=== PATIENT | female | born 1960 | race Caucasian/White ===

== ENCOUNTER → 2017-08-12 07:04 | Outpatient (CLI) | payer OTHER, SELFPAY ==
[2017-08-12 08:21] LABS: Erythrocyte Sedimentation Rate 65 mm/hr (0-30)
[2017-08-12 08:52] LABS: ALB/GLOB Ratio 0.7 RATIO (0.9-2.4); AST(SGOT) 102 U/L (15-37); Alanine Aminotransfer ALT/SGPT 90 U/L (13-56); Albumin, Serum 3.4 g/dL (3.2-5.0); Alkaline Phosphatase 148 U/L (45-117); Anion Gap 9 (5-15); BUN 14 mg/dL (7-18); BUN/Creat Ratio 18.6 RATIO (10-20); Calcium,Total 8.8 mg/dL (8.5-10.1); Chloride 104 mmol/L (98-107); Cholesterol 211 mg/dL (200); Creatinine, Serum 0.75 mg/dL (0.55-1.02); EST Glomerular Filtration Rate 85 mL/min (>60); Est Glom Filt Rate - Afr Amer 102 mL/min (>60); Globulin 4.8 g/dL (2.2-4.2); Glucose 115 mg/dL (70-110); High Density Lipoprotein 65 mg/dL; Potassium 4.2 mmol/L (3.5-5.1); Protein, Total 8.2 g/dL (6.4-8.2); Sodium Level 138 mmol/L (136-145); Thyroid Stim Hormone (TSH) 6.35 uIU/mL (0.358-3.74); Triglycerides 99 mg/dL; Very Low Density Lipoprotein 20 mg/dL (5-40)
[2017-08-13 07:46] LABS: Hep C Antibodies <0.1 s/co ratio (0.0-0.9)
[2017-08-13 14:25] LABS: ANTINUCLEAR ANTIBODIES DIRECT Positive (Negative)
== END ==
PROVIDERS: Family Provider Family Medicine; PCP Family Medicine; Visit Provider Family Medicine
DX: E03.9 Hypothyroidism, unspecified (principal); E78.2 Mixed hyperlipidemia
CPT/HCPCS: 36415; 80053; 80061; 84443; 85652; 86038; 86803

== ENCOUNTER → 2017-09-01 13:32 | Outpatient (CLI) | payer OTHER, SELFPAY ==
--- NOTE | 2017-09-01 13:34 | US_ITS ---
STUDY: THYROID ULTRASOUND REASON FOR EXAM: Female, 57 years old. Hypothyroidism. Multiple nodules. TECHNIQUE: Ultrasound evaluation of the thyroid was performed with real-time and static farnsworth-scale imaging. COMPARISON: 02/21/2017. FINDINGS: RIGHT LOBE: The right lobe of the thyroid gland measures 5.4 x 2.7 x 2.1 cm. There is a heterogeneous echotexture. Diffuse nodules are seen with the largest measuring 1.7 cm. This measures larger than on the previous exam. LEFT LOBE: The left lobe of the thyroid gland measures 8.3 x 2.3 x 2.2 cm. There is a heterogeneous echotexture. Diffuse nodules are seen with the largest measuring 1.3 cm. ISTHMUS: The isthmus measures 8 mm . The regional lymph nodes are normal. US/Thyroid IMPRESSION: Increasing size of a nodule in the right thyroid lobe. Consider biopsy. Increased size of the left lobe since prior study. Electronically Signed: Willy Stewart MD at 9:37 EST , Service support ,
== END ==
PROVIDERS: Family Provider Family Medicine; PCP Family Medicine; Visit Provider Physician Assistant
DX: E04.2 Nontoxic multinodular goiter (principal); E03.9 Hypothyroidism, unspecified
CPT/HCPCS: 76536

== ENCOUNTER → 2017-09-03 07:18 | Outpatient (CLI) | payer OTHER, SELFPAY ==
[2017-09-03 10:00] LABS: Free T3 2.1 pg/mL (2.18-3.98); T4 Free Direct 1.37 ng/dL (0.76-1.46); Thyroid Stim Hormone (TSH) 7.81 uIU/mL (0.358-3.74)
[2017-09-03 17:49] LABS: CRP 9.69 mg/L (0.0-3.0)
[2017-09-05 14:13] LABS: Anti-Mitochondrial AB <20.0 Units (0.0-20.0)
[2017-09-05 16:08] LABS: Albumin 3.3 g/dL (2.9-4.4); Alpha-1-Globulins 0.3 g/dL (0.0-0.4); Alpha-2-Globulins 0.7 g/dL (0.4-1.0); Gamma Globulin 1.8 g/dL (0.4-1.8); Immunoglobulin A 429 mg/dL (87-352); Immunoglobulin G 1496 mg/dL (700-1600); Immunoglobulin M 245 mg/dL (26-217); PROEL- TOTAL PROTEIN 7.3 g/dL (6.0-8.5); PROELU- Albumin, Urine 22.2 % (.); PROELU- Alpha-1-Globulin,Ur 1.8 % (.); PROELU- Alpha-2-Globulin,Ur 11.7 % (.); PROELU- Beta Globulin, Ur 36.1 % (.); PROELU- Gamma Globulin, Ur 28.2 % (.)
[2017-09-07 08:46] LABS: Anti-Smooth Muscle ABS 16 Units (0-19); Hep C Antibodies <0.1 s/co ratio (0.0-0.9)
[2017-09-12 13:21] LABS: Anti-Thyroglobulin AB 3.7 IU/mL (0.0-0.9); Thyroglobulin RIA 86 ng/mL (.); Thyroid Peroxidase AB 387 IU/mL (0-34)
== END ==
PROVIDERS: Family Provider Family Medicine; PCP Family Medicine; Visit Provider Physician Assistant
DX: E03.9 Hypothyroidism, unspecified (principal); K75.9 Inflammatory liver disease, unspecified
CPT/HCPCS: 36415; 82784; 83516; 84165; 84166; 84432; 84439; 84443; 84481; 86140; 86334; 86376; 86800; 86803

== ENCOUNTER → 2017-09-08 07:57 | Outpatient (CLI) | payer OTHER, SELFPAY ==
--- NOTE | 2017-09-08 07:59 | US_ITS ---
STUDY: ABDOMINAL ULTRASOUND - RIGHT UPPER QUADRANT REASON FOR VISIT: Female, 57 years old. History of hepatitis. TECHNIQUE: Ultrasound evaluation of the right upper quadrant was performed with real-time and static farnsworth-scale imaging. TECHNICAL QUALITY: Limited. Examination limited due to obesity. COMPARISON: Comparison is made with prior examination dated October 07, 2016. FINDINGS: Liver: The liver is enlarged and measures 19.9 cm. There is increased echogenicity consistent with fatty infiltration. The bile ducts are within normal limits. There is hepatic color flow. The direction of portal flow is hepatopetal. There is no demonstrated mass lesion. Gallbladder: The patient is status post cholecystectomy. Common Bile Duct (C.B.D.): The common bile duct measures 5.0 mm. Pancreas: Normal size of the head, body and tail of the pancreas. There is normal echogenicity of the pancreas. There is no demonstrated pancreatic mass or cyst. Right Kidney: Normal size of the right kidney. The right kidney measures 12.2 cm x 3.3 cm x 4.2 cm. Normal renal cortex. The right cortex measures 1.4 cm. There is no demonstrated renal mass or cyst. There is no right hydronephrosis. US/Liver IMPRESSION: Hepatomegaly. Fatty infiltration of the liver. The patient is status post cholecystectomy. Electronically Signed: Bryan Boyer MD at 10:45 EST Tel [phone], Service support ,
== END ==
PROVIDERS: Family Provider Family Medicine; PCP Family Medicine; Visit Provider Internal Medicine Gastroenterology
DX: K75.9 Inflammatory liver disease, unspecified (principal); K76.0 Fatty (change of) liver, not elsewhere classified; R16.0 Hepatomegaly, not elsewhere classified; Z90.49 Acquired absence of other specified parts of digestive tract
CPT/HCPCS: 76705

== ENCOUNTER → 2017-09-29 09:35 | Outpatient (CLI) | payer OTHER, SELFPAY ==
[2017-09-29 12:15] LABS: Color, Urine Yellow (Yellow); Glucose, Dipstick Normal (Normal); Ketone-Dipstick Negative (Negative); Leukocyte Esterase-Dipstick 25 /ul (Negative); Nitrite-Dipstick Negative (Negative); Occult Blood-Urine Negative /ul (Negative); Protein-Dipstick Negative (Negative); Urine Bilirubin Dipstick Negative (Negative); Urine Clarity Sl. Cloudy (Clear); Urine Urobilinogen Normal (Normal)
[2017-09-29 12:22] LABS: Absolute Lymphocyte Count 1.56 X10^3/ul (0.83-4.51); Absolute Neutrophil Count 4.3 X10^3/uL (2.0-7.7); Basophil# 0.01 X10^3/uL; Basophil% 0.2 % (0-1); Eosinophil# 0.11 X10^3/uL; Eosinophils% 1.7 % (0-5); Hematocrit 42.7 % (37-47); Hemoglobin 13.2 g/dl (12.0-15.0); Lymphocyte # 1.56 X10^3/ul (4.0); Lymphocyte % 24.1 % (19-41); Mean Corp Hgb Conc 30.9 g/gl (32-36); Mean Corpuscular Hgb 30.1 pg (27.0-32.0); Mean Corpuscular Volume 97.3 fL (81-99); Mean Platelet Vol. 12.7 fl (6.2-12.0); Monocyte# 0.45 X10^3/uL; Neutrophil # 4.31 X10^3/uL (2.7-7.7); Neutrophil % 66.7 % (47-70); Platelet Count 157 K/mm3 (150-450); RBC Distribution Width CV 13.4 % (11.6-14.6); RBC Distribution Width SD 47.8 fl (35.1-43.9); Red Blood Count 4.39 M/mm3 (4.2-5.4); White Blood Count 6.5 K/mm3 (4.4-11.0)
[2017-09-29 12:27] LABS: Protein, Urine (Random) 15.8 mg/dL (<11.9); Protein:Creat Ratio 80 mg/g CRE (0-200)
[2017-09-29 12:33] LABS: POSITIVE COUNT NO; POSITIVE DIFFERENTIAL NO; POSITIVE MORPHOLOGY NO
[2017-09-29 12:50] LABS: ALB/GLOB Ratio 0.8 RATIO (0.9-2.4); AST(SGOT) 92 U/L (15-37); Alanine Aminotransfer ALT/SGPT 95 U/L (13-56); Albumin, Serum 3.6 g/dL (3.2-5.0); Alkaline Phosphatase 150 U/L (45-117); Anion Gap 8 (5-15); BUN 11 mg/dL (7-18); BUN/Creat Ratio 15.1 RATIO (10-20); Calcium,Total 9.1 mg/dL (8.5-10.1); Chloride 104 mmol/L (98-107); Creatinine, Serum 0.73 mg/dL (0.55-1.02); EST Glomerular Filtration Rate 88 mL/min (>60); Est Glom Filt Rate - Afr Amer 106 mL/min (>60); Globulin 4.7 g/dL (2.2-4.2); Glucose 103 mg/dL (74-106); Potassium 4.4 mmol/L (3.5-5.1); Protein, Total 8.3 g/dL (6.4-8.2); Rheumatoid Factor < 10.0 IU/mL (<15); Sodium Level 137 mmol/L (136-145)
[2017-09-30 15:06] LABS: ANTINUCLEAR ANTIBODIES DIRECT Positive (Negative); Anti-dsDNA Ab <1 IU/mL (0-9)
[2017-10-01 03:22] LABS: Complement C3 149 mg/dL (82-167)
[2017-10-01 11:27] LABS: CCP IgG Antibodies 7 units (0-19); HEPATITIS B SURFACE AG Negative (Negative); Hep B Surface Antibodies Reactive (.); Hep C Antibodies <0.1 s/co ratio (0.0-0.9)
== END ==
PROVIDERS: Family Provider Family Medicine; PCP Family Medicine; Visit Provider Internal Medicine Rheumatology
DX: M06.4 Inflammatory polyarthropathy (principal); K21.9 Gastro-esophageal reflux disease without esophagitis; K76.0 Fatty (change of) liver, not elsewhere classified; M51.37 Other intervertebral disc degeneration, lumbosacral region; R76.8 Other specified abnormal immunological findings in serum
CPT/HCPCS: 36415; 80053; 81002; 82570; 84156; 85025; 86038; 86160; 86200; 86225; 86431; 86706; 86803; 87340

== ENCOUNTER → 2018-01-30 07:17 | Outpatient (CLI) | payer OTHER, SELFPAY ==
[2018-01-30 08:28] LABS: Free T3 2.3 pg/mL (2.18-3.98); Thyroid Stim Hormone (TSH) 3.84 uIU/mL (0.358-3.74)
== END ==
PROVIDERS: Family Provider Family Medicine; PCP Family Medicine; Visit Provider Physician Assistant
DX: E06.3 Autoimmune thyroiditis (principal); M06.4 Inflammatory polyarthropathy
CPT/HCPCS: 36415; 84439; 84443; 84481; 86140

== ENCOUNTER → 2018-03-23 11:02 | Outpatient (CLI) | payer OTHER, SELFPAY ==
[2018-03-23 12:44] LABS: Hemoglobin A1c 7.2 % (4.2-6.3)
== END ==
PROVIDERS: Family Provider Family Medicine; PCP Family Medicine
DX: E66.01 Morbid (severe) obesity due to excess calories (principal); R73.9 Hyperglycemia, unspecified
CPT/HCPCS: 36415; 83036

== ENCOUNTER → 2018-04-02 07:54 | Outpatient (CLI) | payer OTHER, SELFPAY ==
--- NOTE | 2018-04-02 07:58 | US_ITS ---
STUDY: THYROID ULTRASOUND REASON FOR EXAM: Female, 57 years old. Difficulty swallowing. Multinodular goiter. TECHNIQUE: Ultrasound evaluation of the thyroid was performed with real-time and static farnsworth-scale imaging. COMPARISON: Comparison is made with prior study dated September 01, 2017. FINDINGS: RIGHT LOBE: The right lobe of the thyroid gland is enlarged and measures 5.2 cm x 2.7 cm x 1.8 cm. There is a heterogeneous echotexture. There are 3 stable solid nodules in the right lobe of the thyroid. The largest measures 1.7 cm x 1.6 cm by 1.3 cm. LEFT LOBE: The left lobe of the thyroid gland is enlarged and measures 6.0 cm x 2.6 cm x 2.4 cm. There is a heterogeneous echotexture. Once again, 3 complex solid and cystic nodules are seen. The largest measures 1.3 cm x 1.3 cm x 0.9 cm. These are unchanged. ISTHMUS: The isthmus is enlarged and measures 7 mm. The regional lymph nodes are normal. US/Thyroid IMPRESSION: Enlarged and heterogeneous right and left lobes of thyroid gland with the 3 nodules in both lobes. These are unchanged. Electronically Signed: Bryan Boyer MD at 8:38 EDT Tel [phone], Service support ,
== END ==
PROVIDERS: Family Provider Family Medicine; PCP Family Medicine
DX: E04.2 Nontoxic multinodular goiter (principal); E03.8 Other specified hypothyroidism; E06.3 Autoimmune thyroiditis; F45.8 Other somatoform disorders
CPT/HCPCS: 76536

== ENCOUNTER 2018-12-17 08:40 | Emergency (ER) | payer OTHER, SELFPAY ==
[2018-12-04 14:29] VITALS: BMI 40.4
[2018-12-17 08:41] VITALS: BP 137/74; PULSE 68; RESP 16; TEMP 36.6; BMI 40.6
--- NOTE | 2018-12-17 08:57 | CT_ITS ---
STUDY: CT CERVICAL SPINE WITHOUT CONTRAST REASON FOR EXAM: Female, 58 years old. Neck pain following injury. RADIATION DOSAGE (If Supplied By Facility): CTDIvol = ( 21.71 ) mGy, DLP = ( 508.61 ) mGycm TECHNIQUE: High resolution transaxial imaging was performed without contrast material. Sagittal and coronal images were reconstructed. Individualized dose optimization techniques were used for this CT. COMPARISON: None FINDINGS: Normal craniovertebral junction. Normal anterior atlantoaxial articulation. Normal odontoid process. There is straightening of the normal cervical lordosis. Normal vertebral bodies and posterior osseous elements. C2-3: Normal endplates. Normal disc height and morphology. Normal central canal and intervertebral neuroforamina. C3-4: Mild degree of disc space narrowing. Anterior spondylosis with kissing osteophytes. C4-5: Moderate degree of disc space narrowing. Spondylosis. C5-6: Prior anterior fusion at the C5-C6 level. Dense metallic artifacts causes limited visualization. C6-7: Cannot assess due to metallic artifact. Normal visualized soft tissue structures. CT/Spine Cervical without Contras IMPRESSION: Straightening of the normal lordosis. Fusion at the C5-C6 level with anterior screw and plate fixation device. Metallic artifacts at that site limit the evaluation. Electronically Signed: Bryan Boyer, at 9:35 EDT , Service support ,
--- NOTE | 2018-12-17 08:58 | ED.VISSUMM ---
- ER Visit Summary Date of Service: 12/17/18 Chief Complaint: Fall History of Present Illness: The patient is a 58 F who presents after a fall that occurred today. Patient states she was sitting on a stool when she fell off and hit her head on the counter. Patient denies any loss of consciousness. Patient does admit to a headache and neck pain. Patient admits to some tingling in her head where she hit. Patient states she felt dizzy after the fall. Patient denies any loss of consciousness. Patient states she was able to ambulate after the fall. Patient admits to some nausea but denies any vomiting. Patient denies any weakness. Patient states the pain in her neck is over the posterior aspect of her neck. Patient states she has had 2 cervical fusions. Physical Examination: Vital signs are stable. Patient is afebrile. Patient is in no acute distress. Cranial nerves II through XII are intact. Strength is 5/5 bilaterally in the upper and lower extremities. There are no sensory deficits noted. There is good range of motion in the upper and lower extremities. Pupils are equal, round, and reactive to light bilaterally. Oral mucosa is pink and moist. Trachea is midline. Heart was regular rate and rhythm. Lungs are clear and equal bilaterally. Abdomen is soft and nontender. There is some tenderness over the occiput and cervical spine. There is no bony crepitance or step-off. Cervical collar is in place. Test Results: CT scan of the cervical spine was obtained. There is no acute fracture or spondylolisthesis. There is artifact from the prior fusion but there is no other abnormality around the prior fusion. CT scan of the brain was not indicated since the patient had no loss of consciousness, has no neurologic deficits, and is not on any anticoagulants. Emergency Department Course and Treatment: Patient was instructed to use ice to the area. Patient was instructed to take Tylenol or ibuprofen as needed for pain. Patient was given head injury instructions. Patient was instructed to follow-up with her primary care physician in 5 to 7 days. Patient understood and was agreeable with the plan. All questions were answered. Disposition: Discharge home Impression: 1. Acute cervical strain 2. Closed head injury This note was generated with [email or web address] software. It may contain incorrect words, spelling, and punctuation that were not noted in review of the chart prior to signing ED Disposition - Plan for ED Patient: Disposition: Home or Assisted Living Diagnosis: Acute cervical myofascial strain, Closed head injury Instructions: ED Head Injury Closed Referrals: Zeeshan Chao MD [Primary Care Provider] - 5-7 Days
== END 2018-12-17 10:24 | disposition home or self-care (01) ==
PROVIDERS: Emergency Provider Emergency Medicine; Family Provider Family Medicine; PCP Family Medicine
DX: S09.90XA Unspecified injury of head, initial encounter (principal); S16.1XXA Strain of muscle, fascia and tendon at neck level, initial encounter; W08.XXXA Fall from other furniture, initial encounter; Y93.89 Activity, other specified; Y92.9 Unspecified place or not applicable; E03.9 Hypothyroidism, unspecified; Z79.899 Other long term (current) drug therapy
CPT/HCPCS: 72125; 99282

== ENCOUNTER → 2019-01-01 09:58 | Outpatient (CLI) | payer OTHER, SELFPAY ==
[2018-12-17 08:41] VITALS: BMI 40.6
--- NOTE | 2019-01-01 10:10 | RAD_ITS ---
STUDY: X-RAY CHEST REASON FOR EXAM: Female, 58 years old. Cough and shortness of breath times several days TECHNIQUE: PA and lateral views of the chest. COMPARISON: None. FINDINGS: The lungs are clear and expanded. There is no demonstrated pleural abnormality. Normal size heart. Normal mediastinum and kay. Normal visualized pulmonary arteries. Normal visualized aortic arch and descending thoracic aorta. Normal visualized thoracic spine. Normal visualized ribs, clavicles, and shoulders. A fusion device is seen overlying the lower cervical region. There is no demonstrated abnormality of the visualized soft tissue structures of the upper abdomen. RAD/Chest PA and Lateral IMPRESSION: No acute cardiopulmonary disease process is seen. Electronically Signed: Phan Pham MD at 17:06 EDT , Service support ,
== END ==
PROVIDERS: Family Provider Family Medicine; PCP Family Medicine; Referring Provider Physician Assistant; Visit Provider Physician Assistant
DX: R05 Cough (principal); R06.02 Shortness of breath
CPT/HCPCS: 71046

== ENCOUNTER → 2019-01-05 07:00 | Outpatient (CLI) | payer OTHER, SELFPAY ==
[2018-12-17 08:41] VITALS: BMI 40.6
[2019-01-05 08:01] LABS: Microalbumin,Random Urine 13.7 mg/L (NO RANGE EST.); Microalbumin:Creatinine Ratio 5.5 mg/g CRE (<30 mg/g CRE)
[2019-01-05 08:23] LABS: Hemoglobin A1c 7.3 % (4.2-6.3)
[2019-01-05 08:29] LABS: ALB/GLOB Ratio 0.7 RATIO (0.9-2.4); AST(SGOT) 79 U/L (15-37); Alanine Aminotransfer ALT/SGPT 70 U/L (13-56); Albumin, Serum 3.2 g/dL (3.2-5.0); Alkaline Phosphatase 131 U/L (45-117); Anion Gap 6 (5-15); BUN 14 mg/dL (7-18); BUN/Creat Ratio 17.6 RATIO (10-20); Calcium,Total 8.7 mg/dL (8.5-10.1); Chloride 106 mmol/L (98-107); Cholesterol 221 mg/dL (200); EST Glomerular Filtration Rate 79 mL/min (>60); Est Glom Filt Rate - Afr Amer 95 mL/min (>60); Globulin 4.3 g/dL (2.2-4.2); Glucose 124 mg/dL (74-106); High Density Lipoprotein 72 mg/dL; Potassium 4.1 mmol/L (3.5-5.1); Protein, Total 7.5 g/dL (6.4-8.2); Sodium Level 138 mmol/L (136-145); T4 Free Direct 1.11 ng/dL (0.76-1.46); Thyroid Stim Hormone (TSH) 6.41 uIU/mL (0.358-3.74); Triglycerides 96 mg/dL; Very Low Density Lipoprotein 19 mg/dL (5-40)
== END ==
PROVIDERS: Family Provider Family Medicine; PCP Family Medicine; Referring Provider Family Medicine; Visit Provider Family Medicine
DX: E78.2 Mixed hyperlipidemia (principal); E03.8 Other specified hypothyroidism; E06.3 Autoimmune thyroiditis; R73.9 Hyperglycemia, unspecified; Z79.899 Other long term (current) drug therapy
CPT/HCPCS: 36415; 80053; 80061; 82043; 82570; 83036; 84439; 84443

== ENCOUNTER → 2019-01-19 16:57 | Outpatient (CLI) | payer OTHER, SELFPAY ==
--- NOTE | 2019-01-19 16:59 | BI_ITS ---
MAMMOGRAPHY - BILATERAL SCREENING REASON FOR EXAM: Female, 58 years old. Routine annual screening examination. PERTINENT HISTORY: Grandmother with breast cancer. Aunts with breast cancer. Prior left stereotactic breast biopsies. TECHNIQUE: Digital bilateral breast myrna (3D mammographic acquisition) in the CC and MLO projections. 2-D mediolateral oblique (MLO) and craniocaudad (CC) views of both breasts were obtained. CAD: Full Field Digital Mammography with Computer Added Detection was performed. COMPARISON: Comparison is made with prior study dated February 26, 2017 and November 14, 2015. FINDINGS: Breast Composition: There are scattered areas of fibroglandular density. There are no dominant masses or suspicious calcifications. Stable small bilateral axillary lymph nodes. A tissue clip marker is once again seen in the mid medial anterior aspect of the left breast as well as in the upper lateral aspect of the breast. No other significant abnormalities are identified. There has been no significant change since the prior study. BI/SCREEN MAMM (CAD) W/MYRNA BILAT IMPRESSION: Stable bilateral screening mammogram. Yearly follow-up mammogram recommended. (A) ASSESSMENT CATEGORY: BIRADS Category 2: Benign. A letter regarding these results will be sent to the patient by the facility within 30 days. Approximately 10% of breast cancers are not detected by mammography. A normal mammogram should not delay biopsy of a clinically suspicious abnormality. [id number] Electronically Signed: Bryan Boyer, at 8:54 EDT , Service support ,
== END ==
PROVIDERS: Family Provider Family Medicine; PCP Family Medicine; Referring Provider Physician Assistant; Visit Provider Physician Assistant
DX: Z12.31 Encounter for screening mammogram for malignant neoplasm of breast (principal); Z80.3 Family history of malignant neoplasm of breast
CPT/HCPCS: 77063; 77067

== ENCOUNTER → 2019-01-22 07:46 | Outpatient (CLI) | payer OTHER, SELFPAY ==
[2019-01-22 10:08] LABS: AST(SGOT) 79 U/L (15-37); Alanine Aminotransfer ALT/SGPT 64 U/L (13-56); Albumin, Serum 3.4 g/dL (3.2-5.0); Alkaline Phosphatase 121 U/L (45-117); Bilirubin, Direct 0.12 mg/dL (0.00-0.30); Cholesterol 243 mg/dL (200); GGTP 98 U/L (5-55); Globulin 4.1 g/dL (2.2-4.2); Glucose 113 mg/dL (74-106); High Density Lipoprotein 76 mg/dL; Protein, Total 7.5 g/dL (6.4-8.2); Thyroid Stim Hormone (TSH) 4.27 uIU/mL (0.358-3.74); Triglycerides 88 mg/dL; Very Low Density Lipoprotein 18 mg/dL (5-40)
[2019-01-23 08:13] LABS: HEPATITIS B SURFACE AG Negative (Negative); Hepatitis A IgM Antibody Negative (Negative); Hepatitis B Core AB IgM Negative (Negative)
[2019-01-24 14:02] LABS: Hep C Antibodies <0.1 s/co ratio (0.0-0.9)
== END ==
PROVIDERS: Family Provider Family Medicine; PCP Family Medicine; Referring Provider Family Medicine; Visit Provider Family Medicine
DX: E11.9 Type 2 diabetes mellitus without complications (principal); E03.9 Hypothyroidism, unspecified; E78.2 Mixed hyperlipidemia; R74.8 Abnormal levels of other serum enzymes
CPT/HCPCS: 36415; 80061; 80074; 80076; 82947; 82977; 84443

== ENCOUNTER → 2019-04-05 07:26 | Outpatient (CLI) | payer OTHER, SELFPAY ==
[2019-04-05 09:33] LABS: Hemoglobin A1c 7.2 % (4.2-6.3)
[2019-04-05 09:42] LABS: ALB/GLOB Ratio 0.8 RATIO (0.9-2.4); AST(SGOT) 76 U/L (15-37); Alanine Aminotransfer ALT/SGPT 67 U/L (13-56); Albumin, Serum 3.3 g/dL (3.2-5.0); Alkaline Phosphatase 147 U/L (45-117); Anion Gap 7 (5-15); BUN 11 mg/dL (7-18); BUN/Creat Ratio 14.6 RATIO (10-20); Chloride 104 mmol/L (98-107); Creatinine, Serum 0.75 mg/dL (0.55-1.02); EST Glomerular Filtration Rate 84 mL/min (>60); Est Glom Filt Rate - Afr Amer 102 mL/min (>60); Globulin 4.4 g/dL (2.2-4.2); Glucose 127 mg/dL (74-106); Potassium 4.2 mmol/L (3.5-5.1); Protein, Total 7.7 g/dL (6.4-8.2); Sodium Level 138 mmol/L (136-145); Thyroid Stim Hormone (TSH) 9.37 uIU/mL (0.358-3.74)
== END ==
PROVIDERS: Family Provider Family Medicine; PCP Family Medicine; Referring Provider Registered Nurse; Visit Provider Registered Nurse
DX: E04.2 Nontoxic multinodular goiter (principal); E03.8 Other specified hypothyroidism; E06.3 Autoimmune thyroiditis; E11.9 Type 2 diabetes mellitus without complications
CPT/HCPCS: 36415; 80053; 83036; 84443

== ENCOUNTER → 2019-04-09 13:24 | Outpatient (CLI) | payer OTHER, SELFPAY ==
--- NOTE | 2019-04-09 13:26 | CDU_ITS ---
Reason For Study: Bruit of Rt carotid artery Rt. Velocities/BP Lt. Velocities/BP Prox CCA 96.9/21.3 cm/sec. Prox CCA 152.1/22.5 cm/sec. Mid CCA 100.8/17.3 cm/sec. Mid CCA 98.6/17.6 cm/sec. Dist CCA 85.1/16 cm/sec. Dist CCA 109.7/13.9 cm/sec. Prox ICA 87.6/13.9 cm/sec. Prox ICA 54.2/14.6 cm/sec. Mid ICA 74/17.6 cm/sec. Mid ICA 88.3/26.7 cm/sec. Dist ICA 87.6/23.7 cm/sec. Dist ICA 93.8/26.7 cm/sec. Rt. ICA/CCA = 0.9. Lt. ICA/CCA = 0.9. Prox ECA 106.5/9.7 cm/sec. Prox ECA 117.4/11.5 cm/sec. Rt. Vert. 44.3/9.1 cm/sec. Lt. Vert. 61.9/13.5 cm/sec. Right Extracranial There is homogeneous, smooth atherosclerotic plaque noted in the right common carotid artery. There is intimal thickening but no significant atherosclerotic plaque noted in the right internal carotid artery. There is intimal thickening but no significant atherosclerotic plaque noted in the right external carotid artery. Antegrade flow is noted in the right vertebral artery. Left Extracranial There is homogeneous, smooth atherosclerotic plaque noted in the left common carotid artery. There is intimal thickening but no significant atherosclerotic plaque noted in the left internal carotid artery. There is intimal thickening but no significant atherosclerotic plaque noted in the left external carotid artery. Antegrade flow is noted in the left vertebral artery. Procedure Carotid Duplex [id number]. Exam performed in department. Interpretation Summary No significant atherosclerotic plaque or stenosis noted in the internal carotid arteries bilaterally. Flow within the vertebral arteries is antegrade bilaterally. Ordering Physician: Cynthia Mac Referring Physician: Zeeshan Chao Performed By: Keyana Hester RVT
--- NOTE | 2019-04-09 14:13 | US_ITS ---
STUDY: THYROID ULTRASOUND REASON FOR EXAM: Female, 58 years old. Nodules TECHNIQUE: Ultrasound evaluation of the thyroid was performed with real-time and static farnsworth-scale imaging. COMPARISON: 04/02/2018 FINDINGS: RIGHT LOBE: The right lobe of the thyroid gland measures 4.8 x 2.3 x 1.9 cm. There is a heterogeneous echotexture. Stable solid nodules, largest again measures 1.7 x 1.5 x 1.5 cm LEFT LOBE: The left lobe of the thyroid gland measures 5.5 x 2.2 x 2.5 cm. There is a heterogeneous echotexture. There is a complex 1.4 x 1.4 x 1.3 cm nodule. ISTHMUS: The isthmus measures 3 mm. The regional lymph nodes are normal. US/Thyroid IMPRESSION: Stable heterogeneous thyroid gland with enlargement of the left lobe. Stable bilateral nodules. Findings again suggestive of goiter, little significant interval change since the previous Electronically Signed: Shamir Norman MD at 15:58 EDT , Service support ,
== END ==
PROVIDERS: Family Provider Family Medicine; PCP Family Medicine; Referring Provider Registered Nurse; Visit Provider Registered Nurse
DX: E04.2 Nontoxic multinodular goiter (principal); R09.89 Other specified symptoms and signs involving the circulatory and respiratory systems
CPT/HCPCS: 76536; 93880

== ENCOUNTER → 2019-04-19 08:16 | Outpatient (CLI) | payer OTHER, SELFPAY ==
--- NOTE | 2019-04-19 08:18 | US_ITS ---
STUDY: ABDOMINAL ULTRASOUND - RIGHT UPPER QUADRANT REASON FOR VISIT: Female, 58 years old elevated liver function tests. TECHNIQUE: Ultrasound evaluation of the right upper quadrant was performed with real-time and static farnsworth-scale imaging. TECHNICAL QUALITY: Adequate. COMPARISON: 09/08/2017 FINDINGS: Liver: The liver measures 20.2 cm. There is increased echogenicity consistent with fatty infiltration. The bile ducts are within normal limits. There is hepatic color flow. The direction of portal flow is hepatopetal. There is no demonstrated mass lesion. Gallbladder: The patient is status post cholecystectomy.. Common Bile Duct (C.B.D.): The common bile duct measures 5 mm. Pancreas: Normal size of the head, body and tail of the pancreas. There is normal echogenicity of the pancreas. There is no demonstrated pancreatic mass or cyst. Right Kidney: Normal size of the right kidney. The right kidney measures 11.8 cm. Normal renal cortex. The right cortex measures 1.2 cm. There is no demonstrated renal mass or cyst. There is no right hydronephrosis. US/Liver IMPRESSION: Status post cholecystectomy with fatty infiltration of liver. Electronically Signed: Rodríguez Pena MD at 15:27 EDT Tel , Service support ,
== END ==
PROVIDERS: Family Provider Family Medicine; PCP Family Medicine; Referring Provider Registered Nurse; Visit Provider Registered Nurse
DX: K76.0 Fatty (change of) liver, not elsewhere classified (principal); R94.5 Abnormal results of liver function studies
CPT/HCPCS: 76705

== ENCOUNTER → 2020-01-12 08:01 | Outpatient (CLI) | payer OTHER, SELFPAY ==
[2020-01-12 07:42] VITALS: BMI 40.6
--- NOTE | 2020-01-12 08:02 | RAD_ITS ---
STUDY: X-RAY CHEST REASON FOR EXAM: Female, 59 years old. COUGH TECHNIQUE: PA and lateral views of the chest. COMPARISON: Comparison is made with prior study dated January 01, 2019. FINDINGS: Minimal increased markings in the lingular segment of the left upper lobe. This may represent focal infiltrate. Follow-up is recommended. There is no demonstrated pleural abnormality. Normal size heart. Normal mediastinum and kay. Normal visualized pulmonary arteries. Normal visualized aortic arch and descending thoracic aorta. There are diffuse degenerative changes of the visualized thoracic spine. Prior fusion of the lower cervical spine. Normal visualized ribs, clavicles, and shoulders. There is no demonstrated abnormality of the visualized soft tissue structures of the upper abdomen. RAD/Chest PA and Lateral IMPRESSION: Mild increased markings in the lingular segment of the left upper lobe. Focal infiltration should be ruled out. Follow-up is recommended. Electronically Signed: Bryan Boyer, at 8:30 EDT , Service support ,
== END ==
PROVIDERS: PCP Family Medicine; Referring Provider Physician Assistant; Visit Provider Physician Assistant
DX: R06.02 Shortness of breath (principal)
CPT/HCPCS: 71046

== ENCOUNTER → 2020-01-18 12:51 | Outpatient (CLI) | payer OTHER, SELFPAY ==
[2020-01-12 07:42] VITALS: BMI 40.6
--- NOTE | 2020-01-18 12:51 | CT_ITS ---
STUDY: CT CHEST WITHOUT CONTRAST REASON FOR EXAM: Female, 59 years old. VALARIE INFILTRATE FOUND ON CXR RADIATION DOSAGE (If Supplied By Facility): CTDIvol = ( 20.04 ) mGy, DLP = ( 680.88 ) mGycm TECHNIQUE: Transaxial imaging was performed without the administration of intravenous contrast material. Multiplanar coronal and sagittal images were reformatted. Individualized dose optimization techniques were used for this CT. COMPARISON: Comparison is made with prior chest radiograph dated January 12, 2020. FINDINGS: Inhomogeneous enlargement of both lobes of the thyroid gland with a substernal extension on the left side suggestive of goiter is enlarged. Minimal groundglass appearance in the lateral aspect of the lingular segment of the left upper lobe. This may represent an area of scarring or atelectasis. Follow-up is recommended. Linear scarring is seen along the medial aspect of the right middle lobe as well as at the left lung base. There is no demonstrated pleural abnormality. Normal heart and pericardium. There are multiple small lymph nodes within the mediastinum, which are normal in size and morphology most compatible with reactive lymph hyperplasia. Normal hilar regions. Normal unenhanced pulmonary arteries. There is atherosclerotic calcification of the aortic arch . There are multi-level degenerative changes of the thoracic spine. Prior fusion in the lower cervical spine. There is no demonstrated abnormality of the visualized upper abdomen. CT/Chest without Contrast IMPRESSION: Minimal groundglass appearance in the lateral aspect of the lingular segment of the left upper lobe. This may represent either scarring or atelectasis. Linear scarring is also seen along the medial aspect of the right middle lobe as well as in the left lung base. Electronically Signed: Bryan Boyer, at 13:28 EDT , Service support ,
== END ==
PROVIDERS: PCP Family Medicine; Referring Provider Physician Assistant; Visit Provider Physician Assistant
DX: R91.8 Other nonspecific abnormal finding of lung field (principal)
CPT/HCPCS: 71250

== ENCOUNTER → 2020-01-26 11:10 | Outpatient (CLI) | payer OTHER, SELFPAY ==
[2020-01-26 09:51] VITALS: BMI 39.0
[2020-01-26 12:36] LABS: BNP,B-Type NATRIURETIC PEPTIDE 21.5 pg/mL (0-100)
[2020-01-26 12:47] LABS: Thyroid Stim Hormone (TSH) 5.23 uIU/mL (0.358-3.74)
== END ==
PROVIDERS: PCP Family Medicine; Referring Provider Internal Medicine Cardiovascular Disease; Visit Provider Internal Medicine Cardiovascular Disease
DX: R06.00 Dyspnea, unspecified (principal)
CPT/HCPCS: 36415; 83880; 84443

== ENCOUNTER → 2020-02-07 06:28 | Outpatient (CLI) | payer OTHER, SELFPAY ==
[2020-01-26 09:51] VITALS: BMI 39.0
--- NOTE | 2020-02-07 06:29 | ECHOD_ITS ---
Reason For Study: Dyspnea/SOB Procedure This was a 2D Doppler, Color Flow transthoracic echocardiogram. Exam performed in department. Left Ventricle Normal LV size. Left ventricular systolic function is normal. The estimated ejection fraction is 65 %. Stage 2 diastolic dysfunction. No regional wall motion abnormalities noted. Right Ventricle Normal RV size. Normal systolic function. Atria The left atrium is mildly enlarged. Normal right atrium. Mitral Valve There is mild mitral annular calcification. Tricuspid Valve Normal tricuspid valve. Mild (1+) tricuspid valve insufficiency. Pulmonary artery systolic pressure is 31 mmHg. Pulmonic Valve Normal pulmonic valve. Great Vessels Normal aortic root. The pulmonary artery is normal size. Normal inferior vena cava. Pericardium/Pleural No pericardial effusion. MMode/2D Measurements & Calculations LVIDd: 5.4 cm IVSd: 1.0 cm LVOT diam: 2.0 cm LVIDs: 3.1 cm LVPWd: 1.6 cm LVOT area: 3.1 cm2 FS: 42.7 % LA dimension: 4.4 cm LAV(MOD-bp): 60.4 ml LA A4 area: 21.1 cm2 LAV(MOD-bp) Indexed: 25.1 ml/m2 LAV(MOD-sp2): 58.2 ml LAV(MOD-sp4): 60.9 ml RA A4 area: 18.1 cm2 Time Measurements MV dec time: 0.22 sec Doppler Measurements & Calculations MV E max ralph: 109.7 cm/sec Lat Peak E' Ralph: 6.3 cm/sec Med Peak E' Ralph: 6.6 cm/sec MV A max ralph: 88.2 cm/sec E/E' lat: 17.5 E/E' med: 16.7 MV E/A: 1.2 MV V2 max: 120.4 cm/sec MV P1/2t max ralph: 122.3 cm/sec Ao V2 max: 199.3 cm/sec MV max P.8 mmHg MV P1/2t: 86.1 msec Ao max P.9 mmHg MV V2 mean: 53.4 cm/sec MV dec slope: 416.0 cm/sec2 JANNETTE(V,D): 2.2 cm2 MV mean P.4 mmHg MVA(P1/2t): 2.6 cm2 MV V2 VTI: 43.8 cm LV V1 max: 141.5 cm/sec PA V2 max: 116.5 cm/sec TR max ralph: 265.8 cm/sec LV V1 max P.0 mmHg TR max P.3 mmHg Interpretation Summary Normal LV size. Left ventricular systolic function is normal. The estimated ejection fraction is 65 %. Stage 2 diastolic dysfunction. Pulmonary artery systolic pressure is 31 mmHg. Compared to prior study, there is no significant change. Ordering Physician: Chano Mclaughlin Referring Physician: Chano Mclaughlin Performed By: Kevin Rhodes, VINOD
--- NOTE | 2020-02-07 12:19 | STRESSREP ---
Stress Test Report Pharmacologic myocardial perfusion stress test. 59-year-old lady with a history of palpitations. Stress protocol: Resting EKG demonstrates sinus bradycardia with a rate of 52 bpm. Resting blood pressure is 142/74 mmHg. 0.4 mg of regadenoson was infused per usual protocol followed by rapid intravenous saline flush injection continuous EKG monitoring was performed. The maximum heart rate attained was 78 bpm which was 48% of max impacted heart rate the maximum workload was 1 metabolic equivalent. At rest there were no ST or T wave changes noted to suggest abnormal flow reserve at peak infusion nonspecific ST-T wave changes were noted with no meet the criteria for ischemia. The resting blood pressure is 142/74 with a final blood pressure 132/70 mmHg. Myocardial perfusion protocol. 14.5 mCi of technetium 99m sestamibi was injected at rest. 0.4 mg of regadenoson was infused per usual protocol peak infusion 44.4 mCi of technetium 99m sestamibi was injected stress images were obtained stress and rest images were reconstructed and compared in the short axis vertical long horizontal long axis. Gated images were also obtained P Perfusion SPECT analysis: Review of the stress images demonstrate a moderate to large perfusion defect noted involving the anteroseptal wall and lateral wall. The resting images demonstrate a moderate amount of improvement. Anterior breast wall attenuation artifact cannot be complete excluded but the above appears to be more suggestive of ischemia. Gated SPECT analysis: The gated ejection fraction is noted to be 70%. Conclusion: Abnormal pharmacologic myocardial perfusion stress test with evidence of possible anterior ischemia. Preserved ejection fraction.
== END ==
PROVIDERS: PCP Family Medicine; Referring Provider Internal Medicine Cardiovascular Disease; Visit Provider Internal Medicine Cardiovascular Disease
DX: R06.02 Shortness of breath (principal)
CPT/HCPCS: 78452; 93017; 93306; A9500; A4216; J2785

== ENCOUNTER → 2020-02-08 07:08 | Outpatient (CLI) | payer OTHER, SELFPAY ==
[2020-01-26 09:51] VITALS: BMI 39.0
[2020-02-08 07:43] LABS: International Normalized Ratio 1.2; Prothrombin Time (Protime)PT. 15.1 SECONDS (11.7-14.9)
[2020-02-08 08:06] LABS: Anion Gap 5 (5-15); BUN 9 mg/dL (7-18); BUN/Creat Ratio 10.9 RATIO (10-20); Calcium,Total 9.3 mg/dL (8.5-10.1); Chloride 106 mmol/L (98-107); Creatinine, Serum 0.83 mg/dL (0.55-1.02); EST Glomerular Filtration Rate 75 mL/min (>60); Est Glom Filt Rate - Afr Amer 91 mL/min (>60); Glucose 129 mg/dL (74-106); Sodium Level 137 mmol/L (136-145)
== END ==
PROVIDERS: PCP Family Medicine; Referring Provider Internal Medicine Cardiovascular Disease; Visit Provider Internal Medicine Cardiovascular Disease
DX: R94.31 Abnormal electrocardiogram [ECG] [EKG] (principal); R06.00 Dyspnea, unspecified; R00.2 Palpitations; R00.1 Bradycardia, unspecified; R06.02 Shortness of breath; E78.5 Hyperlipidemia, unspecified; R94.39 Abnormal result of other cardiovascular function study
CPT/HCPCS: 36415; 80048; 85610

== ENCOUNTER → 2020-02-10 07:06 | Outpatient (CLI) | payer OTHER, SELFPAY ==
[2020-01-26 09:51] VITALS: BMI 39.0
[2020-02-10 07:49] LABS: Absolute Lymphocyte Count 1.22 X10^3/uL (0.83-4.51); Absolute Neutrophil Count 3.1 X10^3/uL (2.0-7.7); Basophil# 0.01 X10^3/uL; Basophil% 0.2 % (0-1); Eosinophil# 0.12 X10^3/uL; Eosinophils% 2.5 % (0-5); Hematocrit 43.3 % (37-47); Hemoglobin 13.4 g/dL (12.0-15.0); Lymphocyte # 1.22 X10^3/ul (4.0); Lymphocyte % 25.8 % (19-41); Mean Corp Hgb Conc 30.9 g/dL (32-36); Mean Corpuscular Hgb 29.8 pg (27.0-32.0); Mean Corpuscular Volume 96.4 fL (81-99); Mean Platelet Vol. 11.5 fl (6.2-12.0); Monocyte% 6.4 % (0-10); NRBC Flagged by Analyzer 0 % (0-5); Neutrophil # 3.06 X10^3/uL (2.7-7.7); Neutrophil % 64.9 % (47-70); Platelet Count 101 K/mm3 (150-450); RBC Distribution Width CV 12.3 % (11.6-14.6); RBC Distribution Width SD 43.9 fl (35.1-43.9); Red Blood Count 4.49 M/mm3 (4.2-5.4); White Blood Count 4.7 K/mm3 (4.4-11.0)
[2020-02-10 08:30] LABS: ALB/GLOB Ratio 0.8 RATIO (0.9-2.4); AST(SGOT) 70 U/L (15-37); Alanine Aminotransfer ALT/SGPT 52 U/L (13-56); Albumin, Serum 3.3 g/dL (3.2-5.0); Alkaline Phosphatase 127 U/L (45-117); Anion Gap 4 (5-15); BUN 13 mg/dL (7-18); BUN/Creat Ratio 15.9 RATIO (10-20); Calcium,Total 9.1 mg/dL (8.5-10.1); Chloride 104 mmol/L (98-107); Cholesterol 243 mg/dL (200); Creatinine, Serum 0.82 mg/dL (0.55-1.02); EST Glomerular Filtration Rate 76 mL/min (>60); Est Glom Filt Rate - Afr Amer 92 mL/min (>60); Globulin 4.4 g/dL (2.2-4.2); Glucose 132 mg/dL (74-106); High Density Lipoprotein 80 mg/dL; Magnesium 2.2 mg/dL (1.6-2.6); Potassium 4.1 mmol/L (3.5-5.1); Protein, Total 7.7 g/dL (6.4-8.2); Sodium Level 136 mmol/L (136-145); T4 Free Direct 1.13 ng/dL (0.76-1.46); Thyroid Stim Hormone (TSH) 3.26 uIU/mL (0.358-3.74); Triglycerides 80 mg/dL; Very Low Density Lipoprotein 16 mg/dL (5-40)
== END ==
PROVIDERS: PCP Family Medicine; Referring Provider Registered Nurse; Visit Provider Registered Nurse
DX: E78.2 Mixed hyperlipidemia (principal); E11.9 Type 2 diabetes mellitus without complications; E03.9 Hypothyroidism, unspecified; R53.83 Other fatigue; R00.1 Bradycardia, unspecified
CPT/HCPCS: 36415; 80053; 80061; 83036; 83735; 84439; 84443; 85025

== ENCOUNTER 2020-02-14 08:55 | Day surgery (SDC) | payer OTHER, SELFPAY ==
[2020-01-26 09:51] VITALS: BMI 39.0
[2020-02-11 08:29] VITALS: BMI 39.0
--- NOTE | 2020-02-14 10:27 | CL.D_ITS ---
Patient Name: MARYLOU MARIE Study Date: 02/14/2020 Performing: Chano Mclaughlin MD Ht: 70.86 inches 180 cm : 1960 Wt: 279.99 lbs 127 kg Age: 59 Gender: female BSA: 2.43 PROCEDURE(S) PERFORMED [id number]/COR/LV CLINICAL PROFILE AND INDICATIONS Indications: Suspected CAD, ACS <= 24 hrs Heart Failure: None Stress/Imaging Date: 02/07/2020Stress Test with SPECT MPI: Indeterminant CAD Presentations: Stable angina. CONCLUSIONS Normal coronary arteries Normal LV size, wall motion,and systolic function RECOMMENDATIONS Medical therapy DESCRIPTION OF PROCEDURE The patient arrived to the procedure lab. The risks and benefits of the procedure as well as a full d escription of our services here and current unavailability of surgical backup were fully explained to the patient and/or their significant other prior to the catheterization. The Timeout was completed, verifying the correct patient and procedure. The patient's procedural site was prepped and draped in the usual fashion. Local anesthetic was given subcutaneously to right radial region with Lidocaine 2% . Using a modified Seldinger technique, arterial access was obtained via the right radial artery, a 6 Fr sheath was inserted. Left Coronary Artery selective angiography was performed in multiple views u sing a 5 Fr. 4.0 Clinton catheter. Right Coronary Artery selective angiography was then performed in mu ltiple views using a 5 Fr. 4.0 Clinton catheter. Left Ventriculography was performed in CHASE projection using a 5 Fr. Pigtail catheter. LV to AO pullback pressures were then recorded.The arterial sheath was pulled and a TR Band was applied for hemostasis CORONARY ANGIOGRAPHY DOMINANCE: Right Dominant LEFT HEART ASSESSMENT Left Ventricular Ejection Fraction: by LV Gram 60 % Normal LV wall motion Normal Left Ventricular systolic function Normal Left Ventricular systolic function LEFT MAIN: Angiographically normal LEFT ANTERIOR DESCENDING ARTERY: Angiographically normal CIRCUMFLEX ARTERY: Angiographically normal RIGHT CORONARY ARTERY: Angiographically normal COMPLICATIONS No Complications PROCEDURE MEDICATIONS Fentanyl 50 mcg IV Versed 1 mg IV Oxygen: 2 L/min via nasal cannula Heparin diluted in 23cc Heparinized saline. Patient given 10cc IA of this solution. 02/14/2020 10:11:4 9 Verapamil 2.5mg, Ntg 100mcgs, 2000 units of Heparin diluted in 23cc Heparinized saline. Patient give n 10cc IA of this solution. 02/14/2020 10:11:49 SUMMARY OF HEMODYNAMIC DATA Time AIR REST ECG 09:22:59 ECG 09:54:34 AO 91/53 (69) SA 10:13:41 LV 121/0, 20 10:19:02 LV 116/-3, 12 10:19:08 LV 109/2, 21 10:19:44 LVp 117/4, 12 10:19:49 AOp 0/0 (48) 10:19:54 Signed By Chano Mclaughlin MD On 02/14/2020 10:26:42 Chano Mclaughlin MD
== END 2020-02-14 12:20 | disposition home or self-care (01) ==
PROVIDERS: PCP Family Medicine; Referring Provider Internal Medicine Cardiovascular Disease; Visit Provider Internal Medicine Cardiovascular Disease
DX: I20.8 Other forms of angina pectoris (principal); R06.00 Dyspnea, unspecified; E78.5 Hyperlipidemia, unspecified; E03.9 Hypothyroidism, unspecified; M19.90 Unspecified osteoarthritis, unspecified site; E66.9 Obesity, unspecified; Z68.39 Body mass index [BMI] 39.0-39.9, adult; Z79.899 Other long term (current) drug therapy
CPT/HCPCS: 93458; 99152; J7040; Q9967; C1769; C1894

== ENCOUNTER → 2020-04-26 12:56 | Outpatient (CLI) | payer OTHER, SELFPAY ==
[2020-03-16 09:26] VITALS: BMI 39.3
--- NOTE | 2020-04-26 14:49 | PFTCOMP_ITS ---
COMPLETE PULMONARY FUNCTION TEST INTERPRETATION Brief HPI: Patient is a 59 year old female, currently under the care of myself, who presents to [facility] for complete pulmonary function tests secondary to diagnosis of dyspnea. Respiratory therapist reports good effort and reproducible results. Interpretation: Forced expiration spirometry shows no large airways obstructive ventilatory defect with an FEV1 of 87% predicted. There is no significant bronchodilator response by strict ATS criteria. Spirograms are of good quality and plateau normally. The respiratory flow volume loop shows a normal pattern. Lung volumes by body plethysmography show a decreased total lung capacity at 4.89 L, 80% predicted. All other lung volumes are reduced symmetrically. Diffusion capacity by carbon monoxide is at the lower limit of normal at 81% predicted. The airway resistance is elevated. No previous pulmonary function tests were available for review. Impression: Mild restrictive ventilatory defect with a symmetric reduction diffusing capacity
== END ==
PROVIDERS: PCP Family Medicine; Referring Provider Internal Medicine Critical Care Medicine; Visit Provider Internal Medicine Critical Care Medicine
DX: R06.00 Dyspnea, unspecified (principal)
CPT/HCPCS: 94060; 94726; 94729

== ENCOUNTER → 2020-04-28 12:28 | Outpatient (CLI) | payer OTHER, SELFPAY ==
[2020-03-16 09:26] VITALS: BMI 39.3
[2020-04-28 12:53] VITALS: PULSE 100; PULSE 76; PULSE 80; PULSE 83; PULSE 92; PULSE 98; PULSE 99; O2SAT 94; O2SAT 95; O2SAT 96
--- NOTE | 2020-04-28 13:56 | WT_ITS ---
PSN 6 Minute Walk Test - 6 Minute Walk Test 6 Minute Walk Test: 6 Minute Walk Test PSN:6-Minute Walk Test Start: 04/28/20 12:53 Freq: Status: Active Protocol: RESP.6MINW Document 04/28/20 12:53 [facility] (Rec: 04/28/20 12:59 [facility] [id number]) 6 Minute Walk Test Date Performed 04/28/20 Time Performed 12:30 Height 5 ft 10 in Weight: 127.006 kg Weight in Pounds 280.[address]: Dm Ponce Assistive device used: None Pre-test Oxygen Delivery Method Room Air Pulse Ox (%) 95 Pulse Rate (60-100 beats/min) 76 Dyspnea Isac Scale (0-10) 2 1st minute Oxygen Delivery Method Room Air Pulse Ox (%) 95 Pulse Rate (60-100 beats/min) 83 Dyspnea Isac Scale (0-10) 2 Number of Rests Taken 0 Reported Symptoms Increased Work of Breathing 2nd minute Oxygen Delivery Method Room Air Pulse Ox (%) 96 Pulse Rate (60-100 beats/min) 92 Dyspnea Isac Scale (0-10) 3 Number of Rests Taken 0 Reported Symptoms Increased Work of Breathing 3rd minute Oxygen Delivery Method Room Air Pulse Ox (%) 95 Pulse Rate (60-100 beats/min) 100 Dyspnea Isac Scale (0-10) 3 Number of Rests Taken 0 Reported Symptoms Increased Work of Breathing 4th minute Oxygen Delivery Method Room Air Pulse Ox (%) 94 Pulse Rate (60-100 beats/min) 99 Dyspnea Isac Scale (0-10) 4 Number of Rests Taken 0 Reported Symptoms Increased Work of Breathing 5th minute Oxygen Delivery Method Room Air Pulse Ox (%) 94 Pulse Rate (60-100 beats/min) 98 Dyspnea Isac Scale (0-10) 4 Number of Rests Taken 0 Reported Symptoms Increased Work of Breathing 6th minute Oxygen Delivery Method Room Air Pulse Ox (%) 95 Pulse Rate (60-100 beats/min) 100 Dyspnea Isac Scale (0-10) 4 Number of Rests Taken 0 Reported Symptoms Increased Work of Breathing Post-test Oxygen Delivery Method Room Air Pulse Ox (%) 96 Pulse Rate (60-100 beats/min) 80 Dyspnea Isac Scale (0-10) 2 Number of Rests Taken 0 Reported Symptoms Increased Work of Breathing Full Laps Walked 20 Partial Lap, Number of Tiles Walked 24 Total Distance Walked (ft) 1204 - Interpretation Interpretation: The patient was able to ambulate 1204 feet over the course of 6 minutes with no assistive devices or breaks. The patient did not experience significant desaturation, but did have a peak heart rate of 100 bpm. These findings are consistent with deconditioning. - Recommendations Recommendations: No supplemental oxygen is indicated at this time.
== END ==
PROVIDERS: PCP Family Medicine; Referring Provider Internal Medicine Critical Care Medicine; Visit Provider Internal Medicine Critical Care Medicine
DX: R06.00 Dyspnea, unspecified (principal)
CPT/HCPCS: 94618

== ENCOUNTER → 2020-09-22 20:27 | Outpatient (CLI) | payer OTHER, SELFPAY ==
[2020-09-06 07:41] VITALS: BMI 40.6
== END ==
PROVIDERS: PCP Family Medicine; Referring Provider Internal Medicine Critical Care Medicine; Visit Provider Internal Medicine Critical Care Medicine
DX: G47.10 Hypersomnia, unspecified (principal)
CPT/HCPCS: 95810

== ENCOUNTER → 2021-03-28 07:02 | Outpatient (CLI) | payer OTHER, SELFPAY ==
--- NOTE | 2021-03-27 16:42 | BI_ITS ---
MAMMOGRAPHY - BILATERAL SCREENING REASON FOR EXAM: Female, 60 years old. Routine annual screening examination. PERTINENT HISTORY: Grandmother with breast cancer. Aunts with breast cancer. Remote left stereotactic breast biopsy. TECHNIQUE: Digital bilateral breast myrna (3D mammographic acquisition) in the CC and MLO projections. 2-D mediolateral oblique (MLO) and craniocaudad (CC) views of both breasts were obtained. CAD: Full Field Digital Mammography with Computer Added Detection was performed. COMPARISON: Comparison is made with prior examination 01/19/2019 and 02/26/2017. FINDINGS: Breast Composition: There are scattered areas of fibroglandular density. There are no dominant masses or suspicious calcifications. Stable benign appearing bilateral axillary lymph nodes. No other significant abnormalities are identified. There has been no significant change since the prior study. BI/SCRN MAMM (CAD)W/MYRNA BILAT IMPRESSION: Stable bilateral screening mammogram. Yearly follow-up mammogram recommended. (A) ASSESSMENT CATEGORY: BIRADS Category 2: Benign. A letter regarding these results will be sent to the patient by the facility within 30 days. Approximately 10% of breast cancers are not detected by mammography. A normal mammogram should not delay biopsy of a clinically suspicious abnormality. [id number] Electronically Signed: Bryan Boyer MD at 8:52 EDT , Service support ,
== END ==
PROVIDERS: PCP Family Medicine; Referring Provider Family Medicine; Visit Provider Family Medicine
DX: Z12.31 Encounter for screening mammogram for malignant neoplasm of breast (principal)
CPT/HCPCS: 77063; 77067

== ENCOUNTER 2021-03-30 08:26 | Day surgery (SDC) | payer OTHER, SELFPAY ==
[2021-03-30] VITALS (7 sets, daily range): BP systolic 103–150; BP diastolic 50–64; PULSE 58–65; RESP 16; TEMP 35.8–36; O2SAT 96–97; BMI 41.1
[2021-03-30] MEDS: Lactated Ringers 1,000 ML 100 ML IV (08:52)
--- NOTE | 2021-03-30 08:56 | HP.PCM_ITS ---
History and Physical Date of Admission: 03/30/21 Intake Vital Signs 03/20/21 14:52 Height 5 ft 10 in Weight: 290 lb BMI 41.5 BP 127/73 H Blood Pressure Location Rt brachial Position Sitting Respiration 16 Intake Visit Reasons: Hemorrhoids Chief Complaint: hemorrhoids and urgency Senior Business Intelligence Analyst Required: No Is patient in pain?: No Allergies betamethasone [From Celestone] Allergy (Verified 03/20/21 14:53) Other betamethasone sodium phosphate [From Celestone] Allergy (Verified 03/20/21 14:53) Other Penicillins Allergy (Verified 03/20/21 14:53) Rash prednisone Allergy (Verified 03/20/21 14:53) Angioedema triamcinolone acetonide [From Kenalog] Allergy (Verified 03/20/21 14:53) Other acetaminophen [From Vicodin] Adverse Reaction (Verified 03/20/21 14:53) Other fluoxetine HCl [From Prozac] Adverse Reaction (Verified 03/20/21 14:53) Vomiting hydrocodone bitartrate [From Vicodin] Adverse Reaction (Verified 03/20/21 14:53) Vomiting Medications levothyroxine 300 mcg PO DAILY 09/19/14 [History Confirmed 12/06/20] omeprazole 20 mg PO DAILY 09/19/14 [History Confirmed 12/06/20] sertraline 50 mg PO DAILY 09/19/14 [History Confirmed 12/06/20] clotrimazole 1 % topical cream 1 applic TOPICAL BID 01/25/20 [History Confirmed 12/06/20] aspirin 81 mg tablet,delayed release 81 mg PO DAILY 02/07/20 [History Confirmed 12/06/20] Oral Appliance #1 ea 09/26/20 [Rx Confirmed 12/06/20] albuterol sulfate 90 mcg/actuation aerosol inhaler 2 puff INHALATION Q4H PRN #18 g 12/06/20 [Rx Confirmed 12/06/20] [facility] Medical History (Updated 03/21/21 @ 10:[address] Colton Giraldo MD) Arthritis Back pain Cat bite Difficulty balancing when standing Enlarged thyroid gland Fatigue Hemorrhoids High triglycerides Hyperlipidemia Hypothyroidism Infiltrate of upper lobe of left lung present on imaging study Intermittent palpitations Kidney stones Left ventricular diastolic dysfunction Lupus Obesity Open wound of left forearm due to cat bite Seasonal allergies Shoulder pain Stomach ulcer Symptomatic sinus bradycardia Thyroid disease Surgical History History of arthroscopic knee surgery History of cholecystectomy History of discectomy History of hysterectomy History of left heart catheterization (02/14/20) Status post cervical spinal fusion Status post unilateral knee replacement Family History Grandmother Breast cancer Aunt Breast cancer Father Prostate cancer CAD (coronary artery disease), Onset Age: 45 CABG PCI IN Myocardial infarction, Onset Age: 45 Mother Osteoporosis Other Heart disease Social History alcohol intake: never substance use type: does not use additional social history: DOES NOT USE ASPIRIN DOES NOT USE IBUPROFEN HPI HPI HPI: MARYLOU MARIE, is a 60 F who presents to the office today for rectal bleeding. The patient reports that she has been having blood on her stool and with wiping. The blood has been bright red. Patient also notes that she has been having tissue that she has to reduce back into her rectum. She does report that she is also having some incontinence of stool and blood per rectum. Patient's last colonoscopy was in 2015 for rectal bleeding. That colonoscopy was normal. ROS General General: Yes weight change and fatigue; No appetite, colon cancer, breast cancer or weakness HEENT HEENT: No difficulty swallowing, eye injury, eye surgery, swollen glands or hoarseness Endo Endocrine: Yes thyroid disease; No diabetes mellitus, thyroid cancer, Hair loss, heat intolerance or cold intolerance Skin Skin: No rash or changing moles Breast Breast: No left breast lump, right breast lump, nipple discharge, breast pain, abnormal mammogram, abnormal US or breast enlargement Musc Musculoskeletal: Yes back problems; No arthritis, rheumatoid arthritis, gout or joint pain Cardio Cardiovascular: No murmur, pacemaker, heart disease, atrial fibrillation, high blood pressure, heart attack, heart stent, palpitations, shortness of breat with exertion or chest pain Psych Psychiatric: No depression, anxiety or hearing voices Resp Respiratory: Yes shortness of breath, Yes sleep apnea, Yes cough, No COPD, No asthma, No emphysema and No wheezing Gastro Gastrointestinal: No abdominal pain, No nausea or vomiting, Yes diarrhea, No constipation, Yes blood in stool, Yes acid reflux, Yes hemorrhoids, No ulcers, No gallbladder problem and No black,tarry stools Vel Hematologic: No blood thinners, No blood disorders, No bleeding, No anemia and No blood clots Neuro Neurologic: No system reviewed and no additional complaints, except as documented, No as per HPI, No abnormal gait, No abnormal hearing, No abnormal movements, No abnormal speech, No behavioral changes, No burning sensations, No confusion, No convulsions, No disequilibrium, No dizziness, No localized weakness, No frequent falls, No headache(s), No lack of coordination, No loss of vision, No memory loss, No numbness, No other visual disturbances, No radicular pain, No restless legs, No sensory deficit, No syncope, No tingling, No tremor(s), No weakness and No other Exam Const General: cooperative Orientation: alert and oriented x3 HENMT Head: normal to inspection Neck Neck: normal visual inspection and full ROM Chest Chest palpation & inspection: normal inspection of the chest Resp Effort & Inspection: normal respiratory effort Auscultation: clear to auscultation bilaterally Cardio Rate: regular rate Rhythm: regular rhythm GI Inspection: non-distended Palpation: soft and nontender Other: On rectal exam there were no external hemorrhoids or blood. No fissure. Skin General: no rashes or lesions noted Neuro General: patient alert and patient oriented x3 Extrem General: full ROM Psych Appearance: grossly normal Mental Status: mental status grossly normal Assessment and Plan Assessment and Plan (1) Hemorrhoids: Qualifiers: Hemorrhoid type: unspecified Qualified Code(s): K64.9 - Unspecified hemorrhoids (2) Rectal bleeding: Status: Acute Orders: Orders: Colonoscopy Today K62.5 Plan - Dr. Colton Giraldo MD: Patient has been having rectal bleeding and does have a history of internal hemorrhoids but on physical exam I was unable to locate any source of the bleed. I would recommend that we start with a colonoscopy as her last colonoscopy was 5 years ago to ensure that there is no proximal site of the bleeding. I would also be able to examine the internal hemorrhoids by retroflexion. The patient may also be having prolapsing of the rectal tissue causing this irritation of bleeding as she says that she has to reduce contents after every bowel movement. If there are no hemorrhoids present I may recommend that she be seen for defecation study to ensure that there are no prolapsing of tissue. I explained endoscopy in detail to the patient. I explained the risks including but not limited to stroke or heart attack with anesthesia, perforation of the GI tract, bleeding, infection. I explained that any of these could necessitate further emergency surgery. The patient understands and all questions were answered sufficiently. The patient wishes to proceed with procedure. Colton Giraldo MD Pager: [facility] [address] [place] [address], [address] [place] [address] Office: I have re-examined the patient. There are no clinical changes since date of exam.
--- NOTE | 2021-03-30 09:30 | COLBX_PTH ---
PATIENT: MARYLOU MARIE LOC: EN U#:[id number] AGE/SX: 60/F ROOM: RE03/30/[address]: Dr. Colton Giraldo MD : 1960 BED: DIS: 03/30/2021 SPEC #: [id number] RECD: 03/30/21 11:06 STATUS: KARYN OLIVER #: [id number] PRAVEEN: 03/30/21 09:[address]: Colton Giraldo DEPT: SURGICAL PATHOLOGY RECD BY: Magnolia Edwards ENTERED: 03/30/21 12:04 SP TYPE: COLON BX OTHR DR: Dr. Zeeshan Chao MD Tissues: Sigmoid colon biopsy Procedures: Surgery Specimen Level IV HEADER OPERATION: Colonoscopy (MAC) PRE-OP DIAGNOSIS: Hemorrhoids, rectal bleeding TISSUE SUBMITTED: Sigmoid colon polyp MICROSCOPIC DIAGNOSIS Sigmoid colon polyp, biopsy: Hyperplastic polyp. AM:yesy 04/02/2021 MICROSCOPIC DESCRIPTION Slides are reviewed. GROSS DESCRIPTION Received in fixative is one container labeled with the patient's name and designated sigmoid colon polyp. The specimen consists of one piece of leiva-pink polyp measuring 0.4 x 0.3 x 0.2 cm. The specimen is totally submitted in one cassette. / SJ:yesy 03/30/21 TC:5 CPT: 95310
--- NOTE | 2021-03-30 09:59 | OP.COLON_ITS ---
Patient Name: Ava Lovell Procedure Date: 03/30/2021 9:25 AM Date of : 1960 Age: 60 Procedure: Colonoscopy Indications: Rectal bleeding Providers: Colton Giraldo MD Medicines: Monitored Anesthesia Care Patient Profile: This is a 60 year old female. Refer to note in patient chart for documentation of history and physical. Last Colonoscopy: 5 years ago. Complications: No immediate complications. Procedure: Pre-Anesthesia Assessment: - Prior to the procedure, a History and Physical was performed, and patient medications and allergies were reviewed. The patient's tolerance of previous anesthesia was also reviewed. The risks and benefits of the procedure and the sedation options and risks were discussed with the patient. All questions were answered, and informed consent was obtained. Prior Anticoagulants: The patient has taken no previous anticoagulant or antiplatelet agents. After reviewing the risks and benefits, the patient was deemed in satisfactory condition to undergo the procedure. After I obtained informed consent, the scope was passed under direct vision. Throughout the procedure, the patient's blood pressure, pulse, and oxygen saturations were monitored continuously. The Colonoscope was introduced through the anus and advanced to the cecum, identified by appendiceal orifice and ileocecal valve. The colonoscopy was performed without difficulty. The patient tolerated the procedure well. The quality of the bowel preparation was good. Scope In: 9:40:27 AM Scope Withdrawal Time 0 hours 7 minutes 43 seconds Scope Out: 9:53:36 AM Total Procedure Duration Time 0 hours 13 minutes 9 seconds Findings: A small polyp was found in the sigmoid colon. The polyp was removed with a hot snare. Resection and retrieval were complete. Non-bleeding internal hemorrhoids were found during retroflexion. The hemorrhoids were Grade II (internal hemorrhoids that prolapse but reduce spontaneously). The exam was otherwise without abnormality on direct and retroflexion views. Impression: - One small polyp in the sigmoid colon, removed with a hot snare. Resected and retrieved. - Non-bleeding internal hemorrhoids. - The examination was otherwise normal on direct and retroflexion views. Recommendation: - Discharge patient to home. - Resume previous diet. - Continue present medications. - Await pathology results. - Repeat colonoscopy in 5 years for surveillance based on pathology results. Procedure Code(s): --- Professional --- 84971, Colonoscopy, flexible; with removal of tumor(s), polyp(s), or other lesion(s) by snare technique Diagnosis Code(s): --- Professional --- D12.5, Benign neoplasm of sigmoid colon K64.1, Second degree hemorrhoids K62.5, Hemorrhage of anus and rectum CPT copyright 2017 [employer]. All rights reserved. The codes documented in this report are preliminary and upon chestnut tanner review may be revised to meet current compliance requirements. Colton Giraldo MD 03/30/2021 9:59:25 AM This report has been signed electronically. Number of Addenda: 0 Note Initiated On: 03/30/2021 9:25 AM
--- NOTE | 2021-03-30 09:59 | OP.CCLET_ITS ---
03/30/2021 Zeeshan Chao Re : Colonoscopy procedure for Ava Lovell Dear Jeremie This procedure was performed on Tuesday, March 30, 2021. My impressions and recommendations are as follows: Impressions : - One small polyp in the sigmoid colon, removed with a hot snare. Resected and retrieved. - Non-bleeding internal hemorrhoids. - The examination was otherwise normal on direct and retroflexion views. Recommendations : - Discharge patient to home. - Resume previous diet. - Continue present medications. - Await pathology results. - Repeat colonoscopy in 5 years for surveillance based on pathology results. My findings are described in the full procedure note, which is enclosed. If I can be of further assistance, please feel free to contact me at Doctor phone number(s): , Work: . Sincerely, Colton Giraldo MD 03/30/2021 9:59:25 AM This report has been signed electronically.
== END 2021-03-30 10:58 | disposition home or self-care (01) ==
LOC: EN 08:26 → AC 08:27
PROVIDERS: PCP Family Medicine; Referring Provider Family Medicine; Visit Provider Surgery
PROC: 0DJD8ZZ Inspection of Lower Intestinal Tract, Via Natural or Artificial Opening Endoscopic (ICD-10-PCS; CPT 45378; principal; 2021-03-30 09:25)
DX: D12.5 Benign neoplasm of sigmoid colon (principal); K64.1 Second degree hemorrhoids; K62.5 Hemorrhage of anus and rectum; K21.9 Gastro-esophageal reflux disease without esophagitis; I51.9 Heart disease, unspecified; E03.9 Hypothyroidism, unspecified; G47.33 Obstructive sleep apnea (adult) (pediatric); M19.90 Unspecified osteoarthritis, unspecified site; E66.01 Morbid (severe) obesity due to excess calories; Z68.41 Body mass index [BMI] 40.0-44.9, adult; Z79.82 Long term (current) use of aspirin; Z79.899 Other long term (current) drug therapy; Z86.73 Personal history of transient ischemic attack (TIA), and cerebral infarction without residual deficits
CPT/HCPCS: 45385; 88305; J7120; J2405

== ENCOUNTER 2021-04-04 09:33 | Emergency (ER) | payer OTHER, SELFPAY ==
[2021-04-04 09:34] VITALS: BP 146/71; PULSE 72; RESP 18; TEMP 37.1; O2SAT 98; BMI 41.4
--- NOTE | 2021-04-04 09:46 | EKG12_ITS ---
Test Reason : Blood Pressure : / mmHG Vent. Rate : 066 BPM Atrial Rate : 066 BPM P-R Int : 174 ms QRS Dur : 110 ms QT Int : 424 ms P-R-T Axes : 044 -52 080 degrees QTc Int : 444 ms Normal sinus rhythm Left axis deviation Incomplete left bundle branch block Abnormal ECG Confirmed by DARWIN REYNOLDS, AWILDA ([id number]), fan mail editor CHAYA LORA ([id number]) on 04/05/2021 1:47:21 PM Referred By: ANNETTE/RADHA Confirmed By:AWILDA GRANADOS MD
--- NOTE | 2021-04-04 09:46 | ED.VIS.CHEST ---
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 She was working and went to the bathroom and had a bowel movement. Suddenly she developed sensation that she could not breathe and tried to stand up and was very lightheaded. States she did not develop chest pressure and became diaphoretic and nauseous. She felt like she was going to pass out and is wanted to lay down. She made it back to her office and contacted staff. She states now her symptoms have almost resolved patient had a heart catheterization last year that was normal [facility] Medical History Alcohol use Arthritis Back pain Cardiology follow-up encounter Cat bite Difficulty balancing when standing Difficulty swallowing Enlarged thyroid gland Fatigue Gastric reflux Hemorrhoids High triglycerides History of echocardiogram History of edema History of pain when walking History of stress test History of ulceration Hyperlipidemia Hypothyroidism Infiltrate of upper lobe of left lung present on imaging study Injury of back Intermittent palpitations Kidney stones Left ventricular diastolic dysfunction Leg cramps Lupus Migraine headache Non-smoker Obesity Open wound of left forearm due to cat bite Seasonal allergies Shortness of breath on exertion Shoulder pain Stomach ulcer Symptomatic sinus bradycardia Thyroid disease TIA (transient ischemic attack) Wears glasses Home Medications levothyroxine 300 mcg PO DAILY 09/19/14 [History Last Taken 02/14/20] omeprazole 20 mg PO DAILY 09/19/14 [History Last Taken 02/14/20] sertraline 50 mg PO DAILY 09/19/14 [History Last Taken Unknown] clotrimazole 1 % topical cream 1 applic TOPICAL BID 01/25/20 [History Last Taken Unknown] aspirin 81 mg tablet,delayed release 81 mg PO DAILY 02/07/20 [History Last Taken 02/14/20] Oral Appliance #1 ea 09/26/20 [Rx Last Taken Unknown] albuterol sulfate 90 mcg/actuation aerosol inhaler 2 puff INHALATION Q4H PRN #18 g 12/06/20 [Rx Last Taken Unknown] Allergy/AdvReac Type Severity Reaction Status Date / Time betamethasone Allergy Other Verified 04/04/21 09:34 [From Celestone] betamethasone sodium Allergy Other Verified 04/04/21 09:34 phosphate [From Celestone] Penicillins Allergy Rash Verified 04/04/21 09:34 prednisone Allergy Angioedema Verified 04/04/21 09:34 triamcinolone acetonide Allergy Other Verified 04/04/21 09:34 [From Kenalog] acetaminophen [From Vicodin] AdvReac Other Verified 04/04/21 09:34 fluoxetine HCl [From Prozac] AdvReac Vomiting Verified 04/04/21 09:34 hydrocodone bitartrate AdvReac Vomiting Verified 04/04/21 09:34 [From Vicodin] Family History Grandmother Breast cancer Aunt Breast cancer Father Prostate cancer CAD (coronary artery disease), Onset Age: 45 CABG PCI [place] Myocardial infarction, Onset Age: 45 Mother Osteoporosis Other Heart disease Surgical History History of arthroscopic knee surgery History of cholecystectomy History of discectomy History of hysterectomy History of left heart catheterization (02/14/20) Hx of left knee surgery Status post cervical spinal fusion Status post unilateral knee replacement Social History Smoking Status: Never smoker alcohol intake: never substance use type: does not use additional social history: DOES NOT USE ASPIRIN DOES NOT USE IBUPROFEN ROS ROS ED Constitutional Constitutional ED: Denies chills or weight loss Eyes Eyes: Denies change in vision or diplopia ENT ENT ED: Denies ear pain, rhinorrhea or sore throat Cardiovascular Cardiovascular: Reports chest pain; Denies orthopnea, palpitations or racing heartbeat Respiratory/Chest Respiratory/Chest: Reports dyspnea; Denies cough or orthopnea Gastrointestinal Gastrointestinal: Reports nausea; Denies abdominal pain, diarrhea or vomiting Genitourinary Genitourinary ED: Denies dysuria, hematuria or urinary frequency Musculoskeletal Musculoskeletal: Denies arthralgias or myalgias Integumentary Denies abscess or rash Neurologic Neurologic: Denies headache(s) or weakness Psychiatric Psychiatric: Denies anxiety, depression, suicidal ideation or suicidal thoughts Endocrine Endocrinology: Denies polydipsia, polyphagia or polyuria Allergic/Immunologic Allergic/Immunologic ED: Denies mouth swelling, tongue swelling or urticaria EXAM Physical Exam Const Vital Signs: 04/04/21 09:34 04/04/21 09:38 04/04/21 10:35 Temperature 98.7 F Temperature Source Oral Pulse Rate 72 59 L Respiratory Rate 18 16 Respiratory Effort Short of Breath Blood Pressure 146/71 H 121/88 H Blood Pressure Mean 96 99 Pulse Ox 98 96 Oxygen Delivery Method Room Air Room Air 04/04/21 11:27 04/04/21 12:25 Temperature 97.6 F L Temperature Source Oral Pulse Rate 59 L 57 L Respiratory Rate 14 14 Respiratory Effort Blood Pressure 139/62 H 126/57 H Blood Pressure Mean 87 80 Pulse Ox 97 98 Oxygen Delivery Method Room Air Room Air Positive well nourished, well developed and obese General Appearance ED: well developed Nutritional Appearance: obese HEENT Reports normocephalic, head/scalp atraumatic and moist mucous membranes Eyes PERRL and EOMs intact bilaterally Neck no lymphadenopathy, supple and no JVD Resp normal respiratory effort and clear to auscultation bilaterally Cardio regular rate, regular rhythm and no murmurs GI normal to inspection, nondistended, normoactive bowel sounds and non-tender Palpation: soft Back/Spine no CVA tenderness and normal ROM Extremity normal to inspection General Extremety ED: Negative for edema General Extremity: Negative for edema Neuro oriented x3 and CN's II-XII intact bilaterally Sensorium / Orientation: alert Motor Exam: strength 5/5 throughout Psych mental status grossly normal Mood & Affect: Negative for depressed or tearful Skin no rashes or lesions noted and no wounds Heart Score History: Slightly/Non-Suspicious ECG: Normal Age: >45 - <65 years Risk Factors: 1 or 2 Risk Factors Troponin: </= Normal Limit Score: 2 MDM MDM MDM Narrative Medical decision making narrative: Basic blood work showed normal CBC BMP. 2 sets of cardiac enzymes were normal. My interpretation of chest x-ray is no acute process. Patient has been doing well she has been drinking water. No events on the monitor. The patient most likely had a vasovagal event. Patient will be discharged home return if worsening or concerns Lab Data Attestation: I reviewed the patient's lab results. Labs: Laboratory Results - last 24 hr 04/04/21 04/04/21 04/04/21 09:40 09:40 11:49 WBC 5.2 RBC 4.49 Hgb 13.6 Hct 43.7 MCV 97.3 MCH 30.3 MCHC 31.1 L RDW Std Deviation 46.9 H RDW Coeff of Elva 13.2 Plt Count 112 L MPV 12.3 H Immature Gran % (Auto) 1.000 H Neut % (Auto) 68.6 Lymph % (Auto) 21.7 [place] % (Auto) 6.2 Eos % (Auto) 2.1 Baso % (Auto) 0.4 Absolute Neuts (auto) 3.6 Absolute Lymphs (auto) 1.12 Nucleated RBC % 0 Sodium 137 Potassium 4.0 Chloride 106 Carbon Dioxide 26.0 Anion Gap 5 BUN 9 Creatinine 0.80 Estim Creat Clear Calc 80.87 Est GFR (MDRD) Af Amer 93 Est GFR (MDRD) Non-Af 77 BUN/Creatinine Ratio 11.2 Glucose 216 H Calcium 9.2 Troponin I High Sens 7 24 Radiography Diagnostic Testing: Radiology Impression Chest X-Ray 04/04/21 09:51 IMPRESSION: No acute abnormality is seen. Electronically Signed: Bryan Boyer MD at 10:13 EDT , Service support , EKG Initial EKG: Attestation: I personally reviewed and interpreted this EKG as follows: Comments: Normal sinus rhythm with a ventricular rate of 66 bpm and incomplete left bundle branch block noted Discharge Plan Triage Chief Complaint: Chest Pain ED Provider: Lew hTornton Dx/Rx/DC Orders Clinical Impression: Vasovagal near syncope, Chest pain Instructions: ED Near-Fainting- Vagal Reaction Prescriptions: No Action clotrimazole [Lotrimin AF (clotrimazole)] 1 % cream 1 applic TOPICAL BID RF: 0 albuterol sulfate [Ventolin HFA] 90 mcg/actuation HFA aerosol inhaler 2 puff inhalation Q4H PRN (Reason: shortness of breath or wheezing) Qty: 18 RF: 6 levothyroxine 300 MCG tablet 300 mcg PO DAILY RF: 0 omeprazole 20 MG capsule 20 mg PO DAILY RF: 0 sertraline 50 MG tablet 50 mg PO DAILY RF: 0 aspirin [Adult Low Dose Aspirin] 81 mg tablet,delayed release (DR/EC) 81 mg PO DAILY RF: 0 (DME) Oral Appliance See Rx Instructions .Route .MEDSUPPLY Qty: 1 RF: 0 Primary Care Provider: Zeeshan Chao Referrals: Zeeshan Chao MD [Primary Care Provider] - As Needed Disposition Disposition: Home, Self Care
--- NOTE | 2021-04-04 09:51 | RAD_ITS ---
STUDY: X-RAY CHEST REASON FOR EXAM: Female, 60 years old. Chest pain, dizziness and shortness of breath. TECHNIQUE: Single AP portable view of the chest. COMPARISON: Comparison is made with prior study dated 01/12/2020. FINDINGS: EKG electrodes are seen. The lungs are clear and expanded. There is no demonstrated pleural abnormality. Normal size heart. Normal mediastinum and kay. Normal visualized pulmonary arteries. Normal visualized aortic arch and descending thoracic aorta. There are diffuse degenerative changes of the visualized thoracic spine. There is evidence of prior fusion of the lower cervical spine. There is no demonstrated abnormality of the visualized soft tissue structures of the upper abdomen. RAD/Chest 1 View (Portable) IMPRESSION: No acute abnormality is seen. Electronically Signed: Bryan Boyer MD at 10:13 EDT , Service support ,
[2021-04-04 10:00] LABS: Absolute Lymphocyte Count 1.12 X10^3/uL (0.83-4.51); Absolute Neutrophil Count 3.6 X10^3/uL (2.0-7.7); Basophil# 0.02 X10^3/uL; Basophil% 0.4 % (0-1); Eosinophil# 0.11 X10^3/uL; Eosinophils% 2.1 % (0-5); Hematocrit 43.7 % (37-47); Hemoglobin 13.6 g/dL (12.0-15.0); Lymphocyte # 1.12 X10^3/ul (0.83-4.51); Lymphocyte % 21.7 % (19-41); Mean Corp Hgb Conc 31.1 g/dL (32-36); Mean Corpuscular Hgb 30.3 pg (27.0-32.0); Mean Corpuscular Volume 97.3 fL (81-99); Mean Platelet Vol. 12.3 fl (6.2-12.0); Monocyte# 0.32 X10^3/uL; Monocyte% 6.2 % (0-10); NRBC Flagged by Analyzer 0 % (0-5); Neutrophil # 3.55 X10^3/uL (2.7-7.7); Neutrophil % 68.6 % (47-70); Platelet Count 112 K/mm3 (150-450); RBC Distribution Width CV 13.2 % (11.6-14.6); RBC Distribution Width SD 46.9 fl (35.1-43.9); Red Blood Count 4.49 M/mm3 (4.2-5.4); White Blood Count 5.2 K/mm3 (4.4-11.0)
[2021-04-04 10:12] LABS: Anion Gap 5 (5-15); BUN 9 mg/dL (7-18); BUN/Creat Ratio 11.2 RATIO (10-20); Calcium,Total 9.2 mg/dL (8.5-10.1); Chloride 106 mmol/L (98-107); EST Glomerular Filtration Rate 77 mL/min (>60); Est Glom Filt Rate - Afr Amer 93 mL/min (>60); Estimated Creatinine Clearance 80.87 ml/min; Glucose 216 mg/dL (74-106); Sodium Level 137 mmol/L (136-145); Troponin-I HS 7 pg/mL (3.0-54.0)
[2021-04-04 10:35] VITALS: BP 121/88; PULSE 59; RESP 16; O2SAT 96
[2021-04-04 11:27] VITALS: BP 139/62; PULSE 59; RESP 14; O2SAT 97
[2021-04-04 12:11] LABS: Troponin-I HS 24 pg/mL (3.0-54.0)
[2021-04-04 12:25] VITALS: BP 126/57; PULSE 57; RESP 14; TEMP 36.4; O2SAT 98
[2021-04-04 12:56] VITALS: BP 134/62; PULSE 58; RESP 16; TEMP 36.9; O2SAT 99
== END 2021-04-04 12:57 | disposition home or self-care (01) ==
PROVIDERS: Emergency Provider Emergency Medicine; PCP Family Medicine
DX: R55 Syncope and collapse (principal); R07.9 Chest pain, unspecified; K21.9 Gastro-esophageal reflux disease without esophagitis; M19.90 Unspecified osteoarthritis, unspecified site; E78.5 Hyperlipidemia, unspecified; E03.9 Hypothyroidism, unspecified; E66.9 Obesity, unspecified; Z68.41 Body mass index [BMI] 40.0-44.9, adult; Z79.82 Long term (current) use of aspirin; Z79.899 Other long term (current) drug therapy; Z86.73 Personal history of transient ischemic attack (TIA), and cerebral infarction without residual deficits
CPT/HCPCS: 36415; 71045; 80048; 84484; 85025; 93005; 99285; A4216

== ENCOUNTER → 2021-04-17 10:13 | Outpatient (CLI) | payer OTHER, SELFPAY | PROVIDERS: PCP Family Medicine; Visit Provider Internal Medicine Critical Care Medicine | DX: G47.33 Obstructive sleep apnea (adult) (pediatric) (principal) | CPT/HCPCS: 95806 ==

== ENCOUNTER 2021-04-30 08:36 | Emergency (ER) | payer OTHER, SELFPAY ==
[2021-04-30 08:37] VITALS: BP 157/62; PULSE 58; RESP 15; TEMP 36.4; O2SAT 99; BMI 40.8
--- NOTE | 2021-04-30 09:13 | MRI_ITS ---
STUDY: MRI LUMBAR SPINE WITH AND WITHOUT CONTRAST REASON FOR EXAM: Female, 60 years old. low back pain and incontinence x 3weeks TECHNIQUE: Standardized fat and water weighted pulse sequences were obtained in the sagittal and axial planes. IV 26mL Dotarem was administered for the contrast portion of the examination. COMPARISON: None FINDINGS: T12-L1: Normal endplates. Normal disc height, hydration and morphology. Normal bilateral facet joints. Normal central canal and bilateral lateral recesses. Normal bilateral intervertebral neural foramina. Normal lumbar lordosis. There is no substantial scoliosis. Normal conus medullaris that terminates at the L1. L1-2: Mild bilateral facet hypertrophy with fluid facet joints consistent with instability and mildly well inflated mild hypertrophy. Mild bilobed disc protrusion produces mild spinal stenosis and mild bilateral neural foraminal stenosis. L2-3: Mild bilateral facet hypertrophy and ligament flavum hypertrophy. Mild broad disc protrusion produces mild spinal stenosis and mild bilateral neural foraminal stenosis. L3-4: Mild bilateral facet hypertrophy and moderate ligament flavum hypertrophy. Mild broad disc protrusion produces mild spinal stenosis and mild bilateral neural foraminal stenosis. L4-5: Mild bilateral facet hypertrophy and ligament flavum hypertrophy. Small right foraminal protrusion produces mild right neural foraminal stenosis. No central spinal stenosis. L5-S1: Mild facet hypertrophy and ligament flavum hypertrophy. Mild broad disc protrusion produces mild spinal stenosis and moderate right neural foraminal stenosis with abutment of the right L5 nerve root laterally. Normal visualized sacral ala. Moderate friction related edema of the posterior subcutaneous fat. There is no demonstrated abnormal enhancement. MRI/Spine Lumbar W/WO Contrast IMPRESSION: Multilevel degenerative changes, as described above. Electronically Signed: Rodríguez Pena MD at 14:41 EDT Tel , Service support ,
--- NOTE | 2021-04-30 09:16 | EDS_ITS ---
HPI History of Present Illness Chief Complaint: Back Informant: patient Onset/Context/Timing Onset: Weeks Context: Gradual Onset Injury: lifting and bending Timing: Continuous Quality: Sharp Location: Lumbar Current Severity: Mild Maximum Severity: Moderate Worsened by: improves with Movement Relieved by: Remaining Still Associated Symptoms Associated Symptoms: Negative for Numbness, Tingling, Radiation to Right Leg, Radiation to Left Leg, Fever, Abdominal Pain, Dysuria and Unable to Ambulate Narrative Narrative: 62-year-old female with prior neck and back surgery. Since she is better to pick something up 3 weeks ago developed lower back pain thereafter. Is also developed incontinence in the last 2+ weeks. She denies any fever. She is on no blood thinners. She denies any trauma. Prior similar symptoms: No Recent Illness/Hospitalization: No PFSH PFSH Medical History Alcohol use Arthritis Back pain Cardiology follow-up encounter Cat bite Difficulty balancing when standing Difficulty swallowing Enlarged thyroid gland Fatigue Gastric reflux Hemorrhoids High triglycerides History of echocardiogram History of edema History of pain when walking History of stress test History of ulceration Hyperlipidemia Hypothyroidism Infiltrate of upper lobe of left lung present on imaging study Injury of back Intermittent palpitations Kidney stones Left ventricular diastolic dysfunction Leg cramps Lupus Migraine headache Non-smoker Obesity Open wound of left forearm due to cat bite Seasonal allergies Shortness of breath on exertion Shoulder pain Stomach ulcer Symptomatic sinus bradycardia Thyroid disease TIA (transient ischemic attack) Wears glasses Home Medications levothyroxine 300 mcg PO DAILY 09/19/14 [History Last Taken 02/14/20] omeprazole 20 mg PO DAILY 09/19/14 [History Last Taken 02/14/20] sertraline 50 mg PO DAILY 09/19/14 [History Last Taken Unknown] clotrimazole 1 % topical cream 1 applic TOPICAL BID 01/25/20 [History Last Taken Unknown] aspirin 81 mg tablet,delayed release 81 mg PO DAILY 02/07/20 [History Last Taken 02/14/20] Oral Appliance #1 ea 09/26/20 [Rx Last Taken Unknown] albuterol sulfate 90 mcg/actuation aerosol inhaler 2 puff INHALATION Q4H PRN #18 g 12/06/20 [Rx Last Taken Unknown] ondansetron 4 mg PO DAILY PRN #7 tab 04/30/21 [Rx Last Taken Unknown] oxycodone-acetaminophen [Endocet] 1 tab PO Q6H PRN 5 Days #20 tab 04/30/21 [Rx Last Taken Unknown] Allergy/AdvReac Type Severity Reaction Status Date / Time betamethasone Allergy Other Verified 04/30/21 08:36 [From Celestone] betamethasone sodium Allergy Other Verified 04/30/21 08:36 phosphate [From Celestone] Penicillins Allergy Rash Verified 04/30/21 08:36 prednisone Allergy Angioedema Verified 04/30/21 08:36 triamcinolone acetonide Allergy Other Verified 04/30/21 08:36 [From Kenalog] acetaminophen [From Vicodin] AdvReac Other Verified 04/30/21 08:36 fluoxetine HCl [From Prozac] AdvReac Vomiting Verified 04/30/21 08:36 hydrocodone bitartrate AdvReac Vomiting Verified 04/30/21 08:36 [From Vicodin] Family History Grandmother Breast cancer Aunt Breast cancer Father Prostate cancer CAD (coronary artery disease), Onset Age: 45 CABG PCI [place] Myocardial infarction, Onset Age: 45 Mother Osteoporosis Other Heart disease Surgical History History of arthroscopic knee surgery History of cholecystectomy History of discectomy History of hysterectomy History of left heart catheterization (02/14/20) Hx of left knee surgery Status post cervical spinal fusion Status post unilateral knee replacement Social History Smoking Status: Never smoker alcohol intake: never substance use type: does not use additional social history: DOES NOT USE ASPIRIN DOES NOT USE IBUPROFEN ROS ROS ED ROS Narrative Denies recent illness. Review of Systems ROS Unobtainable: Denies due to encephalopathy Constitutional Constitutional ED: Denies chills or fever(s) Eyes Eyes: Denies change in vision ENT ENT ED: Denies ear pain Cardiovascular Cardiovascular: Denies chest pain Respiratory/Chest Respiratory/Chest: Denies dyspnea Gastrointestinal Gastrointestinal: Reports diarrhea; Denies abdominal pain, nausea or vomiting Genitourinary Genitourinary ED: Denies dysuria Musculoskeletal Musculoskeletal: Reports back pain; Denies myalgias Integumentary Denies rash Neurologic Neurologic: Denies headache(s) Psychiatric Psychiatric: Denies depression Endocrine Endocrinology: Denies polyuria Hematologic/Lymphatic Hematologic/Lymphatic: Denies easy bruising Allergic/Immunologic Allergic/Immunologic ED: Denies urticaria EXAM Physical Exam Narrative Exam Narrative: 60-year-old female no acute distress. Vital signs stable afebrile. HEENT exam unremarkable. Lungs clear to auscultation. Heart regular rhythm no murmur. Abdomen soft nontender normal bowel sounds no peritoneal signs. Upper extremities neurovascular intact with 5/5 motor strength. Lower extremities have no obvious cauda equina. Normal medial thigh sensation. Dorsi plantarflexion intact in the left leg and right leg she has a foot drop. But she does have good dorsi flexion. She has negative straight leg raise bilaterally. Back exam right SI and paralumbar soft tissue tenderness. There is no cervical, thoracic or lumbar spine tenderness. No redness or warmth. No signs of trauma. Const Vital Signs: 04/30/21 08:37 04/30/21 14:04 Temperature 97.6 F L Temperature Source Temporal Pulse Rate 58 L 55 L Respiratory Rate 15 14 Blood Pressure 157/62 H 141/75 H Blood Pressure Mean 93 97 Pulse Ox 99 97 Oxygen Delivery Method Room Air Room Air Positive well nourished, well developed and obese; Negative for cachectic, contractures or unkempt General Appearance ED: well developed and NAD; Negative for unkempt, cachectic or contractures Nutritional Appearance: obese; Negative for cachectic HEENT Reports moist mucous membranes Negative for trauma or tenderness Eyes PERRL and EOMs intact bilaterally Neck no lymphadenopathy, supple and no JVD General: Negative for tenderness Resp normal respiratory effort and clear to auscultation bilaterally Effort and Inspection: Negative for pain with movement Cardio regular rate, regular rhythm, S1 normal heart sound, S2 normal heart sound and no murmurs GI normal to inspection, nondistended, normoactive bowel sounds, soft to palpation, non-tender, non-distended and no masses Inspection: Negative for abdominal distention Palpation: Negative for tender, guarding or rebound tenderness present Back/Spine normal to inspection and no thoracic nor lumbar tenderness General Back: Negative for CVA tenderness Cervical Spine: Negative for cervical spine tenderness and Negative for paracervical muscle tenderness Thoracic Spine / Upper Back: paraspinal muscle tenderness Lumbar Spine / Lower Back: straight leg raise negative bilaterally; Negative for straight leg raise positive right or straight leg raise positive - left Extremity normal to inspection Extremity Narrative: Foot drop on the right. General Extremety ED: Negative for edema or tenderness General Extremity: Negative for edema Neuro oriented x3 and no sensory deficits noted Sensorium / Orientation: alert; Negative for confused, lethargic or stuporous Motor Exam: strength 5/5 throughout Psych mental status grossly normal Appearance: Negative for unkempt Skin no rashes or lesions noted and no wounds MDM MDM MDM Narrative Medical decision making narrative: 60-year-old female prior lumbar and cervical spine surgery. She bent over several weeks ago and has low back pain primarily on the right but she states she only had that began she started having urinary incontinence that she is never had before. She is treated with IV morphine and Zofran. And I am trying to obtain an MRI. I spoke to the technicians are quite busy today this may take some time. Patient doing well at 3:05 PM. Her neurologic exam and lower extremities remains intact. There is no cauda equina. She and I went over her MRI results. She can follow-up with Dr. Ramos. She will be written for limited Percocet for pain and Zofran as needed for nausea. Radiography Diagnostic Testing: Clinical Impression(s) from Imaging Studies Lumbar Spine MRI 04/30/21 09:13 IMPRESSION: Multilevel degenerative changes, as described above. Electronically Signed: Rodríguez Pena MD at 14:41 EDT Tel , Service support , Discharge Plan Triage Chief Complaint: Back ED Provider: Marcell Guevara Dx/Rx/DC Orders Clinical Impression: Degenerative disc disease, lumbar Instructions: ED Degenerative Disk Disease Prescriptions: New oxycodone-acetaminophen [Endocet] 5-325 mg tablet 1 tab PO Q6H PRN (Reason: pain) 5 Days Qty: 20 RF: 0 ondansetron 4 mg tablet,disintegrating 4 mg PO DAILY PRN (Reason: nausea and vomiting) Qty: 7 RF: 0 No Action clotrimazole [Lotrimin AF (clotrimazole)] 1 % cream 1 applic TOPICAL BID RF: 0 albuterol sulfate [Ventolin HFA] 90 mcg/actuation HFA aerosol inhaler 2 puff inhalation Q4H PRN (Reason: shortness of breath or wheezing) Qty: 18 RF: 6 levothyroxine 300 MCG tablet 300 mcg PO DAILY RF: 0 omeprazole 20 MG capsule 20 mg PO DAILY RF: 0 sertraline 50 MG tablet 50 mg PO DAILY RF: 0 aspirin [Adult Low Dose Aspirin] 81 mg tablet,delayed release (DR/EC) 81 mg PO DAILY RF: 0 (DME) Oral Appliance See Rx Instructions .Route .MEDSUPPLY Qty: 1 RF: 0 Primary Care Provider: Zeeshan Chao Referrals: Lester Ramos DO [STAFF PHYSICIAN] - As soon as possible Zeeshan Chao MD [Primary Care Provider] - Activity Restrictions/Additional Instructions: Call and follow-up with your spine doctor for further evaluation. Percocet for pain. Zofran if needed for nausea. Take Percocet for your stoma ch. Return if increasing pain, fever or worsening incontinence then you need to see your back surgeon as soon as possible. Let your spine doctor know that you had an MRI done here today at the hospital so we can review the results. Disposition Disposition: Home, Self Care
[2021-04-30] MEDS: Ondansetron 4 MG/2 ML Vial IV (09:27)
[2021-04-30] MEDS: morphine 8 MG/ML Syringe IV (09:27)
[2021-04-30 14:04] VITALS: BP 141/75; PULSE 55; RESP 14; O2SAT 97
== END 2021-04-30 15:21 | disposition home or self-care (01) ==
PROVIDERS: Emergency Provider Emergency Medicine; PCP Family Medicine
DX: M51.36 Other intervertebral disc degeneration, lumbar region (principal); R32 Unspecified urinary incontinence; E03.9 Hypothyroidism, unspecified; M32.9 Systemic lupus erythematosus, unspecified; M19.90 Unspecified osteoarthritis, unspecified site; K21.9 Gastro-esophageal reflux disease without esophagitis; E66.9 Obesity, unspecified; Z68.41 Body mass index [BMI] 40.0-44.9, adult; Z98.1 Arthrodesis status; Z79.82 Long term (current) use of aspirin; Z79.899 Other long term (current) drug therapy; Z86.73 Personal history of transient ischemic attack (TIA), and cerebral infarction without residual deficits
CPT/HCPCS: 72158; 96374; 96375; 99283; A9575; A4216; J2405

== ENCOUNTER → 2021-05-02 07:07 | Outpatient (CLI) | payer OTHER, SELFPAY ==
[2021-05-02 08:16] LABS: ALB/GLOB Ratio 0.7 RATIO (0.9-2.4); AST(SGOT) 76 U/L (15-37); Alanine Aminotransfer ALT/SGPT 57 U/L (13-56); Alkaline Phosphatase 149 U/L (45-117); Anion Gap 5 (5-15); BUN 9 mg/dL (7-18); BUN/Creat Ratio 11.1 RATIO (10-20); Calcium,Total 8.6 mg/dL (8.5-10.1); Chloride 104 mmol/L (98-107); Cholesterol 217 mg/dL (200); Creatinine, Serum 0.81 mg/dL (0.55-1.02); EST Glomerular Filtration Rate 76 mL/min (>60); Est Glom Filt Rate - Afr Amer 92 mL/min (>60); Globulin 4.5 g/dL (2.2-4.2); Glucose 126 mg/dL (74-106); High Density Lipoprotein 75 mg/dL; Potassium 4.1 mmol/L (3.5-5.1); Protein, Total 7.5 g/dL (6.4-8.2); Sodium Level 139 mmol/L (136-145); T4 Free Direct 1.14 ng/dL (0.76-1.46); Thyroid Stim Hormone (TSH) 9.56 uIU/mL (0.358-3.74); Triglycerides 77 mg/dL; Very Low Density Lipoprotein 15 mg/dL (5-40)
== END ==
PROVIDERS: PCP Family Medicine; Referring Provider Physician Assistant; Visit Provider Physician Assistant
DX: E11.9 Type 2 diabetes mellitus without complications (principal); E78.2 Mixed hyperlipidemia; E03.9 Hypothyroidism, unspecified
CPT/HCPCS: 36415; 80053; 80061; 83036; 84439; 84443

== ENCOUNTER → 2021-05-18 11:43 | Outpatient (CLI) | payer OTHER, SELFPAY ==
--- NOTE | 2021-05-18 11:44 | RAD_ITS ---
STUDY: X-RAY - LUMBAR SPINE REASON FOR EXAM: Female, 60 years old. Low back pain -- lumbar pain, having done for appt on 05/18/21 TECHNIQUE: 3 view(s) of the lumbar spine were obtained. COMPARISON: None FINDINGS: Normal lumbar lordosis. There is no substantial scoliosis. There is a normal alignment of the vertebrae. There is multilevel endplate spondylosis of the lumbar vertebrae. There is multi-level degenerative disc disease with multi-level disc space narrowing. Facet joint osteoarthritis. Calcified phleboliths. RAD/Lumbar Spine 2 or 3 Views IMPRESSION: Degenerative changes of the spine, as detailed above. Electronically Signed: Bryan Boyer MD at 12:31 EDT , Service support ,
== END ==
PROVIDERS: PCP Family Medicine; Referring Provider Orthopaedic Surgery; Visit Provider Orthopaedic Surgery
DX: M47.816 Spondylosis without myelopathy or radiculopathy, lumbar region (principal); M51.36 Other intervertebral disc degeneration, lumbar region; M48.061 Spinal stenosis, lumbar region without neurogenic claudication
CPT/HCPCS: 72100

== ENCOUNTER → 2021-12-18 | Outpatient (CLI) | payer OTHER, SELFPAY ==
--- NOTE | 2021-12-18 09:54 | RAD_ITS ---
STUDY: XR Knee Complete 4 Views or More 12/18/2021 6:19 PM REASON FOR EXAM: Female, 61 years old. CHRONIC PAIN OF RIGHT KNEE TECHNIQUE: XR Knee Complete 4 Views or More RIGHT COMPARISON: None FINDINGS: Normal visualized distal femur. Normal visualized proximal tibia and fibula. Normal proximal tibiofibular articulation. Normal medial femorotibial compartment. Normal lateral femorotibial compartment. Normal patellofemoral articulation. The soft tissue structures are unremarkable. RAD/Knee 4 or More Views IMPRESSION: There are no acute findings. Electronically Signed: Nima Sheikh MD at 18:20 EDT ,
== END | disposition home or self-care (01) ==
LOC: RAD 09:49
PROVIDERS: PCP Family Medicine; Referring Provider Registered Nurse; Visit Provider Registered Nurse
DX: M25.561 Pain in right knee (principal); G89.29 Other chronic pain
CPT/HCPCS: 73564

== ENCOUNTER → 2021-12-24 | Outpatient (CLI) | payer OTHER, SELFPAY ==
[2021-12-24 12:13] LABS: Absolute Lymphocyte Count 1.07 X10^3/uL (0.83-4.51); Absolute Neutrophil Count 2.6 X10^3/uL (2.0-7.7); Basophil# 0.02 X10^3/uL; Basophil% 0.5 % (0-1); Eosinophil# 0.11 X10^3/uL; Eosinophils% 2.7 % (0-5); Hematocrit 40.9 % (37-47); Hemoglobin 13.1 g/dL (12.0-15.0); Lymphocyte # 1.07 X10^3/ul (0.83-4.51); Lymphocyte % 26.3 % (19-41); Mean Corpuscular Volume 96.9 fL (81-99); Mean Platelet Vol. 12.6 fl (6.2-12.0); Monocyte# 0.26 X10^3/uL; Monocyte% 6.4 % (0-10); NRBC Flagged by Analyzer 0 % (0-5); Neutrophil # 2.61 X10^3/uL (2.7-7.7); Neutrophil % 64.1 % (47-70); POSITIVE COUNT YES; Platelet Count 87 K/mm3 (150-450); RBC Distribution Width CV 12.7 % (11.6-14.6); RBC Distribution Width SD 45.6 fl (35.1-43.9); Red Blood Count 4.22 M/mm3 (4.2-5.4); White Blood Count 4.1 K/mm3 (4.4-11.0)
[2021-12-24 12:17] LABS: Differential Indicated SCAN CRITERIA MET
[2021-12-24 13:19] LABS: Platelet Estimate MOD DEC (ADEQ); Red Cell Morphology NORM C+C NORMAL (NORM C&C)
[2021-12-25 13:07] LABS: Pathologist Review Reviewed
== END | disposition home or self-care (01) ==
PROVIDERS: PCP Family Medicine; Referring Provider Internal Medicine Hematology & Oncology; Visit Provider Internal Medicine Hematology & Oncology
DX: D69.6 Thrombocytopenia, unspecified (principal)
CPT/HCPCS: 36415; 85025

== ENCOUNTER → 2021-12-31 | Outpatient (CLI) | payer OTHER, SELFPAY ==
[2021-12-31 16:52] LABS: White Blood Cells 0 SEEN /hpf (0-5)
[2021-12-31 17:25] LABS: Color, Urine Yellow (Yellow); Glucose, Dipstick Normal (Normal); Ketone-Dipstick Negative (Negative); Leukocyte Esterase-Dipstick Negative /ul (Negative); Nitrite-Dipstick Negative (Negative); Occult Blood-Urine Negative /ul (Negative); Protein-Dipstick Negative (Negative); Urine Bilirubin Dipstick Negative (Negative); Urine Clarity Clear (Clear); Urine Urobilinogen 4 mg/dl (Normal)
[2021-12-31 17:30] LABS: Erythrocyte Sedimentation Rate 12 mm/hr (0-30)
[2021-12-31 18:06] LABS: Red Blood Cells-Urine 0-5 SEEN /hpf (0-5); Squamous Epithelial Cells - UA 0-5 SEEN /hpf (5-10)
[2021-12-31 18:07] LABS: Bacteria 1+ /hpf (None Seen); Mucous, Urine 1+ /hpf (<or=2+)
[2021-12-31 18:11] LABS: ALB/GLOB Ratio 0.8 RATIO (0.9-2.4); AST(SGOT) 83 U/L (15-37); Alanine Aminotransfer ALT/SGPT 66 U/L (13-56); Albumin, Serum 3.4 g/dL (3.2-5.0); Alkaline Phosphatase 173 U/L (45-117); Anion Gap 6 (5-15); BUN 7 mg/dL (7-18); CPK Total, Creatine Kinase 73 U/L (26-192); Calcium,Total 9.2 mg/dL (8.5-10.1); Chloride 102 mmol/L (98-107); EST Glomerular Filtration Rate 90 mL/min (>60); Est Glom Filt Rate - Afr Amer 109 mL/min (>60); Globulin 4.4 g/dL (2.2-4.2); Glucose 186 mg/dL (74-106); LDH 207 U/L (84-246); Potassium 3.4 mmol/L (3.5-5.1); Protein, Total 7.8 g/dL (6.4-8.2); Sodium Level 137 mmol/L (136-145)
[2022-01-01 08:48] LABS: HIV - WCH Non-Reactive (Nonreactive); Hepatitis C Antibody Non-Reactive (Nonreactive)
[2022-01-03 13:52] LABS: Aldolase 8.3 U/L (3.3-10.3)
== END | disposition home or self-care (01) ==
LOC: LAB 16:42
PROVIDERS: PCP Family Medicine; Referring Provider Internal Medicine Hematology & Oncology; Visit Provider Internal Medicine Hematology & Oncology
DX: M79.10 Myalgia, unspecified site (principal); M06.4 Inflammatory polyarthropathy; D69.6 Thrombocytopenia, unspecified; R94.5 Abnormal results of liver function studies
CPT/HCPCS: 36415; 80053; 81001; 82085; 82550; 83615; 85652; 86140; 86703; 86803

== ENCOUNTER → 2022-01-08 | Outpatient (CLI) | payer OTHER, SELFPAY ==
--- NOTE | 2022-01-08 07:15 | US_ITS ---
STUDY: ABDOMINAL ULTRASOUND - RIGHT UPPER QUADRANT REASON FOR VISIT: Female, 61 years old ELEVATED LIVER ENZYMES . Thrombocytopenia. TECHNIQUE: Ultrasound evaluation of the right upper quadrant was performed with real-time and static farnsworth-scale imaging. TECHNICAL QUALITY: Adequate. COMPARISON: Comparison is made with prior study dated 04/19/2019. FINDINGS: Liver: The liver is enlarged and measures 20.5 cm. There is increased echogenicity consistent with fatty infiltration. The bile ducts are within normal limits. There is hepatic color flow. The direction of portal flow is hepatopetal. There is no demonstrated mass lesion. Gallbladder: The patient is status post cholecystectomy. Common Bile Duct (C.B.D.): The common bile duct measures 4.3 mm. Pancreas: Normal size of the head, body of the pancreas. The tail portion is obscured due to overlying bowel gas. There is normal echogenicity of the pancreas. There is no demonstrated pancreatic mass or cyst. Right Kidney: Normal size of the right kidney. The right kidney measures 12.5 cm x 4.9 cm x 4.5 cm. Normal renal cortex. The right cortex measures 1.4 cm. There is no demonstrated renal mass or cyst. There is no right hydronephrosis. US/Liver IMPRESSION: Hepatomegaly and diffuse fatty infiltration of the liver. The patient is status post cholecystectomy. Electronically Signed: Bryan Boyer MD at 9:36 EDT ,
--- NOTE | 2022-01-08 07:19 | US_ITS ---
STUDY: ABDOMINAL ULTRASOUND - LEFT UPPER QUADRANT REASON FOR EXAM: Female, 61 years old. THROMBOCYTOPENIA TECHNIQUE: Transabdominal ultrasound was performed with real-time and static farnsworth scale imaging. TECHNICAL QUALITY: Adequate. COMPARISON: None. FINDINGS: Spleen: Mild splenomegaly. The spleen measures 14.9 cm x 6 cm x 8.2 cm. US/Spleen IMPRESSION: Mild splenomegaly. The spleen measures 14.9 cm x 6 cm x 8.2 cm. Electronically Signed: Bryan Boyer MD at 9:34 EDT ,
== END | disposition home or self-care (01) ==
LOC: US 07:18
PROVIDERS: PCP Family Medicine; Referring Provider Internal Medicine Hematology & Oncology; Visit Provider Internal Medicine Hematology & Oncology
DX: K76.0 Fatty (change of) liver, not elsewhere classified (principal); D69.6 Thrombocytopenia, unspecified; R94.5 Abnormal results of liver function studies; Z90.49 Acquired absence of other specified parts of digestive tract
CPT/HCPCS: 76705

== ENCOUNTER → 2022-01-24 | Outpatient (CLI) | payer OTHER, SELFPAY ==
--- NOTE | 2022-01-24 16:57 | US_ITS ---
STUDY: THYROID ULTRASOUND REASON FOR EXAM: Female, 61 years old. Multinodular goiter. TECHNIQUE: Ultrasound evaluation of the thyroid was performed with real-time and static farnsworth-scale imaging. COMPARISON: Comparison is made with prior study dated 04/09/2019. FINDINGS: RIGHT LOBE: The right lobe of the thyroid gland is enlarged and measures 5.9 cm x 2.8 cm x 2.1 cm. There is a heterogeneous echotexture. Multiple nodules are seen throughout the right lobe. The largest solid nodule measures 2 cm x 1.5 cm by 1.7 cm. This has increased slightly in size as compared to prior study. LEFT LOBE: The left lobe of the thyroid gland is enlarged and measures 5.8 cm x 2.7cm x 2.2 cm. There is a heterogeneous echotexture. There is a distinct 1.7 cm x 1.27 x 1.1 cm well-defined solid nodule in the upper pole. This is essentially unchanged. ISTHMUS: The isthmus measures 6 mm. The regional lymph nodes are normal. US/Thyroid IMPRESSION: Heterogeneous enlargement of the thyroid gland with bilateral nodular densities. There is been essentially no change. Electronically Signed: Bryan Boyer MD at 10:17 EDT ,
== END | disposition home or self-care (01) ==
LOC: US 16:55
PROVIDERS: PCP Family Medicine; Referring Provider Family Medicine; Visit Provider Family Medicine
DX: E04.2 Nontoxic multinodular goiter (principal)
CPT/HCPCS: 76536

== ENCOUNTER → 2022-02-01 | Outpatient (CLI) | payer OTHER, SELFPAY ==
[2022-02-01 18:08] LABS: Absolute Lymphocyte Count 1.22 X10^3/uL (0.83-4.51); Absolute Neutrophil Count 3.1 X10^3/uL (2.0-7.7); Basophil# 0.02 X10^3/uL; Basophil% 0.4 % (0-1); Eosinophil# 0.13 X10^3/uL; Eosinophils% 2.7 % (0-5); Hematocrit 39.9 % (37-47); Hemoglobin 13.3 g/dL (12.0-15.0); Lymphocyte # 1.22 X10^3/ul (0.83-4.51); Mean Corp Hgb Conc 33.3 g/dL (32-36); Mean Corpuscular Hgb 31.9 pg (27.0-32.0); Mean Corpuscular Volume 95.7 fL (81-99); Mean Platelet Vol. 11.4 fl (6.2-12.0); Monocyte# 0.36 X10^3/uL; Monocyte% 7.4 % (0-10); NRBC Flagged by Analyzer 0 % (0-5); Neutrophil # 3.14 X10^3/uL (2.7-7.7); Neutrophil % 64.3 % (47-70); POSITIVE COUNT YES; Platelet Count 87 K/mm3 (150-450); RBC Distribution Width CV 12.4 % (11.6-14.6); RBC Distribution Width SD 43.7 fl (35.1-43.9); Red Blood Count 4.17 M/mm3 (4.2-5.4); White Blood Count 4.9 K/mm3 (4.4-11.0)
[2022-02-01 18:13] LABS: Differential Indicated SCAN CRITERIA MET
[2022-02-01 18:25] LABS: D-Dimer Quantitative (DVT/PE) 0.49 FEU/ug/m (0.27-0.49)
[2022-02-01 18:26] LABS: BNP,B-Type NATRIURETIC PEPTIDE 38.4 pg/mL (0-100)
[2022-02-01 18:27] LABS: Hemoglobin A1c 8.2 % (3.8-5.6)
[2022-02-01 18:30] LABS: AST(SGOT) 67 U/L (15-37); Alanine Aminotransfer ALT/SGPT 52 U/L (13-56); Albumin, Serum 3.1 g/dL (3.2-5.0); Alkaline Phosphatase 162 U/L (45-117); Anion Gap 6 (5-15); BUN 11 mg/dL (7-18); BUN/Creat Ratio 16.3 RATIO (10-20); Bilirubin, Direct 0.29 mg/dL (0.00-0.30); Calcium,Total 9.2 mg/dL (8.5-10.1); Chloride 105 mmol/L (98-107); Creatinine, Serum 0.68 mg/dL (0.55-1.02); EST Glomerular Filtration Rate 94 mL/min (>60); Est Glom Filt Rate - Afr Amer 114 mL/min (>60); Globulin 4.3 g/dL (2.2-4.2); Glucose 133 mg/dL (74-106); Potassium 3.9 mmol/L (3.5-5.1); Protein, Total 7.4 g/dL (6.4-8.2); Rheumatoid Factor < 10.0 IU/mL (<15); Sodium Level 138 mmol/L (136-145)
[2022-02-01 18:40] LABS: Differential Comment SCANNED
[2022-02-01 18:41] LABS: Erythrocyte Sedimentation Rate 47 mm/hr (0-30)
[2022-02-01 18:54] LABS: Microalbumin,Random Urine < 5.0 mg/L (NO RANGE EST.)
[2022-02-05 17:01] LABS: Anti-Nuclear Antibody Test Negative (.)
== END | disposition home or self-care (01) ==
LOC: LAB 17:47
PROVIDERS: PCP Family Medicine; Referring Provider Family Medicine; Visit Provider Family Medicine
DX: E03.8 Other specified hypothyroidism (principal); M06.4 Inflammatory polyarthropathy; E11.9 Type 2 diabetes mellitus without complications; E06.3 Autoimmune thyroiditis; K76.0 Fatty (change of) liver, not elsewhere classified; I51.89 Other ill-defined heart diseases
CPT/HCPCS: 36415; 80048; 80076; 82043; 82570; 83036; 83880; 84443; 85025; 85379; 85652; 86038; 86140; 86431

== ENCOUNTER 2022-02-04 16:30 | Outpatient (RCR) | payer OTHER, SELFPAY ==
--- NOTE | 2022-01-10 14:28 | HP.PTEVAL ---
Patient's Visit Information MARYLOU MARIE is a 61 year old F referred to Physical Therapy by Dr. Michele العلي DO with a diagnosis of UNLATERAL PRIMARY OSTEOATHRITIS RIGHT KNEE ,PAIN RIGHT KNEE ,FALLS. Date of Evaluation: 01/09/22 Physical Therapist: Arnulfo Carmona, PT, Cert MDT, OCS - Visit Plan Frequency: 2x /Week Duration: 12 Plan: PT INTERVETIONS ROM KNEE,FLEXABLITY RLE,GRADED PTRE'S QUADS/HAMS/HIP ,FUNCTIONAL STRENGTHENING AND MODALTIES PRN - Subjective This 61 y/o female presents to physical therapy with right knee pain with DJD . Patient has had right knee pain for 6-8weeks . Patient has been falling and eventually had x-rays showed DJD and spurs. Patient had gel injections this morning by DR العلي PA . Patient is not taking any medication just Aleve. Recommended PT. Aggravating factors stairs one steps time ,standing, walking and unable squatting or kneel. Alleviating factors rest some. Patient pain pain affects sleeping. Denies paresthesia/tingling. Patient pain affects QOL and job demands. Patient had knee replacement left. Patient falls due to right knee gives way. SOCAIL: single. 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 GAIT: antalgic right side with decrease stance time. PALAPTION: tender medial/lateral joint line. NEURO: denies paresthesia/tingling. AROM: Right knee 0-105 degrees supine. MMT (peak force) : quads 26.7,hamstrings 25.2 ,hip flexion 29.8,hip abduction 24.6. FLEXABLITY: hamstrings min tight. STAIRS: one step at time. EDEMA: joint line 49.1 cm right left 45 cm - Balance/Special Test Scores Functional Gait Assessment Score: 28 % Disability: 6.6700 Lower Extremity Functional Score: 25 - Goals Goal 1:: Patient to be I with HEP for knee Goal Time Frame: 4-6 Weeks Goal 2:: Patient to normalize gait pattern Goal Time Frame: 4-6 Weeks Goal 3:: Patient to improve peak force quads/hams by 5-10 to improve function and knee to give way. Goal Time Frame: 4-6 Weeks Goal 4:: Patient to improve knee flexion by 5-10 degrees to improve stairs Goal Time Frame: 4-6 Weeks Goal 5:: Patient to improve to improve LFES score by 5 -10 points to improve QOL and function Goal Time Frame: 4-6 Weeks Goal 6:: Patient to demonstrate 50% improvement with decrease pain and improved function Goal Time Frame: 4-6 Weeks - Rehabilitation Potential Physical Therapy Diagnosis: This patient has right knee pain due to DJD with spurs from x-rays with pain ,antalgic gait ,decrease gait ,stairs ,ROM and strength ,thus benefit from skilled PT Rehabilitation Potential: Good - Anticipated Interventions Patient/Client Instruction: Educate patient on: Condition, Plan of Care For the Purpose of:: To decrease pain, To increase ROM, To improve muscle performance and motor function, To improve ability to perform ADL's, To increase tolerance to activity/condition/position, To improve ability of physical actions for home/community/work/leisure, To improve gait and locomotor functions, To improve health of tissue, To decrease soft tissue restriction, To increase flexibility/ROM, To improve balance, To reduce risk of recurrence, To prevent re-injury Therapeutic Exercise to Include: Strength training, Endurance training, Balance training, Flexibilty training, Passive ROM, Active ROM Comment: QUADS/HAMS/HIP For the Purpose of:: To decrease pain, To increase ROM, To improve muscle performance and motor function, To improve ability to perform ADL's, To increase tolerance to activity/condition/position, To improve ability of physical actions for home/community/work/leisure, To improve health of tissue, To decrease soft tissue restriction, To increase flexibility/ROM, To prevent re-injury, To improve tolerance to ADL's TENS: Yes IF ES: Yes Cryotherapy (ice pack, ice massage): Yes Thermo therapy (hot pack): Yes Ultrasound (thermal/non thermal): Yes For the Purpose of:: To decrease pain, To increase ROM, To improve nutrient delivery to tissue, To increase oxygenation perfusion, To improve health of tissue, To decrease soft tissue restriction Thank you for the opportunity to evaluate your patient. For Medicare and Medicare HMO plans, please review the plan of care and approve it. It will need to be FAXED BACK to us at [phone] for Medicare purposes. For Medicare only, by signing this I certify the plan of care. Please let me know if there are questions or concerns regarding this plan of care. Physician Signature: Date:
== END 2022-02-04 19:00 | disposition home or self-care (01) ==
LOC: PT 16:30
PROVIDERS: PCP Family Medicine; Referring Provider Student in an Organized Health Care Education/Training Program; Visit Provider Student in an Organized Health Care Education/Training Program
DX: M17.11 Unilateral primary osteoarthritis, right knee (principal); R29.6 Repeated falls
CPT/HCPCS: 97014; 97110; 97162; G0283

== ENCOUNTER → 2022-02-04 | Outpatient (CLI) | payer OTHER, SELFPAY ==
--- NOTE | 2022-02-04 15:30 | RAD_ITS ---
EXAM: XR CHEST, 2 VIEWS CLINICAL INDICATION: DIASTOLIC DYSFUNCTION/ HX OF PNEUMONIA TECHNIQUE: Frontal and lateral views of the chest. This report was created using [employer] report generation technology. COMPARISON: 04/04/2021 FINDINGS: LUNGS AND PLEURAL SPACES: Unremarkable. No consolidation or edema. No pneumothorax. No effusion. HEART: Unremarkable. Cardiac silhouette not enlarged. MEDIASTINUM: Central airways and mediastinal contour are unremarkable. BONES/JOINTS: Degenerative changes of the spine. SOFT TISSUES: Unremarkable. RAD/Chest PA and Lateral IMPRESSION: No acute findings in the chest. Electronically Signed: Nima Frances MD at 23:59 EDT ,
== END | disposition home or self-care (01) ==
LOC: RAD 15:23
PROVIDERS: PCP Family Medicine; Visit Provider Family Medicine
DX: I51.89 Other ill-defined heart diseases (principal); Z87.01 Personal history of pneumonia (recurrent)
CPT/HCPCS: 71046

== ENCOUNTER → 2022-02-06 | Outpatient (CLI) | payer OTHER, SELFPAY ==
--- NOTE | 2022-02-06 15:31 | ECHOD_ITS ---
Version 2 Reason For Study: MURMUR Procedure This was a 2D Doppler, Color Flow transthoracic echocardiogram. Exam performed in department. Left Ventricle Normal LV size. Moderate concentric left ventricular hypertrophy. Left ventricular systolic function is normal. The estimated ejection fraction is 55 %. No regional wall motion abnormalities noted. Right Ventricle Normal RV size. Normal systolic function. Atria The left atrium is moderately enlarged. Normal right atrium. Mitral Valve Normal mitral valve. Tricuspid Valve Normal tricuspid valve. Mild (1+) tricuspid valve insufficiency. Pulmonary artery systolic pressure is 38 mmHg. Aortic Valve Trisinus/trileaflet aortic valve. Mild focal aortic valve calcification. Peak aortic valve gradient 18 mmHg. Mean aortic valve gradient 10 mmHg. Pulmonic Valve Normal pulmonic valve. Great Vessels Normal aortic root. The pulmonary artery is normal size. Normal inferior vena cava. Pericardium/Pleural No pericardial effusion. MMode/2D Measurements & Calculations LVIDd: 4.9 cm IVSd: 1.5 cm Ao root diam: 2.7 cm LVIDs: 3.1 cm LVPWd: 1.7 cm RVDd: 3.8 cm FS: 37.0 % LAV(MOD-sp4): 69.9 ml LVAd ap4: 29.8 cm2 SV(MOD-sp4): 64.8 ml LVLd ap4: 7.7 cm EDV(MOD-sp4): 96.4 ml EDV(sp4-el): 98.7 ml LVAs ap4: 14.8 cm2 LVLs ap4: 5.9 cm ESV(MOD-sp4): 31.7 ml ESV(sp4-el): 31.3 ml EF(MOD-sp4): 67.2 % EF(sp4-el): 68.3 % SV(sp4-el): 67.4 ml LA A4 area: 25.3 cm2 LA dimension(2D): 4.8 cm RA A4 area: 17.5 cm2 Doppler Measurements & Calculations MV E max alicia: 101.1 cm/sec Ao V2 max: 212.7 cm/sec LV V1 max: 140.8 cm/sec Ao max P.1 mmHg LV V1 max P.0 mmHg Ao V2 mean: 150.0 cm/sec LV V1 mean P.8 mmHg Ao mean P.2 mmHg LV V1 mean: 103.9 cm/sec Ao V2 VTI: 55.4 cm LV V1 VTI: 37.6 cm PA V2 max: 125.4 cm/sec TR max alicia: 293.4 cm/sec PA V2 mean: 92.2 cm/sec TR max P.4 mmHg ECHO/Echo Complete Interpretation Summary Normal LV size. Left ventricular systolic function is normal. The estimated ejection fraction is 55 %. The left atrium is moderately enlarged. Mild focal aortic valve calcification. Mean aortic valve gradient 10 mmHg. Pulmonary artery systolic pressure is 38 mmHg. Moderate concentric left ventricular hypertrophy. Ordering Physician: Zeeshan Chao Referring Physician: Zeeshan Chao Performed By: Natacha Saba RCS
== END | disposition home or self-care (01) ==
LOC: CVS 15:30
PROVIDERS: PCP Family Medicine; Referring Provider Family Medicine; Visit Provider Family Medicine
DX: R01.1 Cardiac murmur, unspecified (principal)
CPT/HCPCS: 93306

== ENCOUNTER → 2022-03-13 | Outpatient (CLI) | payer OTHER, SELFPAY ==
--- NOTE | 2022-03-13 07:02 | CT_ITS ---
STUDY: CT ABDOMEN AND PELVIS WITH CONTRAST REASON FOR EXAM: Female, 61 years old. Rectal bleed, lower abd pain, ruq pain -- oral and iv RADIATION DOSAGE (If Supplied By Facility): CTDIvol = ( 17.07 ) mGy, DLP = ( 1288.62 ) mGycm TECHNIQUE: Transaxial images were obtained from the dome of the diaphragm to the symphysis pubis with oral contrast. Oral and amp; IV Readi-CAT and amp; 100mL Isovue-370 was administered. Sagittal and coronal images were reconstructed. Individualized dose optimization techniques were used for this CT. COMPARISON: Comparison is made with prior study dated 07/05/2013. FINDINGS: The visualized lung bases are unremarkable. The visualized portions of the heart are within normal limits. There is decreased attenuation of the liver consistent with steatosis. The patient is status post cholecystectomy. There is mild splenomegaly. Normal pancreas. Normal bilateral adrenal glands. Normal right kidney. Normal left kidney. Normal visualized stomach. Normal small intestine. There are scattered colonic diverticula consistent with diverticulosis. Large amount of fecal material is seen in the colon. There is non-visualization of the appendix. Normal abdominal aorta. Normal inferior vena cava. There is borderline retroperitoneal lymphadenopathy with enlarged nodes no greater than 10mm in the short axis diameter. Normal urinary bladder. There is absence of the uterus consistent with a prior hysterectomy. There is a left-sided inguinal hernia containing adipose tissue. There are diffuse degenerative changes of the visualized lumbar spine. CT/Abdomen/Pelvis WITH Contrast IMPRESSION: Fatty infiltration of the liver. Mild splenomegaly. Scattered sigmoid diverticula. Electronically Signed: Bryan Boyer MD at 9:20 EDT ,
[2022-03-13 07:26] LABS: CREATININE FINGERSTICK 0.9 mg/dL (0.55-1.02); EGFR FINGERSTICK > 60.0000 mL/min (>60)
== END | disposition home or self-care (01) ==
LOC: CT 07:01
PROVIDERS: PCP Family Medicine; Referring Provider Nurse Practitioner Adult Health; Visit Provider Nurse Practitioner Adult Health
DX: Z01.812 Encounter for preprocedural laboratory examination (principal); K62.5 Hemorrhage of anus and rectum; R10.11 Right upper quadrant pain
CPT/HCPCS: 74177; Q9967; A4216

== ENCOUNTER → 2022-03-23 | Outpatient (CLI) | payer OTHER, SELFPAY ==
[2022-03-23 09:30] LABS: Hematocrit 40.1 % (37-47); Hemoglobin 13.2 g/dL (12.0-15.0); Mean Corp Hgb Conc 32.9 g/dL (32-36); Mean Corpuscular Hgb 31.6 pg (27.0-32.0); Mean Corpuscular Volume 95.9 fL (81-99); POSITIVE COUNT YES; Platelet Count 76 K/mm3 (150-450); RBC Distribution Width CV 12.8 % (11.6-14.6); RBC Distribution Width SD 45.7 fl (35.1-43.9); Red Blood Count 4.18 M/mm3 (4.2-5.4); White Blood Count 3.8 K/mm3 (4.4-11.0)
[2022-03-23 10:00] LABS: Microalbumin,Random Urine 7.2 mg/L (NO RANGE EST.); Microalbumin:Creatinine Ratio 4.3 mg/g CRE (<30 mg/g CRE)
[2022-03-23 10:07] LABS: Anion Gap 7 (5-15); BUN 10 mg/dL (7-18); BUN/Creat Ratio 12.2 RATIO (10-20); Calcium,Total 9.1 mg/dL (8.5-10.1); Chloride 104 mmol/L (98-107); Creatinine, Serum 0.82 mg/dL (0.55-1.02); EST Glomerular Filtration Rate 75 mL/min (>60); Est Glom Filt Rate - Afr Amer 91 mL/min (>60); Glucose 118 mg/dL (74-106); Potassium 4.1 mmol/L (3.5-5.1); Sodium Level 137 mmol/L (136-145)
== END | disposition home or self-care (01) ==
LOC: LAB 09:03
PROVIDERS: PCP Family Medicine; Referring Provider Family Medicine; Visit Provider Family Medicine
DX: D69.6 Thrombocytopenia, unspecified (principal); E11.9 Type 2 diabetes mellitus without complications; E03.8 Other specified hypothyroidism; E06.3 Autoimmune thyroiditis
CPT/HCPCS: 36415; 80048; 82043; 82570; 83036; 84443; 85027

== ENCOUNTER → 2022-03-25 | Outpatient (CLI) | payer OTHER, SELFPAY | END | disposition home or self-care (01) | LOC: PSN 06:32 | PROVIDERS: PCP Family Medicine; Referring Provider Nurse Practitioner Gerontology; Visit Provider Nurse Practitioner Gerontology | DX: R00.2 Palpitations (principal) | CPT/HCPCS: 93225; 93226 ==

== ENCOUNTER → 2022-03-28 | Outpatient (CLI) | payer OTHER, SELFPAY ==
--- NOTE | 2022-03-28 10:02 | US_ITS ---
STUDY: ABDOMINAL ULTRASOUND - ELASTOGRAPHY REASON FOR VISIT: Female, 61 years old. Fatty infiltration of the liver. TECHNIQUE: Liver stiffness measurements were obtained on a [employer] RS 85 ultrasound machine using a CA 1-7 probe following the SRU guidelines. 3 measurements were obtained using a 2-D-SWE method. The IQR/M was 19% suggesting a quality data set. TECHNICAL QUALITY: Adequate. COMPARISON: Comparison is made with prior sonogram dated 01/08/2022. FINDINGS: Liver: Hepatomegaly. Fatty infiltration of the liver. Median liver stiffness measured 6.7 kPa. US/Elastography Parenchyma/Organ IMPRESSION: Liver stiffness measures 6.7 kPa compatible with F2-F3 (Mild to moderate liver fibrosis) Metavir score. Electronically Signed: Bryan Boyer MD at 14:37 EDT ,
--- NOTE | 2022-03-28 10:02 | NM_ITS ---
CLINICAL: 61-year-old female with clinically suspected gastroparesis. SEMI-SOLID PHASE 99m Tc SULFUR COLLOID GASTRIC EMPTYING STUDY COMPARISON: None available FINDINGS: The patient was administered 1.1 mCi of 99m Tc sulfur colloid mixed with oatmeal and consumed per os. Image acquisitions in the anterior-posterior projections were obtained for 60 minutes. There is prompt visualization of the stomach. There is no gastroesophageal reflux identified. The T ? emptying was calculated to be 49.26 minutes, (Normal: 12-56 minutes). NM/Gastric Emptying Study IMPRESSION: 1. NORMAL 99m Tc sulfur colloid semi-solid phase (oatmeal) gastric emptying imaging examination. A. There is normal and preserved semi-solid phase gastric emptying compared to normal controls. (Valente et al, J Nucl Med Tech 38: 186, 2010). Electronically Signed: Rodríguez Pride, at 23:04 EDT ,
== END | disposition home or self-care (01) ==
LOC: NM 10:01
PROVIDERS: PCP Family Medicine; Referring Provider Nurse Practitioner Adult Health; Visit Provider Nurse Practitioner Adult Health
DX: R68.81 Early satiety (principal); R16.0 Hepatomegaly, not elsewhere classified; R74.8 Abnormal levels of other serum enzymes; K76.0 Fatty (change of) liver, not elsewhere classified
CPT/HCPCS: 76981; 78264; A9541

== ENCOUNTER → 2022-04-02 | Outpatient (CLI) | payer OTHER, SELFPAY ==
--- NOTE | 2022-04-02 13:34 | EKG12_ITS ---
Test Reason : PREOP Blood Pressure : / mmHG Vent. Rate : 056 BPM Atrial Rate : 056 BPM P-R Int : 172 ms QRS Dur : 116 ms QT Int : 476 ms P-R-T Axes : -07 -40 081 degrees QTc Int : 459 ms Sinus bradycardia with sinus arrhythmia Left axis deviation Left ventricular hypertrophy with QRS widening and repolarization abnormality Abnormal ECG Confirmed by ANGELA REYNOLDS, ADAL ([id number]), video editor NATE CHILEL ([id number]) on 04/03/2022 11:11:47 AM Referred By: Michele العلي Confirmed By:ADAL MILLER MD
--- NOTE | 2022-04-02 13:34 | RAD_ITS ---
INDICATION: PREOP EXAMINATION/TECHNIQUE: X-RAY - XR Chest 2 Views COMPARISON: 02/04/2022. FINDINGS: LINES/DEVICES: Internal fixation of the lower cervical spine is seen. LUNGS: No consolidation, edema or effusion. No pneumothorax. MEDIASTINUM AND CARDIOVASCULAR STRUCTURES: Cardiac silhouette not enlarged. Central airways and mediastinal contour are unremarkable. BONES AND SOFT TISSUES: Degenerative bone changes seen.. RAD/Chest PA and Lateral IMPRESSION: No radiographic evidence of acute cardiopulmonary disease. Electronically Signed: Ben Roblero MD at 16:21 EDT ,
[2022-04-02 14:45] LABS: Absolute Lymphocyte Count 1.16 X10^3/uL (0.83-4.51); Absolute Neutrophil Count 2.7 X10^3/uL (2.0-7.7); Basophil# 0.02 X10^3/uL; Basophil% 0.5 % (0-1); Eosinophil# 0.16 X10^3/uL; Eosinophils% 3.7 % (0-5); Hematocrit 40.1 % (37-47); Lymphocyte # 1.16 X10^3/ul (0.83-4.51); Lymphocyte % 26.8 % (19-41); Mean Corp Hgb Conc 32.4 g/dL (32-36); Mean Corpuscular Hgb 31.5 pg (27.0-32.0); Mean Corpuscular Volume 97.1 fL (81-99); Mean Platelet Vol. 12.1 fl (6.2-12.0); Monocyte# 0.27 X10^3/uL; Monocyte% 6.2 % (0-10); NRBC Flagged by Analyzer 0 % (0-5); Neutrophil # 2.71 X10^3/uL (2.7-7.7); Neutrophil % 62.6 % (47-70); POSITIVE COUNT YES; Platelet Count 83 K/mm3 (150-450); RBC Distribution Width CV 13.1 % (11.6-14.6); RBC Distribution Width SD 46.9 fl (35.1-43.9); Red Blood Count 4.13 M/mm3 (4.2-5.4); White Blood Count 4.3 K/mm3 (4.4-11.0)
[2022-04-02 14:47] LABS: Erythrocyte Sedimentation Rate 34 mm/hr (0-30)
[2022-04-02 15:15] LABS: International Normalized Ratio 1.3; Prothrombin Time (Protime)PT. 15.8 SECONDS (11.7-14.9)
[2022-04-02 15:51] LABS: ALB/GLOB Ratio 0.8 RATIO (0.9-2.4); AST(SGOT) 68 U/L (15-37); Alanine Aminotransfer ALT/SGPT 51 U/L (13-56); Albumin, Serum 3.2 g/dL (3.2-5.0); Alkaline Phosphatase 141 U/L (45-117); Anion Gap 11 (5-15); BUN 11 mg/dL (7-18); BUN/Creat Ratio 12.9 RATIO (10-20); CRP 8.66 mg/L (0.0-3.0); Calcium,Total 9.1 mg/dL (8.5-10.1); Chloride 108 mmol/L (98-107); Creatinine, Serum 0.85 mg/dL (0.55-1.02); EST Glomerular Filtration Rate 72 mL/min (>60); Est Glom Filt Rate - Afr Amer 87 mL/min (>60); Ferritin 60 ng/mL (8-252); GGTP 82 U/L (5-55); Globulin 4.1 g/dL (2.2-4.2); Glucose 134 mg/dL (74-106); LDH 184 U/L (84-246); Potassium 3.9 mmol/L (3.5-5.1); Protein, Total 7.3 g/dL (6.4-8.2); Sodium Level 140 mmol/L (136-145)
[2022-04-02 21:23] LABS: Magnesium 1.9 mg/dL (1.6-2.6)
[2022-04-04 16:09] LABS: Anti-Centromere B Ab <0.2 AI (0.0-0.9); Anti-Chromatin <0.2 AI (0.0-0.9); Anti-Jo <0.2 AI (0.0-0.9); Anti-Scleroderma-70 AB <0.2 AI (0.0-0.9); RNP Ab 2.4 AI (0.0-0.9); SJOGREN'S Anti-SS-A test > 8.0 AI (0.0-0.9); SJOGREN'S Anti-SS-B test < 0.2 AI (0.0-0.9); Smith Ab <0.2 AI (0.0-0.9)
[2022-04-05 07:08] LABS: Angiotensin Convert Enzyme 46 U/L (14-82); Cytoplasmic Ab (C-ANCA) <1:20 titer (Neg:<1:20); HEPATITIS B SURFACE AG Negative (Negative); Hep C Antibodies <0.1 s/co ratio (0.0-0.9); Hepatitis A IgM Antibody Negative (Negative); Hepatitis B Core AB IgM Negative (Negative)
[2022-04-05 19:17] LABS: Anti-Smooth Muscle ABS 10 Units (0-19); Copper, Serum or Plasma 114 ug/dL (80-158); Haptoglobin 64 mg/dL (37-355); Perinuclear Ab (P-ANCA) <1:20 titer (Neg:<1:20)
[2022-04-05 19:32] LABS: Anti-Mitochondrial AB <20.0 Units (0.0-20.0); Anti-dsDNA Ab <1 IU/mL (0-9)
== END | disposition home or self-care (01) ==
PROVIDERS: Anesthesiology; Nurse Practitioner Adult Health; PCP Family Medicine; Referring Provider Student in an Organized Health Care Education/Training Program; Visit Provider Student in an Organized Health Care Education/Training Program
DX: Z01.818 Encounter for other preprocedural examination (principal); I49.8 Other specified cardiac arrhythmias; K76.0 Fatty (change of) liver, not elsewhere classified; R16.0 Hepatomegaly, not elsewhere classified; R74.8 Abnormal levels of other serum enzymes
CPT/HCPCS: 36415; 71046; 80053; 80074; 82040; 82105; 82140; 82164; 82390; 82525; 82728; 82977; 83010; 83036; 83516; 83615; 83735; 85025; 85610; 85652; 86140; 86225; 86235; 86256; 87077; 87081; 93005

== ENCOUNTER → 2022-04-09 | Outpatient (CLI) | payer OTHER, SELFPAY ==
--- NOTE | 2022-04-09 07:03 | CT_ITS ---
STUDY: CT SCAN LOWER EXTREMITY RIGHT. [facility] protocol. REASON FOR EXAM: Female, 61 years old. UNILATERAL PRIMARY OSTEOARTHRITIS RADIATION DOSAGE (If Supplied By Facility): CTDIvol = ( 19.03 ) mGy, DLP = ( 1379.49 ) mGycm. Individualized dose optimization techniques were used for this CT.? TECHNIQUE: Multiple axial tomographic images of the right hip, right knee and right ankle joints were obtained. Coronal and sagittal reconstruction was obtained as well. COMPARISON: None. FINDINGS: Imaging of the right hip was obtained. Mild degree of the joint space narrowing incomplete with osteoarthritis. No fracture or dislocation is seen. Imaging of the right knee joint was obtained. Marked degree of joint space narrowing involving the medial compartment of the knee joint with the degenerative spur formation along the medial and lateral femoral condyles. Marked degree of joint space narrowing involving the patellofemoral joint with a degenerative spur formation. Small joint effusion. Imaging of the ankle joint was obtained. There is evidence of old avulsion fracture of the lateral malleolus. Calcaneal spurs. CT/Extremity Lower without Contra IMPRESSION: Moderate in degree of joint space narrowing involving the medial compartment and femoral patellar compartment of the right knee.. Electronically Signed: Bryan Boyer MD at 13:10 EDT ,
== END | disposition home or self-care (01) ==
LOC: CT 07:01
PROVIDERS: PCP Family Medicine; Referring Provider Student in an Organized Health Care Education/Training Program; Visit Provider Student in an Organized Health Care Education/Training Program
DX: M17.11 Unilateral primary osteoarthritis, right knee (principal)
CPT/HCPCS: 73700

== ENCOUNTER 2022-04-17 06:00 | Day surgery (SDC) | payer OTHER, SELFPAY ==
--- NOTE | 2022-04-17 | STO_PTH ---
PATIENT: MARYLOU MARIE LOC: EN U#:[id number] AGE/SX: 61/F ROOM: RE04/17/[address]: Dr. Marvin Connor DO : 1960 BED: DIS: 04/17/2022 SPEC #: [id number] RECD: 04/17/22 13:56 STATUS: KARYN OLIVER #: [id number] PRAVEEN: 04/17/22 00:[address]: Marvin Connor DEPT: SURGICAL PATHOLOGY RECD BY: Des Alvarez ENTERED: 04/18/22 08:44 SP TYPE: STOMACH BX OTHR DR: Dr. Zeeshan Chao MD Tissues: A - Stomach, NOS B - Gastric mucous membrane C - Descending colon D - Sigmoid colon biopsy Procedures: Surgery Specimen Level IV HEADER OPERATION: Colonoscopy, EGD ([facility]) PRE-OP DIAGNOSIS: Fatty liver, hepatomegaly, elevated liver enzymes, early satiety, rectal bleeding, lower abdominal pain, RUQ pain, GERD TISSUE SUBMITTED: A ? Greater curvature biopsy, B ? Antrum biopsy for H. pylori and path, C ? Descending colon polyp, D ? Sigmoid colon polyp biopsy MICROSCOPIC DIAGNOSIS A. Greater curvature stomach, biopsy: Mild chronic gastritis. B. Gastric antrum, biopsy: Chronic gastritis. See comment. C. Descending colon polyp, biopsy: Fragments of tubular adenoma. D. Sigmoid colon polyp, biopsy: Hyperplastic polyp. AM:yesy 04/19/2022 COMMENT B. The results of immunohistochemistry for Helicobacter pylori will be reported separately ([id number]). MICROSCOPIC DESCRIPTION Slides are reviewed. GROSS DESCRIPTION A - Received in fixative is one container labeled with the patient's name and designated greater curvature biopsy. The specimen consists of one irregular fragment of light leiva soft tissue that measures 0.4 x 0.4 x 0.1 cm. The specimen is totally submitted in one cassette. B - Received in fixative is one container labeled with the patient's name and designated antrum biopsy. The specimen consists of two irregular fragments of light leiva soft tissue that in aggregate measure 0.5 x 0.5 x 0.1 cm. The specimen is totally submitted in one cassette. C - Received in fixative is one container labeled with the patient's name and designated descending colon polyp. The specimen consists of multiple irregular fragments of light leiva soft tissue mixed with fecal material that in aggregate measure 2 x 0.5 x 0.1 cm. The specimen is totally submitted in one cassette. D - Received in fixative is one container labeled with the patient's name and designated sigmoid colon polyp biopsy. The specimen consists of one irregular fragment of light leiva soft tissue that measures 0.2 x 0.2 x 0.1 cm. The specimen is totally submitted in one cassette. / SJ:rg 04/18/2022 TC:5 CPT: 32035 x4
[2022-04-17] MEDS: Lactated Ringers 1,000 ML 15 ML IV (06:15)
[2022-04-17 06:31] VITALS: BP 135/69; PULSE 59; RESP 20; TEMP 36.5; O2SAT 98; BMI 39.5
--- NOTE | 2022-04-17 06:50 | HP.PCM_ITS ---
History and Physical Date of Admission: 04/17/22 MARYLOU MARIE, is a 61 F who presents to the office today for fatty liver, hepatomegaly, and abnormal liver enzymes, as well as thrombocytopenia, mild splenomegaly, DM2. She also has recurrent rectal bleeding for more than a year, chronic heartburn, dysphagia, and abdominal pain. Recent US shows fatty, enlarged liver. Inflammatory markers are elevated. Her DM isn't well controlled. AST, ALT and alk phos have been elevated. Rectal bleeding --Rectal bleeding that requires a pad after episodes of constipation. Occurs about every 2 wks. Flowers then. Alternates diarrhea and constipation. Tried increasing fiber w/o relief. Stool softener with minimal relief but still bleeding. Can still bleed when she has diarrhea. 03/2021 colonoscopy-- hyperplastic polyp, non bleeding internal hemorrhoids Heartburn is managed with omeprazole 20 mg daily. Feels like food is sticking in upper esophagus. No emergency episodes of food sticking. No related pain in chest. Pain and bloating in RUQ and epigastrium. Pain in RUQ can radiate to back, catches her, occurs about once a day, very brief. Started about 2 yrs ago. She has had a cholecystectomy. Has early satiety. She has nausea especially after eating, will have emesis only if she eats too much at once. Thrombocytopenia -- since 2018. She was evaluated by solid waste collection worker Dr Del Rio at [facility]--his 01/09/22 note states chronic thrombocytopenia likely secondary to chronic ITP vs lupus; he recommended she establish with a jack machine operator; recom mended return to hematology if platelets <50,000 and bleeding for treatment. Recent US shows mild splenomegaly. Hx inflammatory polyarthritis, her primary care Dr Chao wants her to f/u w/ Rheumatology, she needs to establish with a new jack machine operator She will be having TKR in April 19/2022 labs: plts 87, esr 47, crp 11.4, hgb a1c 8.2, ast 67, alk phos 162 01/08/22 US/Spleen IMPRESSION: Mild splenomegaly.? The spleen measures 14.9 cm x 6 cm x 8.2 cm. ? 01/08/22 US/Liver IMPRESSION: Hepatomegaly and diffuse fatty infiltration of the liver. The patient is status post cholecystectomy. Liver measures 20.5 cm ROS Const Constitutional: Positive for fatigue ENT ENT: Positive for difficulty swallowing Gastro GI: Positive for abdominal pain, bloating, change in bowel habits, difficulty swallowing, excessive flatus, Blood in stool and nausea/dyspepsia; No belching, change in stool character, coffee ground emesis, constipation, cramping, diarrhea, heartburn, feeling full early, incontinent of stools, Vomiting blood/hematemesis, loose stools, Black,tarry stools, pain with swallowing, vomiting or other Musc Musculoskeletal: Positive for joint pain, joint swelling, muscle cramps, muscle weakness, stiffness and Arthritis Skin Skin: Positive for dry skin; No yellowing of the eye or itchy eyes Psych Psychiatric: No anxiety and No depression Endo Endocrine: Positive for fatigue Aller/Imm Allergy/Immunologic: No itchy eyes Evl/Lymp Hematologic/Lymphatic: Positive for easy bleeding; No easy bruising Exam Const General: cooperative and no acute distress Nutritional Appearance: obese Orientation: alert, awake and oriented x3 Eyes Sclera: sclerae normal Resp Effort & Inspection: normal respiratory effort GI Palpation: soft, no masses and tender in the epigastrum, in the RLQ and in the R UQ Quality Reporting Tobacco Screening ([facility] 138) Smoking Status: Never smoker Assessment and Plan Assessment and Plan (1) Fatty liver: ?Status:?Acute ?Plan: 61 yr old female with fatty liver, hepatomegaly, elevated liver enzymes, thrombocytopenia, mild splenomegaly, rectal bleeding, abdominal pain, early satiety, nausea, GERD in the setting of inflammatory polyarthropathy, DM2, hyperlipidemia, obesity, Penny's hypothyroidism and other comorbidities Biochemical w/u and liver elastography, discussed fatty liver, eval and treatment EGD and colonoscopy, eval for hernández's, PUD, gastritis, malignancy; f/u 2 wks later Gastric emptying study to eval for gastroparesis CT abd pel w/ oral and IV (2) Hepatomegaly: ?Status:?Acute ?Plan: as above (3) Elevated liver enzymes: ?Status:?Acute ?Plan: as above (4) Early satiety: ?Status:?Acute ?Plan: Gastric emptying study (5) Rectal bleeding: ?Status:?Acute ?Plan: Colonoscopy, CT (6) Lower abdominal pain: ?Status:?Acute ?Plan: CT abd pel w/ oral and IV contrast (7) RUQ pain: ?Status:?Acute ?Plan: as above (8) GERD (gastroesophageal reflux disease): ?Status:?Acute ?Plan: EGD ? ? ? Orders: Orders Comprehensive Metabolic Profil 03/07/22 K76.0 - Fatty (change of) liver , not elsewhere classified, R16.0 - Hepatomegaly, not elsewhere classified, R74.8 - Abnormal levels of other serum enzymes ? CRP 03/07/22 K76.0 - Fatty (change of) liver , not elsewhere classified, R16.0 - Hepatomegaly, not elsewhere classified, R74.8 - Abnormal levels of other serum enzymes ? Ferritin 03/07/22 K76.0 - Fatty (change of) liver , not elsewhere classified, R16.0 - Hepatomegaly, not elsewhere classified, R74.8 - Abnormal levels of other serum enzymes ? LDH 03/07/22 K76.0 - Fatty (change of) liver , not elsewhere classified, R16.0 - Hepatomegaly, not elsewhere classified, R74.8 - Abnormal levels of other serum enzymes ? Hemoglobin A1c 03/07/22 K76.0 - Fatty (change of) liver , not elsewhere classified, R16.0 - Hepatomegaly, not elsewhere classified, R74.8 - Abnormal levels of other serum enzymes ? Prothrombin Time w/INR 03/07/22 K76.0 - Fatty (change of) liver , not elsewhere classified, R16.0 - Hepatomegaly, not elsewhere classified, R74.8 - Abnormal levels of other serum enzymes ? CBC W/Diff, Automated 03/07/22 K76.0 - Fatty (change of) liver , not elsewhere classified, R16.0 - Hepatomegaly, not elsewhere classified, R74.8 - Abnormal levels of other serum enzymes ? Erythrocyte Sed Rate 03/07/22 K76.0 - Fatty (change of) liver , not elsewhere classified, R16.0 - Hepatomegaly, not elsewhere classified, R74.8 - Abnormal levels of other serum enzymes ? Anti-Mitochondrial AB 03/07/22 K76.0 - Fatty (change of) liver , not elsewhere classified, R16.0 - Hepatomegaly, not elsewhere classified, R74.8 - Abnormal levels of other serum enzymes ? CHENTE Comprehensive Panel 03/07/22 K76.0 - Fatty (change of) liver , not elsewhere classified, R16.0 - Hepatomegaly, not elsewhere classified, R74.8 - Abnormal levels of other serum enzymes ? Hepatitis Panel Acute 03/07/22 K76.0 - Fatty (change of) liver , not elsewhere classified, R16.0 - Hepatomegaly, not elsewhere classified, R74.8 - Abnormal levels of other serum enzymes ? Angiotensin Convert Enzyme 03/07/22 K76.0 - Fatty (change of) liver , not elsewhere classified, R16.0 - Hepatomegaly, not elsewhere classified, R74.8 - Abnormal levels of other serum enzymes ? AFP, Tumor Marker 03/07/22 K76.0 - Fatty (change of) liver , not elsewhere classified, R16.0 - Hepatomegaly, not elsewhere classified, R74.8 - Abnormal levels of other serum enzymes ? ANCA 03/07/22 K76.0 - Fatty (change of) liver , not elsewhere classified, R16.0 - Hepatomegaly, not elsewhere classified, R74.8 - Abnormal levels of other serum enzymes ? Anti-Smooth Muscle ABS 03/07/22 K76.0 - Fatty (change of) liver , not elsewhere classified, R16.0 - Hepatomegaly, not elsewhere classified, R74.8 - Abnormal levels of other serum enzymes ? Ceruloplasmin 03/07/22 K76.0 - Fatty (change of) liver , not elsewhere classified, R16.0 - Hepatomegaly, not elsewhere classified, R74.8 - Abnormal levels of other serum enzymes ? Copper, Serum or Plasma 03/07/22 K76.0 - Fatty (change of) liver , not elsewhere classified, R16.0 - Hepatomegaly, not elsewhere classified, R74.8 - Abnormal levels of other serum enzymes ? Haptoglobin 03/07/22 K76.0 - Fatty (change of) liver , not elsewhere classified, R16.0 - Hepatomegaly, not elsewhere classified, R74.8 - Abnormal levels of other serum enzymes ? Ammonia 03/07/22 K76.0 - Fatty (change of) liver , not elsewhere classified, R16.0 - Hepatomegaly, not elsewhere classified, R74.8 - Abnormal levels of other serum enzymes ? Elastography Parenchyma/Organ 03/07/22 K76.0 - Fatty (change of) liver , not elsewhere classified, R16.0 - Hepatomegaly, not elsewhere classified, R74.8 - Abnormal levels of other serum enzymes ? GGTP 03/07/22 R74.8 - Abnormal levels of othe r serum enzymes ? Gastric Emptying Study 03/07/22 R68.81 - Early satiety ? Abdomen/Pelvis WITH Contrast 03/07/22 K62.5 - Hemorrhage of anus and rectum, R10.11 - Right upper quadrant pain, R10.30 - Lower abdominal pain, unspecified ? I have re-examined the patient. There are no clinical changes since date of exam.
--- NOTE | 2022-04-17 07:00 | IMM_PTH ---
PATIENT: MARYLOU MARIE LOC: EN U#:[id number] AGE/SX: 61/F ROOM: RE04/17/[address]: Dr. Marvin Connor DO : 1960 BED: DIS: 04/17/2022 SPEC #: [id number] RECD: 04/18/22 10:20 STATUS: KARYN RERodolfo #: [id number] PRAVEEN: 04/17/22 07:[address]: Marvin Connor DEPT: IMMUNOHISTOCHEMISTRY RECD BY: Kamila Ho ENTERED: 04/18/22 10:21 SP TYPE: IMMUNO OTHR DR: Dr. Zeeshan Chao MD Tissues: B - Stomach, NOS Procedures: H Pylori (initial) PHYSICIAN & INSTITUTION [place] [id number] SPECIMEN INFORMATION: Tissue Source: B ? Antrum biopsy Clinical Info: Fatty liver, hepatomegaly, elevated liver enzymes, early satiety, rectal bleeding, lower abdominal pain, RUQ pain, GERD Specimen Number: [id number] CPT code: 94556 METHODOLOGY: Deparaffinized sections of prefer/formalin-fixed tissue or PAP/DQ stained slides are incubated with monoclonal/polyclonal antibodies/oligonucleotide probes. Localization is made via biotin free immunoperoxidase method. Appropriate controls are performed and reacted as expected. Results on target cell population are indicated in the following table: RESULTS: ANTIBODY / CLONE RESULT Block B H Pylori (polyclonal) negative These tests were developed and their performance characteristics determined by [facility]. They may not have been cleared or approved by the U.S. Food and Drug Administration. The FDA has determined that such clearance or approval is not necessary. The above immunohistochemical/dualISH markers are ordered and reviewed by the Pathologist. INTERPRETATION: B. Antrum, biopsy: Negative for Helicobacter pylori organisms. AM:yesy 04/22/2022
[2022-04-17 07:06] LABS: Bedside Glucose 143 mg/dL (74-106)
[2022-04-17 07:30] VITALS: BP 120/82; BP 135/69; PULSE 81; RESP 16; TEMP 37.2; O2SAT 94
--- NOTE | 2022-04-17 07:32 | OP.EGD_ITS ---
Patient Name: Ava Lovell Procedure Date: 04/17/2022 6:44 AM Date of : 1960 Age: 61 Procedure: Upper GI endoscopy Indications: Functional Dyspepsia, Dysphagia Providers: Marvin Connor DO Medicines: Monitored Anesthesia Care Patient Profile: This is a 61 year old female. Refer to note in patient chart for documentation of history and physical. Patient has symptoms of acute epigastric abdominal pain and dysphagia with both liquids and solids. Complications: No immediate complications. Procedure: Pre-Anesthesia Assessment: - Prior to the procedure, a History and Physical was performed, and patient medications and allergies were reviewed. The risks and benefits of the procedure and the sedation options and risks were discussed with the patient. All questions were answered and informed consent was obtained. Patient identification and proposed procedure were verified by the physician in the pre-procedure area. Mental Status Examination: alert and oriented. Airway Examination: normal oropharyngeal airway and neck mobility. Respiratory Examination: clear to auscultation. CV Examination: normal. Prophylactic Antibiotics: The patient does not require prophylactic antibiotics. Prior Anticoagulants: The patient has taken no previous anticoagulant or antiplatelet agents. After reviewing the risks and benefits, the patient was deemed in satisfactory condition to undergo the procedure. The anesthesia plan was to use monitored anesthesia care (MAC). Immediately prior to administration of medications, the patient was re-assessed for adequacy to receive sedatives. The heart rate, respiratory rate, oxygen saturations, blood pressure, adequacy of pulmonary ventilation, and response to care were monitored throughout the procedure. The physical status of the patient was re-assessed after the procedure. After obtaining informed consent, the endoscope was passed under direct vision. Throughout the procedure, the patient's blood pressure, pulse, and oxygen saturations were monitored continuously. The Colonoscope was introduced through the mouth, and advanced to the second part of duodenum. The upper GI endoscopy was accomplished without difficulty. The patient tolerated the procedure well. Scope In: 6:58:22 AM Scope Out: 7:03:13 AM Total Procedure Duration Time 0 hours 4 minutes 51 seconds Findings: Grade I varices were found in the lower third of the esophagus. They were 5 mm in largest diameter. A small hiatal hernia was present. Moderate portal hypertensive gastropathy was found in the entire examined stomach. Biopsies were taken with a cold forceps for histology. Verification of patient identification for the specimen was done. Estimated blood loss was minimal. Patchy mild inflammation characterized by erosions was found in the gastric antrum. Biopsies were taken with a cold forceps for histology. Verification of patient identification for the specimen was done. Estimated blood loss was minimal. The second portion of the duodenum was normal. Impression: - Grade I esophageal varices. - Small hiatal hernia. - Portal hypertensive gastropathy. Biopsied. - Gastritis. Biopsied. - Normal second portion of the duodenum. Recommendation: - Discharge patient to home. - Resume previous diet. - Continue present medications. - Await pathology results. - Repeat upper endoscopy in 3 months for surveillance. Procedure Code(s): --- Professional --- 00949, Esophagogastroduodenoscopy, flexible, transoral; with biopsy, single or multiple CPT copyright 2017 [employer]. All rights reserved. The codes documented in this report are preliminary and upon tape controlled machine stitcher review may be revised to meet current compliance requirements. Marvin Connor DO 04/17/2022 7:32:10 AM This report has been signed electronically. Number of Addenda: 0 Note Initiated On: 04/17/2022 6:44 AM
--- NOTE | 2022-04-17 07:32 | OP.CCLET_ITS ---
04/17/2022 Zeeshan Chao Re : Upper GI endoscopy procedure for Ava Lovell Dear Jeremie This procedure was performed on Sunday, April 17, 2022. My impressions and recommendations are as follows: Impressions : - Grade I esophageal varices. - Small hiatal hernia. - Portal hypertensive gastropathy. Biopsied. - Gastritis. Biopsied. - Normal second portion of the duodenum. Recommendations : - Discharge patient to home. - Resume previous diet. - Continue present medications. - Await pathology results. - Repeat upper endoscopy in 3 months for surveillance. My findings are described in the full procedure note, which is enclosed. If I can be of further assistance, please feel free to contact me at . Sincerely, Marvin Connor, 04/17/2022 7:32:10 AM This report has been signed electronically.
[2022-04-17 07:35] VITALS: BP 108/50; BP 135/69; PULSE 80; RESP 16; O2SAT 95
--- NOTE | 2022-04-17 07:36 | OP.CCLET_ITS ---
04/17/2022 Zeeshan Chao Re : Colonoscopy procedure for Ava Lovell Dear Jeremie This procedure was performed on Sunday, April 17, 2022. My impressions and recommendations are as follows: Impressions : - Two 1 to 2 mm polyps in the rectum and in the descending colon, removed with a hot snare. Resected and retrieved. - Rectal varices. - Non-bleeding external and internal hemorrhoids. - Five bleeding colonic angiodysplastic lesions. Treated with a heater probe. Recommendations : - Discharge patient to home. - Resume previous diet. - Continue present medications. - Await pathology results. - Repeat colonoscopy in 5 years for surveillance. - Return to GI office. My findings are described in the full procedure note, which is enclosed. If I can be of further assistance, please feel free to contact me at . Sincerely, Marvin Connor, 04/17/2022 7:35:57 AM This report has been signed electronically.
--- NOTE | 2022-04-17 07:36 | OP.COLON_ITS ---
Patient Name: Ava Lovell Procedure Date: 04/17/2022 7:03 AM Date of : 1960 Age: 61 Procedure: Colonoscopy Indications: Screening for colorectal malignant neoplasm Providers: Marvin Connor DO Medicines: Monitored Anesthesia Care Patient Profile: This is a 61 year old female. Refer to note in patient chart for documentation of history and physical. Patient has symptoms of acute epigastric abdominal pain and dysphagia with both liquids and solids. Last Colonoscopy: 5 years ago. Complications: No immediate complications. Procedure: Pre-Anesthesia Assessment: - Prior to the procedure, a History and Physical was performed, and patient medications and allergies were reviewed. The risks and benefits of the procedure and the sedation options and risks were discussed with the patient. All questions were answered and informed consent was obtained. Patient identification and proposed procedure were verified by the physician in the pre-procedure area. Mental Status Examination: alert and oriented. Airway Examination: normal oropharyngeal airway and neck mobility. Respiratory Examination: clear to auscultation. CV Examination: normal. Prophylactic Antibiotics: The patient does not require prophylactic antibiotics. Prior Anticoagulants: The patient has taken no previous anticoagulant or antiplatelet agents. After reviewing the risks and benefits, the patient was deemed in satisfactory condition to undergo the procedure. The anesthesia plan was to use monitored anesthesia care (MAC). Immediately prior to administration of medications, the patient was re-assessed for adequacy to receive sedatives. The heart rate, respiratory rate, oxygen saturations, blood pressure, adequacy of pulmonary ventilation, and response to care were monitored throughout the procedure. The physical status of the patient was re-assessed after the procedure. After I obtained informed consent, the scope was passed under direct vision. Throughout the procedure, the patient's blood pressure, pulse, and oxygen saturations were monitored continuously. The Colonoscope was introduced through the anus and advanced to the cecum, identified by appendiceal orifice and ileocecal valve. The colonoscopy was performed without difficulty. The patient tolerated the procedure well. The quality of the bowel preparation was good. Scope In: 7:05:59 AM Scope Withdrawal Time 0 hours 15 minutes 17 seconds Scope Out: 7:25:07 AM Total Procedure Duration Time 0 hours 19 minutes 8 seconds Findings: The perianal and digital rectal examinations were normal. Two sessile polyps were found in the rectum and descending colon. The polyps were 1 to 2 mm in size. These polyps were removed with a hot snare. Resection and retrieval were complete. Verification of patient identification for the specimen was done. Estimated blood loss was minimal. 5 mm, non-bleeding rectal varices were found. Non-bleeding external and internal hemorrhoids were found during retroflexion. The hemorrhoids were Grade II (internal hemorrhoids that prolapse but reduce spontaneously). Five small localized angiodysplastic lesions with bleeding were found at the hepatic flexure, in the ascending colon and in the cecum. Coagulation for hemostasis using heater probe was successful. Estimated blood loss was minimal. Impression: - Two 1 to 2 mm polyps in the rectum and in the descending colon, removed with a hot snare. Resected and retrieved. - Rectal varices. - Non-bleeding external and internal hemorrhoids. - Five bleeding colonic angiodysplastic lesions. Treated with a heater probe. Recommendation: - Discharge patient to home. - Resume previous diet. - Continue present medications. - Await pathology results. - Repeat colonoscopy in 5 years for surveillance. - Return to GI office. Procedure Code(s): --- Professional --- 06906, 59, Colonoscopy, flexible; with control of bleeding, any method 56784, Colonoscopy, flexible; with removal of tumor(s), polyp(s), or other lesion(s) by snare technique CPT copyright 2017 [employer]. All rights reserved. The codes documented in this report are preliminary and upon certified professional coder review may be revised to meet current compliance requirements. Marvin Connor DO 04/17/2022 7:35:57 AM This report has been signed electronically. Number of Addenda: 0 Note Initiated On: 04/17/2022 7:03 AM
[2022-04-17 07:40] VITALS: BP 115/55; BP 135/69; PULSE 75; RESP 16; O2SAT 95
[2022-04-17 07:45] VITALS: BP 121/45; BP 135/69; PULSE 70; RESP 16; TEMP 36.1; O2SAT 76
[2022-04-17 08:06] VITALS: BP 135/69
== END 2022-04-17 08:29 | disposition home or self-care (01) ==
LOC: EN 06:00 → AC 06:01
PROVIDERS: PCP Family Medicine; Referring Provider Family Medicine; Visit Provider Internal Medicine Gastroenterology
PROC: 0DJD8ZZ Inspection of Lower Intestinal Tract, Via Natural or Artificial Opening Endoscopic (ICD-10-PCS; CPT 45378; principal; 2022-04-17 06:55)
DX: Z12.11 Encounter for screening for malignant neoplasm of colon (principal); I85.00 Esophageal varices without bleeding; K76.6 Portal hypertension; E66.01 Morbid (severe) obesity due to excess calories; D69.6 Thrombocytopenia, unspecified; E11.9 Type 2 diabetes mellitus without complications; K55.21 Angiodysplasia of colon with hemorrhage; D12.4 Benign neoplasm of descending colon; K62.5 Hemorrhage of anus and rectum; K64.1 Second degree hemorrhoids; K29.50 Unspecified chronic gastritis without bleeding; K62.1 Rectal polyp; K76.0 Fatty (change of) liver, not elsewhere classified; K44.9 Diaphragmatic hernia without obstruction or gangrene; E78.5 Hyperlipidemia, unspecified; I86.8 Varicose veins of other specified sites; R68.81 Early satiety; K30 Functional dyspepsia; K21.9 Gastro-esophageal reflux disease without esophagitis; K31.89 Other diseases of stomach and duodenum; E03.9 Hypothyroidism, unspecified; G47.33 Obstructive sleep apnea (adult) (pediatric); M19.90 Unspecified osteoarthritis, unspecified site; Z68.39 Body mass index [BMI] 39.0-39.9, adult; Z90.49 Acquired absence of other specified parts of digestive tract; Z90.710 Acquired absence of both cervix and uterus; Z79.84 Long term (current) use of oral hypoglycemic drugs; Z79.51 Long term (current) use of inhaled steroids; Z79.899 Other long term (current) drug therapy; Z86.73 Personal history of transient ischemic attack (TIA), and cerebral infarction without residual deficits
CPT/HCPCS: 45385; 45382; 43239; 82962; 88305; 88342; J7120; J2405

== ENCOUNTER → 2022-05-10 | Outpatient (CLI) | payer OTHER, SELFPAY ==
[2022-05-10] VITALS (9 sets, daily range): BP systolic 137–184; BP diastolic 66–86; PULSE 47–58; RESP 12–17; TEMP 37.1; O2SAT 93–100; BMI 39.7
--- NOTE | 2022-05-10 07:55 | CT_ITS ---
PROCEDURE: CT DIRECTED CORE LIVER BIOPSY INDICATION: Female, 61 years old. Esophageal varices, nafld PHYSICIAN: Dr. MANOJ Fung CONSENT: Written informed consent was obtained having explained the risks, benefits and alternatives in detail with the patient who accepted the risks and agreed to proceed. Laboratory review and clinical assessment was performed. CONSCIOUS SEDATION PROTOCOL: The Drugs used were: 2 mg Versed, IV., and 50 mcg Fentanyl, IV. The sedation time was: 21 minutes. Conscious sedation was started at 9:19 AM and terminated at 9:40 AM. The conscious sedation protocol was independently monitored. RADIATION DOSAGE (If Supplied By Facility): CTDIvol = ( 23 ) mGy, DLP = ( 879.89 ) mGycm Individualized dose optimization techniques were used for this CT. TECHNIQUE: Using CT image guidance with image documentation, a suitable location in the left lobe of the liver was identified. Using an anterior approach, puncture of the liver was uneventful with an 18-gauge core needle system. 4, 18-gauge core samples were obtained, and submitted in formalin to the pathologist for further assessment. Followup CT scan revealed no distinct sequelae. CT/Biopsy/Inj or Needle Placement IMPRESSION: 1. CT directed core needle biopsy of the liver, using CT image guidance with image documentation as described. 2. Conscious Sedation protocol utilized with independent monitoring. Electronically Signed: Bryan Boyer MD at 9:59 EDT ,
[2022-05-10 08:25] LABS: POSITIVE COUNT YES; Platelet Count 75 K/mm3 (150-450)
[2022-05-10 09:01] LABS: International Normalized Ratio 1.3; Prothrombin Time (Protime)PT. 15.6 SECONDS (11.7-14.9)
[2022-05-10] MEDS: Midazolam 2 MG/2 ML Syringe IV (09:18)
[2022-05-10] MEDS: fentaNYL 100 MCG/2 ML Ampul IV (09:19)
[2022-05-10] MEDS: Lidocaine 2% (20 ml mdv) 20 ML Vial (09:35)
--- NOTE | 2022-05-10 09:50 | LIV_PTH ---
PATIENT: MARYLOU MARIE LOC: CT U#:[id number] AGE/SX: 61/F ROOM: RE05/10/[address]: PANFILO Lerma : 1960 BED: DIS: 05/10/2022 SPEC #: [id number] RECD: 05/10/22 10:00 STATUS: KARYN RERodolfo #: [id number] PRAVEEN: 05/10/22 09:[address]: Marti Shea NP DEPT: SURGICAL PATHOLOGY RECD BY: Magnolia Edwards ENTERED: 05/10/22 11:12 SP TYPE: LIVER RES OTHR DR: Dr. Zeeshan Chao MD Tissues: Liver, NOS Procedures: PAS with Diastase (control) Trichrome (control) Special Stain Group II PAS Stain (control) Surgery Specimen Level V Retic (control) Iron Stain (control) HEADER OPERATION: CT-guided liver biopsy PRE-OP DIAGNOSIS: NAFLD TISSUE SUBMITTED: Liver 18-gauge x4 MICROSCOPIC DIAGNOSIS Liver, CT-guided core biopsy: Cirrhosis. See comment. AM:yesy 05/13/2022 COMMENT Sections show hepatic parenchyma with architectural distortion (septal fibrosis and bridging) consistent with cirrhosis. Iron stain with matched control does not reveal intraparenchymal deposition of iron. PAS and PASD with matched controls do not reveal accumulation of abnormal proteins. Reticulin stain with matched control reveals extensive dense fibrosis consistent with cirrhosis. MICROSCOPIC DESCRIPTION Slides are reviewed. GROSS DESCRIPTION Received is one container labeled with the patient's name and not further designated. The specimen consists of multiple irregular and elongated fragments of leiva tissue that in aggregate measure 1 x <0.1 x <0.1 cm. The specimen is totally submitted in one cassette. / AM:yesy 05/10/2022 TC:3 CPT: 70776, 65200 x5
[2022-05-10 13:28] LABS: Partial Thromboplast Time 35.9 Seconds (24.1-36.2)
== END | disposition home or self-care (01) ==
LOC: CT 07:54
PROVIDERS: PCP Family Medicine; Referring Provider Nurse Practitioner Adult Health; Visit Provider Nurse Practitioner Adult Health
DX: K74.60 Unspecified cirrhosis of liver (principal); I85.00 Esophageal varices without bleeding; K76.6 Portal hypertension; K76.0 Fatty (change of) liver, not elsewhere classified; K31.89 Other diseases of stomach and duodenum
CPT/HCPCS: 47000; 36415; 77012; 85049; 85610; 85730; 88307; 88313; 99156; J7050; A4216

== ENCOUNTER 2022-05-30 17:27 | Observation (INO) | payer OTHER, SELFPAY ==
[2022-05-21 08:59] LABS: Absolute Lymphocyte Count 0.79 X10^3/uL (0.83-4.51); Absolute Neutrophil Count 2.5 X10^3/uL (2.0-7.7); Basophil# 0.02 X10^3/uL; Basophil% 0.5 % (0-1); Eosinophil# 0.18 X10^3/uL; Eosinophils% 4.8 % (0-5); Hematocrit 38.3 % (37-47); Hemoglobin 12.4 g/dL (12.0-15.0); Lymphocyte # 0.79 X10^3/ul (0.83-4.51); Lymphocyte % 21.1 % (19-41); Mean Corp Hgb Conc 32.4 g/dL (32-36); Mean Corpuscular Hgb 31.6 pg (27.0-32.0); Mean Corpuscular Volume 97.5 fL (81-99); Mean Platelet Vol. 12.2 fl (6.2-12.0); Monocyte# 0.26 X10^3/uL; NRBC Flagged by Analyzer 0 % (0-5); Neutrophil # 2.48 X10^3/uL (2.7-7.7); Neutrophil % 66.3 % (47-70); POSITIVE COUNT YES; Platelet Count 88 K/mm3 (150-450); RBC Distribution Width CV 13.3 % (11.6-14.6); RBC Distribution Width SD 47.9 fl (35.1-43.9); Red Blood Count 3.93 M/mm3 (4.2-5.4); White Blood Count 3.7 K/mm3 (4.4-11.0)
[2022-05-21 09:13] LABS: International Normalized Ratio 1.4; Prothrombin Time (Protime)PT. 16.6 SECONDS (11.7-14.9)
[2022-05-21 09:14] LABS: Partial Thromboplast Time 35.8 Seconds (24.1-36.2)
[2022-05-21 09:17] LABS: Hemoglobin A1c 6.3 % (3.8-5.6)
[2022-05-21 09:33] LABS: Anion Gap 6 (5-15); BUN 10 mg/dL (7-18); BUN/Creat Ratio 13.4 RATIO (10-20); Calcium,Total 9.1 mg/dL (8.5-10.1); Chloride 107 mmol/L (98-107); Creatinine, Serum 0.75 mg/dL (0.55-1.02); EST Glomerular Filtration Rate 84 mL/min (>60); Est Glom Filt Rate - Afr Amer 101 mL/min (>60); Glucose 131 mg/dL (74-106); Potassium 4.5 mmol/L (3.5-5.1); Sodium Level 140 mmol/L (136-145)
[2022-05-21 10:09] LABS: Thyroid Stim Hormone (TSH) 8.74 uIU/mL (0.358-3.74)
[2022-05-30] VITALS (17 sets, daily range): BP systolic 125–159; BP diastolic 54–65; PULSE 51–68; RESP 16–18; TEMP 36.3–37.1; O2SAT 95–99; BMI 40.6; BMI 40.4
[2022-05-30] MEDS: Lactated Ringers 1,000 ML 999 ML IV ×2 (08:28→16:17)
[2022-05-30] MEDS: Magnesium 1 GM over 15 mins IV (08:29)
[2022-05-30 09:10] LABS: Bedside Glucose 143 mg/dL (74-106)
[2022-05-30] MEDS: Gabapentin 600 MG Tablet PO (10:01)
[2022-05-30] MEDS: Acetaminophen 500 MG Tablet 1000 MG PO ×2 (10:01→21:24)
[2022-05-30] MEDS: Lactated Ringers 1,000 ML 75 ML IV ×2 (10:10→14:30)
--- NOTE | 2022-05-30 10:15 | KNEE_PTH ---
PATIENT: MARYLOU MARIE LOC: MS[facility] U#:[id number] AGE/SX: 61/F ROOM: PR323 RE05/30/[address]: Dr. Michele العلي DO : 1960 BED: 1 DIS: 06/04/2022 SPEC #: [id number] RECD: 05/31/22 11:11 STATUS: KARYN BOYD #: [id number] PRAVEEN: 05/30/22 10:[address]: Michele العلي DEPT: SURGICAL PATHOLOGY RECD BY: Magnolia Edwards ENTERED: 05/31/22 11:35 SP TYPE: TOTAL KNEE OTHR DR: MD Dr. Zeeshan Adams MD Tissues: Knee, NOS Procedures: Decalcification bone/plaque Surgery Specimen Level IV HEADER OPERATION: ERAS, total knee replacement robotic arm assist PRE-OP DIAGNOSIS: Right knee osteoarthritis TISSUE SUBMITTED: Bone and tissue, right knee MICROSCOPIC DIAGNOSIS Bone and tissue of right knee, total knee resection: Severe degenerative joint disease. AM:yesy 06/05/2022 MICROSCOPIC DESCRIPTION Slides are reviewed. GROSS DESCRIPTION Received is one container designated bone and soft tissue right knee. The specimen consists of multiple fragments of leiva-yellow bone measuring in aggregate 11 x 10 x 5 cm. No soft tissue is identified. A number of bony fragments contain articular surfaces consistent with tibial plateau and femoral condyle and displaying prominent osteophyte formation and bone erosion. Checking Clerk sections are submitted in two cassettes after decalcification. / ERIC:yesy 05/31/2022 TC:5 CPT: 22132, 90544
[2022-05-30] MEDS: TXA 1000mg in NS100 100ml (IVPB at Incision) 660 MG IV (13:35)
[2022-05-30] MEDS: Joint Pain Solution (NO KETOROLAC) IV (15:07)
[2022-05-30] MEDS: TXA 1000mg in NS100 100ml (IVPB at Closure) 660 MG IV (15:07)
[2022-05-30 16:30] LABS: Bedside Glucose 112 mg/dL (74-106)
--- NOTE | 2022-05-30 17:35 | PCM.PN.HOSP ---
Subjective Subjective Patient is a 61-year-old lady who underwent right total knee arthroplasty by Dr. العلي on 05/30/2022. The hospitalist service was consulted to assist with management of patient medical comorbidities following the procedure Objective Data Objective Data Vital Signs: Vital Signs Temp Pulse Resp BP Pulse Ox O2 Del Method O2 Flow Rate 97.6 F L 63 18 136/62 H 98 Nasal Cannula 4 05/30/22 17:08 05/30/22 17:08 05/30/22 17:08 05/30/22 17:08 05/30/22 17:08 05/30/22 17:08 05/30/22 17:08 Oxygen Flow Rate (L/min) 4 Oxygen Delivery Method Nasal Cannula Weight: 128.367 kg Body Mass Index (BMI) 40.6 Intake & Output: Intake and Output for Last 24 Hours 05/28/22 05/29/22 05/30/22 23:59 23:59 23:59 Intake Total 3437 / 3437 Balance 3437 / 3437 Lab / Micro Data Result Diagrams: 05/21/22 07:55 05/21/22 07:55 Labs: Laboratory Results - last 24 hr 05/30/22 08:44: POC Glucose 143 H 05/30/22 16:08: POC Glucose 112 H Micro: Microbiology 05/21/22 07:55 Swab (Method) Nasal Screen MRSA/MSSA - Final Physical Exam Narrative GENERAL: cooperative HEENT: Atraumatic; normocephalic EYES; Anicteric, Normal Conjunctiva NECK; supple, normal thyroid, RESPIRATORY: Diminished to auscultation CARDIOVASCULAR: Regular S1 S2, GI: soft, normoactive bowel sounds, : No Renal angle tenderness; EXTREMITIES: No edema, no clubbing, MUSCULOSKELETAL: Right knee surgical incision CDI NEURO: Awake; no lateralizing signs. SKIN: No Rash PSYCH; Flat affect Assessment & Plan Assessment/Plan (1) Status post total right knee replacement: PLAN: Plan Patient is a 61-year-old lady who underwent right total knee arthroplasty by Dr. العلي on 05/30/2022. The hospitalist service was consulted to assist with management of patient medical comorbidities following the procedure 1. Status post right total knee arthroplasty ? Procedure was performed on 05/30/2022. Patient postoperative orders regarding PT OT, DVT prophylaxis and pain management as addressed by primary service 2. Hypothyroidism - Patient is on levothyroxine home dose continued 3. Hypertension - Blood pressure controlled, home medications continued with dose adjustment as needed 4. Dyslipidemia -Patient is on statin therapy, continued at home dose 5. GERD ? Patient is on PPI did continue 6. Nonalcoholic fatty liver disease with portal hypertensive gastropathy ? Patient is on rifaximin did continue 7. DVT prophylaxis ? Defer to primary service Charges/Coding Visit Charges Inpatient E&M: 85648 Subs Hosp L2
[2022-05-30] MEDS: Lactated Ringers 1,000 ML 125 ML IV (18:18)
--- NOTE | 2022-05-30 19:10 | PCM.OPRPT ---
Report of Operation Date of Procedure: 05/30/22 Description of Surgical Findings:: Preoperative diagnosis: Right knee primary osteoarthritis Postoperative diagnosis: Right knee primary osteoarthritis Procedure: Cemented right total knee arthroplasty Surgeon: Michele العلي DO Cushion Builder: Shilpa Bal PA-C Anesthesia: General endotracheal, adductor canal block Anesthesiologist: Dr. Eastman Complications: None apparent Drains: None Estimated blood loss: 100 cc Urinary output: None recorded IV fluids: 1200 cc crystalloid Specimens: Total knee resections Surgical implants: Omid triathlon X3 asymmetric patella size a 35 mm x 10 mm thickness, triathlon cruciate retaining femoral #4, primary tibial baseplate #4, triathlon X3 tibial bearing insert CS thickness 10 mm Indications: This is a 61-year-old female seen in the outpatient setting diagnosed with left knee osteoarthritis. She failed nonoperative management with intra-articular corticosteroid injections, activity modification, bracing, [id number] analgesics. X-rays revealed grade 4 medial compartment changes. She also had significant patellofemoral arthritis. I recommended a right total knee arthroplasty. The risk, benefits, alternatives to procedure reviewed with patient at length and he agreed to proceed. Risks included but were not limited to bleeding, infection, loss of life or limb, need for additional surgery, persistent pain, intraoperative or postoperative fracture, instability, loosening of components, wound complications, stiffness, neurovascular injury, DVT or PE. Patient expressed understanding these risks and wished to proceed with surgery. Informed consent was obtained in the outpatient setting. Description of procedure: Patient was identified in the preoperative holding area by name, medical record number, and date of . Informed set was confirmed with the patient. The operative knee was marked with a surgical marker. Patient was administered 1 unit platelets due to chronic thrombocytopenia in the preoperative holding area prior to the procedure. At time of her procedure, patient brought to the operative suite and positioned supine a standard operating table. General anesthesia was induced and endotracheal tube placed. All bony prominences were well-padded. We then placed a well-padded pneumatic tourniquet on the right upper thigh. The right upper extremity was brought across patient's chest throughout the procedure. We then prepped and draped the right lower extremity in a normal, sterile orthopedic fashion. We performed a timeout with all parties in attendance in agreement with the side, site, operation be performed. No concerns were voiced and would like to proceed with surgery. 3 g Ancef was administered prior to the incision by anesthesia staff as well as 1 g IV TXA. I first exsanguinated the right lower extremity with a Esmarch bandage. Tourniquet was inflated to 280 mmHg remained up for approximately 70 minutes. Esmarch was removed. I planned a standard midline approach to the right knee approximately 15 cm in length. Skin was sharply incised with a 10 blade scalpel developing full-thickness layers down to the retinaculum. Layers were developed identifying the VMO. I then planned a standard medial parapatellar arthrotomy performed in flexion. The anterior horn of the medial meniscus was released. Hoffa's fat pad was then released. I then everted the patella in extension and brought the knee into 90 degrees of flexion. The anterior horn of the lateral meniscus was then released. The ACL was split in its mid substance with a 10 blade. We then brought the knee back into extension. I measured the outer diameter of the an appropriately sized patellar reamer was then selected. I measured the thickness of the patella to be 24 mm. I then reamed the patella to a depth of approximately 14 mm. A protective baseplate was then placed on the patella. I then placed pins in the metaphyseal distal femur medial to lateral for the Elier arrays. In similar fashion, I made a 2 stab incisions approximately a handsbreadth distal to the tibial tubercle along the medial aspect of the tibia, drilling 2 bicortical pins for the tibial array. The knee was brought into flexion. The patella was subluxed laterally but not everted. Medial lateral retractors were placed. We then utilized the [employer] software to confirm our planned surgical procedure and oriented with the patient's osseous anatomy. All checks with the [employer] system were confirmed. Patient had a significant flexible varus deformity after performing stress examination utilizing the [employer] software. Tibial baseplate was placed and 0 degrees. Sawblade was then brought in. I first started with the tibial cut, ensuring protection of the MCL and patellar tendon. A tibial wafer was then excised. I then proceeded to make the posterior femoral, anterior, anterior chamfer cuts with the same blade. Ligaments were protected with [employer] retractors. Sawblade was then exchanged to perform the distal femoral and posterior chamfer cuts. The robot was then removed from the surgical field. Remaining loose bone and meniscus was excised carefully. Posterior osteophytes were removed from the distal femur with a curved osteotome and rongeur. Trial components were then placed. Balance was excellent in both extension and 90 degrees flexion. No mid flexion instability was apparent. I then drilled for a size 35 patella. Patella was trialed. Tracking was excellent. We then marked for tibial baseplate. Distal femoral pegs were drilled. Tibial keel was punched. Trials were removed. Periarticular block was administered. The wound was copiously irrigated with normal saline solution. Simplex cement was then mixed on the back table. Components were then cemented in place with excess cement being removed. Cement was allowed to cure with the components in full extension utilizing a 9 mm trial polyethylene component. While the cement was curing, Betadine solution was irrigated into the wound and the wound edges. After cement had cured fully, trial polyethylene was removed. Tourniquet was deflated. Hemostasis was excellent. An additional 1 g TXA was administered IV. There was was approximately 2 mm of laxity in the medial and lateral compartments and full extension noted on final assessment with the [employer] robot system. I selected a size 10 mm polyethylene which was placed and impacted per human resources operations specialist recommendations. Final components appeared very well balanced with excellent range of motion. There is no significant remaining flexion contracture. The wound was copiously irrigated with normal saline solution. Capsule was closed watertight with #1 strata fix barbed suture. Deeper report muscle layer was reapproximated with 0 Vicryl suture. Dermis was reapproximated buried interrupted 2-0 Vicryl suture. Skin was finally reapproximated sujatha. Patient tolerated the procedure well without apparent complication. She was safely extubated and awakened in the operative suite, transferred to her hospital bed and subsequently to PACU in stable condition. Need for skilled logistics assistant: Shilpa Bal PA-C was critical to the outcome of the case. During the course of the procedure the physician logistics assistant played a vital role. Her intimate knowledge of my steps in the procedure aided in safe and expedient completion of the procedure. The PA played a vital role in positioning particularly in obtaining the appropriate positioning. The PA was also vital in the retraction of soft tissues during the exposure and projecting vital structures. The PA was also vital and protecting soft tissues during times of bony cuts. She also played a vital role in closure with my direct supervision. The PA was also important during reduction and dislocation of the joint and trials intraoperatively. Post Operative Plan: Patient will be placed in observation overnight. Patient does live at home alone. She will likely need placement for convalescence. Weightbearing: Range of motion and weightbearing as tolerated right lower extremity. Antibiotics: Ancef 1 g every 8 hours x 3 doses DVT Prophylaxis: Eliquis 2.5 mg twice daily starting tomorrow morning Delarosa: None Dressing: Maintain silver dressing x7 days X-Rays: 2-week x-rays in the office. Follow-up: 2 weeks in my office for staple removal
[2022-05-30] MEDS: Atorvastatin Calcium 20 MG Tablet PO (21:24)
[2022-05-30] MEDS: Cefazolin 1 GM/50 ML BAG IV (21:24)
[2022-05-30] MEDS: Senna/Docusate Sodium 1 Tablet 2 TABLET PO (21:24)
[2022-05-30] MEDS: rifAXIMin 550 MG Tablet PO (21:24)
[2022-05-30 22:00] LABS: Bedside Glucose 148 mg/dL (74-106)
[2022-05-31] MEDS: oxyCODONE 5 MG Tablet PO ×6 (01:55→22:30)
[2022-05-31 03:02] VITALS: BP 154/60; PULSE 55; RESP 18; TEMP 36.7; O2SAT 94
[2022-05-31] MEDS: Cefazolin 1 GM/50 ML BAG IV (05:48)
[2022-05-31] MEDS: Levothyroxine 75 MCG Tablet PO (05:51)
[2022-05-31] MEDS: Acetaminophen 500 MG Tablet 1000 MG PO ×2 (05:52→22:26)
[2022-05-31 06:12] LABS: Hematocrit 35.9 % (37-47); Hemoglobin 11.2 g/dL (12.0-15.0); Mean Corp Hgb Conc 31.2 g/dL (32-36); Mean Corpuscular Volume 99.4 fL (81-99); Mean Platelet Vol. 11.6 fl (6.2-12.0); POSITIVE COUNT YES; Platelet Count 78 K/mm3 (150-450); RBC Distribution Width CV 13.2 % (11.6-14.6); Red Blood Count 3.61 M/mm3 (4.2-5.4); White Blood Count 5.4 K/mm3 (4.4-11.0)
[2022-05-31 06:37] LABS: Anion Gap 4 (5-15); BUN 12 mg/dL (7-18); BUN/Creat Ratio 15.5 RATIO (10-20); Chloride 105 mmol/L (98-107); Creatinine, Serum 0.78 mg/dL (0.55-1.02); EST Glomerular Filtration Rate 80 mL/min (>60); Est Glom Filt Rate - Afr Amer 97 mL/min (>60); Glucose 155 mg/dL (74-106); Potassium 4.5 mmol/L (3.5-5.1); Sodium Level 137 mmol/L (136-145)
[2022-05-31 06:45] LABS: Bedside Glucose 145 mg/dL (74-106)
--- NOTE | 2022-05-31 07:29 | PCM.PN.HOSP ---
Subjective Subjective Postoperative day 1 following right total knee arthroplasty. Patient was reported by nursing staff to be relatively bradycardic did adjust dose of patient metoprolol from 25 mg p.o. twice daily to 12.5 p.o. twice daily with holding parameters Objective Data Objective Data Vital Signs: Vital Signs Temp Pulse Resp BP Pulse Ox O2 Del Method O2 Flow Rate 98.0 F 55 L 18 154/60 H 94 Room Air 2 05/31/22 03:02 05/31/22 03:02 05/31/22 03:02 05/31/22 03:02 05/31/22 03:02 05/31/22 03:02 05/30/22 19:27 Oxygen Flow Rate (L/min) 2 Oxygen Delivery Method Room Air Weight: 128 kg Body Mass Index (BMI) 40.4 Intake & Output: Intake and Output for Last 24 Hours 05/29/22 05/30/22 05/31/22 23:59 23:59 23:59 Intake Total 4487 / 4487 1450 / 1450 Output Total 400 / 400 Balance 4487 / 4087 1050 / 1050 Lab / Micro Data Result Diagrams: 05/31/22 05:50 05/31/22 05:50 Labs: Laboratory Results - last 24 hr 05/30/22 08:44: POC Glucose 143 H 05/30/22 16:08: POC Glucose 112 H 05/30/22 21:22: POC Glucose 148 H 05/31/22 05:50: WBC 5.4, RBC 3.61 L, Hgb 11.2 L, Hct 35.9 L, MCV 99.4 H, MCH 31.0, MCHC 31.2 L, RDW Std Deviation 48.0 H, RDW Coeff of Elva 13.2, Plt Count 78 L, MPV 11.6 05/31/22 05:50: Sodium 137, Potassium 4.5, Chloride 105, Carbon Dioxide 28.0, Anion Gap 4 L, BUN 12, Creatinine 0.78, Estim Creat Clear Calc 81.90, Est GFR (MDRD) Af Amer 97, Est GFR (MDRD) Non-Af 80, BUN/Creatinine Ratio 15.5, Glucose 155 H, Calcium 9.0 05/31/22 05:56: POC Glucose 145 H Micro: Microbiology 05/21/22 07:55 Swab (Method) Nasal Screen MRSA/MSSA - Final Physical Exam Narrative GENERAL: cooperative HEENT: Atraumatic; normocephalic EYES; Anicteric, Normal Conjunctiva NECK; supple, normal thyroid, RESPIRATORY: Diminished to auscultation CARDIOVASCULAR: Regular S1 S2, GI: soft, normoactive bowel sounds, : No Renal angle tenderness; EXTREMITIES: No edema, no clubbing, MUSCULOSKELETAL: Right knee surgical incision CDI NEURO: Awake; no lateralizing signs. SKIN: No Rash PSYCH; Flat affect Assessment & Plan Assessment/Plan (1) Status post total right knee replacement: PLAN: Plan Patient is a 61-year-old lady who underwent right total knee arthroplasty by Dr. العلي on 05/30/2022. The hospitalist service was consulted to assist with management of patient medical comorbidities following the procedure 1. Status post right total knee arthroplasty ? Procedure was performed on 05/30/2022. Patient postoperative orders regarding PT OT, DVT prophylaxis and pain management as addressed by primary service 2. Hypothyroidism - Patient is on levothyroxine home dose continued 3. Hypertension - Blood pressure controlled, home medications continued with dose adjustment as needed ? Adjusted patient antihypertensive regiment given her relative bradycardia 4. Dyslipidemia -Patient is on statin therapy, continued at home dose 5. GERD ? Patient is on PPI did continue 6. Nonalcoholic fatty liver disease with portal hypertensive gastropathy ? Patient is on rifaximin did continue 7. DVT prophylaxis ? On Xarelto 8. Obstructive sleep apnea ? CPAP at night Charges/Coding Visit Charges Inpatient E&M: 64042 Subs Hosp L2
--- NOTE | 2022-05-31 07:56 | PCM.PN.ORT ---
Subjective Subjective Patient seen and examined. Denies any new complaints. Tolerating oral intake without nausea or vomiting. She complains of significant pain this morning since the nerve block is worn off. Objective Data Objective Data Vital Signs: Vital Signs Temp Pulse Resp BP Pulse Ox O2 Del Method O2 Flow Rate 98.0 F 55 L 18 154/60 H 94 Room Air 2 05/31/22 03:02 05/31/22 03:02 05/31/22 03:02 05/31/22 03:02 05/31/22 03:02 05/31/22 03:02 05/30/22 19:27 Oxygen Flow Rate (L/min) 2 Oxygen Delivery Method Room Air Weight: 282 lb 3.067 oz Body Mass Index (BMI) 40.4 Intake & Output: Intake and Output for Last 24 Hours 05/29/22 05/30/22 05/31/22 23:59 23:59 23:59 Intake Total 4487 / 4487 1450 / 1450 Output Total 400 / 400 Balance 4487 / 4087 1050 / 1050 Lab / Micro Data Result Diagrams: 05/31/22 05:50 05/31/22 05:50 Labs: Laboratory Results - last 24 hr 05/30/22 08:44: POC Glucose 143 H 05/30/22 16:08: POC Glucose 112 H 05/30/22 21:22: POC Glucose 148 H 05/31/22 05:50: WBC 5.4, RBC 3.61 L, Hgb 11.2 L, Hct 35.9 L, MCV 99.4 H, MCH 31.0, MCHC 31.2 L, RDW Std Deviation 48.0 H, RDW Coeff of Elva 13.2, Plt Count 78 L, MPV 11.6 05/31/22 05:50: Sodium 137, Potassium 4.5, Chloride 105, Carbon Dioxide 28.0, Anion Gap 4 L, BUN 12, Creatinine 0.78, Estim Creat Clear Calc 81.90, Est GFR (MDRD) Af Amer 97, Est GFR (MDRD) Non-Af 80, BUN/Creatinine Ratio 15.5, Glucose 155 H, Calcium 9.0 05/31/22 05:56: POC Glucose 145 H Micro: Microbiology 05/21/22 07:55 Swab (Method) Nasal Screen MRSA/MSSA - Final Physical Exam Narrative General - A&Ox3, NAD. VSS/AF Right lower extremity -incisional dressing C/D/I. SILT Sural, Saphenous, SPN, DPN, Tibial N. distributions. DP, PT 2+. BCR. DF, PF, EHL /. No calf TTP. Assessment & Plan Assessment/Plan (1) Status post total right knee replacement: PLAN: POD#1 s/p right robotic assisted total knee arthroplasty - Pain control-adding Lyrica 50 mg twice daily. No NSAIDs due to hepatic disease and limited use of Tylenol. - Medicine following for medical management - PT/OT-weightbearing as tolerated, range of motion as tolerated right lower extremity - DVT PPX -Eliquis 2.5 mg twice daily, SCDs, early mobilization - Case management - D/C planning. Suspect patient will need senior living due to no help at home.
[2022-05-31 08:19] VITALS: BP 135/59; PULSE 48; RESP 16; TEMP 36.4; O2SAT 97
[2022-05-31] MEDS: Pregabalin 50 MG Capsule PO (08:27)
[2022-05-31] MEDS: Senna/Docusate Sodium 1 Tablet 2 TABLET PO ×2 (08:28→22:32)
[2022-05-31] MEDS: rifAXIMin 550 MG Tablet PO ×2 (08:28→22:26)
[2022-05-31] MEDS: Pantoprazole Sodium 20 MG Tablet PO (08:29)
[2022-05-31] MEDS: metFORMIN (XR) 500 MG Tablet 1000 MG PO ×2 (08:30→18:00)
[2022-05-31] MEDS: Sertraline 50 MG Tablet PO (08:30)
[2022-05-31] MEDS: APIXABAN 2.5 MG TABLET (WCH) PO ×2 (08:32→22:31)
[2022-05-31 09:35] VITALS: PULSE 57
[2022-05-31] MEDS: Metoprolol Tartrate 25 MG Tablet 12.5 MG PO ×2 (09:35→22:25)
--- NOTE | 2022-05-31 10:15 | CASEMGMT ---
RN JUDITH OFFICE 365 CONSULTANT JUDITH to room to meet with patient for initial transition planning/care coordination assessment. MIKAL WONG introduced self and role at [facility]. Pt voices understanding and consents to assessment at this time. Pt sitting up in chair in room in no distress at this time. Pt is A/O at this time and answers all questions appropriately. Care providers, pharmacy, and demographics verified/updated at this time. PCP: Dr Chao Specialists:Dr العلي-ortho, Dr Mclaughlin-cardiology Preferred Pharmacy: [facility] Retail Insurance: [facility] Prescription Benefit: Yes Living Will/HPOA: Pt does not currently have LW/HCPOA and would like to complete. RYAN Quinn, made aware. Pt made aware, if SW unavailable to complete while on MS3, SW on TCU can also complete w/her while there. She voices appreciation. LNOK: Parents are both living. Mother, Neris, listed on demographics. Brother, Tc. Living Arrangements: Lives alone in 2-story home. Bedroom and bath on 2nd floor. Bathroom also on main floor. Pt states could do FFSU, if needed. Pt states was independent prior to surgery and was working full-time. Transportation: Pt drives DME: States has the following DME: walker. Pt uses mouth-piece for sleep apnea. She does not use PAP. Pt states no need for further DME at this time. HHC/SNF: No hx of either. Pt states she wishes to discharge to [facility] TCU. A list of SNF providers including quality and resource use data and consistent with the patient?s preferred geographic region, medical needs, and insurance network were provided from the [employer] Guide and she states [facility] TCU is still her 1st choice. Cheyenne DAVIS made aware. [facility] CUTLER RN, CM
[2022-05-31 12:45] LABS: Bedside Glucose 123 mg/dL (74-106)
--- NOTE | 2022-05-31 12:56 | CASEMGMT ---
Social Work Referral made to TCU earlier and precert was started. Pt may or may not be approved, as per Analilia in TCU, as she was able to ambulate 90 feet with PT. SW met w/pt, let her know that TCU can take her and we are waiting to hear back from insurance. SW explained that we may or may not get precert, and will let her know as soon as we hear back. Pt states understanding. Pt wanted to complete LW/POA forms. SW assisted pt in completing LW/POA forms. Pt listed her mother as POA, brother as alternate. Originals and copies given to pt, and a copy was placed on the chart. Plant: TCU, skilled level of care, precert is pending. MAXWELL Barnes
--- NOTE | 2022-05-31 16:01 | CASEMGMT ---
Social Work SW spoke w/Analilia in TCU, precert has not been attained. Insurance informed Analilia they have 2-3 business days to make a decision. SW attempted to tell pt, she is sleeping soundly. SW will speak w/pt tomorrow as time allows. Green sheet is on the chart for staff to follow for d/c to TCU in the event insurance does still get back to Analilia today or on the weekend. MAXWELL Barnes
[2022-05-31 16:51] VITALS: BP 146/61; PULSE 71; RESP 18; TEMP 36.8; O2SAT 96
[2022-05-31 17:21] LABS: Bedside Glucose 113 mg/dL (74-106)
[2022-05-31 19:55] VITALS: BP 150/53; PULSE 66; RESP 18; TEMP 37.5; O2SAT 96
[2022-05-31] MEDS: HYDROmorphone 0.5 MG/0.5 ML SYRINGE IV (20:13)
[2022-05-31] MEDS: 0.9% NaCl Peripheral Flush Adult/Peds IV (20:14)
[2022-05-31] MEDS: Atorvastatin Calcium 20 MG Tablet PO (22:24)
[2022-05-31 22:25] VITALS: BP 150/53; PULSE 66
[2022-05-31] MEDS: Pregabalin 75 MG Capsule PO (22:29)
[2022-05-31 22:55] LABS: Bedside Glucose 144 mg/dL (74-106)
[2022-06-01 02:00] VITALS: BP 132/54; PULSE 68; RESP 18; TEMP 37.4; O2SAT 93
[2022-06-01] MEDS: HYDROmorphone 0.5 MG/0.5 ML SYRINGE IV (02:44)
[2022-06-01] MEDS: 0.9% Saline Lock 10 ML Syringe IV (02:45)
[2022-06-01 06:24] LABS: Hematocrit 35.6 % (37-47); Hemoglobin 10.9 g/dL (12.0-15.0); Mean Corp Hgb Conc 30.6 g/dL (32-36); Mean Corpuscular Hgb 30.6 pg (27.0-32.0); Mean Platelet Vol. 11.8 fl (6.2-12.0); POSITIVE COUNT YES; Platelet Count 83 K/mm3 (150-450); RBC Distribution Width CV 13.4 % (11.6-14.6); RBC Distribution Width SD 49.1 fl (35.1-43.9); Red Blood Count 3.56 M/mm3 (4.2-5.4); White Blood Count 7.4 K/mm3 (4.4-11.0)
[2022-06-01 06:28] LABS: Scan Indicated on CBC? Y/N YES- FLAGS NOTED
[2022-06-01 06:45] LABS: Differential Comment SCANNED
[2022-06-01] MEDS: oxyCODONE 5 MG Tablet PO ×3 (06:46→19:41)
[2022-06-01] MEDS: Levothyroxine 75 MCG Tablet PO (06:46)
[2022-06-01 07:11] LABS: Bedside Glucose 103 mg/dL (74-106)
--- NOTE | 2022-06-01 08:03 | PN.HOSP_ITS ---
Subjective Subjective Patient seen complains of significant pain and stiffness involving the right knee. Patient also remains deconditioned consult placed to case management to assist with discharge planning Objective Data Objective Data Vital Signs: Vital Signs Temp Pulse Resp BP Pulse Ox O2 Del Method O2 Flow Rate 99.3 F H 68 18 132/54 H 93 Room Air 2 06/01/22 02:00 06/01/22 02:00 06/01/22 02:00 06/01/22 02:00 06/01/22 02:00 06/01/22 02:00 05/30/22 19:27 Oxygen Flow Rate (L/min) 2 Oxygen Delivery Method Room Air Weight: 128 kg Body Mass Index (BMI) 40.4 Intake & Output: Intake and Output for Last 24 Hours 05/30/22 05/31/22 06/01/22 23:59 23:59 23:59 Intake Total 4487 / 4487 2450 / 2690 240 / 240 Output Total 900 / 900 0 / 0 Balance 4487 / 4087 1550 / 1790 240 / 240 Lab / Micro Data Result Diagrams: 06/01/22 06:12 05/31/22 05:50 Labs: Laboratory Results - last 24 hr 05/31/22 12:24: POC Glucose 123 H 05/31/22 16:57: POC Glucose 113 H 05/31/22 22:21: POC Glucose 144 H 06/01/22 06:12: WBC 7.4, RBC 3.56 L, Hgb 10.9 L, Hct 35.6 L, MCV 100.0 H, MCH 30.6, MCHC 30.6 L, RDW Std Deviation 49.1 H, RDW Coeff of Elva 13.4, Plt Count 83 L, MPV 11.8, Differential Comment SCANNED 06/01/22 06:49: POC Glucose 103 Micro: Microbiology 05/21/22 07:55 Swab (Method) Nasal Screen MRSA/MSSA - Final Physical Exam Narrative GENERAL: cooperative HEENT: Atraumatic; normocephalic EYES; Anicteric, Normal Conjunctiva NECK; supple, normal thyroid, RESPIRATORY: Diminished to auscultation CARDIOVASCULAR: Regular S1 S2, GI: soft, normoactive bowel sounds, : No Renal angle tenderness; EXTREMITIES: No edema, no clubbing, MUSCULOSKELETAL: Right knee surgical incision CDI NEURO: Awake; no lateralizing signs. SKIN: No Rash PSYCH; Flat affect Assessment & Plan Assessment/Plan (1) Status post total right knee replacement: PLAN: Plan Patient is a 61-year-old lady who underwent right total knee arthroplasty by Dr. العلي on 05/30/2022. The hospitalist service was consulted to assist with management of patient medical comorbidities following the procedure 1. Status post right total knee arthroplasty ? Procedure was performed on 05/30/2022. Patient postoperative orders regarding PT OT, DVT prophylaxis and pain management as addressed by primary service ? 06/01/2022; postoperative day 2 patient complains of significant pain and stiffness involving the right knee. Management deferred to primary service 2. Hypothyroidism - Patient is on levothyroxine home dose continued 3. Hypertension - Blood pressure controlled, home medications continued with dose adjustment as needed ? Adjusted patient antihypertensive regiment given her relative bradycardia 4. Dyslipidemia -Patient is on statin therapy, continued at home dose 5. GERD ? Patient is on PPI did continue 6. Nonalcoholic fatty liver disease with portal hypertensive gastropathy ? Patient is on rifaximin did continue 7. DVT prophylaxis ? On Xarelto 8. Obstructive sleep apnea ? CPAP at night 9. Anemia ? Secondary to anemia of acute blood loss following surgery monitoring H&H with plans to transfuse if patient becomes symptomatic or hemoglobin falls to 7 10. Physical deconditioning - Requested for PT OT eval and social sciences professor to assist with discharge planning 11. Class III obesity with BMI of 40.5 ? Weight loss advised ? Charges/Coding Visit Charges Inpatient E&M: 06269 Subs Hosp L2
[2022-06-01 08:30] VITALS: BP 163/63; PULSE 60; RESP 18; TEMP 36.9; O2SAT 95
[2022-06-01] MEDS: metFORMIN (XR) 500 MG Tablet 1000 MG PO ×2 (08:31→16:58)
[2022-06-01] MEDS: Senna/Docusate Sodium 1 Tablet 2 TABLET PO ×2 (08:32→21:54)
[2022-06-01] MEDS: rifAXIMin 550 MG Tablet PO ×2 (08:32→21:51)
[2022-06-01] MEDS: Pantoprazole Sodium 20 MG Tablet PO (08:32)
[2022-06-01] MEDS: Sertraline 50 MG Tablet PO (08:32)
[2022-06-01 08:34] VITALS: PULSE 60
[2022-06-01] MEDS: Metoprolol Tartrate 25 MG Tablet 12.5 MG PO ×2 (08:34→21:51)
[2022-06-01] MEDS: APIXABAN 2.5 MG TABLET (WCH) PO ×2 (08:34→21:52)
[2022-06-01] MEDS: Pregabalin 75 MG Capsule PO ×2 (08:36→21:52)
[2022-06-01] MEDS: Acetaminophen 500 MG Tablet 1000 MG PO ×2 (09:54→21:51)
[2022-06-01 12:00] LABS: Bedside Glucose 117 mg/dL (74-106)
--- NOTE | 2022-06-01 12:20 | CASEMGMT ---
Social Work SW spoke w/pt, let her know we have not heard back from insurance yet. SW inquired if she felt she would be doing well enough to go home. Pt states no. She did worse with therapy today. She would like to stay until Friday to see what insurance says, if they will authorize her to go to TCU. SW let Analilia in TCU know, SW will continue to follow. MAXWELL Barnes
--- NOTE | 2022-06-01 12:27 | NURSING ---
During physical therapy, therapist found Lyrica capsule on bed. This RN contacted physician about whether or not to give pt this medication since I did not know what dose it was. Physician said to hold medication. Will continue to monitor
--- NOTE | 2022-06-01 13:12 | PN.ORTHO_ITS ---
Subjective Subjective Patient seen and examined. Tolerating analgesics well without respiratory depression. She states that the Dilaudid was the only medicine the actually take the edge off the pain. She continues complain of significant right knee pain. She states her right thigh pain is manageable. Denies any new symptoms otherwise. Denies fevers, chills, nausea vomiting, chest pain or shortness of breath. Objective Data Objective Data Vital Signs: Vital Signs Temp Pulse Resp BP Pulse Ox O2 Del Method O2 Flow Rate 98.5 F 60 18 163/63 H 95 Room Air 2 06/01/22 08:30 06/01/22 08:34 06/01/22 08:30 06/01/22 08:30 06/01/22 08:30 06/01/22 09:00 05/30/22 19:27 Oxygen Flow Rate (L/min) 2 Oxygen Delivery Method Room Air Weight: 282 lb 3.067 oz Body Mass Index (BMI) 40.4 Intake & Output: Intake and Output for Last 24 Hours 05/30/22 05/31/22 06/01/22 23:59 23:59 23:59 Intake Total 4487 / 4487 2450 / 2690 690 / 690 Output Total 900 / 900 0 / 0 Balance 4487 / 4087 1550 / 1790 690 / 690 Lab / Micro Data Result Diagrams: 06/01/22 06:12 05/31/22 05:50 Labs: Laboratory Results - last 24 hr 05/31/22 16:57: POC Glucose 113 H 05/31/22 22:21: POC Glucose 144 H 06/01/22 06:12: WBC 7.4, RBC 3.56 L, Hgb 10.9 L, Hct 35.6 L, MCV 100.0 H, MCH 30.6, MCHC 30.6 L, RDW Std Deviation 49.1 H, RDW Coeff of Elva 13.4, Plt Count 83 L, MPV 11.8, Differential Comment SCANNED 06/01/22 06:49: POC Glucose 103 06/01/22 11:43: POC Glucose 117 H Micro: Microbiology 05/21/22 07:55 Swab (Method) Nasal Screen MRSA/MSSA - Final Physical Exam Narrative General - A&Ox3, NAD. VSS/AF Right lower extremity -incisional dressing C/D/I. SILT Sural, Saphenous, SPN, DPN, Tibial N. distributions. DP, PT 2+. BCR. DF, PF, EHL 5/5. No calf TTP. Assessment & Plan Assessment/Plan (1) Status post total right knee replacement: PLAN: POD#2 s/p right robotic assisted total knee arthroplasty - Pain control-continue to titrate analgesics. Lyrica 75 mg twice daily. She tolerated low-dose hydromorphone well, I will increase this to 1 mg for breakthrough pain. Lidocaine patches ordered to be applied to the medial lateral right knee avoiding direct contact to the incisional dressing. 12 hours on, 12 hours off for the lidocaine patches. - Medicine following for medical management - PT/OT-weightbearing as tolerated, range of motion as tolerated right lower extremity - DVT PPX -Eliquis 2.5 mg twice daily, SCDs, early mobilization - Case management - D/C planning. Suspect patient will need residential due to no help at home.
[2022-06-01] MEDS: Lidocaine 5% Patch 2 PATCH TOPICAL (14:00)
[2022-06-01] MEDS: HYDROmorphone 1 MG/ML Syringe IV (15:35)
[2022-06-01 15:40] VITALS: BP 149/61; PULSE 65; RESP 18; TEMP 37.1; O2SAT 94
[2022-06-01 16:35] LABS: Bedside Glucose 121 mg/dL (74-106)
[2022-06-01 19:40] VITALS: BP 130/61; PULSE 63; RESP 18; TEMP 37.2; O2SAT 96
[2022-06-01 21:51] VITALS: PULSE 63
[2022-06-01] MEDS: Atorvastatin Calcium 20 MG Tablet PO (21:52)
[2022-06-01 22:30] LABS: Bedside Glucose 173 mg/dL (74-106)
[2022-06-02] VITALS (7 sets, daily range): BP systolic 126–153; BP diastolic 48–62; PULSE 57–71; RESP 16–18; TEMP 36.6–37.4; O2SAT 93–96
[2022-06-02 04:57] LABS: Hematocrit 32.4 % (37-47); Hemoglobin 10.2 g/dL (12.0-15.0); Mean Corp Hgb Conc 31.5 g/dL (32-36); Mean Corpuscular Hgb 30.9 pg (27.0-32.0); Mean Corpuscular Volume 98.2 fL (81-99); Mean Platelet Vol. 11.5 fl (6.2-12.0); POSITIVE COUNT YES; Platelet Count 74 K/mm3 (150-450); RBC Distribution Width CV 13.3 % (11.6-14.6); RBC Distribution Width SD 47.9 fl (35.1-43.9); White Blood Count 6.3 K/mm3 (4.4-11.0)
[2022-06-02] MEDS: oxyCODONE 5 MG Tablet PO ×3 (06:58→22:06)
[2022-06-02] MEDS: Levothyroxine 75 MCG Tablet PO (06:58)
[2022-06-02 07:20] LABS: Bedside Glucose 115 mg/dL (74-106)
--- NOTE | 2022-06-02 07:23 | PCM.PN.HOSP ---
Subjective Subjective Patient seen participating in physical therapy. Had a relatively unremarkable night. Hemoglobin remains relatively low at 10.2 no need for blood transfusion at this point Objective Data Objective Data Vital Signs: Vital Signs Temp Pulse Resp BP Pulse Ox O2 Del Method O2 Flow Rate 98.4 F 65 18 126/56 H 96 Room Air 2 06/02/22 06:51 06/02/22 06:51 06/02/22 06:51 06/02/22 06:51 06/02/22 06:51 06/02/22 06:51 05/30/22 19:27 Oxygen Flow Rate (L/min) 2 Oxygen Delivery Method Room Air Weight: 128 kg Body Mass Index (BMI) 40.4 Intake & Output: Intake and Output for Last 24 Hours 05/31/22 06/01/22 06/02/22 23:59 23:59 23:59 Intake Total 2450 / 2690 1090 / 1090 300 / 300 Output Total 900 / 900 250 / 250 Balance 1550 / 1790 840 / 840 300 / 300 Lab / Micro Data Result Diagrams: 06/02/22 04:43 05/31/22 05:50 Labs: Laboratory Results - last 24 hr 06/01/22 11:43: POC Glucose 117 H 06/01/22 16:17: POC Glucose 121 H 06/01/22 21:46: POC Glucose 173 H 06/02/22 04:43: WBC 6.3, RBC 3.30 L, Hgb 10.2 L, Hct 32.4 L, MCV 98.2, MCH 30.9, MCHC 31.5 L, RDW Std Deviation 47.9 H, RDW Coeff of Elva 13.3, Plt Count 74 L, MPV 11.5 06/02/22 06:54: POC Glucose 115 H Micro: Microbiology 05/21/22 07:55 Swab (Method) Nasal Screen MRSA/MSSA - Final Physical Exam Narrative GENERAL: cooperative HEENT: Atraumatic; normocephalic EYES; Anicteric, Normal Conjunctiva NECK; supple, normal thyroid, RESPIRATORY: Diminished to auscultation CARDIOVASCULAR: Regular S1 S2, GI: soft, normoactive bowel sounds, : No Renal angle tenderness; EXTREMITIES: No edema, no clubbing, MUSCULOSKELETAL: Right knee surgical incision CDI NEURO: Awake; no lateralizing signs. SKIN: No Rash PSYCH; Flat affect Assessment & Plan Assessment/Plan (1) Status post total right knee replacement: PLAN: Plan Patient is a 61-year-old lady who underwent right total knee arthroplasty by Dr. العلي on 05/30/2022. The hospitalist service was consulted to assist with management of patient medical comorbidities following the procedure 1. Status post right total knee arthroplasty ? Procedure was performed on 05/30/2022. Patient postoperative orders regarding PT OT, DVT prophylaxis and pain management as addressed by primary service ? 06/01/2022; postoperative day 2 patient complains of significant pain and stiffness involving the right knee. Management deferred to primary service 06/02/2022 Patient seen participating in physical therapy. Had a relatively unremarkable night. Hemoglobin remains relatively low at 10.2 no need for blood transfusion at this point 2. Hypothyroidism - Patient is on levothyroxine home dose continued 3. Hypertension - Blood pressure controlled, home medications continued with dose adjustment as needed ? Adjusted patient antihypertensive regiment given her relative bradycardia 4. Dyslipidemia -Patient is on statin therapy, continued at home dose 5. GERD ? Patient is on PPI did continue 6. Nonalcoholic fatty liver disease with portal hypertensive gastropathy ? Patient is on rifaximin did continue 7. DVT prophylaxis ? On Xarelto 8. Obstructive sleep apnea ? CPAP at night 9. Anemia ? Secondary to anemia of acute blood loss following surgery monitoring H&H with plans to transfuse if patient becomes symptomatic or hemoglobin falls to 7 10. Physical deconditioning - Requested for PT OT eval and child protective services social worker to assist with discharge planning 11. Class III obesity with BMI of 40.5 ? Weight loss advised ? Charges/Coding Visit Charges Inpatient E&M: 03832 Subs Hosp L2
[2022-06-02] MEDS: Pantoprazole Sodium 20 MG Tablet PO (07:56)
[2022-06-02] MEDS: Senna/Docusate Sodium 1 Tablet 2 TABLET PO ×2 (07:56→21:20)
[2022-06-02] MEDS: Pregabalin 75 MG Capsule PO ×2 (07:56→21:19)
[2022-06-02] MEDS: Sertraline 50 MG Tablet PO (07:56)
[2022-06-02] MEDS: rifAXIMin 550 MG Tablet PO ×2 (07:56→21:19)
[2022-06-02] MEDS: Metoprolol Tartrate 25 MG Tablet 12.5 MG PO ×2 (07:57→21:21)
[2022-06-02] MEDS: APIXABAN 2.5 MG TABLET (WCH) PO ×2 (07:57→21:21)
[2022-06-02] MEDS: Lidocaine 5% Patch 2 PATCH TOPICAL (07:57)
[2022-06-02] MEDS: metFORMIN (XR) 500 MG Tablet 1000 MG PO ×2 (07:57→17:27)
[2022-06-02] MEDS: Acetaminophen 500 MG Tablet 1000 MG PO ×2 (10:13→21:19)
--- NOTE | 2022-06-02 11:16 | PN.ORTHO_ITS ---
Subjective Subjective Patient seen and examined. Patient was able to sleep through the night last night and states her pain is happening in the right direction with addition of lidocaine patches and increased on the Dilaudid. She denies any excessive sedation. Denies fevers, chills, nausea vomiting, chest pain or shortness of breath. No BM since admission but positive flatus. Denies abdominal pain. Objective Data Objective Data Vital Signs: Vital Signs Temp Pulse Resp BP Pulse Ox O2 Del Method O2 Flow Rate 98.9 F 57 L 18 135/48 H 94 Room Air 2 06/02/22 08:45 06/02/22 08:45 06/02/22 08:45 06/02/22 08:45 06/02/22 08:45 06/02/22 08:45 05/30/22 19:27 Oxygen Flow Rate (L/min) 2 Oxygen Delivery Method Room Air Weight: 282 lb 3.067 oz Body Mass Index (BMI) 40.4 Intake & Output: Intake and Output for Last 24 Hours 05/31/22 06/01/22 06/02/22 23:59 23:59 23:59 Intake Total 2450 / 2690 1090 / 1090 600 / 600 Output Total 900 / 900 250 / 250 Balance 1550 / 1790 840 / 840 600 / 600 Lab / Micro Data Result Diagrams: 06/02/22 04:43 05/31/22 05:50 Labs: Laboratory Results - last 24 hr 06/01/22 11:43: POC Glucose 117 H 06/01/22 16:17: POC Glucose 121 H 06/01/22 21:46: POC Glucose 173 H 06/02/22 04:43: WBC 6.3, RBC 3.30 L, Hgb 10.2 L, Hct 32.4 L, MCV 98.2, MCH 30.9, MCHC 31.5 L, RDW Std Deviation 47.9 H, RDW Coeff of Elva 13.3, Plt Count 74 L, MPV 11.5 06/02/22 06:54: POC Glucose 115 H Micro: Microbiology 05/21/22 07:55 Swab (Method) Nasal Screen MRSA/MSSA - Final Physical Exam Narrative General - A&Ox3, NAD. VSS/AF Right lower extremity -incisional dressing C/D/I. SILT Sural, Saphenous, SPN, DPN, Tibial N. distributions. DP, PT 2+. BCR. DF, PF, EHL 5/5. No calf TTP. Assessment & Plan Assessment/Plan (1) Status post total right knee replacement: PLAN: POD#3 s/p right robotic assisted total knee arthroplasty - Pain control-pain appears manageable at this point. We will maintain current regimen with oxycodone, judicious Tylenol use, Lyrica 75 mg twice daily, lidocaine patches and IV Dilaudid for breakthrough pain. - Medicine following for medical management - PT/OT-weightbearing as tolerated, range of motion as tolerated right lower extremity - DVT PPX -Eliquis 2.5 mg twice daily, SCDs, early mobilization - Case management - D/C planning. Suspect patient will need group home due to no help at home.
[2022-06-02 11:30] LABS: Bedside Glucose 122 mg/dL (74-106)
[2022-06-02 17:50] LABS: Bedside Glucose 131 mg/dL (74-106)
[2022-06-02] MEDS: Atorvastatin Calcium 20 MG Tablet PO (21:19)
[2022-06-02 23:06] LABS: Bedside Glucose 127 mg/dL (74-106)
[2022-06-03] VITALS (7 sets, daily range): BP systolic 129–156; BP diastolic 56–65; PULSE 58–65; RESP 16–18; TEMP 36.6–37.2; O2SAT 94–100
[2022-06-03] MEDS: oxyCODONE 5 MG Tablet PO ×4 (03:55→20:35)
[2022-06-03] MEDS: Levothyroxine 75 MCG Tablet PO (06:20)
[2022-06-03 06:40] LABS: Bedside Glucose 103 mg/dL (74-106)
--- NOTE | 2022-06-03 07:03 | PCM.PN.ORT ---
Subjective Subjective Patient seen and examined. Denies any new complaints. States last night was okay . Denies fevers or chills, nausea vomiting, chest pain, shortness of breath, abdominal pain. Did not require IV Dilaudid since 06/01/2022. Objective Data Objective Data Vital Signs: Vital Signs Temp Pulse Resp BP Pulse Ox O2 Del Method O2 Flow Rate 98.0 F 60 16 156/61 H 94 Room Air 2 06/03/22 03:25 06/03/22 03:25 06/03/22 03:25 06/03/22 03:25 06/03/22 03:25 06/03/22 03:25 05/30/22 19:27 Oxygen Flow Rate (L/min) 2 Oxygen Delivery Method Room Air Weight: 282 lb 3.067 oz Body Mass Index (BMI) 40.4 Intake & Output: Intake and Output for Last 24 Hours 06/01/22 06/02/22 06/03/22 23:59 23:59 23:59 Intake Total 1090 / 1090 1550 / 1550 600 / 600 Output Total 250 / 250 500 / 500 Balance 840 / 840 1050 / 1050 600 / 600 Lab / Micro Data Result Diagrams: 06/02/22 04:43 05/31/22 05:50 Labs: Laboratory Results - last 24 hr 06/02/22 06:54: POC Glucose 115 H 06/02/22 11:10: POC Glucose 122 H 06/02/22 17:26: POC Glucose 131 H 06/02/22 21:16: POC Glucose 127 H 06/03/22 06:19: POC Glucose 103 Micro: Microbiology 05/21/22 07:55 Swab (Method) Nasal Screen MRSA/MSSA - Final Physical Exam Narrative General - A&Ox3, NAD. VSS/AF Right lower extremity -incisional dressing C/D/I. SILT Sural, Saphenous, SPN, DPN, Tibial N. distributions. DP, PT 2+. BCR. DF, PF, EHL /5. No calf TTP. Assessment & Plan Assessment/Plan (1) Status post total right knee replacement: PLAN: POD#4 s/p right robotic assisted total knee arthroplasty - Pain control-pain appears manageable at this point. We will maintain current regimen with oxycodone, judicious Tylenol use, Lyrica 75 mg twice daily, lidocaine patches and IV Dilaudid for breakthrough pain. - Medicine following for medical management - PT/OT-weightbearing as tolerated, range of motion as tolerated right lower extremity - DVT PPX -Eliquis 2.5 mg twice daily, SCDs, early mobilization - Case management - D/C planning. Suspect patient will need [facility] due to no help at home.
--- NOTE | 2022-06-03 08:53 | CASEMGMT ---
Addendum entered by Lauren Crespo 06/03/22 14:02: Pt updated that insurance authorizaiton is still pending for admission to TCU. SW will keep pt updated and more information obtained. PATTI Sosa Original Note: Social Work SW spoke with Analilia in TCU. Insurance authorization still pending. SW will await determination from insurance. Plan: TCU, pending precert PATTI Cazares
[2022-06-03] MEDS: Sertraline 50 MG Tablet PO (09:14)
[2022-06-03] MEDS: rifAXIMin 550 MG Tablet PO ×2 (09:14→20:36)
[2022-06-03] MEDS: APIXABAN 2.5 MG TABLET (WCH) PO ×2 (09:15→20:35)
[2022-06-03] MEDS: Senna/Docusate Sodium 1 Tablet 2 TABLET PO ×2 (09:15→20:34)
[2022-06-03] MEDS: Acetaminophen 500 MG Tablet 1000 MG PO ×2 (09:16→20:35)
[2022-06-03] MEDS: Metoprolol Tartrate 25 MG Tablet 12.5 MG PO ×2 (09:16→20:36)
[2022-06-03] MEDS: Lidocaine 5% Patch 2 PATCH TOPICAL (09:16)
[2022-06-03] MEDS: Pantoprazole Sodium 20 MG Tablet PO (09:17)
[2022-06-03] MEDS: metFORMIN (XR) 500 MG Tablet 1000 MG PO ×2 (09:17→17:04)
[2022-06-03] MEDS: Pregabalin 75 MG Capsule PO ×2 (09:24→20:35)
--- NOTE | 2022-06-03 10:42 | PCM.PN.HOSP ---
Subjective Subjective Follow-up on right knee replacement: Patient was seen and examined. She complains of some nausea and pain in the right knee. Denied any fever or chills. Objective Data Objective Data Vital Signs: Vital Signs Temp Pulse Resp BP Pulse Ox O2 Del Method O2 Flow Rate 98.1 F 60 16 143/63 H 95 Room Air 2 06/03/22 09:25 06/03/22 09:25 06/03/22 09:25 06/03/22 09:25 06/03/22 09:55 06/03/22 09:25 05/30/22 19:27 Oxygen Flow Rate (L/min) 2 Oxygen Delivery Method Room Air Weight: 128 kg Body Mass Index (BMI) 40.4 Intake & Output: Intake and Output for Last 24 Hours 06/01/22 06/02/22 06/03/22 23:59 23:59 23:59 Intake Total 1090 / 1090 1550 / 1550 600 / 600 Output Total 250 / 250 500 / 500 Balance 840 / 840 1050 / 1050 600 / 600 Lab / Micro Data Result Diagrams: 06/02/22 04:43 05/31/22 05:50 Labs: Laboratory Results - last 24 hr 06/02/22 11:10: POC Glucose 122 H 06/02/22 17:26: POC Glucose 131 H 06/02/22 21:16: POC Glucose 127 H 06/03/22 06:19: POC Glucose 103 Micro: Microbiology 05/21/22 07:55 Swab (Method) Nasal Screen MRSA/MSSA - Final Physical Exam Narrative Physical exam: General: Alert, Oriented x3, Cooperative, morbid obese HEENT: Atraumatic Oral: Moist Mucosa Neck: Supple Lungs: Diminished to auscultation Cardiovascular: HS I+II, regular, no murmurs Abdomen: Bowel Sounds Present, Soft, Non Tender Extremities: Swelling of the right knee,cooling mat in place Skin: No rashes, No breakdown Neurological: Grossly intact Psych/Mental Status: Appropriate Assessment & Plan Assessment/Plan (1) Status post total right knee replacement: PLAN: Plan 1. POD #4, status post right total knee arthroplasty, pain is fairly controlled Continue on current pain regimen and recommendation from orthopedics 2.Anemia, secondary to anemia of acute blood loss during surgery, hemoglobin remained stable at 10.2 3 Hypothyroidism, continue on Synthroid 4. Hypertension, controlled, continue metoprolol, continue monitor vital 5. Dyslipidemia, continue on statin 5. GERD, on PPI 6. Nonalcoholic fatty liver disease with portal hypertensive gastropathy, continue on rifaximin 7. ASHLEY, continue CPAP 8. Morbid obesity, BMI 40.5, lifestyle modification, 9. Debility, acute on chronic, PT and OT to evaluate and treat, discharge planning to senior living facility ongoing 10. DVT prophylaxis?on Eliquis Charges/Coding Visit Charges Inpatient E&M: 01285 Subs Hosp L2
[2022-06-03] MEDS: Ondansetron 4 MG/2 ML Vial IV (12:04)
[2022-06-03 12:20] LABS: Bedside Glucose 123 mg/dL (74-106)
[2022-06-03 17:26] LABS: Bedside Glucose 102 mg/dL (74-106)
[2022-06-03] MEDS: Atorvastatin Calcium 20 MG Tablet PO (20:35)
[2022-06-03 21:45] LABS: Bedside Glucose 120 mg/dL (74-106)
[2022-06-04 03:00] VITALS: BP 145/66; PULSE 64; RESP 18; TEMP 37.1; O2SAT 98
[2022-06-04] MEDS: Levothyroxine 75 MCG Tablet PO (06:05)
[2022-06-04 06:30] LABS: Bedside Glucose 96 mg/dL (74-106)
--- NOTE | 2022-06-04 07:30 | PCM.PN.ORT ---
Subjective Subjective Patient seen and examined. Denies any new complaints. Denies fevers, chills, nausea vomiting, chest pain or shortness of breath. Pain is improving daily. Objective Data Objective Data Vital Signs: Vital Signs Temp Pulse Resp BP Pulse Ox O2 Del Method O2 Flow Rate 98.8 F 64 18 145/66 H 98 Room Air 2 06/04/22 03:00 06/04/22 03:00 06/04/22 03:00 06/04/22 03:00 06/04/22 03:00 06/04/22 03:00 05/30/22 19:27 Oxygen Flow Rate (L/min) 2 Oxygen Delivery Method Room Air Weight: 282 lb 3.067 oz Body Mass Index (BMI) 40.4 Intake & Output: Intake and Output for Last 24 Hours 06/02/22 06/03/22 06/04/22 23:59 23:59 23:59 Intake Total 1550 / 1550 1400 / 1400 Output Total 500 / 500 Balance 1050 / 1050 1400 / 1400 Lab / Micro Data Result Diagrams: 06/02/22 04:43 05/31/22 05:50 Labs: Laboratory Results - last 24 hr 06/03/22 12:01: POC Glucose 123 H 06/03/22 17:03: POC Glucose 102 06/03/22 20:29: POC Glucose 120 H 06/04/22 06:04: POC Glucose 96 Micro: Microbiology 05/21/22 07:55 Swab (Method) Nasal Screen MRSA/MSSA - Final Physical Exam Narrative General - A&Ox3, NAD. VSS/AF Right lower extremity -incisional dressing C/D/I. SILT Sural, Saphenous, SPN, DPN, Tibial N. distributions. DP, PT 2+. BCR. DF, PF, EHL 5/5. No calf TTP. Assessment & Plan Assessment/Plan (1) Status post total right knee replacement: PLAN: POD#5 s/p right robotic assisted total knee arthroplasty - Pain control-pain appears manageable at this point. We will maintain current regimen with oxycodone, judicious Tylenol use, Lyrica 75 mg twice daily, lidocaine patches and IV Dilaudid for breakthrough pain. - Medicine following for medical management - PT/OT-weightbearing as tolerated, range of motion as tolerated right lower extremity -Okay to remove surgical dressing and leave open to air today if no drainage. - DVT PPX -Eliquis 2.5 mg twice daily, SCDs, early mobilization - Case management - D/C planning. Awaiting pre-CERT for SNF.
[2022-06-04] MEDS: metFORMIN (XR) 500 MG Tablet 1000 MG PO ×2 (08:05→16:31)
[2022-06-04 08:06] VITALS: PULSE 69
[2022-06-04] MEDS: Metoprolol Tartrate 25 MG Tablet 12.5 MG PO (08:06)
[2022-06-04] MEDS: Senna/Docusate Sodium 1 Tablet 2 TABLET PO (08:08)
[2022-06-04] MEDS: Sertraline 50 MG Tablet PO (08:08)
[2022-06-04] MEDS: APIXABAN 2.5 MG TABLET (WCH) PO (08:09)
[2022-06-04] MEDS: Lidocaine 5% Patch 2 PATCH TOPICAL (08:09)
[2022-06-04] MEDS: Pantoprazole Sodium 20 MG Tablet PO (08:10)
[2022-06-04] MEDS: rifAXIMin 550 MG Tablet PO (08:10)
[2022-06-04] MEDS: Acetaminophen 500 MG Tablet 1000 MG PO (08:11)
[2022-06-04] MEDS: Pregabalin 75 MG Capsule PO (08:13)
[2022-06-04 08:56] VITALS: BP 145/75; PULSE 69; RESP 16; TEMP 37; O2SAT 100
[2022-06-04 11:11] LABS: Bedside Glucose 150 mg/dL (74-106)
--- NOTE | 2022-06-04 13:14 | TREXTCAR_ITS ---
Diet Diet Order/Speech Therapy: 05/31/22 03:50 Diet: Regular - General Is pt able to select menu?: Yes Wound(s) RT KNEE: Wound Type: Surgical Incision R BENAVIDEZ: Wound Type: Surgical Incision Therapies Weight Bearing: Weight bearing as tolerated Problem/Diagnosis (1) Status post total right knee replacement: Status: Acute Code(s): Z96.651 - Presence of right artificial knee joint Plan: POD#5 s/p right robotic assisted total knee arthroplasty - Pain control-pain appears manageable at this point. We will maintain current regimen with oxycodone, judicious Tylenol use, Lyrica 75 mg twice daily, lidocaine patches and IV Dilaudid for breakthrough pain. - Medicine following for medical management - PT/OT-weightbearing as tolerated, range of motion as tolerated right lower extremity -Okay to remove surgical dressing and leave open to air today if no drainage. - DVT PPX -Eliquis 2.5 mg twice daily, SCDs, early mobilization - Case management - D/C planning. Awaiting pre-CERT for SNF. Allergies/Procedures Done in Hospital Allergies betamethasone [From Celestone] Allergy (Verified 05/30/22 08:25) Other betamethasone sodium phosphate [From Celestone] Allergy (Verified 05/30/22 08:25) Other Penicillins Allergy (Verified 05/30/22 08:25) Rash triamcinolone acetonide [From Kenalog] Allergy (Verified 05/30/22 08:25) Other fluoxetine HCl [From Prozac] Adverse Reaction (Verified 05/30/22 08:25) Vomiting hydrocodone bitartrate [From Vicodin] Adverse Reaction (Verified 05/30/22 08:25) Vomiting Type of Care/Length of Stay Estimated LOS: Convalescent Care Less Than 30 days Type of Care Needed: Skilled Rehab Potential: Good Prognosis: Good Additional Orders/Day of Discharge Day of Discharge: 06/04/22 Discharge Plan Admission Admit Date/Time: 05/30/22 17:27 Primary Reason for Your Visit: Right knee replacement Attending Provider: Michele العلي Primary Care Provider: Zeeshan Chao Consulting Providers: Reva Menodza Instructions Additional Instructions / Restrictions: Follow preprinted instructions from your surgeons office Discharge Orders/Prescriptions Prescriptions: New oxycodone 5 mg Tablet 5 - 10 mg PO Q4H PRN PRN (Reason: Pain Score 4-10) 7 Days Qty: 56 0RF pregabalin 75 mg Capsule 75 mg PO BID 10 Days Qty: 20 0RF apixaban 2.5 mg tablet 2.5 mg PO BID 14 Days Qty: 28 0RF sennosides-docusate sodium [Stool Softener-Stimulant Laxat] 8.6-50 mg Tablet 2 tab PO BID 14 Days Qty: 56 0RF lidocaine 5 % Adhesive Patch,Medicated 2 patch topical DAILY 14 Days Qty: 28 0RF Protocol: *Topical Application Instructions APPLICATION INSTRUCTIONS: Apply to medial and lateral right knee, stay off incisional dressing Xifaxan 550 mg Tablet 550 mg PO BID 30 Days Qty: 60 0RF Continued albuterol sulfate [Ventolin HFA] 90 mcg/actuation HFA aerosol inhaler 2 puff inhalation Q4H PRN (Reason: shortness of breath or wheezing) Qty: 18 6RF atorvastatin 20 mg tablet 20 mg PO QPM levothyroxine 75 mcg tablet 75 mcg PO DAILY metformin 500 mg tablet extended release 24 hr 1,000 mg PO BID omeprazole 20 MG capsule 20 mg PO DAILY sertraline 50 MG tablet 50 mg PO DAILY (DME) Oral Appliance See Rx Instructions .Route .MEDSUPPLY Qty: 1 0RF Rx Instructions: As directed metoprolol tartrate 25 mg tablet 25 mg PO BID Qty: 60 6RF Referrals / Follow Up: Michele العلي DO [Med Staff - Active Staff] - Within 2 Weeks Zeeshan Chao MD [Primary Care Provider] - Disposition Disposition (needs filled in before D/C Order can be placed): [facility]
[2022-06-04 13:25] VITALS: BP 135/72; PULSE 62; RESP 18; TEMP 36.8; O2SAT 99
--- NOTE | 2022-06-04 13:43 | NURSING ---
NG ordered to be DC, patient wants to keep NG in for now and try ice chips before removal.
--- NOTE | 2022-06-04 14:28 | PHA.DC.MR ---
Pharmacy Service has performed discharge medication reconciliation for this patient. The patient's discharge medication list was reviewed for discrepancies and discrepancies were resolved. Home Medications omeprazole 20 mg capsule,delayed release 20 mg PO DAILY GERD 09/19/14 sertraline 50 mg tablet 50 mg PO DAILY Mood 09/19/14 albuterol sulfate 90 mcg/actuation aerosol inhaler (Ventolin HFA) 2 puff inhalation Q4H PRN shortness of breath or wheezing #18 grams 12/06/20 atorvastatin 20 mg tablet 20 mg PO QPM HLD 02/14/22 levothyroxine 75 mcg tablet 75 mcg PO DAILY thyroid 02/14/22 metformin 500 mg tablet,extended release 24 hr 1,000 mg PO BID DM 03/22/22 metoprolol tartrate 25 mg tablet 25 mg PO BID #60 tabs 04/05/22 apixaban 2.5 mg tablet 2.5 mg PO BID 14 days #28 tabs 06/03/22 lidocaine 5 % topical patch 2 patch topical DAILY 14 days #28 ea 06/03/22 oxycodone 5 mg tablet 5 - 10 mg PO Q4H PRN PRN Pain Score 4-10 7 days #56 tabs 06/03/22 pregabalin 75 mg capsule 75 mg PO BID 10 days #20 caps 06/03/22 rifaximin 550 mg tablet (Xifaxan) 550 mg PO BID 30 days #60 tabs 06/03/22 sennosides 8.6 mg-docusate sodium 50 mg tablet (Stool Softener-Stimulant Laxative) 2 tab PO BID 14 days #56 tabs 06/03/22
--- NOTE | 2022-06-04 15:06 | PCM.PN.HOSP ---
Subjective Subjective Follow-up on right knee replacement: Patient was seen and examined.? Patient stated that her pain is better.?Denied any fever or chills. Objective Data Objective Data Vital Signs: Vital Signs Temp Pulse Resp BP Pulse Ox O2 Del Method O2 Flow Rate 98.3 F 62 18 135/72 H 99 Room Air 2 06/04/22 13:25 06/04/22 13:25 06/04/22 13:25 06/04/22 13:25 06/04/22 13:25 06/04/22 14:50 05/30/22 19:27 Oxygen Flow Rate (L/min) 2 Oxygen Delivery Method Room Air Weight: 128 kg Body Mass Index (BMI) 40.4 Intake & Output: Intake and Output for Last 24 Hours 06/02/22 06/03/22 06/04/22 23:59 23:59 23:59 Intake Total 1550 / 1550 1400 / 1400 Output Total 500 / 500 Balance 1050 / 1050 1400 / 1400 Lab / Micro Data Result Diagrams: 06/02/22 04:43 05/31/22 05:50 Labs: Laboratory Results - last 24 hr 06/03/22 17:03: POC Glucose 102 06/03/22 20:29: POC Glucose 120 H 06/04/22 06:04: POC Glucose 96 06/04/22 10:50: POC Glucose 150 H Micro: Microbiology 06/04/22 13:55 Nasal Secretion SARS-CoV-2 Antigen (Rapid) - Final 05/21/22 07:55 Swab (Method) Nasal Screen MRSA/MSSA - Final Physical Exam Narrative Physical exam: General: Alert, Oriented x3, Cooperative, morbid obese HEENT: Atraumatic Oral: Moist Mucosa Neck: Supple Lungs: Diminished to auscultation Cardiovascular: HS I+II, regular, no murmurs Abdomen: Bowel Sounds Present, Soft, Non Tender Extremities: Swelling of the right knee,cooling mat in place Skin: No rashes, No breakdown Neurological: Grossly intact Psych/Mental Status: Appropriate Assessment & Plan Assessment/Plan (1) Status post total right knee replacement: PLAN: Plan 1. POD #5, status post right total knee arthroplasty, pain is fairly controlled Continue on current pain regimen and recommendation from orthopedics 2.Anemia, secondary to anemia of acute blood loss during surgery, Hemoglobin remained stable at 10.2 3 Hypothyroidism, continue on Synthroid 4. Hypertension, controlled, continue metoprolol, continue monitor vital 5. Dyslipidemia, continue on statin 5. GERD, on PPI 6. Nonalcoholic fatty liver disease with portal hypertensive gastropathy, continue on rifaximin 7. ASHLEY, continue CPAP 8. Morbid obesity, BMI 40.5, lifestyle modification, 9. Debility, acute on chronic, PT and OT to evaluate and treat, discharge planning to long term facility ongoing 10. DVT prophylaxis?on Eliquis Charges/Coding Visit Charges Inpatient E&M: 92395 Subs Hosp L2
--- NOTE | 2022-06-04 15:57 | CASEMGMT ---
Social Work ? RYAN notified pt and pt family of discharge to TCU today. RYAN faxed all discharge orders to TCU. Notified TCU of pending pt arrival. RYAN notified pt nurse that pt is ready to discharge. RYAN made copies of discharge orders and placed on pt chart. Sent original orders in envelope with pt upon discharge.?? Disposition: TCU, skilled, level of care? PATTI De Dios?
[2022-06-04 16:50] LABS: Bedside Glucose 108 mg/dL (74-106)
--- NOTE | 2022-06-05 07:35 | DS.PCM_ITS ---
Providers Date of Admission: 05/30/22 Primary Care Physician: Dr. Zeeshan Chao MD Consultations 05/30/22 16:03 Consult: Hospitalist Routine Consulting Provider: Donte Campuzano Reason for Consult: post op TKA medical management EMERGENT Consult: No MD Notified: Yes Date Notified: 05/30/22 Time Notified: 17:34 Method of Notification: Text Reason For Visit: RT TOTAL KNEE ROBOT Diagnosis Discharge Diagnosis (1) Status post total right knee replacement: Status: Acute Code(s): Z96.651 - Presence of right artificial knee joint Plan: POD#5 s/p right robotic assisted total knee arthroplasty - Pain control-pain appears manageable at this point. We will maintain current regimen with oxycodone, judicious Tylenol use, Lyrica 75 mg twice daily, lidocaine patches and IV Dilaudid for breakthrough pain. - Medicine following for medical management - PT/OT-weightbearing as tolerated, range of motion as tolerated right lower extremity -Okay to remove surgical dressing and leave open to air today if no drainage. - DVT PPX -Eliquis 2.5 mg twice daily, SCDs, early mobilization - Case management - D/C planning. Awaiting pre-CERT for SNF. Medications at Discharge Home Medications omeprazole 20 mg capsule,delayed release 20 mg PO DAILY GERD 09/19/14 sertraline 50 mg tablet 50 mg PO DAILY Mood 09/19/14 Oral Appliance #1 ea 09/26/20 albuterol sulfate 90 mcg/actuation aerosol inhaler (Ventolin HFA) 2 puff inhalation Q4H PRN shortness of breath or wheezing #18 grams 12/06/20 atorvastatin 20 mg tablet 20 mg PO QPM HLD 02/14/22 levothyroxine 75 mcg tablet 75 mcg PO DAILY thyroid 02/14/22 metformin 500 mg tablet,extended release 24 hr 1,000 mg PO BID DM 03/22/22 oxycodone 5 mg tablet 5 - 10 mg PO Q4H PRN PRN Pain Score 4-10 7 days #56 tabs 06/03/22 apixaban 2.5 mg tablet 2.5 mg PO BID Blood thinner 06/04/22 lidocaine 5 % topical patch 2 patch topical DAILY Pain 06/04/22 metoprolol tartrate 25 mg tablet 25 mg PO BID BP 06/04/22 pregabalin 75 mg capsule 75 mg PO BID Nerve pain 06/04/22 rifaximin 550 mg tablet (Xifaxan) 550 mg PO BID IBS 06/04/22 sennosides 8.6 mg-docusate sodium 50 mg tablet (Stool Softener-Stimulant Laxative) 2 tab PO BID Constipation 06/04/22 Hospital Course Summary of Care Provided Minutes Spent on Discharge: 15 Hospital Course: Patient underwent uncomplicated right robotic assisted total knee arthroplasty 05/30/2022. She was admitted postoperatively for pain control and early convalescence. Patient had difficulty with pain control postoperatively complicated by her chronic liver disease and need to avoid steroids, NSAIDs and judicious use of Tylenol and opiates. Due to lack of help at home, residential was recommended by physical and occupational therapies. Precertification was eventually obtained 06/04/2022 and patient was able be safely discharged to residential facility postoperative day #5. No significant medical or surgical complications were encountered throughout her stay. An internal medicine consult was placed for medical management during her stay given her multiple comorbidities. Physical Exam Narrative General - A&Ox3, NAD. VSS/AF Right lower extremity -incisional dressing C/D/I. SILT Sural, Saphenous, SPN, DPN, Tibial N. distributions. DP, PT 2+. BCR. DF, PF, EHL 5/5. No calf TTP. Weight / BMI Weight Weight: 282 lb 3.067 oz Body Mass Index (BMI) 40.4 ABG / Lab / Microbiology Data Result Diagrams: 06/02/22 04:43 05/31/22 05:50 Laboratory: Laboratory Results - last 24 hr 06/04/22 10:50: POC Glucose 150 H 06/04/22 16:29: POC Glucose 108 H Microbiology: Microbiology 06/04/22 13:55 Nasal Secretion SARS-CoV-2 Antigen (Rapid) - Final 05/21/22 07:55 Swab (Method) Nasal Screen MRSA/MSSA - Final Meaningful Use Info Meaningful Use Diagnoses (Choose all that apply): None applicable Discharge Plan Admission Admit Date/Time: 05/30/22 17:27 Primary Reason for Your Visit: Right knee replacement Attending Provider: Mihcele العلي Primary Care Provider: Zeeshan Chao Consulting Providers: Reva Mendoza Instructions Additional Instructions / Restrictions: Follow preprinted instructions from your surgeons office Discharge Orders/Prescriptions Prescriptions: New oxycodone 5 mg Tablet 5 - 10 mg PO Q4H PRN PRN (Reason: Pain Score 4-10) 7 Days Qty: 56 0RF Continued albuterol sulfate [Ventolin HFA] 90 mcg/actuation HFA aerosol inhaler 2 puff inhalation Q4H PRN (Reason: shortness of breath or wheezing) Qty: 18 6RF atorvastatin 20 mg tablet 20 mg PO QPM levothyroxine 75 mcg tablet 75 mcg PO DAILY metformin 500 mg tablet extended release 24 hr 1,000 mg PO BID omeprazole 20 MG capsule 20 mg PO DAILY sertraline 50 MG tablet 50 mg PO DAILY (DME) Oral Appliance See Rx Instructions .Route .MEDSUPPLY Qty: 1 0RF Rx Instructions: As directed No Action sennosides-docusate sodium [Stool Softener-Stimulant Laxat] 8.6-50 mg tablet 2 tab PO BID lidocaine 5 % adhesive patch,medicated 2 patch topical DAILY Protocol: *Topical Application Instructions APPLICATION INSTRUCTIONS: Apply to medial and lateral right knee, stay off incisional dressing Rx Instructions: 14 days metoprolol tartrate 25 mg tablet 25 mg PO BID pregabalin 75 mg capsule 75 mg PO BID Rx Instructions: 10 days Xifaxan 550 mg tablet 550 mg PO BID apixaban 2.5 mg tablet 2.5 mg PO BID Rx Instructions: 14 days Referrals / Follow Up: Michele العلي DO [Med Staff - Active Staff] - Within 2 Weeks Zeeshan Chao MD [Primary Care Provider] - Disposition Disposition (needs filled in before D/C Order can be placed): [facility] Facility
== END 2022-06-04 17:10 | disposition skilled nursing facility (03) ==
LOC: SDC 05-31 08:36 → MS3 05-31 08:36
PROVIDERS: Anesthesiology; Admitting Provider Student in an Organized Health Care Education/Training Program; PCP Family Medicine; Referring Provider Student in an Organized Health Care Education/Training Program; Visit Provider Student in an Organized Health Care Education/Training Program
PROC: 0SRC0JZ Replacement of Right Knee Joint with Synthetic Substitute, Open Approach (ICD-10-PCS; CPT 27447; principal; 2022-05-30 09:45)
DX: M17.11 Unilateral primary osteoarthritis, right knee (principal); K76.6 Portal hypertension; E66.01 Morbid (severe) obesity due to excess calories; Z68.41 Body mass index [BMI] 40.0-44.9, adult; D69.6 Thrombocytopenia, unspecified; Z79.4 Long term (current) use of insulin; R53.81 Other malaise; Z79.899 Other long term (current) drug therapy; Z79.890 Hormone replacement therapy; E03.9 Hypothyroidism, unspecified; F32.A Depression, unspecified; K21.9 Gastro-esophageal reflux disease without esophagitis; I10 Essential (primary) hypertension; K76.0 Fatty (change of) liver, not elsewhere classified; K31.89 Other diseases of stomach and duodenum; G47.33 Obstructive sleep apnea (adult) (pediatric)
CPT/HCPCS: 27447; 01402; S2900; 64447; 36415; 80048; 82040; 82962; 83036; 83735; 84443; 85025; 85027; 85610; 85730; 86644; 86850; 86900; 86901; 86965; 87077; 87081; 87426; 88305; 88311; 96361; 96365; 96366; 96375; 96376; 97110; 97116; 97162; 97166; 97530; 97535; 99218; 99251; C1776; J7040; J7120; P9035; A4216; G0378; G0463; J2405; J3475

== ENCOUNTER 2022-06-04 17:20 | Inpatient (IN) | payer OTHER, SELFPAY ==
[2022-06-04 17:27] VITALS: BP 152/71; PULSE 68; RESP 16; TEMP 36.2; O2SAT 96
[2022-06-04 18:36] VITALS: BMI 41.5
[2022-06-04] MEDS: APIXABAN 2.5 MG TABLET (WCH) PO (18:55)
[2022-06-04 18:56] VITALS: PULSE 68
[2022-06-04] MEDS: Metoprolol Tartrate 25 MG Tablet PO (18:56)
[2022-06-04] MEDS: rifAXIMin 550 MG Tablet PO (18:57)
[2022-06-04] MEDS: Senna/Docusate Sodium 1 Tablet 2 TABLET PO (18:57)
[2022-06-04] MEDS: Pregabalin 75 MG Capsule PO (18:58)
--- NOTE | 2022-06-04 19:43 | HP.PCM_ITS ---
HPI - General General Date of Admission: 06/04/22 Date of Service: 06/04/22 Chief Complaint: Here for rehabilitation. HPI Narrative MARYLOU MARIE, is a 61 Female who presents with followin05/30/2022 Dr. العلي performed right total knee arthroplasty. 05/31/2022 Metoprolol 25mg twice daily decreased to 12.5mg twice daily for bradycardia. PT/OT. Eliquis 2.5mg twice daily for DVT prophylaxis. CPAP at night for obstructive sleep apnea. Lyrica 50mg twice daily to help with pain control. 06/01/2022 Right knee pain, stiffness. Transfuse if hemoglobin less than 7.0. 06/02/2022 Doing PT, Hemoglobin 10.2. 06/03/2022 Nausea, right knee pain. PT/OT for [facility]. 06/04/2022 Admit to TCU with debility, here for rehabilitation, strengthening, prior to discharge home. [facility] Medical History Alcohol use Ambulates with cane Arthritis Blood disorder Cardiology follow-up encounter Cat bite Depression Diabetes Difficulty balancing when standing Difficulty swallowing Enlarged thyroid gland Fatigue Gastric reflux Hemorrhoids High triglycerides History of echocardiogram History of edema History of pain when walking History of stress test History of ulceration Hyperlipidemia Hypothyroidism Injury of back Intermittent palpitations Kidney stones Left ventricular diastolic dysfunction Leg cramps Lupus Migraine headache Non-smoker Obesity Open wound of left forearm due to cat bite Rheumatoid arthritis Seasonal allergies Shortness of breath on exertion Shoulder pain Stomach ulcer Symptomatic sinus bradycardia Thyroid disease TIA (transient ischemic attack) Wears glasses Home Medications omeprazole 20 mg capsule,delayed release 20 mg PO DAILY GERD 09/19/14 [History Last Taken 05/29/22] sertraline 50 mg tablet 50 mg PO DAILY Mood 09/19/14 [History Last Taken 05/29/22] Oral Appliance #1 ea 09/26/20 [Rx Last Taken 05/29/22] albuterol sulfate 90 mcg/actuation aerosol inhaler (Ventolin HFA) 2 puff inhalation Q4H PRN shortness of breath or wheezing #18 grams 12/06/20 [Rx Last Taken 05/29/22] atorvastatin 20 mg tablet 20 mg PO QPM HLD 02/14/22 [History Last Taken 05/29/22] levothyroxine 75 mcg tablet 75 mcg PO DAILY thyroid 02/14/22 [History Last Taken 05/29/22] metformin 500 mg tablet,extended release 24 hr 1,000 mg PO BID DM 03/22/22 [History Last Taken 05/29/22] oxycodone 5 mg tablet 5 - 10 mg PO Q4H PRN PRN Pain Score 4-10 7 days #56 tabs 06/03/22 [Rx Last Taken Unknown] apixaban 2.5 mg tablet 2.5 mg PO BID Blood thinner 06/04/22 [History Last Taken Unknown] lidocaine 5 % topical patch 2 patch topical DAILY Pain 06/04/22 [History Last Taken Unknown] metoprolol tartrate 25 mg tablet 25 mg PO BID BP 06/04/22 [History Last Taken Unknown] pregabalin 75 mg capsule 75 mg PO BID Nerve pain 06/04/22 [History Last Taken Unknown] rifaximin 550 mg tablet (Xifaxan) 550 mg PO BID IBS 06/04/22 [History Last Taken Unknown] sennosides 8.6 mg-docusate sodium 50 mg tablet (Stool Softener-Stimulant Laxative) 2 tab PO BID Constipation 06/04/22 [History Last Taken Unknown] Allergy/AdvReac Type Severity Reaction Status Date / Time betamethasone Allergy Other Verified 05/30/22 08:25 [From Celestone] betamethasone sodium Allergy Other Verified 05/30/22 08:25 phosphate [From Celestone] Penicillins Allergy Rash Verified 05/30/22 08:25 triamcinolone acetonide Allergy Other Verified 05/30/22 08:25 [From Kenalog] fluoxetine HCl [From Prozac] AdvReac Vomiting Verified 05/30/22 08:25 hydrocodone bitartrate AdvReac Vomiting Verified 05/30/22 08:25 [From Vicodin] Family History Grandmother Breast cancer Cancer thyroid Diabetes Aunt Breast cancer Father Prostate cancer CAD (coronary artery disease), Onset Age: 45 CABG PCI DE Myocardial infarction, Onset Age: 45 Heart disease Mother Osteoporosis Hypertension Surgical History History of arthroscopic knee surgery History of cholecystectomy History of colonoscopy History of discectomy History of hysterectomy History of left heart catheterization (02/14/20) Hx of left knee surgery Status post cervical spinal fusion Status post unilateral knee replacement Social History (Updated 06/04/22 @ 19:[address] Tyrone Mueller MD) household members: friend(s) Smoking Status: Never smoker alcohol intake: former substance use type: does not use additional social history: DOES NOT USE ASPIRIN DOES NOT USE IBUPROFEN ROS Constitutional Constitutional: Denies chills, fever(s) or weight gain ENT HEENT: Denies headache(s), nasal congestion or nasal discharge Cardiovascular Cardiovascular: Denies chest pain or palpitations Respiratory/Chest Respiratory/Chest: Denies cough, excessive phlegm production or shortness of breath with exertion Gastrointestinal Gastrointestinal: Denies abdominal pain, nausea or vomiting Genitourinary Genitourinary: Denies dysuria Musculoskeletal Musculoskeletal: Denies joint pain or joint swelling Integumentary Integumentary: Denies rash or wounds Neurologic Neurologic: Denies focal weakness, numbness or tingling Psychiatric Psychiatric: Denies anxiety, auditory hallucinations, depression, homicidal ideation or suicidal ideation Vital Signs Vital Signs Vital Signs: 06/04/22 17:27 06/04/22 18:56 Temperature 97.2 F L Temperature Source Temporal Pulse Rate 68 68 Respiratory Rate 16 Blood Pressure 152/71 H Blood Pressure Mean 98 Pulse Ox 96 Oxygen Delivery Method Room Air Weight Weight: 131.542 kg Body Mass Index (BMI) 41.5 Physical Exam Const alert General Appearance: cooperative HEENT normocephalic Eyes PERRL and EOMs intact bilaterally Neck supple, no JVD and no carotid bruits Resp normal respiratory effort, normal air movement and clear to auscultation bilaterally Cardio regular rate and regular rhythm GI normal to inspection, nondistended, normoactive bowel sounds, non-tender and non-distended Extremity normal capillary refill General Extremity: Negative for edema Skin no rashes or lesions noted General Skin Exam: no breakdown Psych affect normal Appearance: appropriate Assessment & Plan Assessment/Plan (1) Debility: (2) Status post total right knee replacement: (3) GERD (gastroesophageal reflux disease): (4) Depression: (5) Hyperlipidemia: (6) Hypothyroidism: (7) Diabetes mellitus: (8) Cirrhosis of liver: (9) Hepatic encephalopathy: (10) Nonalcoholic steatohepatitis (EVERETT): PLAN: Plan 61 year old female with below past medical history underwent right total knee replacement 05/30/[address] العلي, admitted to TCU with debility, here for rehabilitation, strengthening, prior discharge home. * Debility - PT/OT. * Pain - Oxycodone 5-10mg q4h prn, Lidoderm patch 2 patches td daily. * Bowel - Miralax 17gm daily, senna/colace 2 tablets bid, MOM 30ml daily prn. * Adult immunization - Administer pneumonia vaccine, covid19 vaccine, flu vaccine as appropriate. * DVT prophylaxis - Eliquis 2.5mg bid thru 06/18/2022. * Shortness of breath - Albuterol 2 puffs q4h prn. * Hyperlipidemia - Atorvastatin 20mg qhs. * Nutrition - Glucerna shake 120ml po tidcm. * Hypothyroidism - Levothyroxine 75mcg daily. * Diabetes Mellitus II - Metformin XR 1000mg bidcm. * Hypertension - Metoprolol 25mg bid. * GERD - Pantoprazole 20mg daily. * Neuropathic pain - Lyrica 75mg bid. * Hepatic encephalopathy - Xifaxan 550mg bid. * Depression - Sertraline 50mg daily, stable chronic filler leaf cutter long use, GDR not recommended.
[2022-06-04 20:15] VITALS: PULSE 84; RESP 16; O2SAT 97
[2022-06-04] MEDS: oxyCODONE 5 MG Tablet PO (20:25)
[2022-06-04] MEDS: Atorvastatin Calcium 20 MG Tablet PO (20:27)
[2022-06-05 05:37] LABS: Absolute Lymphocyte Count 0.68 X10^3/uL (0.83-4.51); Absolute Neutrophil Count 1.9 X10^3/uL (2.0-7.7); Basophil# 0.01 X10^3/uL; Basophil% 0.3 % (0-1); Eosinophil# 0.08 X10^3/uL; Eosinophils% 2.7 % (0-5); Hematocrit 31.2 % (37-47); Hemoglobin 10.5 g/dL (12.0-15.0); Lymphocyte # 0.68 X10^3/ul (0.83-4.51); Lymphocyte % 22.6 % (19-41); Mean Corp Hgb Conc 33.7 g/dL (32-36); Mean Corpuscular Hgb 32.3 pg (27.0-32.0); Monocyte# 0.36 X10^3/uL; NRBC Flagged by Analyzer 0 % (0-5); Neutrophil # 1.88 X10^3/uL (2.7-7.7); Neutrophil % 62.4 % (47-70); Platelet Count 102 K/mm3 (150-450); RBC Distribution Width CV 13.2 % (11.6-14.6); RBC Distribution Width SD 46.7 fl (35.1-43.9); Red Blood Count 3.25 M/mm3 (4.2-5.4)
[2022-06-05] MEDS: Pregabalin 75 MG Capsule PO ×2 (06:17→18:04)
[2022-06-05] MEDS: Senna/Docusate Sodium 1 Tablet 2 TABLET PO ×2 (06:18→18:05)
[2022-06-05] MEDS: rifAXIMin 550 MG Tablet PO ×2 (06:18→18:06)
[2022-06-05] MEDS: Sertraline 50 MG Tablet PO (06:18)
[2022-06-05] MEDS: Lidocaine 5% Patch 2 PATCH TOPICAL (06:18)
[2022-06-05] MEDS: Levothyroxine 75 MCG Tablet PO (06:18)
[2022-06-05] MEDS: Pantoprazole Sodium 20 MG Tablet PO (06:18)
[2022-06-05 06:19] VITALS: BP 151/69; PULSE 63
[2022-06-05] MEDS: APIXABAN 2.5 MG TABLET (WCH) PO ×2 (06:19→18:04)
[2022-06-05] MEDS: Metoprolol Tartrate 25 MG Tablet PO ×2 (06:19→18:05)
[2022-06-05] MEDS: Polyethylene Glycol 3350 17 GM PACKET PO (06:27)
[2022-06-05 06:34] LABS: Anion Gap 6 (5-15); BUN 8 mg/dL (7-18); BUN/Creat Ratio 15.1 RATIO (10-20); Calcium,Total 8.4 mg/dL (8.5-10.1); Chloride 104 mmol/L (98-107); Creatinine, Serum 0.53 mg/dL (0.55-1.02); EST Glomerular Filtration Rate 125 mL/min (>60); Est Glom Filt Rate - Afr Amer 151 mL/min (>60); Estimated Creatinine Clearance 120.54 ml/min; Glucose 116 mg/dL (74-106); Potassium 3.7 mmol/L (3.5-5.1); Sodium Level 137 mmol/L (136-145)
[2022-06-05 06:35] LABS: Bedside Glucose 100 mg/dL (74-106)
[2022-06-05] MEDS: Glucerna Shake 120 ML LIQUID PO ×2 (08:17→12:10)
[2022-06-05] MEDS: metFORMIN (XR) 500 MG Tablet 1000 MG PO ×2 (08:19→17:59)
[2022-06-05] MEDS: Tuberculin,Purif.prot.deriv. 50 TU/ML Vial 0.1 ML ID (10:03)
[2022-06-05] MEDS: Petrolatum 33% Tube 1 APPLIC TOPICAL ×2 (10:04→20:17)
--- NOTE | 2022-06-05 11:47 | NURSING ---
Information And Data Architect Analyst Note; Activity Asset: Complete
--- NOTE | 2022-06-05 15:14 | PCM.PN.DRR ---
TCU RX Drug Regimen Review Subjective: TCU Admission. 61 YOF presented for right total knee replacement 05/30/[address] العلي. Admitted to TCU with debility for strengthening and rehabilitation. Objective: Allergies betamethasone [From Celestone] Allergy (Verified 05/30/22 08:25) Other betamethasone sodium phosphate [From Celestone] Allergy (Verified 05/30/22 08:25) Other Penicillins Allergy (Verified 05/30/22 08:25) Rash triamcinolone acetonide [From Kenalog] Allergy (Verified 05/30/22 08:25) Other fluoxetine HCl [From Prozac] Adverse Reaction (Verified 05/30/22 08:25) Vomiting hydrocodone bitartrate [From Vicodin] Adverse Reaction (Verified 05/30/22 08:25) Vomiting Current Medications Generic Name Dose Route Start Last Admin Trade Name Freq PRN Reason Stop Dose Admin Albuterol Sulfate 2 puff 06/04/22 18:00 Albuterol Ih (6.7 Gm) 1 Puff Inhaler INHALATION Q4H PRN PRN shortness of breath or wheezing Apixaban 2.5 mg 06/04/22 18:00 06/05/22 06:19 Apixaban 2.5 Mg Tablet (Wch) PO 06/18/22 18:01 2.5 mg BID SUSAN Administration Atorvastatin Calcium 20 mg 06/04/22 22:00 06/04/22 20:27 Atorvastatin Calcium 20 Mg Tablet PO 20 mg QHS SUSAN Administration Levothyroxine Sodium 75 mcg 06/05/22 06:00 06/05/22 06:18 Levothyroxine 75 Mcg Tablet PO 75 mcg DAILY SUSAN Administration Lidocaine 2 patch 06/05/22 06:00 06/05/22 06:18 Lidocaine 5% Patch TOPICAL 2 patch DAILY SUSAN Administration Protocol Magnesium Hydroxide 30 ml 06/04/22 19:55 Magnesium Hydroxide 30 Ml Udc PO DAILY PRN Constipation Metformin HCl 1,000 mg 06/05/22 08:00 06/05/22 08:19 Metformin (Xr) 500 Mg Tablet PO 1,000 mg BIDCM SUSAN Administration Metoprolol Tartrate 25 mg 06/04/22 18:00 06/05/22 06:19 Metoprolol Tartrate 25 Mg Tablet PO 25 mg BID SUSAN Administration Multi-Ingredient Cream 1 applic 06/05/22 10:00 06/05/22 10:04 Petrolatum 33% Tube TOPICAL 1 applic BID@1000,2200 SUSAN Administration Protocol Nutritional Formula (Lactose Free) 120 ml 06/05/22 07:45 06/05/22 12:10 Glucerna Shake 120 Ml Liquid PO 120 ml TIDCM SUSAN Administration Ondansetron HCl 8 mg 06/05/22 07:44 Ondansetron Odt 4 Mg Tablet PO Q8H PRN PRN NAUSEA Oxycodone HCl 5 - 10 mg 06/04/22 17:39 06/04/22 20:25 Oxycodone 5 Mg Tablet PO 5 mg Q4H PRN PRN Administration Pain Score 4-10 Pantoprazole Sodium 20 mg 06/05/22 06:00 06/05/22 06:18 Pantoprazole Sodium 20 Mg Tablet PO 20 mg DAILY SUSAN Administration Polyethylene Glycol 17 gm 06/05/22 06:00 06/05/22 06:27 Polyethylene Glycol 3350 17 Gm Packet PO 17 gm DAILY SUSAN Administration Pregabalin 75 mg 06/04/22 18:00 06/05/22 06:17 Pregabalin 75 Mg Capsule PO 06/14/22 18:01 75 mg BID SUSAN Administration Rifaximin 550 mg 06/04/22 18:00 06/05/22 06:18 Rifaximin 550 Mg Tablet PO 550 mg BID SUSAN Administration Senna/Docusate Sodium 2 tablet 06/04/22 18:00 06/05/22 06:18 Senna/Docusate Sodium 1 Tablet PO 2 tablet BID SUSAN Administration Sertraline HCl 50 mg 06/05/22 06:00 06/05/22 06:18 Sertraline 50 Mg Tablet PO 50 mg DAILY SUSAN Administration Sodium Chloride 10 - 40 ml 06/04/22 18:45 0.9% Saline Lock 10 Ml Syringe IV UD PRN SALINE FLUSH Tuberculin PPD 0.1 ml 06/12/22 10:00 Tuberculin,Purif.Prot.Deriv. 50 Tu/Ml Vial ID 06/12/22 10:01 X1 ONE Problem List (Last Reviewed 06/04/22 @ 19:[address] Tryone Mueller MD) Nonalcoholic steatohepatitis (EVERETT) (Acute) Hepatic encephalopathy (Acute) Cirrhosis of liver (Acute) Diabetes mellitus (Acute) Hypothyroidism (Acute) Hyperlipidemia (Acute) Depression (Acute) GERD (gastroesophageal reflux disease) (Acute) Debility (Acute) Status post total right knee replacement (Acute) Vital Signs Temp Pulse Resp BP Pulse Ox O2 Del Method 97.2 F L 63 16 151/69 H 97 Room Air 06/04/22 17:27 06/05/22 06:19 06/04/22 20:15 06/05/22 06:19 06/04/22 20:15 06/04/22 20:15 Oxygen Delivery Method Room Air Weight: 131.542 kg Body Mass Index (BMI) 41.5 Sodium 137 mmol/L (136-145) 06/05/22 05:32 Potassium 3.7 mmol/L (3.5-5.1) 06/05/22 05:32 Chloride 104 mmol/L (98-107) 06/05/22 05:32 Carbon Dioxide 27.0 mmol/L (21.0-32.0) 06/05/22 05:32 Anion Gap 6 (5-15) 06/05/22 05:32 BUN 8 mg/dL (7-18) 06/05/22 05:32 Creatinine 0.53 mg/dL (0.55-1.02) L 06/05/22 05:32 Est GFR (MDRD) Af Amer 151 mL/min (>60) 06/05/22 05:32 Est GFR (MDRD) Non-Af 125 mL/min (>60) 06/05/22 05:32 BUN/Creatinine Ratio 15.1 RATIO (10-20) 06/05/22 05:32 Glucose 116 mg/dL (74-106) H 06/05/22 05:32 Assessment/Plan: 1. Pain: oxycodone 5-10mg PO Q4H PRN pain 4-10 and lidocaine 5% patch 2 patches topically daily. Resident has had 1 dose of oxycodone for a pain of 5 in the knee. Please continue to monitor for increased pain, PRN usage, constipation and respiratory depression. 2. Bowel: Miralax 17gm PO daily, senna/docusate 2T PO BID and MOM 30mL PO daily PRN constipation. Resident has not had a bowel movement nor any PRN doses. Please continue to monitor for S/S of constipation and PRN usage. 3. DVT prophylaxis: apixaban 2.5mg PO BID thru 06/18/22. Please continue to monitor for S/S of bleeding/bruising/DVT and hemoglobin (last 10.5g/dL). 4. Hyperlipidemia: atorvastatin 20mg PO QHS. Please consider ordering a lipid panel now and then annually as clinically appropriate. Last panel from 04/2021. Thanks. Please continue to monitor for muscle pain and LFTs (last 04/02/22.) 5. Hypothyroidism: levothyroxine 75mcg PO daily. Please continue to monitor TSH (last 05/21/22) and S/S of hypo/hyperthyroidism. 6. Diabetes Mellitus II: metformin XR 1000mg PO BIDCM. Please continue to monitor hemoglobin A1c (last 6.3% 05/21/22), renal function and glucose (last 100 mg/dL). 7. Hypertension: metoprolol tartrate 25mg PO BID. Please continue to monitor BP (last 151/69) and HR (last 63). 8. GERD: pantoprazole 20mg PO daily. Please continue to monitor for S/S of GERD and diarrhea (BEERs criteria for increased risk of C. diff). 9. Hepatic encephalopathy: rifaximin 550mg PO BID. Please continue to monitor ammonia levels and encephalopathy. 10. Shortness of breath: albuterol MDI 2puff inhalation Q4H PRN SOB or wheezing. Please continue to monitor for SOB/wheezing and PRN usage. Resident has not used any doses yet. 11. Nausea: ondansetron 8mg PO Q8H PRN nausea. Please continue to monitor for S/S of nausea and PRN usage. Resident has not had any doses so far. Assessment/Plan for indications treated with psychotropic medications: 1. Neuropathic pain: pregabalin 75mg PO BID. Please continue to monitor for increased pain, renal function, confusion. GDR not appropriate as this medication is being used for pain. 2. Depression: sertraline 50mg PO daily. Please see physician note regarding GDR. Please continue to monitor for GI side effects and suicidal ideation (black box warning). Medical chart and medication regimen reviewed. The following medication irregularities or issues were identified: *1. Atorvastatin 20mg PO QHS. Please consider ordering a lipid panel now and then annually as clinically appropriate. Last panel from 04/2021. Thanks. Date of Note:: 06/05/22
--- NOTE | 2022-06-05 16:24 | CASEMGMT ---
Social Work Met with patient to complete initial assessment. Introduced self and role. Verified contacts. Discussed code status and MOLST form. Pt confirmed full code. MOLST completed and placed in Dr folder. Educated to O insurance with NRD 06/10 and continued stay is not guaranteed. Pts goal is to return home, renting from friend, at [place]. 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 SW to continue to follow for DC planning. Sonia Kwan SEXUAL ASSAULT COUNSELOR NURSE MIDWIFE/CLINICAL INSTRUCTOR
[2022-06-05] MEDS: oxyCODONE 5 MG Tablet PO (17:59)
[2022-06-05 18:05] VITALS: BP 151/62; PULSE 69; RESP 16; TEMP 36.8; O2SAT 98
[2022-06-05] MEDS: Atorvastatin Calcium 20 MG Tablet PO (20:13)
[2022-06-05 20:33] VITALS: O2SAT 97
[2022-06-06] MEDS: Polyethylene Glycol 3350 17 GM PACKET PO (05:23)
[2022-06-06] MEDS: rifAXIMin 550 MG Tablet PO ×2 (05:24→17:03)
[2022-06-06] MEDS: Senna/Docusate Sodium 1 Tablet 2 TABLET PO (05:24)
[2022-06-06] MEDS: APIXABAN 2.5 MG TABLET (WCH) PO ×2 (05:24→17:03)
[2022-06-06 05:25] VITALS: BP 143/58; PULSE 61
[2022-06-06] MEDS: Pantoprazole Sodium 20 MG Tablet PO (05:25)
[2022-06-06] MEDS: Levothyroxine 75 MCG Tablet PO (05:25)
[2022-06-06] MEDS: Metoprolol Tartrate 25 MG Tablet PO ×2 (05:25→17:02)
[2022-06-06] MEDS: Sertraline 50 MG Tablet PO (05:25)
[2022-06-06] MEDS: Pregabalin 75 MG Capsule PO ×2 (05:26→17:06)
[2022-06-06] MEDS: Lidocaine 5% Patch 2 PATCH TOPICAL (05:26)
[2022-06-06 07:15] LABS: Bedside Glucose 115 mg/dL (74-106)
[2022-06-06] MEDS: metFORMIN (XR) 500 MG Tablet 1000 MG PO ×2 (08:16→17:02)
[2022-06-06] MEDS: Glucerna Shake 120 ML LIQUID PO (08:17)
[2022-06-06] MEDS: Petrolatum 33% Tube 1 APPLIC TOPICAL ×2 (13:01→20:18)
[2022-06-06] MEDS: oxyCODONE 5 MG Tablet PO (13:07)
[2022-06-06 14:38] VITALS: BP 136/67; PULSE 58; RESP 18; TEMP 36.4; O2SAT 97
[2022-06-06 17:02] VITALS: BP 154/67; PULSE 59
--- NOTE | 2022-06-06 19:23 | VDLE_ITS ---
Reason For Study: LEG SWELLING RIGHT LEFT GSV is normal. CFV is compressible, spontaneous, phasic, CFV is compressible, spontaneous, phasic, competent, and demonstrates normal competent and demonstrates normal augmentation. augmentation. FV is compressible, spontaneous, phasic, competent and demonstrates normal augmentation. POP V is compressible, spontaneous, phasic, competent and demonstrates normal augmentation. T/P Trunk is compressible. PTV is compressible. RT PerV is compressible. Procedure Exam performed portable in patient room. This is a venous duplex using B-mode, color flow and spectral Doppler. The exam was diagnostic. A preliminary report was called and/or faxed to TCU Nurse. VL/Venous Duplex US, Unilateral Interpretation Summary There is no evidence of right lower extremity deep vein thrombosis. Right great saphenous vein appears patent and compressible segmentally. Normal flow patterns left common f emoral vein Ordering Physician: Tyrone Mueller Chi Referring Physician: Zeeshan Chao Performed By: Narciso Navarro RVT
--- NOTE | 2022-06-06 19:25 | NURSING ---
Pt's right knee reddened edematous and warm. Small amount of yellow drainage noted on dressing. Dr. Mueller updated and N.O. for Doppler to right leg, Wound Culture, and Doxycycline bid for 7 days. Orders Read back.
[2022-06-06] MEDS: Doxycycline 100 MG CAPSULE PO (20:17)
[2022-06-06] MEDS: Smz/Tmp Ds Tablet 1 TABLET PO (20:18)
[2022-06-06] MEDS: Atorvastatin Calcium 20 MG Tablet PO (20:18)
[2022-06-06 20:28] VITALS: RESP 16
[2022-06-07] MEDS: oxyCODONE 5 MG Tablet PO ×2 (01:21→16:02)
[2022-06-07] MEDS: Ondansetron ODT 4 MG Tablet 8 MG PO (01:26)
[2022-06-07 05:35] VITALS: BP 157/52; PULSE 67
[2022-06-07] MEDS: Lidocaine 5% Patch 2 PATCH TOPICAL (05:40)
[2022-06-07 05:41] VITALS: PULSE 67
[2022-06-07] MEDS: APIXABAN 2.5 MG TABLET (WCH) PO ×2 (05:41→17:44)
[2022-06-07] MEDS: rifAXIMin 550 MG Tablet PO ×2 (05:41→17:43)
[2022-06-07] MEDS: Metoprolol Tartrate 25 MG Tablet PO ×2 (05:41→17:37)
[2022-06-07] MEDS: Sertraline 50 MG Tablet PO (05:41)
[2022-06-07] MEDS: Levothyroxine 75 MCG Tablet PO (05:41)
[2022-06-07] MEDS: Doxycycline 100 MG CAPSULE PO ×2 (05:41→17:44)
[2022-06-07] MEDS: Pantoprazole Sodium 20 MG Tablet PO (05:41)
[2022-06-07] MEDS: Pregabalin 75 MG Capsule PO ×2 (05:41→17:37)
[2022-06-07 06:51] LABS: Bedside Glucose 131 mg/dL (74-106)
[2022-06-07] MEDS: Smz/Tmp Ds Tablet 1 TABLET PO ×2 (09:18→17:43)
[2022-06-07] MEDS: metFORMIN (XR) 500 MG Tablet 1000 MG PO ×2 (09:18→17:43)
[2022-06-07] MEDS: Petrolatum 33% Tube 1 APPLIC TOPICAL ×2 (09:19→20:59)
--- NOTE | 2022-06-07 10:22 | CASEMGMT ---
Social Work Pt requesting to DC home 06/09. IDT agreeable. Pt requesting outpatient PT at [facility] and a 3-in-1 commode. SW faxed referral to [facility]. Sent referral to [facility] via [facility]. Mother to transport pt about 1600. Plan: DC home alone 06/09, [facility] PT, BSC Sonia Kwan, INSTRUCTIONAL CONSULTANT AMMUNITION STOREKEEPER
[2022-06-07] MEDS: Glucerna Shake 120 ML LIQUID PO ×2 (10:51→17:43)
--- NOTE | 2022-06-07 10:57 | CASEMGMT ---
Social Work BIMS () and PHQ-9 (11/07) completed for MDS assessment. Sonia Kwan MSW SENIOR PHP SOFTWARE DEVELOPER
[2022-06-07 11:04] LABS: M R Staph aureus DNA By PCR Negative (Negative); Probe Check PASS; Specimen Processing Control PASS; Staph aureus DNA By PCR NEGATIVE (Negative)
--- NOTE | 2022-06-07 12:29 | PCM.DC.SUM ---
Providers Date of Admission: 06/04/22 Primary Care Physician: Dr. Zeeshan Chao MD Reason For Visit: r total knee replacement Diagnosis Discharge Diagnosis (1) Debility: Status: Acute Code(s): R53.81 - Other malaise (2) Status post total right knee replacement: Status: Acute Code(s): Z96.651 - Presence of right artificial knee joint (3) GERD (gastroesophageal reflux disease): Status: Acute Code(s): K21.9 - Gastro-esophageal reflux disease without esophagitis (4) Depression: Status: Acute Code(s): F32.A - Depression, unspecified (5) Hyperlipidemia: Status: Acute Code(s): E78.5 - Hyperlipidemia, unspecified (6) Hypothyroidism: Status: Acute Code(s): E03.9 - Hypothyroidism, unspecified (7) Diabetes mellitus: Status: Acute Code(s): E11.9 - Type 2 diabetes mellitus without complications (8) Cirrhosis of liver: Status: Acute Code(s): K74.60 - Unspecified cirrhosis of liver (9) Hepatic encephalopathy: Status: Acute Code(s): K76.82 - Hepatic encephalopathy (10) Nonalcoholic steatohepatitis (EVERETT): Status: Acute Code(s): K75.81 - Nonalcoholic steatohepatitis (EVERETT) Plan 61 year old female with below past medical history underwent right total knee replacement 05/30/[address] العلي, admitted to TCU with debility, here for rehabilitation, strengthening, prior discharge home. Debility - PT/OT. Pain - Oxycodone 5-10mg q4h prn, Lidoderm patch 2 patches td daily. Bowel - Miralax 17gm daily, senna/colace 2 tablets bid, MOM 30ml daily prn. Adult immunization - Administer pneumonia vaccine, covid19 vaccine, flu vaccine as appropriate. DVT prophylaxis - Eliquis 2.5mg bid thru 06/18/2022. Shortness of breath - Albuterol 2 puffs q4h prn. Hyperlipidemia - Atorvastatin 20mg qhs. Nutrition - Glucerna shake 120ml po tidcm. Hypothyroidism - Levothyroxine 75mcg daily. Diabetes Mellitus II - Metformin XR 1000mg bidcm. Hypertension - Metoprolol 25mg bid. GERD - Pantoprazole 20mg daily. Neuropathic pain - Lyrica 75mg bid. Hepatic encephalopathy - Xifaxan 550mg bid. 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 Medications at Discharge Home Medications omeprazole 20 mg capsule,delayed release 20 mg PO DAILY GERD 09/19/14 sertraline 50 mg tablet 50 mg PO DAILY Mood 09/19/14 Oral Appliance #1 ea 09/26/20 albuterol sulfate 90 mcg/actuation aerosol inhaler (Ventolin HFA) 2 puff inhalation Q4H PRN shortness of breath or wheezing #18 grams 12/06/20 atorvastatin 20 mg tablet 20 mg PO QPM HLD 02/14/22 levothyroxine 75 mcg tablet 75 mcg PO DAILY thyroid 02/14/22 metformin 500 mg tablet,extended release 24 hr 1,000 mg PO BID DM 03/22/22 oxycodone 5 mg tablet 5 - 10 mg PO Q4H PRN PRN Pain Score 4-10 7 days #56 tabs 06/03/22 apixaban 2.5 mg tablet 2.5 mg PO BID Blood thinner 06/04/22 lidocaine 5 % topical patch 2 patch topical DAILY Pain 06/04/22 metoprolol tartrate 25 mg tablet 25 mg PO BID BP 06/04/22 pregabalin 75 mg capsule 75 mg PO BID Nerve pain 06/04/22 rifaximin 550 mg tablet (Xifaxan) 550 mg PO BID IBS 06/04/22 sennosides 8.6 mg-docusate sodium 50 mg tablet (Stool Softener-Stimulant Laxative) 2 tab PO BID Constipation 06/04/22 apixaban 5 mg tablet (Eliquis) 2.5 mg PO BID 9 days #9 tabs 06/07/22 doxycycline monohydrate 100 mg capsule 100 mg PO BID 4 days #8 caps 06/07/22 lidocaine 5 % topical patch 2 patch topical DAILY 30 days #60 ea 06/07/22 ondansetron 4 mg disintegrating tablet 8 mg PO Q8H PRN PRN NAUSEA 7 days #21 tabs 06/07/22 oxycodone 5 mg tablet 5 - 10 mg PO Q4H PRN PRN Pain Score 4-10 7 days #42 tabs 06/07/22 pregabalin 75 mg capsule 75 mg PO BID 30 days #60 caps 06/07/22 sulfamethoxazole 800 mg-trimethoprim 160 mg tablet 1 tab PO BIDCM 4 days #8 tabs 06/07/22 Hospital Course Operations total knee replacement (Right total knee replacement.) Procedures None Summary of Care Provided Minutes Spent on Discharge: 35 Hospital Course: 61 year old female with below past medical history underwent right total knee replacement 05/30/[address] العلي, admitted to TCU with debility, here for rehabilitation, strengthening, prior discharge home. 06/06/2022 Bactrim DS bid, Doxycycline 100mg bid x 7 days for cellulitis right knee incision. 06/07/2022 Doppler ultrasound right lower extremity pending to rule out DVT. Discharge home 06/09/2022, [facility] PT. Physical Exam Const alert General Appearance: cooperative HEENT normocephalic Eyes PERRL and EOMs intact bilaterally Neck supple, no JVD and no carotid bruits Resp normal respiratory effort, normal air movement and clear to auscultation bilaterally Cardio regular rate and regular rhythm GI normal to inspection, nondistended, normoactive bowel sounds, non-tender and non-distended Extremity normal capillary refill General Extremity: Negative for edema Skin no rashes or lesions noted General Skin Exam: no breakdown Psych affect normal Appearance: appropriate Weight / BMI Weight Weight: 131.542 kg Body Mass Index (BMI) 41.5 ABG / Lab / Microbiology Data Result Diagrams: 06/05/22 05:32 06/05/22 05:32 Laboratory: Laboratory Results - last 24 hr 06/07/22 06:21: POC Glucose 131 H 06/07/22 09:25: S.aureus Protein A PCR NEGATIVE, MRSA (PCR) Negative Microbiology: Microbiology 06/06/22 06:40 Nasal Secretion SARS-CoV-2 Antigen (Rapid) - Final D/C Instructions Discharge Diet: No restrictions Discharge Activity: Return to Normal Activity, May Shower and Use Walker Weight Bearing Status: Weight bearing as tolerated Call your doctor if you observe: Fever of 101 or Higher, Inability to urinate, Inability to have a bowel movement, Shortness of breath, Dizziness, Fainting spells, Swelling in the ankles, Chest pain and Uncontrolled pain Additional Instructions: Discharge home 06/09/2022, [facility] PT. Please Follow Up With: Michele العلي, DO When: As scheduled. Meaningful Use Info Meaningful Use Diagnoses (Choose all that apply): None applicable Discharge Plan Admission Admit Date/Time: 06/04/22 17:20 Primary Reason for Your Visit: Debility. Attending Provider: Tyrone Mueller Chi Primary Care Provider: Zeeshan Chao Instructions Additional Instructions / Restrictions: Discharge home 06/09/2022, [facility] PT. Discharge Orders/Prescriptions Prescriptions: New sulfamethoxazole-trimethoprim 800-160 mg Tablet 1 tab PO BIDCM 4 Days Qty: 8 0RF doxycycline monohydrate 100 mg Capsule 100 mg PO BID 4 Days Qty: 8 0RF lidocaine 5 % Adhesive Patch,Medicated 2 patch topical DAILY 30 Days Qty: 60 0RF Protocol: *Topical Application Instructions APPLICATION INSTRUCTIONS: Apply to medial and lateral right knee, stay off incisional site ondansetron 4 mg Tablet,Disintegrating 8 mg PO Q8H PRN PRN (Reason: NAUSEA) 7 Days Qty: 21 0RF oxycodone 5 mg Tablet 5 - 10 mg PO Q4H PRN PRN (Reason: Pain Score 4-10) 7 Days Qty: 42 0RF pregabalin 75 mg Capsule 75 mg PO BID 30 Days Qty: 60 0RF Eliquis 5 mg Tablet 2.5 mg PO BID 9 Days Qty: 9 0RF Continued atorvastatin 20 mg tablet 20 mg PO QPM levothyroxine 75 mcg tablet 75 mcg PO DAILY metformin 500 mg tablet extended release 24 hr 1,000 mg PO BID omeprazole 20 MG capsule 20 mg PO DAILY sertraline 50 MG tablet 50 mg PO DAILY sennosides-docusate sodium [Stool Softener-Stimulant Laxat] 8.6-50 mg tablet 2 tab PO BID metoprolol tartrate 25 mg tablet 25 mg PO BID Xifaxan 550 mg tablet 550 mg PO BID No Action albuterol sulfate [Ventolin HFA] 90 mcg/actuation HFA aerosol inhaler 2 puff inhalation Q4H PRN (Reason: shortness of breath or wheezing) Qty: 18 6RF oxycodone 5 mg Tablet 5 - 10 mg PO Q4H PRN PRN (Reason: Pain Score 4-10) 7 Days Qty: 56 0RF lidocaine 5 % adhesive patch,medicated 2 patch topical DAILY Protocol: *Topical Application Instructions APPLICATION INSTRUCTIONS: Apply to medial and lateral right knee, stay off incisional dressing Rx Instructions: 14 days pregabalin 75 mg capsule 75 mg PO BID Rx Instructions: 10 days apixaban 2.5 mg tablet 2.5 mg PO BID Rx Instructions: 14 days (DME) Oral Appliance See Rx Instructions .Route .MEDSUPPLY Qty: 1 0RF Rx Instructions: As directed Referrals / Follow Up: Zeeshan Chao MD [Primary Care Provider] - Disposition Disposition (needs filled in before D/C Order can be placed): Home, Self Care
[2022-06-07 15:34] VITALS: BP 128/47; PULSE 56; RESP 16; TEMP 36.8; O2SAT 96
[2022-06-07 17:37] VITALS: BP 128/47; PULSE 56
[2022-06-07] MEDS: Atorvastatin Calcium 20 MG Tablet PO (21:00)
[2022-06-08] MEDS: oxyCODONE 5 MG Tablet PO ×3 (00:07→21:00)
[2022-06-08] MEDS: Pregabalin 75 MG Capsule PO ×2 (05:55→17:40)
[2022-06-08] MEDS: Senna/Docusate Sodium 1 Tablet 2 TABLET PO ×2 (05:55→17:35)
[2022-06-08 05:56] VITALS: BP 138/76; PULSE 60
[2022-06-08] MEDS: Levothyroxine 75 MCG Tablet PO (05:56)
[2022-06-08] MEDS: Pantoprazole Sodium 20 MG Tablet PO (05:56)
[2022-06-08] MEDS: Metoprolol Tartrate 25 MG Tablet PO ×2 (05:56→17:35)
[2022-06-08] MEDS: Doxycycline 100 MG CAPSULE PO ×2 (05:56→17:35)
[2022-06-08] MEDS: Sertraline 50 MG Tablet PO (05:56)
[2022-06-08] MEDS: APIXABAN 2.5 MG TABLET (WCH) PO ×2 (05:56→17:35)
[2022-06-08] MEDS: rifAXIMin 550 MG Tablet PO ×2 (05:56→17:35)
[2022-06-08] MEDS: Lidocaine 5% Patch 2 PATCH TOPICAL (06:02)
[2022-06-08 06:50] LABS: Bedside Glucose 113 mg/dL (74-106)
[2022-06-08] MEDS: Smz/Tmp Ds Tablet 1 TABLET PO ×2 (08:19→17:37)
[2022-06-08] MEDS: Glucerna Shake 120 ML LIQUID PO ×3 (08:19→17:35)
[2022-06-08] MEDS: metFORMIN (XR) 500 MG Tablet 1000 MG PO ×2 (08:20→17:37)
[2022-06-08 09:37] VITALS: PULSE 66; RESP 18; O2SAT 98
[2022-06-08] MEDS: Petrolatum 33% Tube 1 APPLIC TOPICAL (12:02)
[2022-06-08 15:13] VITALS: BP 123/60; PULSE 64; RESP 18; TEMP 36.3; O2SAT 97
[2022-06-08 17:35] VITALS: PULSE 55
[2022-06-08] MEDS: Atorvastatin Calcium 20 MG Tablet PO (21:00)
[2022-06-09] MEDS: Polyethylene Glycol 3350 17 GM PACKET PO (05:19)
[2022-06-09] MEDS: Pantoprazole Sodium 20 MG Tablet PO (05:20)
[2022-06-09 05:21] VITALS: BP 131/65; PULSE 60
[2022-06-09] MEDS: rifAXIMin 550 MG Tablet PO ×2 (05:21→16:30)
[2022-06-09] MEDS: Ondansetron ODT 4 MG Tablet 8 MG PO (05:21)
[2022-06-09] MEDS: Metoprolol Tartrate 25 MG Tablet PO ×2 (05:21→16:28)
[2022-06-09] MEDS: APIXABAN 2.5 MG TABLET (WCH) PO ×2 (05:22→16:29)
[2022-06-09] MEDS: Senna/Docusate Sodium 1 Tablet 2 TABLET PO (05:22)
[2022-06-09] MEDS: Sertraline 50 MG Tablet PO (05:22)
[2022-06-09] MEDS: Doxycycline 100 MG CAPSULE PO ×2 (05:23→16:28)
[2022-06-09] MEDS: oxyCODONE 5 MG Tablet PO (05:23)
[2022-06-09] MEDS: Pregabalin 75 MG Capsule PO ×2 (05:23→16:33)
[2022-06-09] MEDS: Levothyroxine 75 MCG Tablet PO (05:26)
[2022-06-09] MEDS: Lidocaine 5% Patch 2 PATCH TOPICAL (05:26)
[2022-06-09 06:51] LABS: Bedside Glucose 105 mg/dL (74-106)
[2022-06-09] MEDS: metFORMIN (XR) 500 MG Tablet 1000 MG PO ×2 (08:26→16:29)
[2022-06-09] MEDS: Smz/Tmp Ds Tablet 1 TABLET PO ×2 (08:26→16:28)
[2022-06-09] MEDS: Petrolatum 33% Tube 1 APPLIC TOPICAL (08:27)
[2022-06-09] MEDS: Glucerna Shake 120 ML LIQUID PO ×3 (08:28→16:34)
[2022-06-09 15:15] VITALS: BP 124/58; PULSE 60; RESP 18; TEMP 36.2; O2SAT 98
[2022-06-09 16:28] VITALS: BP 124/58; PULSE 60
[2022-06-09 16:43] VITALS: BP 124/58; PULSE 60; RESP 18; TEMP 36.2; O2SAT 98
--- NOTE | 2022-06-10 09:55 | NURSING ---
Department Store General Manager Note; MDS for 06/09/2022 Complete
--- NOTE | 2022-06-17 09:32 | MDS.RN ---
Information for the mds was obtained from review of the clinical record, interview of resident, staff, and direct observation of resident's care.
== END 2022-06-09 16:45 | disposition home or self-care (01) | DRG 560 ==
PROVIDERS: Admitting Provider Family Medicine Geriatric Medicine; PCP Family Medicine; Visit Provider Family Medicine Geriatric Medicine
DX: Z47.1 Aftercare following joint replacement surgery (principal); L03.115 Cellulitis of right lower limb; K76.82 Hepatic encephalopathy; E11.40 Type 2 diabetes mellitus with diabetic neuropathy, unspecified; K74.60 Unspecified cirrhosis of liver; K75.81 Nonalcoholic steatohepatitis (NASH); K21.9 Gastro-esophageal reflux disease without esophagitis; E03.9 Hypothyroidism, unspecified; E78.5 Hyperlipidemia, unspecified; F32.A Depression, unspecified; Z79.01 Long term (current) use of anticoagulants; Z96.651 Presence of right artificial knee joint; Z79.899 Other long term (current) drug therapy; Z79.890 Hormone replacement therapy; Z79.84 Long term (current) use of oral hypoglycemic drugs
CPT/HCPCS: 36415; 80048; 82962; 85025; 87070; 87077; 87186; 87205; 87426; 87640; 87811; 93971; 97110; 97116; 97162; 97166; 97530; 97535; 97802

== ENCOUNTER → 2022-06-25 | Outpatient (CLI) | payer OTHER, SELFPAY ==
[2022-06-25 15:05] LABS: Absolute Lymphocyte Count 0.88 X10^3/uL (0.83-4.51); Absolute Neutrophil Count 1.9 X10^3/uL (2.0-7.7); Basophil# 0.02 X10^3/uL; Basophil% 0.6 % (0-1); Eosinophil# 0.12 X10^3/uL; Eosinophils% 3.8 % (0-5); Hematocrit 38.1 % (37-47); Hemoglobin 11.8 g/dL (12.0-15.0); Lymphocyte # 0.88 X10^3/ul (0.83-4.51); Lymphocyte % 27.5 % (19-41); Mean Corpuscular Hgb 30.6 pg (27.0-32.0); Mean Platelet Vol. 12.5 fl (6.2-12.0); Monocyte# 0.23 X10^3/uL; Monocyte% 7.2 % (0-10); NRBC Flagged by Analyzer 0 % (0-5); Neutrophil # 1.94 X10^3/uL (2.7-7.7); Neutrophil % 60.6 % (47-70); POSITIVE COUNT YES; Platelet Count 86 K/mm3 (150-450); RBC Distribution Width CV 13.6 % (11.6-14.6); RBC Distribution Width SD 49.3 fl (35.1-43.9); Red Blood Count 3.85 M/mm3 (4.2-5.4); White Blood Count 3.2 K/mm3 (4.4-11.0)
[2022-06-25 15:08] LABS: Differential Indicated SCAN CRITERIA MET
[2022-06-25 15:45] LABS: Anisocytosis RARE; Macrocytosis RARE; Platelet Estimate MOD DEC (ADEQ); Red Cell Morphology N CHROM NORMAL (NORM C&C)
[2022-06-25 15:56] LABS: ALB/GLOB Ratio 0.8 RATIO (0.9-2.4); AST(SGOT) 90 U/L (15-37); Alanine Aminotransfer ALT/SGPT 64 U/L (13-56); Albumin, Serum 3.2 g/dL (3.2-5.0); Alkaline Phosphatase 156 U/L (45-117); Anion Gap 6 (5-15); BUN 8 mg/dL (7-18); BUN/Creat Ratio 12.9 RATIO (10-20); Calcium,Total 9.1 mg/dL (8.5-10.1); Chloride 104 mmol/L (98-107); Creatinine, Serum 0.62 mg/dL (0.55-1.02); EST Glomerular Filtration Rate 103 mL/min (>60); Est Glom Filt Rate - Afr Amer 125 mL/min (>60); Globulin 3.8 g/dL (2.2-4.2); Glucose 105 mg/dL (74-106); Sodium Level 139 mmol/L (136-145); Thyroid Stim Hormone (TSH) 7.26 uIU/mL (0.358-3.74)
== END | disposition home or self-care (01) ==
LOC: MTLAB 11:45
PROVIDERS: PCP Family Medicine; Referring Provider Registered Nurse; Visit Provider Registered Nurse
DX: E11.9 Type 2 diabetes mellitus without complications (principal); D69.6 Thrombocytopenia, unspecified; E03.8 Other specified hypothyroidism; E06.3 Autoimmune thyroiditis
CPT/HCPCS: 36415; 80053; 83036; 84443; 85025

== ENCOUNTER 2022-07-31 11:00 | Outpatient (RCR) | payer OTHER, SELFPAY ==
--- NOTE | 2022-06-12 10:55 | HP.PTEVAL ---
Patient's Visit Information MARYLOU MARIE is a 61 year old F referred to Physical Therapy by Dr. Michele العلي DO with a diagnosis of Right TKR 05/30/22. Date of Evaluation: 06/12/22 Physical Therapist: Marleny Faulkner DPT - Visit Plan Frequency: 2-3x /Week Duration: 4 Weeks Plan: Right TKR 05/30/22. HEP Reviewed from TCU and [facility] - Subjective Right TKR 05/30/22- by Dr. العلي-at [facility]- she stayed overnight and then went to [place]. She lives a friend and she lives in the 2nd story- she always has to do stairs- currently living with parents on the first floor- with 1 stairs to enter- she would like to return home [place]. She went home on Friday05/09/22- she was doing stairs at [facility] prior to leaving- she can bend to 95 degrees. 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 Worst: 7/10 Constant throbbing- feels like the knee is very swollen and red. Best: 7/10. Pain is located along the whole anterior knee around the knee cap. Does have sharp/shooting pains every so often. No N/T in the toes. No pain that radiates. Sleep: disturbed- in a bed- side sleeper. PMHx/Meds: no changes since she came home from [facility]. - Objective Posture: Fh, RS- can correct but does not maintain. Gait: straight cane- slight deviation noted- decreased heel strike due to ROM deficits in knee. HR/TR: able with UE A. SLS: weight shift. Stairs: asc/desc 8 recip with 2 HR. Palpation: Tender throughout knee medial and lateral joint line Observation: incision healing well no s/s of infection-sujatha intact. ROM: 10-100 degrees. Strength: Core: fair, Hip: 4+/5, Knee: Extn: 35 Flexion:32 Ankle: 5/5. Flex: HS: mod, Gastroc: mod - Balance/Special Test Scores Lower Extremity Functional Score: 19 TUG Test Time Seconds: 18 WOMAC Total Score: 33 WOMAC Percentatge: 65.6300 - Goals Goal 1:: Patient will be I with HEP and progression Goal Time Frame: 4-6 Weeks Goal 2:: Patient will ambulate >300 feet with LRD Goal Time Frame: 4-6 Weeks Goal 3:: Patient will asc/desc 8 recip with a single rail Goal Time Frame: 4-6 Weeks Goal 4:: Patient will demo 0-115 degrees Goal Time Frame: 4-6 Weeks Goal 5:: Patient will report 80% improvement Goal Time Frame: 4-6 Weeks - Rehabilitation Potential Physical Therapy Diagnosis: Patient presents s/p Right TKR 05/30/22- she has decreased LE ROM, core strength/stabilization, proprioception and muscular endurance leading to decreased ability to perform ADL's Rehabilitation Potential: Good - Anticipated Interventions Patient/Client Instruction: Educate patient on: Benefits of Fitness Program Therapeutic Exercise to Include: Strength training, Power training, Endurance training, Balance training, Coordination, Agility training, Body mechanics, Postural training, Flexibilty training, Gait and locomotor training, Neuromotor development, Passive ROM, Active ROM, Dynamic Lumbar Stabilization, Scapular Strength/Stabilization For the Purpose of:: To improve muscle performance and motor function Functional Training to Include: ADL Training, Gait training TENS: Yes Cryotherapy (ice pack, ice massage): Yes Thermo therapy (hot pack): Yes Ultrasound (thermal/non thermal): No Thank you for the opportunity to evaluate your patient. For Medicare and Medicare HMO plans, please review the plan of care and approve it. It will need to be FAXED BACK to us at [phone] for Medicare purposes. For Medicare only, by signing this I certify the plan of care. Please let me know if there are questions or concerns regarding this plan of care. Physician Signature: Date:
--- NOTE | 2022-07-24 12:33 | HP.PTREVAL ---
Dr. Michele العلي, DO, It has been my pleasure to treat MARYLOU MARIE over the last 5 visits for Right TKR 05/30/22. Please see the progress note below for an update on the physical therapy plan of care! Subjective: Patient reports that she got COVID and she has been pretty rough. She reports that she has had a lot of stiffness and it won't go away. She has been doing her exercises at home but she hasn't been able to get to PT. She does have some pains on the lateral side that comes and goes. Best: 0/10. Worst: 3/10. She goes back on the 05 of August. She saw MD the 12 of July. She is using the cane intermittently mostly in the community. Objective/Function: Posture: Fh, RS- can correct but does not maintain. Gait: no AD in clinic- slight deviation noted- decreased heel strike due to ROM deficits in knee. HR/TR: able with UE A. SLS: weight shift. Stairs: asc/desc 8 recip with 1 HR. Palpation: Tender throughout knee medial and lateral joint line ROM: 15-110 degrees. Strength: Core: fair, Hip: 4+/5, Knee: Extn: 535 Flexion:39 Ankle: 5/5. Flex: HS: mod, Gastroc: mod Plan Plan: Right TKR 05/30/22. HEP Reviewed from [facility]CU and [facility] Balance/Gait/Functional tests - Balance/Special Test Scores Lower Extremity Functional Score: 19 TUG Test Time Seconds: 9 Tug Test: <10 sec.=free mobile WOMAC Total Score: 38 WOMAC Percentage: 58.7000 Goals Goal 1:: Patient will be I with HEP and progression Goal Time Frame: 4-6 Weeks Goal 2:: Patient will ambulate >300 feet with LRD Goal Time Frame: 4-6 Weeks Goal 3:: Patient will asc/desc 8 recip with a single rail Goal Time Frame: 4-6 Weeks Goal 4:: Patient will demo 0-115 degrees Goal Time Frame: 4-6 Weeks Goal 5:: Patient will report 80% improvement Goal Time Frame: 4-6 Weeks Anticipated Interventions Patient/Client Instruction: Educate patient on: Benefits of Fitness Program Therapeutic Exercise to Include: Strength training, Power training, Endurance training, Balance training, Coordination, Agility training, Body mechanics, Postural training, Flexibilty training, Gait and locomotor training, Neuromotor development, Passive ROM, Active ROM, Dynamic Lumbar Stabilization, Scapular Strength/Stabilization For the Purpose of:: To improve muscle performance and motor function Functional Training to Include: ADL Training, Gait training TENS: Yes Cryotherapy (ice pack, ice massage): Yes Thermo therapy (hot pack): Yes Ultrasound (thermal/non thermal): No Please do not hesitate to contact me at [phone] by phone or if you have questions or concerns regarding this new plan of care! Sincerely, EDUARDO TownsendT
--- NOTE | 2022-07-31 12:03 | HP.PTDCSUM ---
It has been my pleasure to treat MARYLOU MARIE referred by Dr. Michele العلي DO, with the diagnosis of Right TKR 05/30/22 for a total of 7 visit(s). Discharge Date: Please see the following information for a summary of their discharge status. Subjective: Patient reports that she is doing a lot better this week. There is nothing she can't do- she is back to work on Friday. She feels that she is 75% back to normal. The hardest part is going up her stairs at home because they are a little steeper and getting in/out of the car. % Improvement: 75 Objective/Function: Posture:fair in sitting and standing Gait: no AD in clinic- slight deviation noted- decreased heel strike due to ROM deficits in knee. HR/TR: able with UE A. SLS: 3-5 sec Stairs: asc/desc 8 recip with 1 HR. Palpation: Tender throughout knee medial and lateral joint line ROM: 10-115 degrees. Strength: Core: fair, Hip: 4+/5, Knee: Extn: 70 Flexion:45 Ankle: 5/5. Flex: HS: mod, Gastroc: mod Goal 1:: Patient will be I with HEP and progression Goal Progress: Goal Met Goal 2:: Patient will ambulate >300 feet with LRD Goal Progress: Progressing Goal 3:: Patient will asc/desc 8 recip with a single rail Goal Progress: Progressing Goal 4:: Patient will demo 0-115 degrees Goal Progress: Progressing Goal 5:: Patient will report 80% improvement Goal Progress: Progressing Plan: 07/31/22: Discharge to HEP as pt is doing well functionally and returns to work friday- educated on importance of continued movement. Right TKR 05/30/22. HEP Reviewed from [facility]CU and [facility] If there are questions or concerns regarding this patient's physical therapy, please feel free to call me at [phone]. Thank you for the referral of this patient. Sincerely, Marleny Faulkner, DPT Balance/Gait/Functional tests - Balance/Special Test Scores Lower Extremity Functional Score: 19 TUG Test Time Seconds: 8 Tug Test: <10 sec.=free mobile WOMAC Total Score: 21 WOMAC Percentage: 78.1300
== END 2022-07-31 12:47 | disposition home or self-care (01) ==
LOC: PT 11:00
PROVIDERS: PCP Family Medicine; Referring Provider Student in an Organized Health Care Education/Training Program; Visit Provider Student in an Organized Health Care Education/Training Program
DX: M17.11 Unilateral primary osteoarthritis, right knee (principal); Z96.651 Presence of right artificial knee joint; Z47.1 Aftercare following joint replacement surgery
CPT/HCPCS: 97110; 97162; 97164; 97530

== ENCOUNTER 2022-08-25 21:09 | Emergency (ER) | payer OTHER, SELFPAY ==
[2022-08-25 21:09] VITALS: BP 137/72; PULSE 67; RESP 16; TEMP 35.9; O2SAT 98; BMI 38.4
--- NOTE | 2022-08-25 21:27 | ED.VIS.LOWEX ---
HPI History of Present Illness Chief Complaint: Fall Narrative Narrative: 62-year-old female presenting for bilateral knee pain. She has history of right knee replacement and partial left knee. Patient states he was coming down the stairs tonight and slid. She slid on her back. She states when she came to rest at the bottom of the stairs her knees were tucked behind her. She was able to get up. She was able to ambulate. She is using a walker. She is able to ambulate into the emergency room. She states she took ibuprofen. Denies head injury or LOC. [facility] Medical History Alcohol use Ambulates with cane Arthritis Blood disorder Cardiology follow-up encounter Cat bite COVID-19 Depression Diabetes Difficulty balancing when standing Difficulty swallowing Enlarged thyroid gland Fatigue Gastric reflux Hemorrhoids High triglycerides History of echocardiogram History of edema History of pain when walking History of stress test History of ulceration Hyperlipidemia Hypothyroidism Injury of back Intermittent palpitations Kidney stones Left ventricular diastolic dysfunction Leg cramps Lupus Migraine headache Non-smoker Obesity Open wound of left forearm due to cat bite Rheumatoid arthritis Seasonal allergies Shortness of breath on exertion Shoulder pain Stomach ulcer Symptomatic sinus bradycardia Thyroid disease TIA (transient ischemic attack) Wears glasses Home Medications omeprazole 20 mg capsule,delayed release 20 mg PO DAILY GERD 09/19/14 [History Last Taken 05/29/22] sertraline 50 mg tablet 50 mg PO DAILY Mood 09/19/14 [History Last Taken 05/29/22] Oral Appliance #1 ea 09/26/20 [Rx Last Taken 05/29/22] albuterol sulfate 90 mcg/actuation aerosol inhaler (Ventolin HFA) 2 puff inhalation Q4H PRN shortness of breath or wheezing #18 grams 12/06/20 [Rx Last Taken 05/29/22] atorvastatin 20 mg tablet 20 mg PO QPM HLD 02/14/22 [History Last Taken 05/29/22] levothyroxine 75 mcg tablet 75 mcg PO DAILY thyroid 02/14/22 [History Last Taken 05/29/22] metformin 500 mg tablet,extended release 24 hr 1,000 mg PO BID DM 03/22/22 [History Last Taken 05/29/22] oxycodone 5 mg tablet 5 - 10 mg PO Q4H PRN PRN Pain Score 4-10 7 days #56 tabs 06/03/22 [Rx Last Taken Unknown] apixaban 2.5 mg tablet 2.5 mg PO BID Blood thinner 06/04/22 [History Last Taken Unknown] metoprolol tartrate 25 mg tablet 25 mg PO BID BP 06/04/22 [History Last Taken Unknown] nirmatrelvir 300 mg (150 mg x2)-ritonavir 100 mg tablet,dose pack(EUA) (Paxlovid) See Rx Instructions PO .COMPLEX #30 tabs 07/03/22 [Rx Last Taken Unknown] Allergy/AdvReac Type Severity Reaction Status Date / Time betamethasone Allergy Other Verified 06/20/22 08:36 [From Celestone] betamethasone sodium Allergy Other Verified 06/20/22 08:36 phosphate [From Celestone] Penicillins Allergy Rash Verified 06/20/22 08:36 triamcinolone acetonide Allergy Other Verified 06/20/22 08:36 [From Kenalog] fluoxetine HCl [From Prozac] AdvReac Vomiting Verified 06/20/22 08:36 hydrocodone bitartrate AdvReac Vomiting Verified 06/20/22 08:36 [From Vicodin] Family History Grandmother Breast cancer Cancer thyroid Diabetes Aunt Breast cancer Father Prostate cancer CAD (coronary artery disease), Onset Age: [address] Myocardial infarction, Onset Age: 45 Heart disease Mother Osteoporosis Hypertension Surgical History History of arthroscopic knee surgery History of cholecystectomy History of colonoscopy History of discectomy History of hysterectomy History of left heart catheterization (02/14/20) Hx of left knee surgery Status post cervical spinal fusion Status post unilateral knee replacement Social History household members: friend(s) Smoking Status: Never smoker alcohol intake: former substance use type: does not use additional social history: DOES NOT USE ASPIRIN DOES NOT USE IBUPROFEN ROS ROS ED Constitutional Constitutional ED: Denies chills, fever(s) or sweats Eyes Eyes: Denies blurry vision or change in vision ENT ENT ED: Denies ear pain or sore throat Cardiovascular Cardiovascular: Denies chest pain, palpitations or racing heartbeat Respiratory/Chest Respiratory/Chest: Denies cough, dyspnea or sputum Gastrointestinal Gastrointestinal: Denies abdominal pain, constipation, diarrhea, nausea or vomiting Genitourinary Genitourinary ED: Denies dysuria, hematuria or urinary frequency Musculoskeletal Musculoskeletal: Reports other Details: Bilateral knee pain ; Denies back pain or neck pain Integumentary Denies abscess, Abrasions or rash Neurologic Neurologic: Denies headache(s), paresthesias or weakness Psychiatric Psychiatric: Denies anxiety, depression, suicidal ideation or suicidal thoughts Endocrine Endocrinology: Denies polydipsia or polyuria EXAM Physical Exam Const Vital Signs: 08/25/22 21:09 Temperature 96.7 F L Temperature Source Temporal Pulse Rate 67 Respiratory Rate 16 Blood Pressure 137/72 H Blood Pressure Mean 93 Pulse Ox 98 Oxygen Delivery Method Room Air Positive well nourished and obese General Appearance ED: NAD Nutritional Appearance: obese HEENT Reports moist mucous membranes normocephalic Chest Wall inspection of chest normal and palpation of chest normal Resp normal respiratory effort, no retractions and clear to auscultation bilaterally Auscultation: Negative for rales, rhonchi or wheezes Cardio regular rate and regular rhythm GI non-tender and non-distended Extremity Extremity Narrative: Left knee: Tenderness palpation of lateral joint line. No deformity. Left knee extensor mechanism intact. No ligamentous laxity Right knee: Tender to palpation diffusely. Slight edema noted. Patellar tenderness and lateral joint line tenderness. Right knee extensor mechanism is intact. No deformity. Neuro oriented x3 and CN's II-XII intact bilaterally Sensorium / Orientation: alert Motor Exam: strength 5/5 throughout Psych mental status grossly normal Skin no wounds MDM MDM MDM Narrative Medical decision making narrative: Patient had a mechanical fall. Does decline analgesia. She wants to have her knees x-rayed because they are tender. She is already walking on them. I will obtain x-rays of the bilateral knees. My interpretation of the right knee shows no acute fracture or subluxation. There is a moderate effusion here. The left knee on my interpretation shows similar findings. There is no acute fracture or subluxation of either knee. Patient ambulatory. Patient discharged home in stable condition. Impression: 1. Mechanical fall 2. Bilateral knee contusions Lab Data Attestation: I reviewed the patient's lab results. Radiography Diagnostic Testing: Clinical Impression(s) from Imaging Studies Knee X-Ray 08/25/22 21:46 IMPRESSION: New total knee arthroplasty. Moderate effusion. Electronically Signed: Marin Hawley MD at 22:18 EST Reading Location ID and State: [address] [place] [address] , Service support , Knee X-Ray 08/25/22 21:46 IMPRESSION: Medial hemiarthroplasty unchanged. Moderate DJD. Moderate effusion unchanged. Electronically Signed: Marin Hawley MD at 22:50 EST Reading Location ID and State: [address] [place] [address] , Service support , Discharge Plan Triage Chief Complaint: Fall ED Provider: David Mcmillan Dx/Rx/DC Orders Instructions: ED Contusion, Lower Extremity, ED Mechanical Fall Prescriptions: No Action albuterol sulfate [Ventolin HFA] 90 mcg/actuation HFA aerosol inhaler 2 puff inhalation Q4H PRN (Reason: shortness of breath or wheezing) Qty: 18 6RF atorvastatin 20 mg tablet 20 mg PO QPM levothyroxine 75 mcg tablet 75 mcg PO DAILY metformin 500 mg tablet extended release 24 hr 1,000 mg PO BID Paxlovid (EUA) 300 mg (150 mg x 2)-100 mg tablets,dose pack See Rx Instructions PO .COMPLEX Qty: 30 0RF Rx Instructions: take TWO 150 mg tablets of nirmatrelvir with ONE 100 mg tablet of ritonavir twice daily for 5 days PO omeprazole 20 MG capsule 20 mg PO DAILY sertraline 50 MG tablet 50 mg PO DAILY oxycodone 5 mg Tablet 5 - 10 mg PO Q4H PRN PRN (Reason: Pain Score 4-10) 7 Days Qty: 56 0RF metoprolol tartrate 25 mg tablet 25 mg PO BID apixaban 2.5 mg tablet 2.5 mg PO BID Rx Instructions: 14 days (DME) Oral Appliance See Rx Instructions .Route .MEDSUPPLY Qty: 1 0RF Rx Instructions: As directed Primary Care Provider: Zeeshan Chao Referrals: Zeeshan Chao MD [Primary Care Provider] - Disposition Disposition: Home, Self Care
--- NOTE | 2022-08-25 21:46 | RAD_ITS ---
STUDY: X-RAY - RIGHT KNEE REASON FOR EXAM: Female, 62 years old. knee pain TECHNIQUE: 4 view(s) of the knee. COMPARISON: None. FINDINGS: Normal visualized distal femur. Normal visualized proximal tibia and fibula. Normal proximal tibiofibular articulation. Total knee arthroplasty in anatomic alignment. Normal medial femorotibial compartment. Normal lateral femorotibial compartment. Normal patellofemoral articulation. Moderate effusion. The soft tissue structures are unremarkable. RAD/Knee 4 or More Views IMPRESSION: New total knee arthroplasty. Moderate effusion. Electronically Signed: Marin Hawley MD at 22:18 EST ,
--- NOTE | 2022-08-25 21:46 | RAD_ITS ---
STUDY: X-RAY - LEFT KNEE REASON FOR EXAM: Female, 62 years old. knee pain TECHNIQUE: 4 view(s) of the knee. COMPARISON: None. FINDINGS: Normal visualized distal femur. Normal visualized proximal tibia and fibula. Normal proximal tibiofibular articulation. Hemiarthroplasty medial femoral tibial joint unchanged. Marginal osteophytosis noted. Normal medial femorotibial compartment. Normal lateral femorotibial compartment. Normal patellofemoral articulation. Moderate effusion. The soft tissue structures are unremarkable. RAD/Knee 4 or More Views IMPRESSION: Medial hemiarthroplasty unchanged. Moderate DJD. Moderate effusion unchanged. Electronically Signed: Marin Hawley MD at 22:50 EST ,
[2022-08-25 23:16] VITALS: RESP 18
== END 2022-08-25 23:19 | disposition home or self-care (01) ==
PROVIDERS: Emergency Provider Student in an Organized Health Care Education/Training Program; PCP Family Medicine; Visit Provider Student in an Organized Health Care Education/Training Program
DX: S80.02XA Contusion of left knee, initial encounter (principal); E11.9 Type 2 diabetes mellitus without complications; S80.01XA Contusion of right knee, initial encounter; W10.9XXA Fall (on) (from) unspecified stairs and steps, initial encounter; E66.9 Obesity, unspecified; Z68.38 Body mass index [BMI] 38.0-38.9, adult; Z96.653 Presence of artificial knee joint, bilateral; Z79.84 Long term (current) use of oral hypoglycemic drugs; Z86.16 Personal history of COVID-19; Z86.73 Personal history of transient ischemic attack (TIA), and cerebral infarction without residual deficits
CPT/HCPCS: 73564; 99282

== ENCOUNTER → 2022-09-11 | Outpatient (CLI) | payer OTHER, SELFPAY ==
[2022-09-11 09:30] LABS: Erythrocyte Sedimentation Rate 39 mm/hr (0-30)
[2022-09-11 09:33] LABS: International Normalized Ratio 1.3; Prothrombin Time (Protime)PT. 15.6 SECONDS (11.7-14.9)
[2022-09-11 09:34] LABS: Absolute Lymphocyte Count 0.96 X10^3/uL (0.83-4.51); Absolute Neutrophil Count 2.4 X10^3/uL (2.0-7.7); Basophil# 0.02 X10^3/uL; Basophil% 0.5 % (0-1); Eosinophil# 0.12 X10^3/uL; Eosinophils% 3.2 % (0-5); Hematocrit 40.3 % (37-47); Hemoglobin 13.1 g/dL (12.0-15.0); Lymphocyte # 0.96 X10^3/ul (0.83-4.51); Lymphocyte % 25.5 % (19-41); Mean Corp Hgb Conc 32.5 g/dL (32-36); Mean Corpuscular Hgb 30.5 pg (27.0-32.0); Mean Corpuscular Volume 93.7 fL (81-99); Mean Platelet Vol. 11.9 fl (6.2-12.0); Monocyte# 0.26 X10^3/uL; Monocyte% 6.9 % (0-10); NRBC Flagged by Analyzer 0 % (0-5); Neutrophil % 63.6 % (47-70); Platelet Count 100 K/mm3 (150-450); RBC Distribution Width CV 13.3 % (11.6-14.6); RBC Distribution Width SD 45.9 fl (35.1-43.9); White Blood Count 3.8 K/mm3 (4.4-11.0)
[2022-09-11 09:49] LABS: ALB/GLOB Ratio 0.8 RATIO (0.9-2.4); AST(SGOT) 84 U/L (15-37); Alanine Aminotransfer ALT/SGPT 59 U/L (13-56); Albumin, Serum 3.2 g/dL (3.2-5.0); Alkaline Phosphatase 164 U/L (45-117); Anion Gap 6 (5-15); BUN 11 mg/dL (7-18); BUN/Creat Ratio 14.8 RATIO (10-20); CRP 8.47 mg/L (0.0-3.0); Calcium,Total 9.6 mg/dL (8.5-10.1); Chloride 104 mmol/L (98-107); Creatinine, Serum 0.74 mg/dL (0.55-1.02); EST Glomerular Filtration Rate 84 mL/min (>60); Est Glom Filt Rate - Afr Amer 102 mL/min (>60); Globulin 4.2 g/dL (2.2-4.2); Glucose 126 mg/dL (74-106); Potassium 4.1 mmol/L (3.5-5.1); Protein, Total 7.4 g/dL (6.4-8.2); Sodium Level 137 mmol/L (136-145)
== END | disposition home or self-care (01) ==
PROVIDERS: Nurse Practitioner Adult Health; PCP Family Medicine; Referring Provider Internal Medicine Gastroenterology; Visit Provider Internal Medicine Gastroenterology
DX: K74.60 Unspecified cirrhosis of liver (principal)
CPT/HCPCS: 36415; 80053; 82140; 85025; 85610; 85652; 86140

== ENCOUNTER → 2022-09-18 | Outpatient (CLI) | payer OTHER, SELFPAY ==
[2022-09-18 12:37] LABS: Erythrocyte Sedimentation Rate 45 mm/hr (0-30)
[2022-09-18 13:24] LABS: HIV - WCH Non-Reactive (Nonreactive)
[2022-09-18 13:25] LABS: CRP 7.13 mg/L (0.0-3.0); Cholesterol 175 mg/dL (200); Hemoglobin A1c 6.6 % (3.8-5.6); High Density Lipoprotein 65 mg/dL; Rheumatoid Factor < 10.0 IU/mL (<15); T4 Free Direct 1.25 ng/dL (0.76-1.46); Thyroid Stim Hormone (TSH) 4.17 uIU/mL (0.358-3.74); Triglycerides 61 mg/dL; Very Low Density Lipoprotein 12 mg/dL (5-40)
[2022-09-19 19:37] LABS: ANTINUCLEAR ANTIBODIES DIRECT Positive (Negative)
== END | disposition home or self-care (01) ==
LOC: MTLAB 10:02
PROVIDERS: PCP Family Medicine; Referring Provider Registered Nurse; Visit Provider Registered Nurse
DX: Z11.4 Encounter for screening for human immunodeficiency virus [HIV] (principal); M06.4 Inflammatory polyarthropathy; E11.9 Type 2 diabetes mellitus without complications; R76.8 Other specified abnormal immunological findings in serum; E06.3 Autoimmune thyroiditis
CPT/HCPCS: 36415; 80061; 83036; 84439; 84443; 85652; 86038; 86140; 86431; 86703

== ENCOUNTER → 2022-09-24 | Outpatient (CLI) | payer OTHER, SELFPAY ==
[2022-09-24 15:03] LABS: Absolute Lymphocyte Count 1.08 X10^3/uL (0.83-4.51); Absolute Neutrophil Count 2.1 X10^3/uL (2.0-7.7); Basophil# 0.02 X10^3/uL; Basophil% 0.6 % (0-1); Eosinophils% 2.8 % (0-5); Hematocrit 41.9 % (37-47); Hemoglobin 13.1 g/dL (12.0-15.0); Lymphocyte # 1.08 X10^3/ul (0.83-4.51); Lymphocyte % 29.9 % (19-41); Mean Corp Hgb Conc 31.3 g/dL (32-36); Mean Corpuscular Hgb 29.6 pg (27.0-32.0); Mean Corpuscular Volume 94.8 fL (81-99); Mean Platelet Vol. 12.4 fl (6.2-12.0); Monocyte# 0.33 X10^3/uL; Monocyte% 9.1 % (0-10); NRBC Flagged by Analyzer 0 % (0-5); Neutrophil # 2.07 X10^3/uL (2.7-7.7); Neutrophil % 57.3 % (47-70); Platelet Count 106 K/mm3 (150-450); RBC Distribution Width CV 13.2 % (11.6-14.6); RBC Distribution Width SD 46.7 fl (35.1-43.9); Red Blood Count 4.42 M/mm3 (4.2-5.4); White Blood Count 3.6 K/mm3 (4.4-11.0)
[2022-09-24 15:35] LABS: Anion Gap 8 (5-15); BUN 10 mg/dL (7-18); Calcium,Total 9.8 mg/dL (8.5-10.1); Chloride 104 mmol/L (98-107); Creatinine, Serum 0.67 mg/dL (0.55-1.02); EST Glomerular Filtration Rate 95 mL/min (>60); Est Glom Filt Rate - Afr Amer 115 mL/min (>60); Glucose 112 mg/dL (74-106); Potassium 3.9 mmol/L (3.5-5.1); Sodium Level 138 mmol/L (136-145)
== END | disposition home or self-care (01) ==
LOC: MTLAB 13:21
PROVIDERS: PCP Family Medicine; Referring Provider Student in an Organized Health Care Education/Training Program; Visit Provider Student in an Organized Health Care Education/Training Program
DX: Z01.818 Encounter for other preprocedural examination (principal)
CPT/HCPCS: 36415; 80048; 85025

== ENCOUNTER 2022-09-26 06:01 | Day surgery (SDC) | payer OTHER, SELFPAY ==
[2022-09-26] VITALS (9 sets, daily range): BP systolic 128–165; BP diastolic 56–70; PULSE 61–71; RESP 16; TEMP 36.2–36.7; O2SAT 97–100; BMI 38.2
[2022-09-26] MEDS: Lactated Ringers 1,000 ML 15 ML IV (06:46)
--- NOTE | 2022-09-26 06:46 | HP.PCM_ITS ---
[facility] - General General Date of Admission: 09/26/22 Chief Complaint: Right knee stiffness [facility] Narrative MARYLOU MARIE, is a 62 F who underwent uncomplicated right total knee arthroplasty 05/30/2022 with myself. Her postoperative course was complicated by pain control due to pre-existing liver disease and limitation of postoperative analgesic options as well as postoperative arthrofibrosis. Patient also sustained 2 separate falls without obvious injury due to continued gait abnormalities after multiple bouts of physical therapy. Patient had worsening range of motion over the last 2-3 weeks. I saw the patient in office approximately 1 week ago and recommended manipulation under anesthesia due to arthrofibrosis. She denies any fevers, chills, nausea vomiting, chest pain or shortness of breath. [facility] Medical History Alcohol use Ambulates with cane Arthritis Blood disorder Cardiology follow-up encounter Cat bite COVID-19 Depression Diabetes Difficulty balancing when standing Difficulty swallowing Enlarged thyroid gland Fatigue Gastric reflux Hemorrhoids High triglycerides History of echocardiogram History of edema History of pain when walking History of stress test History of ulceration Hyperlipidemia Hypothyroidism Injury of back Intermittent palpitations Kidney stones Left ventricular diastolic dysfunction Leg cramps Lupus Migraine headache Non-smoker Obesity Open wound of left forearm due to cat bite Rheumatoid arthritis Seasonal allergies Shortness of breath on exertion Shoulder pain Stomach ulcer Symptomatic sinus bradycardia Thyroid disease TIA (transient ischemic attack) Wears glasses Home Medications omeprazole 20 mg capsule,delayed release 20 mg PO DAILY GERD 09/19/14 [History Last Taken 09/26/22] sertraline 50 mg tablet 50 mg PO DAILY Mood 09/19/14 [History Last Taken 05/29/22] Oral Appliance #1 ea 09/26/20 [Rx Last Taken 05/29/22] albuterol sulfate 90 mcg/actuation aerosol inhaler (Ventolin HFA) 2 puff inhalation Q4H PRN shortness of breath or wheezing #18 grams 12/06/20 [Rx Last Taken 05/29/22] atorvastatin 20 mg tablet 20 mg PO QPM HLD 02/14/22 [History Last Taken 05/29/22] levothyroxine 75 mcg tablet 100 mcg PO DAILY thyroid 02/14/22 [History Last Taken 09/26/22] metformin 500 mg tablet,extended release 24 hr 1,000 mg PO BID DM 03/22/22 [History Last Taken 05/29/22] oxycodone 5 mg tablet 5 - 10 mg PO Q4H PRN PRN Pain Score 4-10 7 days #56 tabs 06/03/22 [Rx Last Taken Unknown] metoprolol tartrate 25 mg tablet 25 mg PO BID BP 06/04/22 [History Last Taken Unknown] aspirin 81 mg capsule 81 mg PO DAILY 09/24/22 [History Last Taken Unknown] Allergy/AdvReac Type Severity Reaction Status Date / Time betamethasone Allergy Other Verified 09/24/22 09:25 [From Celestone] betamethasone sodium Allergy Other Verified 09/24/22 09:25 phosphate [From Celestone] Penicillins Allergy Rash Verified 09/24/22 09:25 triamcinolone acetonide Allergy Other Verified 09/24/22 09:25 [From Kenalog] fluoxetine HCl [From Prozac] AdvReac Vomiting Verified 09/24/22 09:25 hydrocodone bitartrate AdvReac Vomiting Verified 09/24/22 09:25 [From Vicodin] Family History Grandmother Breast cancer Cancer thyroid Diabetes Aunt Breast cancer Father Prostate cancer CAD (coronary artery disease), Onset Age: 45 CABG PCI [place] Myocardial infarction, Onset Age: 45 Heart disease Mother Osteoporosis Hypertension Surgical History History of arthroscopic knee surgery History of cholecystectomy History of colonoscopy History of discectomy History of hysterectomy History of left heart catheterization (02/14/20) Hx of left knee surgery Hx of total knee replacement Status post cervical spinal fusion Status post unilateral knee replacement Social History household members: friend(s) Smoking Status: Never smoker alcohol intake: former substance use type: does not use additional social history: DOES NOT USE ASPIRIN DOES NOT USE IBUPROFEN ROS ROS Narrative 12 point review systems obtained, negative as otherwise noted in HPI. Vital Signs Vital Signs Vital Signs: 09/26/22 06:37 09/26/22 06:40 Temperature 97.8 F Temperature Source Temporal Pulse Rate 61 Respiratory Rate 16 Respiratory Pattern Normal Blood Pressure 128/61 H Blood Pressure Mean 83 Blood Pressure Source Monitor Blood Pressure Position Semi-Fowlers Blood Pressure Location Left Arm Pulse Ox 99 Oxygen Delivery Method Room Air Weight Weight: 266 lb 1.567 oz Body Mass Index (BMI) 38.2 Physical Exam Narrative General -A&Ox3, NAD, appears stated age. Vital signs stable, afebrile. Respiratory -normal work of breathing, no intercostal retractions. CV -pulses regular, brisk capillary refill ?4 limbs. Abdomen-soft, nontender, nondistended. No guarding, rigidity, rebound t enderness. Musculoskeletal/neurologic -full range of motion nontender throughout bilateral upper extremities, left lower extremity with full sensation and strength in all dermatomes and myotomes. No midline cervical tenderness. Right lower extremity-no obvious deformity. Well-healed right knee incision. Stable varus valgus stressing. Range of motion 10-100 degrees right knee. Nontender throughout. Able to perform a straight leg raise. Active flexion and extension are intact to the knee. Brisk capillary refill. Sensation intact light touch L3-S1 dermatomes. DF, PF, EHL intact. DP, PT 2+. Pelvis is stable, nontender. Skin is intact without lacerations, abrasions. No ecchymosis noted. Assessment & Plan Assessment/Plan (1) Arthrofibrosis of total knee replacement: PLAN: Plan to proceed with right knee manipulation under anesthesia today as scheduled. I reviewed the risks, benefits, alternatives the procedure with the patient at length and she agreed to proceed. Risk include but are not limited to bleeding, flexion, loss of life or limb, need for additional surgery, persistent stiffness or pain, fracture, soft tissue injury, neurovascular injury, DVT or PE. Patient expressed understanding these risks and wished to proceed with the procedure. Informed consent obtained in the office.
[2022-09-26 07:31] LABS: Bedside Glucose 119 mg/dL (74-106)
[2022-09-26] MEDS: Bupiv/Epi 0.25% 30 ML Vial (07:36)
--- NOTE | 2022-09-26 08:47 | DCINST_ITS ---
Discharge Instructions Follow Up Care Test Results: Test results from this visit will be discussed in further detail at your follow- up appointment, if applicable. Discharge Plan Admission Primary Reason for Your Visit: Right knee manipulation Attending Provider: Michele العلي Primary Care Provider: Zeeshan Chao Instructions Additional Instructions / Restrictions: Follow preprinted instructions from your surgeons office Discharge Orders/Prescriptions Prescriptions: New prednisone 20 mg tablet 40 mg PO DAILY 3 Days Qty: 6 0RF Continued albuterol sulfate [Ventolin HFA] 90 mcg/actuation HFA aerosol inhaler 2 puff inhalation Q4H PRN (Reason: shortness of breath or wheezing) Qty: 18 6RF atorvastatin 20 mg tablet 20 mg PO QPM levothyroxine 75 mcg tablet 100 mcg PO DAILY metformin 500 mg tablet extended release 24 hr 1,000 mg PO BID omeprazole 20 MG capsule 20 mg PO DAILY sertraline 50 MG tablet 50 mg PO DAILY oxycodone 5 mg Tablet 5 - 10 mg PO Q4H PRN PRN (Reason: Pain Score 4-10) 7 Days Qty: 56 0RF metoprolol tartrate 25 mg tablet 25 mg PO BID aspirin 81 mg Capsule 81 mg PO DAILY (DME) Oral Appliance See Rx Instructions .Route .MEDSUPPLY Qty: 1 0RF Rx Instructions: As directed Referrals / Follow Up: Michele العلي DO [Med Staff - Active Staff] - 10/09/22 Zeeshan Chao MD [Primary Care Provider] - Disposition Disposition (needs filled in before D/C Order can be placed): Home, Self Care
[2022-09-26] MEDS: Gabapentin 300 MG Capsule PO (08:57)
--- NOTE | 2022-09-26 09:22 | PCM.OPRPT ---
Report of Operation Date of Procedure: 09/26/22 Description of Surgical Findings:: Preoperative diagnosis: Right total knee arthroplasty postoperative arthrofibrosis Postoperative diagnosis: Right total knee arthroplasty postoperative arthrofibrosis Procedure: Manipulation under anesthesia right total knee arthroplasty Surgeon: Michele العلي DO Anesthesia: Conscious sedation Early Childhood Education Coordinator: Esther Lopez CRNA EBL: None IV fluids: Per anesthesia record Urine output: None recorded Specimen: None Packing/drains: None Implants: None Intraoperative findings: Preoperative range of motion 10-100 degrees, post manipulation range of motion 0-135 degrees with palpable and audible release of adhesions Preoperative indications: MARYLOU MARIE, is a 62 F who underwent uncomplicated right total knee arthroplasty 05/30/2022 with myself. Her postoperative course was complicated by pain control due to pre-existing liver disease and limitation of postoperative analgesic options as well as postoperative arthrofibrosis. Patient also sustained 2 separate falls without obvious injury due to continued gait abnormalities after multiple bouts of physical therapy. Patient had worsening range of motion over the last 2-3 weeks. I saw the patient in office approximately 1 week ago and recommended manipulation under anesthesia due to arthrofibrosis. I reviewed the risks, benefits, alternatives the procedure with the patient at length and she agreed to proceed. Risk include but are not limited to bleeding, flexion, loss of life or limb, need for additional surgery, persistent stiffness or pain, fracture, soft tissue injury, neurovascular injury, DVT or PE. Patient expressed understanding these risks and wished to proceed with the procedure. Informed consent obtained in the office. Description of procedure: Patient was identified in the preoperative holding area by name, medical record number, date of . The operative extremity was marked. All questions were answered to patient's satisfaction. At time of her procedure, patient brought the operative suite and general seizure was induced on her gurney. All bony prominences were well-padded. After adequate anesthesia, we performed a timeout confirming side, site, operation be performed. No concerns were voiced elected proceed with the procedure. I then assessed her preoperative range of motion measuring 10-100 degrees. I first gently flex the hip and right knee. I placed gradual pressure over the proximal tibia feeling several palpable and hearing auditory release of adhesions. I was able to gradually flex the knee to 135 degrees. I then turned my attention to extension. Preoperative flexion contracture noted. This appeared to be improved from her range of motion the office, which I suspect is due to some hamstring tightness. I then placed the heel on a bump of blankets and placed a gradual force over the distal femur achieving improved extension and feeling palpable release of adhesions. I was able to achieve 0 degrees of extension. I then prepped the anterior medial suprapatellar area for a intra-articular injection. Utilizing a 22-gauge needle a previously job solution of 10 cc 0. 7 5% bupivacaine with epinephrine 1: 200,000 was injected in the right knee. Needle was withdrawn and the injection site dressed with a Band-Aid. An Adolfo bandage was then placed around the right knee. I then left the heel on the folded blankets and placed a 10 pound sandbag over the distal femur to help with continued stretching of the posterior capsule, to be maintained until patient is in phase 2 recovery. Patient was safely awoken from anesthesia and transferred to PACU in stable condition. She received an adductor canal block in the PACU for postoperative analgesia. She tolerated procedure well without apparent complication. Postoperative plan: Patient be discharged home today. She will follow-up in approximately 2 weeks. She has physical therapy scheduled for tomorrow. Patient will be given 3 days of oral prednisone which she states she has tolerated well in the past. Oxycodone and judicious use of Tylenol postoperatively for analgesia. I encouraged the patient to perform extensive home exercise today especially when the nerve block is in place to maintain her range of motion which is much improved following manipulation. She expressed understanding. Ice and elevation encouraged.
== END 2022-09-26 09:44 | disposition home or self-care (01) ==
LOC: SDC 06:01 → AC 06:02
PROVIDERS: PCP Family Medicine; Referring Provider Student in an Organized Health Care Education/Training Program; Visit Provider Student in an Organized Health Care Education/Training Program
PROC: (CPT 27570; principal; 2022-09-26 07:25)
DX: M24.661 Ankylosis, right knee (principal); E66.01 Morbid (severe) obesity due to excess calories; E11.9 Type 2 diabetes mellitus without complications; E78.5 Hyperlipidemia, unspecified; E03.9 Hypothyroidism, unspecified; G47.33 Obstructive sleep apnea (adult) (pediatric); Z68.38 Body mass index [BMI] 38.0-38.9, adult; Z96.651 Presence of right artificial knee joint; Z79.82 Long term (current) use of aspirin; Z79.84 Long term (current) use of oral hypoglycemic drugs; Z79.899 Other long term (current) drug therapy; Z86.73 Personal history of transient ischemic attack (TIA), and cerebral infarction without residual deficits; Z86.16 Personal history of COVID-19
CPT/HCPCS: 27570; 01380; 64447; 82962; J7120; J2405

== ENCOUNTER 2022-10-01 10:03 | Observation (INO) | payer OTHER, SELFPAY ==
[2022-10-01] VITALS (13 sets, daily range): BP systolic 119–174; BP diastolic 66–105; PULSE 57–67; RESP 15–18; TEMP 36.6–37.4; O2SAT 16–100; BMI 39.4; BMI 37.8
--- NOTE | 2022-10-01 10:17 | RAD_ITS ---
STUDY: X-RAY CHEST REASON FOR EXAM: Female, 62 years old. Neuro deficit, acute, stroke suspected TECHNIQUE: Single AP portable view of the chest. COMPARISON: Comparison is made with prior study dated April 02, 2022. FINDINGS: EKG electrodes are seen. Normal size heart. Normal mediastinum and kay. Normal visualized pulmonary arteries. Normal visualized aortic arch and descending thoracic aorta. There are diffuse degenerative changes of the visualized thoracic spine. Prior fusion of the lower cervical spine. There is no demonstrated abnormality of the visualized soft tissue structures of the upper abdomen. RAD/Chest 1 View IMPRESSION: No acute abnormality is seen. Electronically Signed: Bryan Boyer MD at 11:03 EDT ,
--- NOTE | 2022-10-01 10:17 | CT_ITS ---
STUDY: CTA HEAD AND NECK WITH CONTRAST REASON FOR EXAM: Female, 62 years old. tia RADIATION DOSAGE (If Supplied By Facility): CTDIvol = ( 28.72 ) mGy, DLP = ( 834.82 ) mGycm TECHNIQUE: CT angiography was performed with a multi-detector CT scanner. Data acquisition was obtained from the skull base through the vertex following intravenous administration of IV 100mL Isovue-370. MIP images were reconstructed from the axial data set. Post-processing of the angiographic images was performed, with multiplanar reformation and 3D reconstruction. Individualized dose optimization techniques were used for this CT. COMPARISON: No relevant priors. FINDINGS: Heterogeneous enlargement of the thyroid gland involving both lobes. Normal bilateral petrous carotid arteries. Normal right cavernous carotid artery with a normal supraclinoid bifurcation. Normal left cavernous carotid artery with a normal supraclinoid bifurcation. Normal right A1 segments of the anterior cerebral artery. Normal left A1 segments of the anterior cerebral artery. Normal intact anterior communicating artery (ACOM). Normal bilateral A2 segments of the anterior cerebral arteries. Normal right M1 and M2 segments of the middle cerebral arteries, with a normal M1 bifurcation. Normal left M1 and M2 segments of the middle cerebral arteries, with a normal M1 bifurcation. Normal right posterior communicating artery (PCOM). Normal left posterior communicating artery (PCOM). Normal bilateral vertebral arteries. Normal basilar artery with a normal basilar bifurcation. The visualized bilateral superior cerebellar (SCA) arteries are normal. Normal bilateral P1, P2 and visualized P3 segments of the posterior cerebral arteries. There is no demonstrated aneurysm of the [place]. Tiny lacuna in the right basal ganglia. AORTIC ARCH: Normal visualized aortic arch. Normal origins of the brachiocephalic, left common carotid, and left subclavian arteries. RIGHT CAROTID ARTERIES: Normal right common carotid artery (CCA). Normal right common carotid bulb. Normal origin of the right internal carotid (ICA) artery without a hemodynamically significant stenosis. Normal visualized cervical portion of the right internal carotid artery. Normal origin of the right external carotid artery (ECA). LEFT CAROTID ARTERIES: Normal left common carotid artery (CCA). Normal left common carotid bulb. Normal origin of the left internal carotid (ICA) artery without a hemodynamically significant stenosis. Normal visualized cervical portion of the left internal carotid artery. Normal origin of the left external carotid artery (ECA). VERTEBRAL ARTERIES: Normal bilateral vertebral arteries. IMPRESSION: Normal CTA Head and neck with contrast. Electronically Signed: Bryan Boyer MD at 12:22 EDT , STUDY: CT BRAIN WITHOUT CONTRAST REASON FOR EXAM: Female, 62 years old. tia RADIATION DOSAGE (If Supplied By Facility): CTDIvol = ( 44.99 ) mGy, DLP = ( 812.98 ) mGycm TECHNIQUE: Transaxial CT imaging of the brain was performed without administration of intravenous contrast material. Individualized dose optimization techniques were used for this CT. COMPARISON: Comparison is made with prior study dated December 14, 2012. FINDINGS: Normal soft tissue structures. Normal calvarium. Normal size ventricles and extra-axial spaces for the patient''s age. Normal white matter tracts of the cerebral hemispheres. Tiny lacuna in the right basal ganglion. This most likely is not acute. Normal brainstem. Normal cerebellum. There is no intracranial hemorrhage. There are no findings of an acute ischemic infarction. Normal visualized paranasal sinuses. CT/CTA Head AND Neck W/ Contrast IMPRESSION: Tiny lacuna in the right basal ganglia. Electronically Signed: Bryan Boyer MD at 12:22 EDT ,
--- NOTE | 2022-10-01 10:19 | ED.VIS.STROK ---
HPI History of Present Illness Chief Complaint: Neuro S/Sx Narrative Narrative: Patient is here for what she thinks is vertigo, she has a spinning sensation, she has some slight blurred vision and per paramedics she may have had left-sided weakness. This started greater than 24 hours ago. She is denying any paresthesias. She does not feel lightheaded. She does feel off balance. No recent trauma. [facility] Medical History Alcohol use Ambulates with cane Arthritis Blood disorder Cardiology follow-up encounter Cat bite COVID-19 Depression Diabetes Difficulty balancing when standing Difficulty swallowing Enlarged thyroid gland Fatigue Gastric reflux Hemorrhoids High triglycerides History of echocardiogram History of edema History of pain when walking History of stress test History of ulceration Hyperlipidemia Hypothyroidism Injury of back Intermittent palpitations Kidney stones Left ventricular diastolic dysfunction Leg cramps Lupus Migraine headache Non-smoker Obesity Open wound of left forearm due to cat bite Rheumatoid arthritis Seasonal allergies Shortness of breath on exertion Shoulder pain Stomach ulcer Symptomatic sinus bradycardia Thyroid disease TIA (transient ischemic attack) Wears glasses Home Medications omeprazole 20 mg capsule,delayed release 20 mg PO DAILY GERD 09/19/14 [History Last Taken 09/26/22] sertraline 50 mg tablet 50 mg PO DAILY Mood 09/19/14 [History Last Taken 05/29/22] Oral Appliance #1 ea 09/26/20 [Rx Last Taken 05/29/22] albuterol sulfate 90 mcg/actuation aerosol inhaler (Ventolin HFA) 2 puff inhalation Q4H PRN shortness of breath or wheezing #18 grams 12/06/20 [Rx Last Taken 05/29/22] atorvastatin 20 mg tablet 20 mg PO QPM HLD 02/14/22 [History Last Taken 05/29/22] levothyroxine 75 mcg tablet 100 mcg PO DAILY thyroid 02/14/22 [History Last Taken 09/26/22] metformin 500 mg tablet,extended release 24 hr 1,000 mg PO BID DM 03/22/22 [History Last Taken 05/29/22] metoprolol tartrate 25 mg tablet 25 mg PO BID BP 06/04/22 [History Last Taken Unknown] Allergy/AdvReac Type Severity Reaction Status Date / Time betamethasone Allergy Other Verified 10/01/22 10:04 [From Celestone] betamethasone sodium Allergy Other Verified 10/01/22 10:04 phosphate [From Celestone] Penicillins Allergy Rash Verified 10/01/22 10:04 triamcinolone acetonide Allergy Other Verified 10/01/22 10:04 [From Kenalog] fluoxetine HCl [From Prozac] AdvReac Vomiting Verified 10/01/22 10:04 hydrocodone bitartrate AdvReac Vomiting Verified 10/01/22 10:04 [From Vicodin] Family History Grandmother Breast cancer Cancer thyroid Diabetes Aunt Breast cancer Father Prostate cancer CAD (coronary artery disease), Onset Age: 45 CABG PCI RI Myocardial infarction, Onset Age: 45 Heart disease Mother Osteoporosis Hypertension Surgical History History of arthroscopic knee surgery History of cholecystectomy History of colonoscopy History of discectomy History of hysterectomy History of left heart catheterization (02/14/20) Hx of left knee surgery Hx of total knee replacement Status post cervical spinal fusion Status post unilateral knee replacement Social History household members: friend(s) Smoking Status: Never smoker alcohol intake: former substance use type: does not use additional social history: DOES NOT USE ASPIRIN DOES NOT USE IBUPROFEN ROS ROS ED ROS Narrative Past medical history: Reviewed, includes diabetes, hyperlipidemia, hypothyroidism Medications: Reviewed Social history: Noncontributory Review of systems: All systems negative except as indicated General: No fever Eyes: No visual changes ENT: No upper airway congestion, normal voice Neck: No neck pain Cardiovascular: No chest pain Respiratory: No shortness of breath or cough Gastrointestinal: No abdominal pain, nausea vomiting or diarrhea Genitourinary: No dysuria Musculoskeletal: Denies myalgias no difficulty with ambulation Skin: No rash Neurological: As in HPI EXAM Physical Exam Narrative Exam Narrative: Physical exam General: Well nourished, Well developed, No Acute Distress Head: Normocephalic, Atraumatic Eyes: Conjunctiva not pale ENT: Moist mucous membranes Neck: Supple, Nontender, No lymphadenopathy Cardiovascular: Regular rate, Regular rhythm Respiratory: No distress, CTA bilaterally Abdomen: Soft, Nontender, Nondistended Back: Nontender, Normal Inspection. Negative for: CVA tenderness Extremities: Nontender, No edema Skin: Normal color, No rash Neurological: NIH stroke scale is 0. However she has slight left-sided pronator drift, no visual field cut and otherwise normal neurological exam. Const Vital Signs: 10/01/22 10:04 10/01/22 10:17 10/01/22 10:17 Temperature 99.3 F H Temperature Source Oral Pulse Rate 60 59 L Respiratory Rate 18 15 Blood Pressure 167/66 H 155/73 H Blood Pressure Mean 99 100 Pulse Ox 98 99 Oxygen Delivery Method Room Air Room Air Room Air 10/01/22 10:57 10/01/22 10:58 10/01/22 11:17 Temperature Temperature Source Pulse Rate 61 61 57 L Respiratory Rate 16 16 16 Blood Pressure 159/68 H 159/68 H 143/67 H Blood Pressure Mean 98 98 92 Pulse Ox 98 98 100 Oxygen Delivery Method Room Air Room Air Room Air 10/01/22 12:00 10/01/22 12:00 Temperature Temperature Source Pulse Rate 59 L 59 L Respiratory Rate 16 16 Blood Pressure 167/69 H 167/69 H Blood Pressure Mean 101 101 Pulse Ox 99 16 Oxygen Delivery Method Room Air Room Air MDM MDM MDM Narrative Medical decision making narrative: A. Problems addressed -patient has dizziness, it is difficult to describe as she feels some lightheadedness but also some vertigo symptoms. She is not orthostatic as I did do orthostatics myself while in the room. However she has a normal cerebellar normal Romberg. She has very slight pronator drift although she does not let her arm down which may be a TIA the CT was negative however she will need an MRI I will admit her for a stroke work-up. She has not improved since being here. B. Amount and/or complexity of the data 1. CBC and CMP troponin were interpreted by me 2. Independent interpretation of test Telemetry: Sinus rhythm with a sinus arrhythmia with a rate in the 50s and 60s. 3. Discussion of management with external healthcare provider C. I discussed with hospitalist for admission Differential diagnosis: TIA, stroke, intracranial mass, intracranial bleed, electrolyte abnormalities, Lab Data Labs: Laboratory Results - last 24 hr 10/01/22 10/01/22 10/01/22 10:23 10:23 10:23 WBC 3.7 L RBC 4.54 Hgb 13.7 Hct 43.0 MCV 94.7 MCH 30.2 MCHC 31.9 L RDW Std Deviation 46.2 H RDW Coeff of Elva 13.2 Plt Count 88 L MPV 11.7 Immature Gran % (Auto) 0.800 Neut % (Auto) 64.6 Lymph % (Auto) 26.0 [place] % (Auto) 5.6 Eos % (Auto) 2.7 Baso % (Auto) 0.3 Absolute Neuts (auto) 2.4 Absolute Lymphs (auto) 0.97 Nucleated RBC % 0 Differential Comment SCANNED PT 15.5 H INR 1.3 APTT 35.3 Sodium 139 Potassium 4.0 Chloride 106 Carbon Dioxide 28.0 Anion Gap 5 BUN 9 Creatinine 0.63 Estim Creat Clear Calc 100.12 Est GFR (MDRD) Af Amer 123 Est GFR (MDRD) Non-Af 101 BUN/Creatinine Ratio 14.2 Glucose 142 H Calcium 9.4 Troponin I High Sens 8 Radiography Diagnostic Testing: Clinical Impression(s) from Imaging Studies Chest X-Ray 10/01/22 10:17 IMPRESSION: No acute abnormality is seen. Electronically Signed: Bryan Boyer MD at 11:03 EDT , Head/Neck CTA 10/01/22 10:17 IMPRESSION: Tiny lacuna in the right basal ganglia. Electronically Signed: Bryan Boyer MD at 12:22 EDT , Chest x-ray read by me is unremarkable EKG Initial EKG: Comments: Sinus rhythm with a rate of 66. Sinus arrhythmia is present. Patient has a nonspecific intraventricular conduction delay. Nonspecific ST changes throughout however no significant change from April 02, 2022. Interpreted by emergency doctor Stroke Documentation Questions Stroke Team Activated: No (Greater than 24 hours) IV Thrombolytic Administered: No Discharge Plan Triage Chief Complaint: Neuro S/Sx ED Provider: Howard Santiago Dx/Rx/DC Orders Clinical Impression: Dizziness, Brain TIA, Hypertension Prescriptions: No Action albuterol sulfate [Ventolin HFA] 90 mcg/actuation HFA aerosol inhaler 2 puff inhalation Q4H PRN (Reason: shortness of breath or wheezing) Qty: 18 6RF atorvastatin 20 mg tablet 20 mg PO QPM levothyroxine 75 mcg tablet 100 mcg PO DAILY metformin 500 mg tablet extended release 24 hr 1,000 mg PO BID omeprazole 20 MG capsule 20 mg PO DAILY sertraline 50 MG tablet 50 mg PO DAILY metoprolol tartrate 25 mg tablet 25 mg PO BID (DME) Oral Appliance See Rx Instructions .Route .MEDSUPPLY Qty: 1 0RF Rx Instructions: As directed Primary Care Provider: Zeeshan Chao Referrals: Zeeshan Chao MD [Primary Care Provider] - Disposition Disposition: Acute Care Hospital [facility] NIHSS NIHSS 1a. Level of Consciousness: Alert; keenly responsive 1b. LOC Questions: Answers BOTH questions correctly. 1c. LOC Commands: Performs both tasks correctly. 2. Best Gaze: Normal 3. Visual: No visual loss 4. Facial Palsy: Normal symmetrical movements 5a. Left Arm: No drift; arm holds 90 (or 45) degrees for full 10 seconds 5b. Right Arm: No drift; arm holds 90 (or 45) degrees for full 10 seconds 6a. Left Leg: No drift; leg holds 30-degree position for full 5 seconds 6b. Right Leg: No drift; leg holds 30-degree position for full 5 seconds 7. Limb Ataxia: Absent 8. Sensory: Normal; no sensory loss 9. Best Language: No aphasia; normal 10. Dysarthria: Normal 11. Extinction and Inattention: No abnormality Total: 0 Stroke Questions Stroke Team Activated: No (Greater than 24 hours) Was Patient considered for Endovascular Intervention?: No IV Thrombolytic Administered: No
[2022-10-01 10:40] LABS: Absolute Lymphocyte Count 0.97 X10^3/uL (0.83-4.51); Absolute Neutrophil Count 2.4 X10^3/uL (2.0-7.7); Basophil# 0.01 X10^3/uL; Basophil% 0.3 % (0-1); Eosinophils% 2.7 % (0-5); Hemoglobin 13.7 g/dL (12.0-15.0); Lymphocyte # 0.97 X10^3/ul (0.83-4.51); Mean Corp Hgb Conc 31.9 g/dL (32-36); Mean Corpuscular Hgb 30.2 pg (27.0-32.0); Mean Corpuscular Volume 94.7 fL (81-99); Mean Platelet Vol. 11.7 fl (6.2-12.0); Monocyte# 0.21 X10^3/uL; Monocyte% 5.6 % (0-10); NRBC Flagged by Analyzer 0 % (0-5); Neutrophil # 2.41 X10^3/uL (2.7-7.7); Neutrophil % 64.6 % (47-70); POSITIVE COUNT YES; Platelet Count 88 K/mm3 (150-450); RBC Distribution Width CV 13.2 % (11.6-14.6); RBC Distribution Width SD 46.2 fl (35.1-43.9); Red Blood Count 4.54 M/mm3 (4.2-5.4); White Blood Count 3.7 K/mm3 (4.4-11.0)
[2022-10-01 10:43] LABS: Differential Indicated SCAN CRITERIA MET
[2022-10-01 10:53] LABS: Anion Gap 5 (5-15); BUN 9 mg/dL (7-18); BUN/Creat Ratio 14.2 RATIO (10-20); Calcium,Total 9.4 mg/dL (8.5-10.1); Chloride 106 mmol/L (98-107); Creatinine, Serum 0.63 mg/dL (0.55-1.02); EST Glomerular Filtration Rate 101 mL/min (>60); Est Glom Filt Rate - Afr Amer 123 mL/min (>60); Estimated Creatinine Clearance 100.12 ml/min; Glucose 142 mg/dL (74-106); Sodium Level 139 mmol/L (136-145); Troponin-I HS 8 pg/mL (3.0-54.0)
[2022-10-01 11:15] LABS: Differential Comment SCANNED
[2022-10-01 11:19] LABS: International Normalized Ratio 1.3; Partial Thromboplast Time 35.3 Seconds (24.1-36.2); Prothrombin Time (Protime)PT. 15.5 SECONDS (11.7-14.9)
--- NOTE | 2022-10-01 12:57 | PCM.HP.STD ---
HPI - General General Date of Admission: 10/01/22 Date of Service: 10/01/22 Chief Complaint: Left-sided weakness and headache [facility] Narrative MARYLOU MARIE, is a 62 F who presents left-sided weakness and headache. Patient has significant medical history including essential hypertension as well as diabetes mellitus type 2 and dyslipidemia. Patient work-up was significant headache. She also did experience some weakness involving the left upper extremity. She also did experience some blurry vision as well as some dizziness. Patient's symptoms had apparently resolved by the time he was assessed in the emergency department initial head CT came back unremarkable was however admitted to a monitored bed for work-up for possible TIA [facility] Medical History Alcohol use Ambulates with cane Arthritis Blood disorder Cardiology follow-up encounter Cat bite COVID-19 Depression Diabetes Difficulty balancing when standing Difficulty swallowing Enlarged thyroid gland Fatigue Gastric reflux Hemorrhoids High triglycerides History of echocardiogram History of edema History of pain when walking History of stress test History of ulceration Hyperlipidemia Hypothyroidism Injury of back Intermittent palpitations Kidney stones Left ventricular diastolic dysfunction Leg cramps Lupus Migraine headache Non-smoker Obesity Open wound of left forearm due to cat bite Rheumatoid arthritis Seasonal allergies Shortness of breath on exertion Shoulder pain Stomach ulcer Symptomatic sinus bradycardia Thyroid disease TIA (transient ischemic attack) Wears glasses Home Medications omeprazole 20 mg capsule,delayed release 20 mg PO DAILY GERD 09/19/14 [History Last Taken 09/26/22] sertraline 50 mg tablet 50 mg PO DAILY Mood 09/19/14 [History Last Taken 05/29/22] Oral Appliance #1 ea 09/26/20 [Rx Last Taken 05/29/22] albuterol sulfate 90 mcg/actuation aerosol inhaler (Ventolin HFA) 2 puff inhalation Q4H PRN shortness of breath or wheezing #18 grams 12/06/20 [Rx Last Taken 05/29/22] atorvastatin 20 mg tablet 20 mg PO QPM HLD 02/14/22 [History Last Taken 05/29/22] levothyroxine 75 mcg tablet 100 mcg PO DAILY thyroid 02/14/22 [History Last Taken 09/26/22] metformin 500 mg tablet,extended release 24 hr 1,000 mg PO BID DM 03/22/22 [History Last Taken 05/29/22] metoprolol tartrate 25 mg tablet 25 mg PO BID BP 11/22/22 [History Last Taken Unknown] Allergy/AdvReac Type Severity Reaction Status Date / Time betamethasone Allergy Other Verified 10/01/22 10:04 [From Celestone] betamethasone sodium Allergy Other Verified 10/01/22 10:04 phosphate [From Celestone] Penicillins Allergy Rash Verified 10/01/22 10:04 triamcinolone acetonide Allergy Other Verified 10/01/22 10:04 [From Kenalog] fluoxetine HCl [From Prozac] AdvReac Vomiting Verified 10/01/22 10:04 hydrocodone bitartrate AdvReac Vomiting Verified 10/01/22 10:04 [From Vicodin] Family History Grandmother Breast cancer Cancer thyroid Diabetes Aunt Breast cancer Father Prostate cancer CAD (coronary artery disease), Onset Age: 45 CABG PCI [place] Myocardial infarction, Onset Age: 45 Heart disease Mother Osteoporosis Hypertension Surgical History History of arthroscopic knee surgery History of cholecystectomy History of colonoscopy History of discectomy History of hysterectomy History of left heart catheterization (02/14/20) Hx of left knee surgery Hx of total knee replacement Status post cervical spinal fusion Status post unilateral knee replacement Social History household members: friend(s) Smoking Status: Never smoker alcohol intake: former substance use type: does not use additional social history: DOES NOT USE ASPIRIN DOES NOT USE IBUPROFEN ROS ROS Narrative GENERAL: denies fever, chills, night sweats, weight loss, anorexia HEENT: denies headache, sinus congestion, or drainage, dysphagia RESPIRATORY: denies cough, sputum production, shortness of breath, dyspnea on exertion CARDIAC: denies chest pain, palpitations, orthopnea, PND GASTROINTESTINAL: denies abdominal pain, nausea, vomiting, melena, GENITOURINARY: denies dysuria, urgency, frequency, heamaturia EXTREMITY: denies swelling MUSCULOSKELETAL: denies current joint pain or tenderness NEUROLOGIC: Subjective left upper extremity weakness HEMATOLOGIC: denies easy bruising and/or hemorrhage INTEGUMENT: denies rashes PSYCHIATRIC: denies suicidal or homicidal ideation Vital Signs Vital Signs Vital Signs: 10/01/22 10:04 10/01/22 10:17 10/01/22 10:17 Temperature 99.3 F H Temperature Source Oral Pulse Rate 60 59 L Respiratory Rate 18 15 Blood Pressure 167/66 H 155/73 H Blood Pressure Mean 99 100 Pulse Ox 98 99 Oxygen Delivery Method Room Air Room Air Room Air 10/01/22 10:57 10/01/22 10:58 10/01/22 11:17 Temperature Temperature Source Pulse Rate 61 61 57 L Respiratory Rate 16 16 16 Blood Pressure 159/68 H 159/68 H 143/67 H Blood Pressure Mean 98 98 92 Pulse Ox 98 98 100 Oxygen Delivery Method Room Air Room Air Room Air 10/01/22 12:00 10/01/22 12:00 Temperature Temperature Source Pulse Rate 59 L 59 L Respiratory Rate 16 16 Blood Pressure 167/69 H 167/69 H Blood Pressure Mean 101 101 Pulse Ox 99 16 Oxygen Delivery Method Room Air Room Air Weight Weight: 124.6 kg Body Mass Index (BMI) 39.4 Physical Exam Narrative GENERAL: cooperative HEENT: Atraumatic; normocephalic EYES; Anicteric, Normal Conjunctiva NECK; supple, normal thyroid, RESPIRATORY: Diminished to auscultation CARDIOVASCULAR: Regular S1 S2, GI: soft, normoactive bowel sounds, : No Renal angle tenderness; EXTREMITIES: No edema, no clubbing, MUSCULOSKELETAL: no muscle wasting NEURO: Awake; no lateralizing signs. SKIN: No Rash PSYCH; Flat affect Results Lab / Micro Data Result Diagrams: 10/01/22 10:23 10/01/22 10:23 Labs: Laboratory Results - last 24 hr 10/01/22 10:23: WBC 3.7 L, RBC 4.54, Hgb 13.7, Hct 43.0, MCV 94.7, MCH 30.2, MCHC 31.9 L, RDW Std Deviation 46.2 H, RDW Coeff of Elva 13.2, Plt Count 88 L, MPV 11.7, Immature Gran % (Auto) 0.800, Neut % (Auto) 64.6, Lymph % (Auto) 26.0, Boyle % (Auto) 5.6, Eos % (Auto) 2.7, Baso % (Auto) 0.3, Absolute Neuts (auto) 2.4, Absolute Lymphs (auto) 0.97, Nucleated RBC % 0, Differential Comment SCANNED 10/01/22 10:23: PT 15.5 H, INR 1.3, APTT 35.3 10/01/22 10:23: Sodium 139, Potassium 4.0, Chloride 106, Carbon Dioxide 28.0, Anion Gap 5, BUN 9, Creatinine 0.63, Estim Creat Clear Calc 100.12, Est GFR (MDRD) Af Amer 123, Est GFR (MDRD) Non-Af 101, BUN/Creatinine Ratio 14.2, Glucose 142 H, Calcium 9.4, Troponin I High Sens 8 Radiology Impression Chest X-Ray 10/01/22 10:17 IMPRESSION: No acute abnormality is seen. Electronically Signed: Bryan Boyer MD at 11:03 EDT , Head/Neck CTA 10/01/22 10:17 IMPRESSION: Tiny lacuna in the right basal ganglia. Electronically Signed: Bryan Boyer MD at 12:22 EDT , Assessment & Plan Assessment/Plan (1) Brain TIA: PLAN: Plan Patient is a 63-year-old lady presented with subjective left-sided weakness headache and blurry vision 1. TIA ? Patient has been admitted to a monitored bed every 4 neurochecks ordered. As part of patient's management MRI of the brain ordered to rule out CVA. There was a question of patient having sinus arrhythmia versus A-fib. Placed on continuous telemetry monitoring. Also ordered a 2D echo 2.? Hypothyroidism - Patient is on levothyroxine home dose continued 3.? Hypertension - Blood pressure controlled, home medications continued with dose adjustment as needed ? Adjusted patient antihypertensive regiment given her relative bradycardia 4.? Dyslipidemia -Patient is on statin therapy, continued at home dose 5.? GERD ? Patient is on PPI did continue 6.? Nonalcoholic fatty liver disease with portal hypertensive gastropathy ? Patient is on rifaximin did continue 7.? Obstructive sleep apnea ? CPAP at night 8. Class II obesity with BMI of 39.4 ? Weight loss advised 9. DVT prophylaxis ? SC Lovenox Time spent in the patient's overall evaluation,decision-making process, review of diagnostic data, adjustment of management, discussion with other providers, nursing nursing and ancillary staff involved in patient's care documentation, 55 Minutes Charges/Coding Visit Charges Inpatient E&M: 62348 Subs Hosp L2
--- NOTE | 2022-10-01 13:09 | NURSING ---
pt amb to br with 1 assist. tori well but still reported felt slightly wobbly and unsteady.oscar still a 7.
[2022-10-01] MEDS: 0.9% Normal Saline 1,000 ML 100 ML IV (15:14)
[2022-10-01 17:05] LABS: Bedside Glucose 94 mg/dL (74-106)
[2022-10-01] MEDS: Acetaminophen 325 MG Tablet 650 MG PO (18:21)
--- NOTE | 2022-10-01 18:30 | MRI_ITS ---
STUDY: MRI BRAIN WITHOUT CONTRAST REASON FOR EXAM: Female, 62 years old. TIA TECHNIQUE: Standardized multiplanar fat and water weighted pulse sequences were obtained. COMPARISON: Same day head CT HEMISPHERES, CEREBELLUM AND BRAINSTEM: 1. The cerebral parenchyma, ventricular system, subarachnoid spaces have normal configuration. There is a normal gyral pattern. There is normal farnsworth/white differentiation. No midline shift.. 2. The hemispheric white matter has normal appearance. 3. No intraparenchymal mass, hemorrhage, or acute territorial infarct. 4. The cerebellum, brainstem, basilar and suprasellar cisterns have normal appearance. No Chiari malformation. PITUITARY: Infundibulum and pituitary have normal configuration. Midline structures appear normal. CSF SPACES: Appropriate for age. No hydrocephalus. Basal cisterns are patent. VESSELS: 1. There are normal flow voids noted in the great vessels at the skull base ORBITS AND PARANASAL SINUSES: 1. Both globes, extraocular muscles, optic nerves and retrobulbar fat appear unremarkable. 2. Paranasal sinuses are clear. BONY ELEMENTS: Bony elements of the cranial vault, facial skeleton and skull base have normal appearance. SCALP AND SOFT TISSUES: Normal appearance of the soft tissues of the scalp and the visualized face MRI/Brain without Contrast IMPRESSION: 1. No intracranial mass, hemorrhage, or acute territorial infarct. 2. No radiographically significant sinus disease. Electronically Signed: Howard Licea MD at 19:18 EDT ,
[2022-10-01] MEDS: Atorvastatin Calcium 20 MG Tablet PO (21:33)
[2022-10-01] MEDS: MELATONIN 3 MG TABLET PO (21:39)
[2022-10-01 22:06] LABS: Bedside Glucose 109 mg/dL (74-106)
[2022-10-01] MEDS: Metoprolol Tartrate 25 MG Tablet PO (22:06)
--- NOTE | 2022-10-02 00:40 | NURSING ---
pt has hx of adithya, sleeps with oral sleeping device at home. refuses o2/cpap here, stating she will be fine without it and her hr normally drops overnight
[2022-10-02 03:24] VITALS: BP 135/74; PULSE 71; RESP 16; TEMP 36.8; O2SAT 97
[2022-10-02 05:02] LABS: Absolute Lymphocyte Count 0.95 X10^3/uL (0.83-4.51); Basophil# 0.02 X10^3/uL; Basophil% 0.6 % (0-1); Eosinophil# 0.13 X10^3/uL; Eosinophils% 3.9 % (0-5); Hemoglobin 11.9 g/dL (12.0-15.0); Lymphocyte # 0.95 X10^3/ul (0.83-4.51); Lymphocyte % 28.7 % (19-41); Mean Corp Hgb Conc 31.3 g/dL (32-36); Mean Corpuscular Hgb 29.7 pg (27.0-32.0); Mean Corpuscular Volume 94.8 fL (81-99); Mean Platelet Vol. 11.9 fl (6.2-12.0); Monocyte# 0.25 X10^3/uL; Monocyte% 7.6 % (0-10); NRBC Flagged by Analyzer 0 % (0-5); Neutrophil # 1.95 X10^3/uL (2.7-7.7); Neutrophil % 58.9 % (47-70); POSITIVE COUNT YES; Platelet Count 78 K/mm3 (150-450); RBC Distribution Width CV 13.3 % (11.6-14.6); RBC Distribution Width SD 46.7 fl (35.1-43.9); Red Blood Count 4.01 M/mm3 (4.2-5.4); White Blood Count 3.3 K/mm3 (4.4-11.0)
[2022-10-02 05:25] LABS: Anion Gap 7 (5-15); BUN 8 mg/dL (7-18); BUN/Creat Ratio 13.5 RATIO (10-20); Calcium,Total 8.7 mg/dL (8.5-10.1); Chloride 106 mmol/L (98-107); Cholesterol 173 mg/dL (200); Creatinine, Serum 0.59 mg/dL (0.55-1.02); EST Glomerular Filtration Rate 110 mL/min (>60); Est Glom Filt Rate - Afr Amer 133 mL/min (>60); Estimated Creatinine Clearance 106.91 ml/min; Glucose 117 mg/dL (74-106); High Density Lipoprotein 61 mg/dL; Magnesium 1.8 mg/dL (1.6-2.6); Potassium 4.1 mmol/L (3.5-5.1); Sodium Level 138 mmol/L (136-145); Triglycerides 63 mg/dL; Very Low Density Lipoprotein 13 mg/dL (5-40)
[2022-10-02] MEDS: Levothyroxine 100 MCG Tablet PO (06:36)
[2022-10-02 07:14] VITALS: O2SAT 95
[2022-10-02 07:20] LABS: Bedside Glucose 116 mg/dL (74-106)
--- NOTE | 2022-10-02 08:07 | PN.HOSP_ITS ---
Reason for Visit Reason for Visit: Diagnoses Transient cerebral ischemic attack, unspecified (10/01/22) Subjective Subjective Patient is a 63-year-old lady presented with subjective left-sided weakness headache and blurry vision. Acute CVA was ruled out with a negative MRI Objective Data Objective Data Vital Signs: Vital Signs Temp Pulse Resp BP Pulse Ox O2 Del Method 98.2 F 71 16 135/74 H 95 Room Air 10/02/22 03:24 10/02/22 03:24 10/02/22 03:24 10/02/22 03:24 10/02/22 07:14 10/02/22 07:14 Oxygen Delivery Method Room Air Weight: 119.7 kg Body Mass Index (BMI) 37.8 Intake & Output: Intake and Output for Last 24 Hours 09/30/22 10/01/22 10/02/22 23:59 23:59 23:59 Intake Total 801.67 / 801.67 698.33 / 698.33 Output Total 0 / 0 Balance 801.67 / 801.67 698.33 / 698.33 Lab / Micro Data Result Diagrams: 10/02/22 04:24 10/02/22 04:24 Labs: Laboratory Results - last 24 hr 10/01/22 10:23: WBC 3.7 L, RBC 4.54, Hgb 13.7, Hct 43.0, MCV 94.7, MCH 30.2, MCHC 31.9 L, RDW Std Deviation 46.2 H, RDW Coeff of Elva 13.2, Plt Count 88 L, MPV 11.7, Immature Gran % (Auto) 0.800, Neut % (Auto) 64.6, Lymph % (Auto) 26.0, [place] % (Auto) 5.6, Eos % (Auto) 2.7, Baso % (Auto) 0.3, Absolute Neuts (auto) 2.4, Absolute Lymphs (auto) 0.97, Nucleated RBC % 0, Differential Comment SCANNED 10/01/22 10:23: PT 15.5 H, INR 1.3, APTT 35.3 10/01/22 10:23: Sodium 139, Potassium 4.0, Chloride 106, Carbon Dioxide 28.0, Anion Gap 5, BUN 9, Creatinine 0.63, Estim Creat Clear Calc 100.12, Est GFR (MDRD) Af Amer 123, Est GFR (MDRD) Non-Af 101, BUN/Creatinine Ratio 14.2, Glucose 142 H, Calcium 9.4, Troponin I High Sens 8 10/01/22 16:46: POC Glucose 94 10/01/22 21:31: POC Glucose 109 H 10/02/22 04:24: WBC 3.3 L, RBC 4.01 L, Hgb 11.9 L, Hct 38.0, MCV 94.8, MCH 29.7, MCHC 31.3 L, RDW Std Deviation 46.7 H, RDW Coeff of Elva 13.3, Plt Count 78 L, MPV 11.9, Immature Gran % (Auto) 0.300, Neut % (Auto) 58.9, Lymph % (Auto) 28.7, [place] % (Auto) 7.6, Eos % (Auto) 3.9, Baso % (Auto) 0.6, Absolute Neuts (auto) 2.0, Absolute Lymphs (auto) 0.95, Nucleated RBC % 0 10/02/22 04:24: Sodium 138, Potassium 4.1, Chloride 106, Carbon Dioxide 25.0, Anion Gap 7, BUN 8, Creatinine 0.59, Estim Creat Clear Calc 106.91, Est GFR (MDRD) Af Amer 133, Est GFR (MDRD) Non-Af 110, BUN/Creatinine Ratio 13.5, Glucose 117 H, Calcium 8.7, Magnesium 1.8, Triglycerides 63, Cholesterol 173, LDL Cholesterol 99, VLDL Cholesterol 13, HDL Cholesterol 61 10/02/22 06:35: POC Glucose 116 H Radiography Diagnostic Testing: Radiology Impression Chest X-Ray 10/01/22 10:17 IMPRESSION: No acute abnormality is seen. Electronically Signed: Bryan Boyer MD at 11:03 EDT , Head/Neck CTA 10/01/22 10:17 IMPRESSION: Tiny lacuna in the right basal ganglia. Electronically Signed: Bryan Boyer MD at 12:22 EDT , Brain MRI 10/01/22 18:30 IMPRESSION: 1. No intracranial mass, hemorrhage, or acute territorial infarct. 2. No radiographically significant sinus disease. Electronically Signed: Howard Licea MD at 19:18 EDT , Physical Exam Narrative GENERAL: cooperative HEENT: Atraumatic; normocephalic EYES; Anicteric, Normal Conjunctiva NECK; supple, normal thyroid, RESPIRATORY: Diminished to auscultation CARDIOVASCULAR:? Regular S1 S2, GI:? soft, normoactive bowel sounds, : No Renal angle tenderness; EXTREMITIES:? No edema, no clubbing, MUSCULOSKELETAL:? no muscle wasting NEURO:? Awake;? no lateralizing signs. SKIN:? No Rash PSYCH; Flat? affect Assessment & Plan Assessment/Plan (1) Brain TIA: PLAN: Plan Patient is a 63-year-old lady presented with subjective left-sided weakness headache and blurry vision 1. TIA ? Patient has been admitted to a monitored bed every 4 neurochecks ordered.? As part of patient's management MRI of the brain ordered to rule out CVA.? There was a question of patient having sinus arrhythmia versus A-fib.? Placed on continuous telemetry monitoring.? Also ordered a 2D echo ? MRI negative for acute CVA 2. Headaches ? Possibly related to migraine headaches plan is to treat symptomatically 2.? Hypothyroidism - Patient is on levothyroxine home dose continued 3.? Hypertension - Blood pressure controlled, home medications continued with dose adjustment as needed ? Adjusted patient antihypertensive regiment given her relative bradycardia 4.? Dyslipidemia -Patient is on statin therapy, continued at home dose 5.? GERD ? Patient is on PPI did continue 6.? Nonalcoholic fatty liver disease with portal hypertensive gastropathy ? Patient is on rifaximin did continue 7.? Obstructive sleep apnea ? CPAP at night 8.? Class II obesity with BMI of 39.4 ? Weight loss advised 9.? DVT prophylaxis ? SC Lovenox Time spent in the patient's overall evaluation,decision-making process, review of diagnostic data, adjustment of management, discussion with other providers, nursing nursing and ancillary staff involved in patient's care documentation, ? 35 Minutes Charges/Coding Visit Charges Inpatient E&M: 71037 Subs Hosp L2
[2022-10-02 09:12] VITALS: BP 145/55; PULSE 56; RESP 16; TEMP 36.6; O2SAT 100
[2022-10-02] MEDS: Aspirin 81 MG TAB.CHEW PO (09:15)
[2022-10-02] MEDS: Pantoprazole Sodium 20 MG Tablet PO (09:15)
[2022-10-02] MEDS: Sertraline 50 MG Tablet PO (09:15)
[2022-10-02] MEDS: Acetaminophen 325 MG Tablet 650 MG PO (09:15)
--- NOTE | 2022-10-02 09:47 | DS.PCM_ITS ---
Providers Date of Admission: 10/01/22 Date of Discharge: 10/02/22 Primary Care Physician: Dr. Zeeshan Chao MD Reason For Visit: TIA Diagnosis Discharge Diagnosis (1) Brain TIA: Status: Acute Code(s): G45.9 - Transient cerebral ischemic attack, unspecified Plan Patient is a 63-year-old lady presented with subjective left-sided weakness headache and blurry vision 1. TIA ? Patient has been admitted to a monitored bed every 4 neurochecks ordered.? As part of patient's management MRI of the brain ordered to rule out CVA.? There was a question of patient having sinus arrhythmia versus A-fib.? Placed on continuous telemetry monitoring.? ? MRI negative for acute CVA assessment was that patient had complex migraines. Plan is for patient to be treated symptomatically 2. Headaches ? Possibly related to migraine headaches plan is to treat symptomatically 2.? Hypothyroidism - Patient is on levothyroxine home dose continued 3.? Hypertension - Blood pressure controlled, home medications continued with dose adjustment as needed ? Adjusted patient antihypertensive regiment given her relative bradycardia 4.? Dyslipidemia -Patient is on statin therapy, continued at home dose 5.? GERD ? Patient is on PPI did continue 6.? Nonalcoholic fatty liver disease with portal hypertensive gastropathy ? Patient is on rifaximin did continue 7.? Obstructive sleep apnea ? CPAP at night 8.? Class II obesity with BMI of 39.4 ? Weight loss advised 9.? DVT prophylaxis ? SC Lovenox Time spent in the patient's overall evaluation,decision-making process, review of diagnostic data, adjustment of management, discussion with other providers, nursing nursing and ancillary staff involved in patient's care documentation, ? 35 Minutes Medications at Discharge Home Medications omeprazole 20 mg capsule,delayed release 20 mg PO DAILY GERD 09/19/14 sertraline 50 mg tablet 50 mg PO DAILY Mood 09/19/14 Oral Appliance #1 ea 09/26/20 albuterol sulfate 90 mcg/actuation aerosol inhaler (Ventolin HFA) 2 puff inhalation Q4H PRN shortness of breath or wheezing #18 grams 12/06/20 atorvastatin 20 mg tablet 20 mg PO QPM HLD 02/14/22 levothyroxine 75 mcg tablet 100 mcg PO DAILY thyroid 02/14/22 metformin 500 mg tablet,extended release 24 hr 1,000 mg PO BID DM 03/22/22 metoprolol tartrate 25 mg tablet 25 mg PO BID BP 06/04/22 acetaminophen 325 mg tablet 650 mg PO Q6H PRN PRN Pain 1-10 Or Fever>100.7 #0 tabs 10/02/22 Hospital Course Summary of Care Provided Minutes Spent on Discharge: 35 Physical Exam Narrative GENERAL: cooperative HEENT: Atraumatic; normocephalic EYES; Anicteric, Normal Conjunctiva NECK; supple, normal thyroid, RESPIRATORY: Diminished to auscultation CARDIOVASCULAR:? Regular S1 S2, GI:? soft, normoactive bowel sounds, : No Renal angle tenderness; EXTREMITIES:? No edema, no clubbing, MUSCULOSKELETAL:? no muscle wasting NEURO:? Awake;? no lateralizing signs. SKIN:? No Rash PSYCH; Flat? affect Weight / BMI Weight Weight: 119.7 kg Body Mass Index (BMI) 37.8 ABG / Lab / Microbiology Data Result Diagrams: 10/02/22 04:24 10/02/22 04:24 Laboratory: Laboratory Results - last 24 hr 10/01/22 10:23: WBC 3.7 L, RBC 4.54, Hgb 13.7, Hct 43.0, MCV 94.7, MCH 30.2, MCHC 31.9 L, RDW Std Deviation 46.2 H, RDW Coeff of Elva 13.2, Plt Count 88 L, MPV 11.7, Immature Gran % (Auto) 0.800, Neut % (Auto) 64.6, Lymph % (Auto) 26.0, [place] % (Auto) 5.6, Eos % (Auto) 2.7, Baso % (Auto) 0.3, Absolute Neuts (auto) 2.4, Absolute Lymphs (auto) 0.97, Nucleated RBC % 0, Differential Comment SCANNED 10/01/22 10:23: PT 15.5 H, INR 1.3, APTT 35.3 10/01/22 10:23: Sodium 139, Potassium 4.0, Chloride 106, Carbon Dioxide 28.0, Anion Gap 5, BUN 9, Creatinine 0.63, Estim Creat Clear Calc 100.12, Est GFR (MDRD) Af Amer 123, Est GFR (MDRD) Non-Af 101, BUN/Creatinine Ratio 14.2, Glucose 142 H, Calcium 9.4, Troponin I High Sens 8 10/01/22 16:46: POC Glucose 94 10/01/22 21:31: POC Glucose 109 H 10/02/22 04:24: WBC 3.3 L, RBC 4.01 L, Hgb 11.9 L, Hct 38.0, MCV 94.8, MCH 29.7, MCHC 31.3 L, RDW Std Deviation 46.7 H, RDW Coeff of Elva 13.3, Plt Count 78 L, MPV 11.9, Immature Gran % (Auto) 0.300, Neut % (Auto) 58.9, Lymph % (Auto) 28.7, [place] % (Auto) 7.6, Eos % (Auto) 3.9, Baso % (Auto) 0.6, Absolute Neuts (auto) 2.0, Absolute Lymphs (auto) 0.95, Nucleated RBC % 0 10/02/22 04:24: Sodium 138, Potassium 4.1, Chloride 106, Carbon Dioxide 25.0, Anion Gap 7, BUN 8, Creatinine 0.59, Estim Creat Clear Calc 106.91, Est GFR (MDRD) Af Amer 133, Est GFR (MDRD) Non-Af 110, BUN/Creatinine Ratio 13.5, Glucose 117 H, Calcium 8.7, Magnesium 1.8, Triglycerides 63, Cholesterol 173, LDL Cholesterol 99, VLDL Cholesterol 13, HDL Cholesterol 61 10/02/22 06:35: POC Glucose 116 H Radiography Diagnostic Testing: Radiology Impression Chest X-Ray 10/01/22 10:17 IMPRESSION: No acute abnormality is seen. Electronically Signed: Bryan Boyer MD at 11:03 EDT , Head/Neck CTA 10/01/22 10:17 IMPRESSION: Tiny lacuna in the right basal ganglia. Electronically Signed: Bryan Boyer MD at 12:22 EDT , Brain MRI 10/01/22 18:30 IMPRESSION: 1. No intracranial mass, hemorrhage, or acute territorial infarct. 2. No radiographically significant sinus disease. Electronically Signed: Howard Licea MD at 19:18 EDT , D/C Instructions Discharge Diet: 1800 Calorie Control Diet Discharge Activity: Return to Normal Activity Call your doctor if you observe: Fever of 101 or Higher, Shortness of breath, Fainting spells and Chest pain Meaningful Use Info Meaningful Use Diagnoses (Choose all that apply): None applicable Discharge Plan Admission Admit Date/Time: 10/01/22 12:40 Attending Provider: Donte Campuzano Primary Care Provider: Zeeshan Chao Instructions Forms: Work Excuse, Work / School Excuse Discharge Orders/Prescriptions Prescriptions: New acetaminophen 325 mg Tablet 650 mg PO Q6H PRN PRN (Reason: Pain 1-10 Or Fever>100.7) Qty: 0 0RF Continued albuterol sulfate [Ventolin HFA] 90 mcg/actuation HFA aerosol inhaler 2 puff inhalation Q4H PRN (Reason: shortness of breath or wheezing) Qty: 18 6RF atorvastatin 20 mg tablet 20 mg PO QPM levothyroxine 75 mcg tablet 100 mcg PO DAILY metformin 500 mg tablet extended release 24 hr 1,000 mg PO BID omeprazole 20 MG capsule 20 mg PO DAILY sertraline 50 MG tablet 50 mg PO DAILY metoprolol tartrate 25 mg tablet 25 mg PO BID (DME) Oral Appliance See Rx Instructions .Route .MEDSUPPLY Qty: 1 0RF Rx Instructions: As directed Referrals / Follow Up: Zeeshan Chao MD [Primary Care Provider] - In 1 Week Disposition Disposition (needs filled in before D/C Order can be placed): Home, Self Care Charges/Coding Visit Charges Inpatient E&M: 64580 Disch Hosp >30min
[2022-10-02 10:43] VITALS: PULSE 55
--- NOTE | 2022-10-02 11:35 | PHA.DC.MR ---
Pharmacy Service has performed discharge medication reconciliation for this patient. The patient's discharge medication list was reviewed for discrepancies and discrepancies were resolved. Home Medications omeprazole 20 mg capsule,delayed release 20 mg PO DAILY GERD 09/19/14 sertraline 50 mg tablet 50 mg PO DAILY Mood 09/19/14 Oral Appliance #1 ea 09/26/20 albuterol sulfate 90 mcg/actuation aerosol inhaler (Ventolin HFA) 2 puff inhalation Q4H PRN shortness of breath or wheezing #18 grams 12/06/20 atorvastatin 20 mg tablet 20 mg PO QPM HLD 02/14/22 levothyroxine 75 mcg tablet 100 mcg PO DAILY thyroid 02/14/22 metformin 500 mg tablet,extended release 24 hr 1,000 mg PO BID DM 03/22/22 metoprolol tartrate 25 mg tablet 25 mg PO BID BP 06/04/22 acetaminophen 325 mg tablet 650 mg PO Q6H PRN PRN Pain 1-10 Or Fever>100.7 #0 tabs 10/02/22
[2022-10-03 08:25] LABS: Bedside Glucose 130 mg/dL (74-106)
== END 2022-10-02 09:52 | disposition home or self-care (01) ==
LOC: ED 12:39 → PCU 13:34
PROVIDERS: Admitting Provider Internal Medicine; Emergency Provider Emergency Medicine; PCP Family Medicine; Visit Provider Internal Medicine
DX: G45.9 Transient cerebral ischemic attack, unspecified (principal); M06.9 Rheumatoid arthritis, unspecified; M32.9 Systemic lupus erythematosus, unspecified; E11.9 Type 2 diabetes mellitus without complications; Z79.84 Long term (current) use of oral hypoglycemic drugs; E78.5 Hyperlipidemia, unspecified; Z68.39 Body mass index [BMI] 39.0-39.9, adult; I10 Essential (primary) hypertension; Z86.16 Personal history of COVID-19; E03.9 Hypothyroidism, unspecified; E66.9 Obesity, unspecified; Z79.899 Other long term (current) drug therapy; R42 Dizziness and giddiness; R51.9 Headache, unspecified; Z79.890 Hormone replacement therapy; K21.9 Gastro-esophageal reflux disease without esophagitis; G47.33 Obstructive sleep apnea (adult) (pediatric)
CPT/HCPCS: 36415; 70496; 70498; 70551; 71045; 80048; 80061; 82962; 83735; 84484; 85025; 85610; 85730; 93005; 94762; 96360; 96361; 97162; 97166; 97530; 97535; 97802; 99221; 99285; J7030; Q9967; A4216; G0378

== ENCOUNTER 2022-10-29 17:00 | Outpatient (RCR) | payer OTHER, SELFPAY ==
--- NOTE | 2022-09-10 11:43 | HP.PTEVAL_ITS ---
Patient's Visit Information MARYLOU MARIE is a 62 year old F referred to Physical Therapy by Dr. Michele العلي DO with a diagnosis of presence of R artificail knee joint.. Date of Evaluation: 09/10/22 Physical Therapist: Jin Damon, DPT, OCS, CSCS - Visit Plan Frequency: 3x /Week Duration: 4-6 Weeks Plan: 3x/week for 4-6 for. 1/ patella mobs and knee A/PROM B, rollout and stretch HS and quad, R DF strength. 2. strengthen B LE and focus on progressing to gym program patient can do I as member when finished. - Subjective Gos by Chichi. I fell 3x. Fell down steps at home, landed on knee. Not sure how it happened. R knee hurts like heck and has for long time but worse after fall. X rays says implant is good. TKA was 05/30 2022. Fell 3 weeks ago and last one was a week ago. No falls prior. Feels like knee gives out on her. No dizzyness. No neuroapthy. Knee gave out before replacement but not since until this time. Uses cane to get longer distances but not at home. Steps require bannisters. Doing exercises at home from TKA including bending knee and stand knee flexion stretch and stretching hamstrings. Not doing any strengthening. Sleep is interrupted in that it is uncomfortable on her side which is how she sleeps. 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 , worse at end of day. Tries to get up every hour or so. On FMLA for last two weeks. Has not improved being off work. Spends day doing not much. Walks along road 1/4 mile. Worse after she walks. Lives with housemate that is not home all the time. Basic ADLS shower and dress, bathroom all I. Cooks and cleans. Hobbies: enjoys yard work and gardening. - Pain R knee Pain Intensity (Out of 10): 2 Pain Intensity Range: 0, 7 Comment: worse sit too long and try to get up. - Objective Ambulates with cane in R UE into PT mod I, slow with short steps. Trasnfers bed and chair I. Steps reciprocal with two rail, R painful and weaker. R knee stays bent in WB. Stand balance is good eo adn ec. L knee AROM 0-105, R knee AROM -4 to 104, painful to put OP on R flex and ext. L painful with OP flexion, all posteriorly. HS and quad max tight B. Hip ROM WFL B, extension limited due to tightness to around 4 degrees. Ankle aROM WFL on L and R is -4 DF due to foot drop from back problems 20+ yrs ago. weakness DF 3, PF 3, ev/inv 3+. patella very stiff on R. reflexes 1/3 patella and achilles. Sensation LE WNL to gross light touch B. Strength knees ext 3+ R and 4- L and flexion 4- B. hip abd and ext 3 and flexion 3+ B. Overall balance looks good but patient has pain, poor flexibility, ROM dieficits in knees and weakness that can exacerbate problem. Needs to be on intermediate manager strength. - Balance/Special Test Scores Functional Gait Assessment Score: 27 % Disability: 10.0000 Lower Extremity Functional Score: 24 - Goals Goal 1:: 0-115 AROM B knees to help with steps Goal Time Frame: 4-6 Weeks Goal 2:: Pain in knees 2/10 at worst and 75% improved. Goal Time Frame: 4-6 Weeks Goal 3:: i apporp HEP for strength gym and rom , stretching. Goal Time Frame: 4-6 Weeks Goal 4:: Walk without hesitation. Goal Time Frame: 4-6 Weeks Goal 5:: 44 LEFS Goal Time Frame: 4-6 Weeks - Rehabilitation Potential Physical Therapy Diagnosis: R LE wekaness and ROM deficits contirbuting to pain. Rehabilitation Potential: Questionable - Anticipated Interventions Patient/Client Instruction: Educate patient on: Condition, Plan of Care For the Purpose of:: To decrease pain, To increase ROM, To improve muscle performance and motor function, To increase tolerance to activity/condition/position, To improve ability of physical actions for home/community/work/leisure, To improve gait and locomotor functions Therapeutic Exercise to Include: Strength training, Flexibilty training, Gait and locomotor training, Passive ROM, Active ROM For the Purpose of:: To decrease pain, To increase ROM, To improve nutrient delivery to tissue, To improve muscle performance and motor function, To improve ability to perform ADL's, To improve gait and locomotor functions Manual Therapy Techniques to Include: Soft tissue mobilization For the Purpose of:: To increase ROM Thank you for the opportunity to evaluate your patient. For Medicare and Medicare HMO plans, please review the plan of care and approve it. It will need to be FAXED BACK to us at [phone] for Medicare purposes. For Medicare only, by signing this I certify the plan of care. Please let me know if there are questions or concerns regarding this plan of care. Physician Signature: Date:
--- NOTE | 2022-10-29 17:18 | HP.PTDCSUM ---
It has been my pleasure to treat MARYLOU MARIE referred by Dr. Michele العلي DO, with the diagnosis of presence of R artificail knee joint. for a total of 11 visit(s). Discharge Date: 10/29/22 Please see the following information for a summary of their discharge status. Subjective: No pain. Better about 90%. Just some stiffness. Sleeping well. To doctor in November. Life is normal at home, doing exercises at home. Would like to join and try herself. R knee Pain Intensity (Out of 10): 0 % Improvement: 90 Objective/Function: -2 to 114 AROM today, walking well and can get most extension with cues, needs VC to take much bigger steps which smooths out her gait pattern, no antalgia. Steps reciprocal with one rail. Ready to be on her own and will join and continue. Goal 1:: 0-115 AROM B knees to help with steps Goal Progress: -2-116 Goal 2:: Pain in knees 2/10 at worst and 75% improved. Goal Progress: Goal Met Goal 3:: i apporp HEP for strength gym and rom , stretching. Goal Progress: Goal Met Goal 4:: Walk without hesitation. Goal Progress: Goal Met Goal 5:: 44 LEFS Goal Progress: Goal Met Plan: d/c to HEP If there are questions or concerns regarding this patient's physical therapy, please feel free to call me at [phone]. Thank you for the referral of this patient. Sincerely, Jin Damon, DPT, OCS, CSCS Balance/Gait/Functional tests - Balance/Special Test Scores Functional Gait Assessment Score: 27 % Disability: 10.0000 Lower Extremity Functional Score: 58
== END 2022-10-29 19:00 | disposition home or self-care (01) ==
LOC: PT 17:00
PROVIDERS: PCP Family Medicine; Referring Provider Student in an Organized Health Care Education/Training Program; Visit Provider Student in an Organized Health Care Education/Training Program
DX: Z96.651 Presence of right artificial knee joint (principal)
CPT/HCPCS: 97110; 97162; 97164; 97530

== ENCOUNTER → 2022-10-29 | Outpatient (CLI) | payer OTHER, SELFPAY ==
--- NOTE | 2022-10-29 14:01 | VDLE_ITS ---
Reason For Study: Swelling RIGHT LEFT GSV is normal. CFV is compressible, spontaneous, phasic, CFV is compressible, spontaneous, phasic, competent, and demonstrates normal competent and demonstrates normal augmentation. augmentation. FV is compressible, spontaneous, phasic, competent and demonstrates normal augmentation. POP V is compressible, spontaneous, phasic, competent and demonstrates normal augmentation. T/P Trunk is compressible. PTV is compressible. RT PerV is compressible. Procedure This is a venous duplex using B-mode, color flow and spectral Doppler. Exam performed in department. A preliminary report was called and/or faxed to [facility]. VL/Venous Duplex US, Unilateral Interpretation Summary There is no evidence of right lower extremity deep vein thrombosis. Right great saphenous vein appears patent and compressible segmentally. Normal flow patterns left common f emoral vein Ordering Physician: ROCIO ALLISON Referring Physician: Zeeshan Chao Performed By: Keyana Hester RVT
== END | disposition home or self-care (01) ==
LOC: CVS 14:00
PROVIDERS: PCP Family Medicine; Referring Provider Internal Medicine; Visit Provider Internal Medicine
DX: M06.4 Inflammatory polyarthropathy (principal); X58.XXXA Exposure to other specified factors, initial encounter; M79.89 Other specified soft tissue disorders; M79.641 Pain in right hand; M79.642 Pain in left hand; M15.9 Polyosteoarthritis, unspecified; R76.8 Other specified abnormal immunological findings in serum; R70.0 Elevated erythrocyte sedimentation rate; R01.1 Cardiac murmur, unspecified
CPT/HCPCS: 93971

== ENCOUNTER 2022-10-30 07:41 | Day surgery (SDC) | payer OTHER, SELFPAY ==
[2022-10-30] VITALS (7 sets, daily range): BP systolic 101–132; BP diastolic 50–57; PULSE 45–55; RESP 16–20; TEMP 36.1–36.2; O2SAT 93–98; BMI 37.9
[2022-10-30] MEDS: Lactated Ringers 1,000 ML 15 ML IV (08:17)
[2022-10-30 08:31] LABS: Bedside Glucose 108 mg/dL (74-106)
--- NOTE | 2022-10-30 08:44 | PCM.HP.BLA ---
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 Last office visit was 04/24/22; at that time cirrhosis was suspected due to varices in distal third of esophagus, portal hypertensive gastropathy, thrombocytopenia, elevated ammonia. Liver biopsy 04/2022 confirmed cirrhosis. Having at least 2 BMs daily w/o taking anything. She didn't tolerate lactulose (caused vomiting). Xifaxan is cost-prohibitive; she will try co-pay card or apply for the pt assistance program for it; I gave her some samples today for 550 mg bid. She reports brain fog, seems worse recently. Not sleeping well currently due to knee pain. Very tired during the day. No jaundice. No pruritus. No bleeding. No ascites. No change in R>L ankle swelling. I'm not depressed but this is depressing--has multiple health issues lately; has good support from friends and family. ussion of EGD and colonoscopy results. On EGD she had varices in the lower third of the esophagus as well as portal hypertensive gastropathy, both suggestive of cirrhosis in the setting of thrombocytopenia. She has a small hiatal hernia. On colonoscopy, 2 polyps were removed, one was tubular adenoma. Five bleeding colonic angiodysplastic lesions were treated. She has had no rectal bleeding since colonoscopy; she had been having intermittent rectal bleeding for the past year. She is hoping to get GI clearance to have right total knee replacement by Dr العلي. Possible cirrhosis -- On 04/2022 EGD she had varices in the lower third of the esophagus as well as portal hypertensive gastropathy, both suggestive of cirrhosis in the setting of thrombocytopenia. She has hepatomegaly and mild splenomegaly. AST, ALT and alk phos have been elevated. She did not have significant fibrosis per liver elastography in 03/2022--6.7 kpa . She notes forgetfulness. No bleeding. No ascites. Mild LE ankle edema if standing or sitting all day. No jaundice. No pruritus. 03/2022 labs: esr 34, INR 1.3, hgb a1c 7.0, bili 0.6, GGT 82, ast 68, alt 51, alk phos 141, ammonia 70, crp 8.6, positive anti-SS-A and positive [employer] antibody ROS Const Constitutional: Positive for fatigue, frequent falls and weakness ENT ENT: No difficulty swallowing Gastro GI: Positive for bloating and excessive flatus; No abdominal pain, belching, change in bowel habits, change in stool character, coffee ground emesis, constipation, cramping, diarrhea, heartburn, difficulty swallowing, feeling full early, incontinent of stools, Vomiting blood/hematemesis, Blood in stool, loose stools, Black,tarry stools, nausea/dyspepsia, pain with swallowing, vomiting or other Musc Musculoskeletal: Positive for abnormal gait, joint pain, joint swelling, muscle weakness, stiffness and Arthritis Skin Skin: No yellowing of the eye or itchy eyes Neuro Neurology: Positive for abnormal gait, weakness and frequent falls Psych Psychiatric: No anxiety and No depression Endo Endocrine: Positive for fatigue Aller/Imm Allergy/Immunologic: No itchy eyes Vel/Lymp Hematologic/Lymphatic: No easy bleeding or easy bruising Exam Const General: cooperative Nutritional Appearance: obese Orientation: alert, awake and oriented x3 Other: using a cane Eyes Sclera: sclerae normal Resp Effort & Inspection: normal respiratory effort Skin General: no rashes or lesions noted and no jaundice Extrem Other: mild edema right foot/ankle Psych Mood: congruent mood Quality Reporting Tobacco Screening ([facility] 138) Smoking Status: Never smoker Assessment and Plan Assessment and Plan (1) Cirrhosis of liver: ?Status:?Chronic ?Plan: 62 yr old female with 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 ? ? Orders: Orders Comprehensive Metabolic Profil Today K74.60 - Unspecified cirrhosis of liver ? CRP Today K74.60 - Unspecified cirrhosis of liver ? Prothrombin Time w/INR Today K74.60 - Unspecified cirrhosis of liver ? CBC W/Diff, Automated Today K74.60 - Unspecified cirrhosis of liver ? Erythrocyte Sed Rate Today K74.60 - Unspecified cirrhosis of liver ? Ammonia Today K74.60 - Unspecified cirrhosis of liver ? I have examined the patient and the H&P has been reviewed. There are no clinical changes since date of exam.
--- NOTE | 2022-10-30 08:45 | IMM_PTH ---
PATIENT: MARYLOU MARIE LOC: EN U#:[id number] AGE/SX: 62/F ROOM: RE10/30/[address]: Dr. Marvin Connor DO : 1960 BED: DIS: 10/30/2022 SPEC #: [id number] RECD: 10/30/22 14:03 STATUS: KARYN REQ #: [id number] PRAVEEN: 10/30/22 08:[address]: Marvin Connor DEPT: IMMUNOHISTOCHEMISTRY RECD BY: Kamila Ho ENTERED: 10/30/22 14:04 SP TYPE: IMMUNO OTHR DR: Dr. Zeeshan Chao MD Tissues: Stomach, NOS Procedures: H Pylori (initial) PHYSICIAN & INSTITUTION [place] [address] SPECIMEN INFORMATION: Tissue Source: Gastric cardia Clinical Info: Cirrhosis of liver Specimen Number: [id number] CPT code: 68960 METHODOLOGY: Deparaffinized sections of prefer/formalin-fixed tissue or PAP/DQ stained slides are incubated with monoclonal/polyclonal antibodies/oligonucleotide probes. Localization is made via biotin free immunoperoxidase method. Appropriate controls are performed and reacted as expected. Results on target cell population are indicated in the following table: RESULTS: ANTIBODY / CLONE RESULT H Pylori (polyclonal) negative These tests were developed and their performance characteristics determined by [facility]. They may not have been cleared or approved by the U.S. Food and Drug Administration. The FDA has determined that such clearance or approval is not necessary. The above immunohistochemical/dualISH markers are ordered and reviewed by the Pathologist. INTERPRETATION: Gastric cardia, biopsy: Negative for Helicobacter pylori organisms. SJ:yesy 11/01/2022
--- NOTE | 2022-10-30 08:45 | EGD_PTH ---
PATIENT: MARYLOU MARIE LOC: EN U#:[id number] AGE/SX: 62/F ROOM: RE10/30/[address]: Dr. Marvin Connor DO : 1960 BED: DIS: 10/30/2022 SPEC #: [id number] RECD: 10/30/22 12:55 STATUS: KARYN RERodolfo #: [id number] PRAVEEN: 10/30/22 08:[address]: Marvin Connor DEPT: SURGICAL PATHOLOGY RECD BY: Tigre Vogel ENTERED: 10/30/22 13:44 SP TYPE: EGD BIOPSY OT DR: Dr. Zeeshan Chao MD Tissues: Gastric mucous membrane Procedures: Surgery Specimen Level IV HEADER OPERATION: EGD ([facility]) with biopsy PRE-OP DIAGNOSIS: Cirrhosis of liver TISSUE SUBMITTED: Gastric cardia biopsy MICROSCOPIC DIAGNOSIS Gastric cardia, biopsy: Mild gastritis. See microscopic description and comment. SJ:yesy 10/31/2022 COMMENT The results of immunohistochemistry for Helicobacter pylori will be reported separately ([id number]). MICROSCOPIC DESCRIPTION Slides are reviewed. The specimen shows fragments of gastric mucosa with chronic inflammatory cell infiltrates in the lamina propria consisting of lymphocytes and plasma cells, consistent with mild chronic gastritis. GROSS DESCRIPTION Received in fixative is one container labeled with the patient's name and designated gastric cardia biopsy. The specimen consists of two irregular fragments of light leiva soft tissue that in aggregate measure 0.6 x 0.5 x 0.1 cm. The specimen is totally submitted in one cassette. / ERIC:yesy 10/30/2022 TC:3 CPT: 90446
--- NOTE | 2022-10-30 09:03 | OP.EGD_ITS ---
Patient Name: Ava Lovell Procedure Date: 10/30/2022 8:41 AM Date of : 1960 Age: 62 Procedure: Upper GI endoscopy Indications: Esophageal varices Providers: Marvin Connor DO Referring MD: Zeeshan Chao Medicines: Monitored Anesthesia Care Patient Profile: This is a 62 year old female. Refer to note in patient chart for documentation of history and physical. Patient has symptoms of chronic nausea. Complications: No immediate complications. Procedure: Pre-Anesthesia Assessment: - Prior to the procedure, a History and Physical was performed, and patient medications and allergies were reviewed. The risks and benefits of the procedure and the sedation options and risks were discussed with the patient. All questions were answered and informed consent was obtained. Patient identification and proposed procedure were verified by the physician. Mental Status Examination: normal. Airway Examination: normal oropharyngeal airway and neck mobility. Respiratory Examination: clear to auscultation. CV Examination: normal. Prophylactic Antibiotics: The patient does not require prophylactic antibiotics. Prior Anticoagulants: The patient has taken no previous anticoagulant or antiplatelet agents. After reviewing the risks and benefits, the patient was deemed in satisfactory condition to undergo the procedure. The anesthesia plan was to use monitored anesthesia care (MAC). Immediately prior to administration of medications, the patient was re-assessed for adequacy to receive sedatives. The heart rate, respiratory rate, oxygen saturations, blood pressure, adequacy of pulmonary ventilation, and response to care were monitored throughout the procedure. The physical status of the patient was re-assessed after the procedure. After obtaining informed consent, the endoscope was passed under direct vision. Throughout the procedure, the patient's blood pressure, pulse, and oxygen saturations were monitored continuously. The gastroscope was introduced through the mouth, and advanced to the second part of duodenum. The upper GI endoscopy was accomplished without difficulty. The patient tolerated the procedure well. Scope In: 8:54:07 AM Scope Out: 8:57:32 AM Total Procedure Duration Time 0 hours 3 minutes 25 seconds Findings: Grade I varices were found in the lower third of the esophagus. They were 3 mm in largest diameter. Mild portal hypertensive gastropathy was found in the cardia, in the gastric fundus and in the gastric body. Biopsies were taken with a cold forceps for histology. Verification of patient identification for the specimen was done. Estimated blood loss was minimal. The first portion of the duodenum was normal. Impression: - Grade I esophageal varices. - Portal hypertensive gastropathy. Biopsied. - Normal first portion of the duodenum. Recommendation: - Discharge patient to home. - Resume previous diet. - Continue present medications. - Await pathology results. - Repeat upper endoscopy in 4 months for surveillance. Procedure Code(s): --- Professional --- 37892, Esophagogastroduodenoscopy, flexible, transoral; with biopsy, single or multiple CPT copyright 2017 [employer]. All rights reserved. The codes documented in this report are preliminary and upon sprinkler irrigation equipment mechanic review may be revised to meet current compliance requirements. Marvin Connor DO 10/30/2022 9:02:45 AM This report has been signed electronically. Number of Addenda: 0 Note Initiated On: 10/30/2022 8:41 AM
--- NOTE | 2022-10-30 09:03 | OP.CCLET_ITS ---
10/30/2022 Zeeshan Chao Re : Upper GI endoscopy procedure for Ava Lovell Dear Jeremie This procedure was performed on Sunday, October 30, 2022. My impressions and recommendations are as follows: Impressions : - Grade I esophageal varices. - Portal hypertensive gastropathy. Biopsied. - Normal first portion of the duodenum. Recommendations : - Discharge patient to home. - Resume previous diet. - Continue present medications. - Await pathology results. - Repeat upper endoscopy in 4 months for surveillance. My findings are described in the full procedure note, which is enclosed. If I can be of further assistance, please feel free to contact me at . Sincerely, Marvin Connor, 10/30/2022 9:02:45 AM This report has been signed electronically.
== END 2022-10-30 09:37 | disposition home or self-care (01) ==
LOC: EN 07:42 → AC 07:43
PROVIDERS: PCP Family Medicine; Referring Provider Family Medicine; Visit Provider Internal Medicine Gastroenterology
PROC: 0DJ08ZZ Inspection of Upper Intestinal Tract, Via Natural or Artificial Opening Endoscopic (ICD-10-PCS; CPT 43235; principal; 2022-10-30 08:40)
DX: K76.6 Portal hypertension (principal); I85.00 Esophageal varices without bleeding; K74.60 Unspecified cirrhosis of liver; E11.9 Type 2 diabetes mellitus without complications; K31.89 Other diseases of stomach and duodenum; K29.70 Gastritis, unspecified, without bleeding; E66.9 Obesity, unspecified; K21.9 Gastro-esophageal reflux disease without esophagitis; E78.5 Hyperlipidemia, unspecified; F32.A Depression, unspecified; E03.9 Hypothyroidism, unspecified; G47.33 Obstructive sleep apnea (adult) (pediatric); Z86.16 Personal history of COVID-19; Z86.73 Personal history of transient ischemic attack (TIA), and cerebral infarction without residual deficits; Z79.899 Other long term (current) drug therapy; Z79.84 Long term (current) use of oral hypoglycemic drugs
CPT/HCPCS: 43239; 82962; 88305; 88342; J7120; J2405

== ENCOUNTER → 2022-12-31 | Outpatient (CLI) | payer OTHER, SELFPAY ==
--- NOTE | 2022-12-31 09:45 | RAD_ITS ---
INDICATION: CHRONIC COUGH EXAMINATION/TECHNIQUE: X-RAY - XR Chest 2 Views COMPARISON: April 02, 2022 chest x-ray FINDINGS: LINES/DEVICES: None. LUNGS: Symmetric normal lung volumes. No airspace opacity or abnormal interstitial pattern. No nodule or mass. No pleural effusion or pneumothorax. MEDIASTINUM AND CARDIOVASCULAR STRUCTURES: Normal size and contour of the cardiomediastinal silhouette. No evidence of pulmonary vascular congestion. BONES AND SOFT TISSUES: No fracture or focal osseous lesion. Distal cervical spine anterior fusion plate and probable disc spacer hardware unchanged compared to prior exam. Following osteophytes spine likely representing diffuse idiopathic skeletal hyperostosis. RAD/Chest PA and Lateral IMPRESSION: 1. No radiographic evidence of acute cardiopulmonary disease. Electronically Signed: Ryan Sandra DO at 20:04 EDT ,
== END | disposition home or self-care (01) ==
LOC: RAD 09:40
PROVIDERS: PCP Family Medicine; Referring Provider Internal Medicine; Visit Provider Internal Medicine
DX: R05.3 Chronic cough (principal)
CPT/HCPCS: 71046

== ENCOUNTER 2023-02-12 05:28 | Day surgery (SDC) | payer OTHER, SELFPAY ==
[2023-02-12 05:55] VITALS: BP 130/78; PULSE 56; RESP 18; TEMP 36.5; O2SAT 99; BMI 39.5
[2023-02-12] MEDS: Lactated Ringers 1,000 ML 15 ML IV (06:04)
--- NOTE | 2023-02-12 06:30 | IMM_PTH ---
PATIENT: MARYLOU MARIE LOC: EN U#:[id number] AGE/SX: 62/F ROOM: RE02/12/[address]: Dr. Marvin Connor DO : 1960 BED: DIS: 02/12/2023 SPEC #: [id number] RECD: 02/12/23 10:24 STATUS: KARYN RERodolfo #: [id number] PRAVEEN: 02/12/23 06:[address]: Marvin Connor DEPT: IMMUNOHISTOCHEMISTRY RECD BY: Kamila Ho ENTERED: 02/12/23 10:25 SP TYPE: IMMUNO OTHR DR: Dr. Zeeshan Chao MD Tissues: A - Stomach, NOS Procedures: H Pylori (initial) PHYSICIAN & INSTITUTION [place] [address] SPECIMEN INFORMATION: Tissue Source: A - Gastric antrum ulcer Clinical Info: Cirrhosis of liver Specimen Number: [id number] CPT code: 65624 METHODOLOGY: Deparaffinized sections of prefer/formalin-fixed tissue or PAP/DQ stained slides are incubated with monoclonal/polyclonal antibodies/oligonucleotide probes. Localization is made via biotin free immunoperoxidase method. Appropriate controls are performed and reacted as expected. Results on target cell population are indicated in the following table: RESULTS: ANTIBODY / CLONE RESULT Block A H Pylori (polyclonal) negative These tests were developed and their performance characteristics determined by [facility]. They may not have been cleared or approved by the U.S. Food and Drug Administration. The FDA has determined that such clearance or approval is not necessary. The above immunohistochemical/dualISH markers are ordered and reviewed by the Pathologist. INTERPRETATION: A. Gastric antrum ulcer, biopsy: Negative for Helicobacter pylori organisms. AM:yesy 02/13/2023
--- NOTE | 2023-02-12 06:30 | EGD_PTH ---
PATIENT: MARYLOU MARIE LOC: EN U#:[id number] AGE/SX: 62/F ROOM: RE02/12/[address]: Dr. Marvin Connor DO : 1960 BED: DIS: 02/12/2023 SPEC #: [id number] RECD: 02/12/23 08:10 STATUS: KARYN OLIVER #: [id number] PRAVEEN: 02/12/23 06:[address]: Marvin Connor DEPT: SURGICAL PATHOLOGY RECD BY: Magnolia Edwards ENTERED: 02/12/23 09:45 SP TYPE: EGD BIOPSY OT DR: Dr. Zeeshan Chao MD Tissues: A - Gastric mucous membrane B - Gastric mucous membrane Procedures: Surgery Specimen Level IV HEADER OPERATION: [place] biopsy PRE-OP DIAGNOSIS: Cirrhosis of liver TISSUE SUBMITTED: A - Gastric antrum ulcer biopsy for histo and H. pylori, B - Gastric body biopsy MICROSCOPIC DIAGNOSIS A. Gastric antrum ulcer, biopsy: Focal mucosal ulceration with acute and chronic inflammation. See comment. B. Gastric body, biopsy: Chronic gastritis. AM:yesy 02/13/2023 COMMENT A. The results of immunohistochemistry for Helicobacter pylori will be reported separately ([id number]). MICROSCOPIC DESCRIPTION Slides are reviewed. GROSS DESCRIPTION A - Received in fixative is one container labeled with the patient's name and designated gastric antrum. The specimen consists of two irregular fragments of light leiva soft tissue that in aggregate measure 0.8 x 0.5 x 0.1 cm. The specimen is totally submitted in one cassette. B - Received in fixative is one container labeled with the patient's name and designated gastric body biopsy. The specimen consists of two irregular fragments of light leiva soft tissue that in aggregate measure 0.8 x 0.7 x 0.1 cm. The specimen is totally submitted in one cassette. / AM:yesy 02/12/2023 TC:3 CPT: 01753 x2
--- NOTE | 2023-02-12 06:32 | HP.PCM_ITS ---
History and Physical Date of Admission: 02/12/23 Chief Complaint: f/u EVERETT cirrhosis Details: MARYLOU MARIE, is a 62 F who presents to the office today for f/u EVERETT cirrhosis. She had EGD on 10/30/22 to f/u esophageal varices and portal hypertensive gastropathy, no significant change since last EGD in 04/202222. Grade I esophageal varices, portal hypertensive gastropathy; mild gastritis on bx, neg H pylori. Dr Connor recommends repeat EGD in 4 mos. Last office visit was 09/30/22. Since then she had a TIA. Still extremely tired. Sleep is better as long as she stays off her right side (since right knee hurts). Still with brain fog. Lots of stress. Looking forward to retiring at the end of the year. Taking miralax daily, having 2 BMs per day, less bloating and gas. Since she didn't tolerate lactulose or xifaxan for HE we have her taking miralax. She is on a selective beta lonnie. No jaundice. No pruritus. No bleeding. No ascites. No change in R>L ankle swelling. Has furosemide 20 mg pills at home. 09/2022 MELD 9 Cirrhosis due to EVERETT -- On 04/2022 EGD she had varices in the lower third of the esophagus as well as portal hypertensive gastropathy, both suggestive of cirrhosis in the setting of thrombocytopenia. She has hepatomegaly and mild splenomegaly. AST, ALT and alk phos have been elevated. She did not have signifi cant fibrosis per liver elastography in 03/2022--6.7 kpa. 04/2022 liver biopsy confirmed cirrhosis. 10/30/22 EGD Impression: ? - Grade I esophageal varices. ? - Portal hypertensive gastropathy. Biopsied. ? - Normal first portion of the duodenum. MICROSCOPIC DIAGNOSIS Gastric cardia, biopsy: Mild gastritis Negative H pylori ROS Const Constitutional: Positive for fatigue and weakness ENT ENT: Positive for difficulty swallowing Cardio Cardiology: Positive for leg pain with exertion Gastro GI: Positive for bloating, difficulty swallowing and excessive flatus; No abdominal pain, belching, change in bowel habits, change in stool character, coffee ground emesis, constipation, cramping, diarrhea, heartburn, feeling full early, incontinent of stools, Vomiting blood/hematemesis, Blood in stool, loose stools, Black,tarry stools, nausea/dyspepsia, pain with swallowing, vomiting or other Musc Musculoskeletal: Positive for abnormal gait, joint pain, back pain, joint swelling, stiffness, Arthritis, leg pain at night and leg pain with exertion Skin Skin: No yellowing of the eye or itchy eyes Neuro Neurology: Positive for abnormal gait and weakness Psych Psychiatric: No anxiety and No depression Endo Endocrine: Positive for fatigue Aller/Imm Allergy/Immunologic: No itchy eyes Vel/Lymp Hematologic/Lymphatic: No easy bleeding or easy bruising Exam Const General: cooperative and comfortable Nutritional Appearance: obese Orientation: alert, awake and oriented x3 Eyes Sclera: sclerae normal Resp Effort & Inspection: normal respiratory effort GI Inspection: normal to inspection Palpation: soft, no masses and nontender Skin General: no rashes or lesions noted Psych Mood: congruent mood Quality Reporting Tobacco Screening ([facility] 138) Smoking Status: Never smoker Assessment and Plan Assessment and Plan (1) Cirrhosis of liver: Status: Chronic Plan: We reviewed EGD finding, next EGD in 4 mos, with office f/u 2 wks later Continue miralax to promote BMs, may need to add neomycin for HE prevention, didn't tolerate lactulose or xifaxan Add furosemide and spironolactone, check labs in 1-2 wks MELD 9 in 09/2022, will update labs in 2 mos I have examined the patient and the H&P has been reviewed. There are no clinical changes since date of exam.
[2023-02-12 06:46] LABS: Bedside Glucose 113 mg/dL (74-106)
[2023-02-12 06:50] VITALS: BP 112/58; BP 130/78; PULSE 58; RESP 16; TEMP 36.2; O2SAT 96
[2023-02-12 06:55] VITALS: BP 108/58; BP 130/78; PULSE 56; RESP 16; O2SAT 96
--- NOTE | 2023-02-12 06:56 | OP.EGD_ITS ---
Patient Name: Ava Lovell Procedure Date: 02/12/2023 6:32 AM Date of : 1960 Age: 62 Procedure: Upper GI endoscopy Indications: Follow-up of esophageal varices Providers: DO Rod Maldonado MD: Zeeshan Chao Medicines: Monitored Anesthesia Care Patient Profile: This is a 62 year old female. Refer to note in patient chart for documentation of history and physical. Patient has symptoms of chronic epigastric abdominal pain, chronic heartburn and chronic nausea. Complications: No immediate complications. Procedure: Pre-Anesthesia Assessment: - Prior to the procedure, a History and Physical was performed, and patient medications and allergies were reviewed. The risks and benefits of the procedure and the sedation options and risks were discussed with the patient. All questions were answered and informed consent was obtained. Patient identification and proposed procedure were verified by the physician. Mental Status Examination: alert and oriented. Airway Examination: normal oropharyngeal airway and neck mobility. Respiratory Examination: clear to auscultation. CV Examination: normal. Prophylactic Antibiotics: The patient does not require prophylactic antibiotics. Prior Anticoagulants: The patient has taken no previous anticoagulant or antiplatelet agents. ASA Grade Assessment: III - A patient with severe systemic disease. After reviewing the risks and benefits, the patient was deemed in satisfactory condition to undergo the procedure. The anesthesia plan was to use monitored anesthesia care (MAC). Immediately prior to administration of medications, the patient was re-assessed for adequacy to receive sedatives. The heart rate, respiratory rate, oxygen saturations, blood pressure, adequacy of pulmonary ventilation, and response to care were monitored throughout the procedure. The physical status of the patient was re-assessed after the procedure. After obtaining informed consent, the endoscope was passed under direct vision. Throughout the procedure, the patient's blood pressure, pulse, and oxygen saturations were monitored continuously. The gastroscope was introduced through the mouth, and advanced to the second part of duodenum. The upper GI endoscopy was accomplished without difficulty. The patient tolerated the procedure well. Scope In: 6:40:36 AM Scope Out: 6:45:21 AM Total Procedure Duration Time 0 hours 4 minutes 45 seconds Findings: Small (< 5 mm) varices were found in the lower third of the esophagus. They were 2 mm in largest diameter. Diffuse severely erythematous mucosa without bleeding was found in the entire examined stomach. Moderate portal hypertensive gastropathy was found in the stomach. Biopsies were taken with a cold forceps for histology. Verification of patient identification for the specimen was done. Estimated blood loss was minimal. Three non-bleeding superficial gastric ulcers with no stigmata of bleeding were found in the gastric antrum. The largest lesion was 3 mm in largest dimension. Biopsies were taken with a cold forceps for histology. Verification of patient identification for the specimen was done. Estimated blood loss was minimal. No gross lesions were noted in the second portion of the duodenum. Impression: - Small (< 5 mm) esophageal varices. - Erythematous mucosa in the stomach. - Portal hypertensive gastropathy. Biopsied. - Non-bleeding gastric ulcers with no stigmata of bleeding. Biopsied. - No gross lesions in the second portion of the duodenum. Recommendation: - Discharge patient to home. - Resume previous diet. - Continue present medications. - Await pathology results. Procedure Code(s): --- Professional --- 53931, Esophagogastroduodenoscopy, flexible, transoral; with biopsy, single or multiple CPT copyright 2017 [employer]. All rights reserved. The codes documented in this report are preliminary and upon professional fee coder review may be revised to meet current compliance requirements. Marvin Connor DO 02/12/2023 6:55:33 AM This report has been signed electronically. Number of Addenda: 0 Note Initiated On: 02/12/2023 6:32 AM
--- NOTE | 2023-02-12 06:56 | OP.CCLET_ITS ---
02/12/2023 Zeeshan Chao Re : Upper GI endoscopy procedure for Ava Lovell Dear Jeremie This procedure was performed on Sunday, February 12, 2023. My impressions and recommendations are as follows: Impressions : - Small (< 5 mm) esophageal varices. - Erythematous mucosa in the stomach. - Portal hypertensive gastropathy. Biopsied. - Non-bleeding gastric ulcers with no stigmata of bleeding. Biopsied. - No gross lesions in the second portion of the duodenum. Recommendations : - Discharge patient to home. - Resume previous diet. - Continue present medications. - Await pathology results. My findings are described in the full procedure note, which is enclosed. If I can be of further assistance, please feel free to contact me at . Sincerely, Marvin Connor, 02/12/2023 6:55:33 AM This report has been signed electronically.
[2023-02-12 07:00] VITALS: BP 130/78; BP 132/74; PULSE 60; RESP 16; O2SAT 95
[2023-02-12 07:05] VITALS: BP 128/55; BP 130/78; PULSE 58; RESP 16; TEMP 36.6; O2SAT 98
[2023-02-12 07:16] VITALS: BP 130/78
== END 2023-02-12 07:25 | disposition home or self-care (01) ==
LOC: EN 05:29 → AC 05:30
PROVIDERS: PCP Family Medicine; Referring Provider Family Medicine; Visit Provider Internal Medicine Gastroenterology
PROC: 0DJ08ZZ Inspection of Upper Intestinal Tract, Via Natural or Artificial Opening Endoscopic (ICD-10-PCS; CPT 43235; principal; 2023-02-12 06:25)
DX: I85.00 Esophageal varices without bleeding (principal); K76.6 Portal hypertension; K74.60 Unspecified cirrhosis of liver; E66.01 Morbid (severe) obesity due to excess calories; K29.50 Unspecified chronic gastritis without bleeding; K25.9 Gastric ulcer, unspecified as acute or chronic, without hemorrhage or perforation; K31.89 Other diseases of stomach and duodenum; K75.81 Nonalcoholic steatohepatitis (NASH); I10 Essential (primary) hypertension; E06.3 Autoimmune thyroiditis; Z68.39 Body mass index [BMI] 39.0-39.9, adult; Z79.899 Other long term (current) drug therapy; Z86.16 Personal history of COVID-19; Z86.73 Personal history of transient ischemic attack (TIA), and cerebral infarction without residual deficits
CPT/HCPCS: 43239; 82962; 88305; 88342; J7120; J2405

== ENCOUNTER → 2023-04-04 | Outpatient (CLI) | payer OTHER, SELFPAY ==
[2023-04-04 10:22] LABS: Absolute Lymphocyte Count 0.99 X10^3/uL (0.83-4.51); Basophil# 0.02 X10^3/uL; Basophil% 0.4 % (0-1); Eosinophil# 0.05 X10^3/uL; Eosinophils% 1.1 % (0-5); Hematocrit 42.6 % (37-47); Hemoglobin 13.3 g/dL (12.0-15.0); Lymphocyte # 0.99 X10^3/ul; Lymphocyte # 0.99 X10^3/ul (0.83-4.51); Lymphocyte % 22.2 % (19-41); Mean Corp Hgb Conc 31.2 g/dL (32-36); Mean Corpuscular Hgb 30.3 pg (27.0-32.0); Mean Platelet Vol. 12.3 fl (6.2-12.0); Monocyte# 0.34 X10^3/uL; Monocyte% 7.6 % (0-10); NRBC Flagged by Analyzer 0 % (0-5); Neutrophil # 3.04 X10^3/uL (2.7-7.7); Neutrophil % 68.5 % (47-70); POSITIVE COUNT YES; Platelet Count 75 K/mm3 (150-450); RBC Distribution Width CV 13.4 % (11.6-14.6); RBC Distribution Width SD 48.3 fl (35.1-43.9); Red Blood Count 4.39 M/mm3 (4.2-5.4); White Blood Count 4.5 K/mm3 (4.4-11.0)
[2023-04-04 10:30] LABS: Differential Indicated SCAN CRITERIA MET
[2023-04-04 10:38] LABS: Color, Urine Yellow (Yellow); Glucose, Dipstick Normal (Normal); Ketone-Dipstick Negative (Negative); Leukocyte Esterase-Dipstick Negative /ul (Negative); Nitrite-Dipstick Negative (Negative); Occult Blood-Urine 10 /ul (Negative); Protein-Dipstick Negative (Negative); Urine Bilirubin Dipstick Negative (Negative); Urine Clarity Sl. Cloudy (Clear); Urine Urobilinogen 4 mg/dl (Normal)
[2023-04-04 10:48] LABS: Differential Comment SCANNED
[2023-04-04 11:23] LABS: ALB/GLOB Ratio 0.8 RATIO (0.9-2.4); AST(SGOT) 62 U/L (15-37); Alanine Aminotransfer ALT/SGPT 61 U/L (13-56); Albumin, Serum 3.2 g/dL (3.2-5.0); Alkaline Phosphatase 153 U/L (45-117); Anion Gap 5 (5-15); BUN 12 mg/dL (7-18); BUN/Creat Ratio 15.4 RATIO (10-20); Bilirubin, Direct 0.25 mg/dL (0.00-0.30); Chloride 107 mmol/L (98-107); Cholesterol 227 mg/dL (200); Creatinine, Serum 0.78 mg/dL (0.55-1.02); EST Glomerular Filtration Rate 80 mL/min (>60); Est Glom Filt Rate - Afr Amer 96 mL/min (>60); Glucose 101 mg/dL (74-106); High Density Lipoprotein 77 mg/dL; LDH 208 U/L (84-246); Phosphorus 3.1 mg/dL (2.5-4.9); Potassium 4.2 mmol/L (3.5-5.1); Protein, Total 7.2 g/dL (6.4-8.2); Sodium Level 137 mmol/L (136-145); Triglycerides 44 mg/dL; Uric Acid 2.9 mg/dL (2.6-6.0); Very Low Density Lipoprotein 9 mg/dL (5-40)
== END | disposition home or self-care (01) ==
LOC: MTLAB 09:17
PROVIDERS: Nurse Practitioner Adult Health; PCP Family Medicine
DX: K74.60 Unspecified cirrhosis of liver (principal)
CPT/HCPCS: 80053; 85025

== ENCOUNTER → 2023-04-30 | Outpatient (CLI) | payer OTHER, SELFPAY ==
[2023-04-30 06:47] LABS: Absolute Lymphocyte Count 0.87 X10^3/uL (0.83-4.51); Absolute Neutrophil Count 2.7 X10^3/uL (2.0-7.7); Basophil# 0.01 X10^3/uL; Basophil% 0.3 % (0-1); Eosinophil# 0.05 X10^3/uL; Eosinophils% 1.3 % (0-5); Hematocrit 43.8 % (37-47); Hemoglobin 13.5 g/dL (12.0-15.0); Lymphocyte # 0.87 X10^3/ul (0.83-4.51); Lymphocyte % 22.5 % (19-41); Mean Corp Hgb Conc 30.8 g/dL (32-36); Mean Corpuscular Hgb 30.1 pg (27.0-32.0); Mean Corpuscular Volume 97.8 fL (81-99); Mean Platelet Vol. 11.6 fl (6.2-12.0); Monocyte# 0.26 X10^3/uL; Monocyte% 6.7 % (0-10); NRBC Flagged by Analyzer 0 % (0-5); Neutrophil # 2.67 X10^3/uL (2.7-7.7); Neutrophil % 68.9 % (47-70); POSITIVE COUNT YES; Platelet Count 80 K/mm3 (150-450); RBC Distribution Width CV 13.7 % (11.6-14.6); RBC Distribution Width SD 49.9 fl (35.1-43.9); Red Blood Count 4.48 M/mm3 (4.2-5.4); White Blood Count 3.9 K/mm3 (4.4-11.0)
[2023-04-30 06:53] LABS: International Normalized Ratio 1.3
[2023-04-30 07:07] LABS: Microalbumin:Creatinine Ratio 4.5 mg/g CRE (<30 mg/g CRE)
[2023-04-30 07:14] LABS: Ammonia < 10.0 umol/L (11-32)
[2023-04-30 07:23] LABS: ALB/GLOB Ratio 0.7 RATIO (0.9-2.4); AST(SGOT) 86 U/L (15-37); Alanine Aminotransfer ALT/SGPT 69 U/L (13-56); Albumin, Serum 2.9 g/dL (3.2-5.0); Alkaline Phosphatase 152 U/L (45-117); Anion Gap 3 (5-15); BUN 7 mg/dL (7-18); BUN/Creat Ratio 9.2 RATIO (10-20); CRP 6.57 mg/L (0.0-3.0); Chloride 109 mmol/L (98-107); Creatinine, Serum 0.76 mg/dL (0.55-1.02); EST Glomerular Filtration Rate 81 mL/min (>60); Est Glom Filt Rate - Afr Amer 98 mL/min (>60); Globulin 4.2 g/dL (2.2-4.2); Glucose 120 mg/dL (74-106); LDH 197 U/L (84-246); Potassium 4.1 mmol/L (3.5-5.1); Protein, Total 7.1 g/dL (6.4-8.2); Sodium Level 139 mmol/L (136-145)
[2023-04-30 07:42] LABS: Erythrocyte Sedimentation Rate 24 mm/hr (0-30)
[2023-04-30 15:43] LABS: Hemoglobin A1c 6.6 % (3.8-5.6)
== END | disposition home or self-care (01) ==
LOC: LAB 06:26
PROVIDERS: Internal Medicine Gastroenterology; PCP Family Medicine; Referring Provider Physician Assistant; Visit Provider Physician Assistant
DX: E03.8 Other specified hypothyroidism (principal); K76.82 Hepatic encephalopathy; I85.00 Esophageal varices without bleeding; K76.6 Portal hypertension; K74.60 Unspecified cirrhosis of liver; E11.9 Type 2 diabetes mellitus without complications; E06.3 Autoimmune thyroiditis; K75.81 Nonalcoholic steatohepatitis (NASH); K31.89 Other diseases of stomach and duodenum
CPT/HCPCS: 36415; 80053; 82043; 82140; 82570; 83036; 83615; 84443; 85025; 85610; 85652; 86140

== ENCOUNTER → 2023-05-14 | Outpatient (CLI) | payer OTHER, SELFPAY ==
--- NOTE | 2023-05-14 09:40 | US_ITS ---
STUDY: ABDOMINAL ULTRASOUND - RIGHT UPPER QUADRANT; ELASTOGRAPHY REASON FOR VISIT: Female, 62 years old. Fatty infiltration of the liver. TECHNIQUE: Ultrasound evaluation of the right upper quadrant was performed with real-time and static [place]-scale imaging. Point quantification shear wave elastography was performed ([place]). TECHNICAL QUALITY: Adequate. COMPARISON: Comparison is made with prior study December 31, 2021. FINDINGS: Liver: The liver measures 18 cm. There is increased echogenicity consistent with fatty infiltration. The bile ducts are within normal limits. There is hepatic color flow. The direction of portal flow is hepatopetal. There is no demonstrated mass lesion. Median liver stiffness measured 5.8 kPa. Gallbladder: The patient is status post cholecystectomy. Common Bile Duct (C.B.D.): The common bile duct measures 4 mm. Pancreas: There is normal echogenicity of the visualized pancreas. There is no demonstrated pancreatic mass or cyst. Right Kidney: Normal size of the right kidney. The right kidney measures 12.9 cm x 6.5 cm x 4.2 cm. Normal renal cortex. The right cortex measures 1.9 cm. There is no demonstrated renal mass or cyst. There is no right hydronephrosis. US/ABD Limited w/ Elastography IMPRESSION: 1. Liver stiffness measures 5.8 kPa compatible with F0-F1 (Normal to mild liver fibrosis) Metavir score. Electronically Signed: Bryan Boyer MD at 15:14 EDT ,
== END | disposition home or self-care (01) ==
LOC: US 09:39
PROVIDERS: PCP Family Medicine; Referring Provider Internal Medicine Gastroenterology; Visit Provider Internal Medicine Gastroenterology
DX: K75.81 Nonalcoholic steatohepatitis (NASH) (principal); K74.60 Unspecified cirrhosis of liver
CPT/HCPCS: 76705; 76981

== ENCOUNTER 2023-07-24 18:32 | Emergency (ER) | payer OTHER, SELFPAY ==
[2023-07-24 18:33] VITALS: BP 165/54; PULSE 60; RESP 15; TEMP 36.4; O2SAT 98; BMI 38.7
--- OUTSIDE RECORDS SUMMARY | 2023-07-24 19:35 | XMS RPT_ITS | CCD ---
Author Name Unknown Address [address] [place] [address] Organization [facility] Care Team Providers Care Farmer General Name Role Phone Lew Tran MD Unavailable Laurita Dorado PA-C Unavailable [phone] Lew Tran MD Unavailable Zeeshan Stephen MD Primary Care Provider Zeeshan Stephen MD Primary Care Provider Zeeshan Stephen MD Primary Care Provider Zeeshan Stephen MD Primary Care Provider Avtar SCHMIDT Attending Unavailable ZEESHAN STEPHEN Primary Care Unavailable CAMRYN PATTERSON Attending Unavailable ZEESHAN STEPHEN Primary Care Unavailable ZEESHAN STEPHEN Primary Care Unavailable ZEESHAN STEPHEN Primary Care Unavailable ZEESHAN STEPHEN Primary Care Unavailable CAMRYN PATTERSON Referring Unavailable ZEESHAN STEPHEN Primary Care Unavailable CAMRYN PATTERSON Attending Unavailable ZEESHAN STEPHEN Referring Unavailable ZEESHAN STEPHEN Primary Care Unavailable Avtar SCHMIDT Attending Unavailable ZEESHAN STEPHEN Primary Care Unavailable ZEESHAN STEPHEN Attending Unavailable ZEESHAN STEPHEN Referring Unavailable ZEESHAN STEPHEN Primary Care Unavailable CYNTHIA MAC Attending Unavailable CYNTHIA MAC Referring Unavailable ZEESHAN STEPHEN Primary Care Unavailable Avtar SCHMIDT Attending Unavailable ZEESHAN STEPHEN Primary Care Unavailable Allergies Allergy Classification Reported Allergen(s) Allergy Type Date of Onset Reaction(s) Facility (5 sources) Corticosteroids drug allergy 05-16-[address] [facility] Work Phone: (5 sources) FLUoxetine drug allergy 05-16-[address] [facility] Work Phone: [phone] (5 sources) penicillin drug allergy 05-16-[address] [facility] Work Phone: [phone] (20 sources) Acetaminophen / HYDROcodone; Translations: [HYDROCODONE-ACETAM INOPHEN] Drug Allergy 03-20-20 07 Vomiting [facility] Work Phone: [phone] (20 sources) Betamethasone; Translations: [BETAMETHASONE SODIUM PHOSPHATE] Drug Allergy 06-05-20 10 Rash, Swelling [facility] Work Phone: [phone] (20 sources) Cortisone; Translations: [CORTISONE] Drug Allergy 12-28-19 08 Anaphylaxis [facility] Work Phone: [phone] (20 sources) ezetimibe / Simvastatin; Translations: [EZETIMIBE-SIMVASTA TIN] Drug Allergy 05-13-20 11 Other: See Comments [facility] Work Phone: (20 sources) FLUoxetine; Translations: [FLUOXETINE HCL] Drug Allergy 07-30-19 12 Rash [facility] Work Phone: (12 sources) Penicillins; Translations: [PENICILLINS] Propensity to adverse reactions 03-20-20 07 Swelling [facility] Work Phone: (20 sources) environmental [Other] Propensity to adverse reactions 03-20-20 07 [facility] Work Phone: (20 sources) Penicillins Propensity to adverse reactions 03-20-20 07 Swelling [facility] Work Phone: [phone] (1 source) OTHER; Translations: [OTHER] Propensity to adverse reactions (disorder) 03-20-20 07 [facility] Medications Current Medications Medication Drug Class(es) Dates Sig (Normalized) Sig (Original) doxycycline monohydrate 100 mg oral tablet (4 sources) Tetracycline-clas s Drug Start: 10-18-2021 End: 10-28-2021 take 1 tablet by mouth twice daily doxycycline monohydrate 100 mg tablet Take 1 tablet by mouth twice daily for 10 days. 20 tablet 0 10/18/2021 10/28/2021 Active Completed/Discontinued Medications Medication Drug Class(es) Dates Sig (Normalized) Sig (Original) acetaminophen 325 mg / oxyCODONE hydrochloride 5 mg oral tablet (1 source) Opioid Agonist Start: 04-30-2021 End: 10-18-2021 oxyCODONE-acetamino phen (PERCOCET) 5-325 mg tablet Indications: Acute right-sided low back pain with right-sided sciatica , Lumbar foraminal stenosis , Spinal stenosis of lumbar region without neurogenic claudication Take by mouth. 0 04/30/2021 10/18/2021 Discontinued Problems Active Problems Problem Classification Problem Date Documented Da te Episodic/Chronic Chronic obstructive pulmonary disease and bronchiectasis (1 source) Bronchitis; Translations: [Bronchitis, not specified as acute or chronic] Episodic Coagulation and hemorrhagic disorders (20 sources) Platelet count below reference range; Translations: [Thrombocytopenia, unspecified] Onset: 2 Chronic Diabetes mellitus without complication (20 sources) Type 2 diabetes mellitus without complication; Translations: [Type 2 diabetes mellitus without complications] Onset: 2 Chronic Diseases of white blood cells (20 sources) Lymphocytopenia; Translations: [Lymphocytopenia] Onset: 2 01-08-2022 Chronic Disorders of lipid metabolism (20 sources) Hyperlipidemia; Translations: [Hyperlipidemia, unspecified] Onset: 0 07-09-2021 Chronic Esophageal disorders (20 sources) Gastroesophageal reflux disease without esophagitis; Translations: [Gastro-esophageal reflux disease without esophagitis] Onset: 2 Chronic Gastrointestinal hemorrhage (1 source) Rectal hemorrhage; Translations: [Hemorrhage of anus and rectum] Episodic Headache; including migraine (20 sources) Migraine; Translations: [Migraine, unspecified, not intractable, without status migrainosus] Onset: 0 07-09-2021 Chronic Hepatitis (19 sources) Nonalcoholic steatohepatitis; Translations: [Nonalcoholic steatohepatitis (CARTER)] Onset: 3 Chronic Mood disorders (20 sources) Chronic depression; Translations: [Chronic depression] Onset: 0 04-04-2020 Chronic Osteoarthritis (10 sources) Osteoarthritis of knee; Translations: [Osteoarthritis of right knee joint] Onset: 3 12-25-2012 Chronic Other aftercare (1 source) Post-discharge follow-up; Translations: [Encounter for follow-up examination after completed treatment for conditions other than malignant neoplasm] Episodic Other and ill-defined heart disease (20 sources) Diastolic dysfunction; Translations: [Other ill-defined heart diseases] Onset: 2 Chronic Other and ill-defined heart disease (2 sources) Left ventricular hypertrophy; Translations: [Cardiomegaly] Chronic Other and ill-defined heart disease (1 source) Cardiomegaly; Translations: [LVH (left ventricular hypertrophy)] Onset: 3 Chronic Other and ill-defined heart disease (1 source) Other ill-defined heart diseases; Translations: [Diastolic dysfunction] Onset: 2 Chronic Other connective tissue disease (1 source) Swelling of right lower limb; Translations: [Other specified soft tissue disorders] Episodic Other connective tissue disease (1 source) Pain of bilateral hands; Translations: [Pain in right hand] Episodic Other hematologic conditions (1 source) ESR raised; Translations: [Elevated erythrocyte sedimentation rate] Episodic Other liver diseases (17 sources) Steatosis of liver; Translations: [Fatty (change of) liver, not elsewhere classified] Onset: 2 01-08-2022 Chronic Other liver diseases (20 sources) Cirrhosis of liver; Translations: [Other cirrhosis of liver] Onset: 2 04-25-2022 Chronic Other lower respiratory disease (2 sources) Dyspnea; Translations: [Shortness of breath] Episodic Other nervous system disorders (1 source) Left-sided piriformis syndrome; Translations: [Lesion of sciatic nerve, left lower limb] 03-12-2023 Chronic Other non-traumatic joint disorders (1 source) Pain in right knee; Translations: [Pain in joint, lower leg] Episodic Other nutritional; endocrine; and metabolic disorders (20 sources) Body mass index 40+ - severely obese; Translations: [Morbid (severe) obesity due to excess calories] Onset: 1 04-04-2020 Chronic Other nutritional; endocrine; and metabolic disorders (1 source) Morbid (severe) obesity due to excess calories; Translations: [Obesity, Class III, BMI 40-49.9 (morbid obesity) (HCC)] Onset: 0 Chronic Pneumonia (except that caused by tuberculosis or sexually transmitted disease) (3 sources) Bacterial pneumonia; Translations: [Unspecified bacterial pneumonia] Episodic Residual codes; unclassified (20 sources) Obstructive sleep apnea syndrome; Translations: [Obstructive sleep apnea (adult) (pediatric)] Onset: 4 07-09-2021 Chronic Residual codes; unclassified (1 source) Obstructive sleep apnea (adult) (pediatric); Translations: [ASHLEY (obstructive sleep apnea)] Onset: 1 Chronic Residual codes; unclassified (1 source) Edema; Translations: [Edema, unspecified] Episodic Residual codes; unclassified (1 source) Forgetful; Translations: [Other general symptoms and signs] 04-26-2023 Episodic Residual codes; unclassified (1 source) Other general symptoms and signs; Translations: [Forgetfulness] Onset: 3 Episodic Rheumatoid arthritis and related disease (20 sources) Inflammatory polyarthropathy; Translations: [Inflammatory polyarthropathy] Onset: 4 08-06-2016 Chronic Spondylosis; intervertebral disc disorders; other back problems (3 sources) Acute back pain with sciatica; Translations: [Lumbago with sciatica, right side] Episodic Thyroid disorders (20 sources) 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; Translations: [Other specified hypothyroidism] Onset: 0 07-09-2021 Chronic Transient cerebral ischemia (3 sources) Transient cerebral ischemia; Translations: [Transient cerebral ischemic attack, unspecified] Onset: 3 Chronic Unclassified (3 sources) Removal of suture ; Translations: [Encounter for removal of sutures] Onset: 1 05-16-2011 Unclassified (5 sources) Unspecified open wound of right thumb without damage to nail; Translations: [Unspecified open wound of right thumb without damage to nail] Onset: 1 05-16-2011 Past or Other Problems Problem Classification Problem Date Documented Date Episodic/Chronic Anal and rectal conditions (5 sources) Anal fissure; Translations: [Anal fissure, unspecified] Onset: 02-28-2017 02-28-2017 Episodic Diabetes mellitus without complication (20 sources) Hyperglycemia; Translations: [Hyperglycemia, unspecified] Onset: 08-06-2016 08-06-2016 Episodic Heart valve disorders (3 sources) Heart murmur; Translations: [Cardiac murmur, unspecified] Onset: 10-24-2022 Episodic Immunizations and screening for infectious disease (20 sources) Anti-nuclear factor positive; Translations: [Other specified abnormal immunological findings in serum] Onset: 02-17-2017 02-17-2017 Episodic Malaise and fatigue (20 sources) Malaise and fatigue; Translations: [Other malaise] Onset: 02-03-2018 02-03-2018 Episodic Noninfectious gastroenteritis (20 sources) Colitis; Translations: [Noninfective gastroenteritis and colitis, unspecified] Onset: 05-16-2010 05-16-2010 Episodic Nonmalignant breast conditions (20 sources) Pain of breast; Translations: [Mastodynia] Onset: 04-19-2009 04-19-2009 Episodic Other and unspecified benign neoplasm (16 sources) History of polyp of colon; Translations: [Personal history of colonic polyps] Onset: 09-17-2022 Episodic Other connective tissue disease (19 sources) Muscle pain; Translations: [Myalgia, unspecified site] Onset: 12-25-2021 Episodic Other connective tissue disease (1 source) Other specified soft tissue disorders; Translations: [Right leg swelling] Onset: 10-24-2022 Episodic Other connective tissue disease (1 source) Pain in right hand; Translations: [Bilateral hand pain] Onset: 10-24-2022 Episodic Other connective tissue disease (1 source) Pain in left hand; Translations: [Bilateral hand pain] Onset: 10-24-2022 Episodic Other hematologic conditions (1 source) Elevated erythrocyte sedimentation rate; Translations: [Elevated sed rate] Onset: 10-24-2022 Episodic Other liver diseases (20 sources) Elevated liver enzymes level; Translations: [Abnormal levels of other serum enzymes] Onset: 02-17-2017 02-17-2017 Episodic Other non-traumatic joint disorders (5 sources) Knee pain; Translations: [Pain in left knee] 12-25-2012 Episodic Other screening for suspected conditions (not mental disorders or infectious disease) (20 sources) Mammography abnormal; Translations: [Other abnormal and inconclusive findings on diagnostic imaging of breast] Onset: 04-14-2007 04-14-2007 Episodic Results Test Name Value Interpretation Reference Range Facil ity Vital Signs Date Time Vital Sign Value Performing Clinician Facility 04-25-2023 15:18-0400 Body height 177 cm NA Schmidt PA-C Work Phone: [facility] 04-25-2023 15:18-0400 Body weight 122.02 kg NA Schmidt PA-C Work Phone: [facility] 04-25-2023 15:18-0400 Diastolic blood pressure 58 mm[Hg] NA Schmidt PA-C Work Phone: [facility] 04-25-2023 15:18-0400 Heart rate 68 /min NA Schmidt PA-C Work Phone: [facility] 04-25-2023 15:18-0400 Respiratory rate 18 /min NA Schmidt PA-C Work Phone: [facility] 04-25-2023 15:18-0400 SaO2% (BldA) [Mass fraction] 98 % NA Schmidt PA-C Work Phone: [facility] 04-25-2023 15:18-0400 Systolic blood pressure 128 mm[Hg] NA Schmidt PA-C Work Phone: [facility] 03-11-2023 13:56-0400 Body weight 124.29 kg NA Schmidt PA-C Work Phone: [facility] 03-11-2023 13:56-0400 Diastolic blood pressure 80 mm[Hg] NA Schmidt PA-C Work Phone: [facility] 03-11-2023 13:56-0400 Heart rate 58 /min NA Schmidt PA-C Work Phone: [facility] 03-11-2023 13:56-0400 Respiratory rate 16 /min NA Schmidt PA-C Work Phone: [facility] 03-11-2023 13:56-0400 SaO2% (BldA) [Mass fraction] 98 % NA Schmidt PA-C Work Phone: [facility] 03-11-2023 13:56-0400 Systolic blood pressure 142 mm[Hg] NA Schmidt PA-C Work Phone: [facility] 10-24-2022 08:56-0400 Body height 177.8 cm Camryn Patterson MD Work Phone: [facility] 10-24-2022 08:56-0400 Body temperature 98.29 [degF] Camryn Patterson MD Work Phone: [facility] 10-24-2022 08:56-0400 Body weight 121.29 kg Camryn Patterson MD Work Phone: [facility] 10-24-2022 08:56-0400 Diastolic blood pressure 46 mm[Hg] Camryn Patterson MD Work Phone: [facility] 10-24-2022 08:56-0400 Heart rate 56 /min Camryn Patterson MD Work Phone: [facility] 10-24-2022 08:56-0400 Systolic blood pressure 130 mm[Hg] Camryn Patterson MD Work Phone: [facility] 10-04-2022 08:58-0400 Body weight 118.39 kg NA Schmidt PA-C Work Phone: [facility] 10-04-2022 08:58-0400 Diastolic blood pressure 72 mm[Hg] NA Schmidt PA-C Work Phone: [facility] 10-04-2022 08:58-0400 Heart rate 58 /min NA Schmidt PA-C Work Phone: [facility] 10-04-2022 08:58-0400 Respiratory rate 16 /min NA Schmidt PA-C Work Phone: [facility] 10-04-2022 08:58-0400 SaO2% (BldA) [Mass fraction] 99 % NA Schmidt PA-C Work Phone: [facility] 10-04-2022 08:58-0400 Systolic blood pressure 120 mm[Hg] NA Schmidt PA-C Work Phone: [facility] 09-17-2022 16:14-0500 Body height 175.3 cm Zeeshan Stephen MD Work Phone: [facility] 09-17-2022 16:14-0500 Body weight 121.47 kg Zeeshan Stephen MD Work Phone: [facility] 09-17-2022 16:14-0500 Diastolic blood pressure 56 mm[Hg] Zeeshan Stephen MD Work Phone: [facility] 09-17-2022 16:14-0500 Heart rate 71 /min Zeeshan Stephen MD Work Phone: [facility] 09-17-2022 16:14-0500 SaO2% (BldA) [Mass fraction] 97 % Zeeshan Stephen MD Work Phone: [facility] 09-17-2022 16:14-0500 Systolic blood pressure 130 mm[Hg] Zeeshan Stephen MD Work Phone: [facility] 04-15-2022 08:22-0400 Body height 177.7 cm Dawn Christian MD Work Phone: [facility] 04-15-2022 08:22-0400 Body temperature 98.1 [degF] Dawn Christian MD Work Phone: [facility] 04-15-2022 08:22-0400 Body weight 126.78 kg Dawn Christian MD Work Phone: [facility] 04-15-2022 08:22-0400 Diastolic blood pressure 65 mm[Hg] Dawn Christian MD Work Phone: [facility] 04-15-2022 08:22-0400 Heart rate 56 /min Dawn Christian MD Work Phone: [facility] 04-15-2022 08:22-0400 SaO2% (BldA) [Mass fraction] 97 % Dawn Christian MD Work Phone: [facility] 04-15-2022 08:22-0400 Systolic blood pressure 137 mm[Hg] Dawn Christian MD Work Phone: [facility] 03-22-2022 15:26-0400 Body height 175.3 cm Zeeshan Stephen MD Work Phone: [facility] 03-22-2022 15:26-0400 Body weight 127.01 kg Zeeshan Stephen MD Work Phone: [facility] 03-22-2022 15:26-0400 Diastolic blood pressure 58 mm[Hg] Zeeshan Stephen MD Work Phone: [facility] 03-22-2022 15:26-0400 Heart rate 70 /min Zeeshan Stephen MD Work Phone: [facility] 03-22-2022 15:26-0400 SaO2% (BldA) [Mass fraction] 96 % Zeeshan Stephen MD Work Phone: [facility] 03-22-2022 15:26-0400 Systolic blood pressure 116 mm[Hg] Zeeshan Stephen MD Work Phone: [facility] 02-15-2022 16:42-0400 Body weight 130.64 kg Zeeshan Stephen MD Work Phone: [facility] 02-15-2022 16:42-0400 Diastolic blood pressure 60 mm[Hg] Zeeshan Stephen MD Work Phone: [facility] 02-15-2022 16:42-0400 Heart rate 76 /min Zeeshan Stephen MD Work Phone: [facility] 02-15-2022 16:42-0400 Respiratory rate 16 /min Zeeshan Stephen MD Work Phone: [facility] 02-15-2022 16:42-0400 SaO2% (BldA) [Mass fraction] 99 % Zeeshan Stephen MD Work Phone: [facility] 02-15-2022 16:42-0400 Systolic blood pressure 122 mm[Hg] Zeeshan Stephen MD Work Phone: [facility] 01-02-2022 16:32-0400 Body weight 130.18 kg Zeeshan Stephen MD Work Phone: [facility] 01-02-2022 16:32-0400 Diastolic blood pressure 78 mm[Hg] Zeeshan Stephen MD Work Phone: [facility] 01-02-2022 16:32-0400 Heart rate 71 /min Zeeshan Stephen MD Work Phone: [facility] 01-02-2022 16:32-0400 Respiratory rate 16 /min Zeeshan Stephen MD Work Phone: [facility] 01-02-2022 16:32-0400 SaO2% (BldA) [Mass fraction] 98 % Zeeshan Stephen MD Work Phone: [facility] 01-02-2022 16:32-0400 Systolic blood pressure 138 mm[Hg] Zeeshan Stephen MD Work Phone: [facility] 12-25-2021 15:08-0400 Body height 177 cm Dawn Christian MD Work Phone: [facility] 12-25-2021 15:08-0400 Body temperature 97.59 [degF] Dawn Christian MD Work Phone: [facility] 12-25-2021 15:08-0400 Body weight 132.45 kg Dawn Christian MD Work Phone: [facility] 12-25-2021 15:08-0400 Diastolic blood pressure 63 mm[Hg] Dawn Christian MD Work Phone: [facility] 12-25-2021 15:08-0400 Heart rate 62 /min Dawn Christian MD Work Phone: [facility] 12-25-2021 15:08-0400 SaO2% (BldA) [Mass fraction] 97 % Dawn Christian MD Work Phone: [facility] 12-25-2021 15:08-0400 Systolic blood pressure 132 mm[Hg] Dawn Christian MD Work Phone: [facility] 12-18-2021 09:07-0400 Diastolic blood pressure 72 mm[Hg] Cynthia Mac EXCHANGE CONSULTANT.LEASE OPERATOR Work Phone: [facility] 12-18-2021 09:07-0400 Heart rate 64 /min Cynthia Mac EXCHANGE CONSULTANT.LEASE OPERATOR Work Phone: [facility] 12-18-2021 09:07-0400 Respiratory rate 18 /min Cynthia Mac EXCHANGE CONSULTANT.LEASE OPERATOR Work Phone: [facility] 12-18-2021 09:07-0400 SaO2% (BldA) [Mass fraction] 96 % Cynthia Haagen EXCHANGE CONSULTANT.LEASE OPERATOR Work Phone: [facility] 12-18-2021 09:07-0400 Systolic blood pressure 110 mm[Hg] Cynthia Haagen EXCHANGE CONSULTANT.LEASE OPERATOR Work Phone: [facility] 11-05-2021 15:51-0400 Diastolic blood pressure 64 mm[Hg] Cynthia Haagen EXCHANGE CONSULTANT.LEASE OPERATOR Work Phone: [facility] 11-05-2021 15:51-0400 Heart rate 65 /min Cnythia Haagen EXCHANGE CONSULTANT.LEASE OPERATOR Work Phone: [facility] 11-05-2021 15:51-0400 Respiratory rate 18 /min Cynthia Haagen EXCHANGE CONSULTANT.LEASE OPERATOR Work Phone: [facility] 11-05-2021 15:51-0400 SaO2% (BldA) [Mass fraction] 96 % Cynthia Haagen EXCHANGE CONSULTANT.LEASE OPERATOR Work Phone: [facility] 11-05-2021 15:51-0400 Systolic blood pressure 132 mm[Hg] Cynthia Haagen EXCHANGE CONSULTANT.LEASE OPERATOR Work Phone: [facility] 10-18-2021 14:48-0400 Body temperature 98.4 [degF] Zeeshan Stephen MD Work Phone: [facility] 10-18-2021 14:48-0400 Body weight 132.45 kg Zeeshan Stephen MD Work Phone: [facility] 10-18-2021 14:48-0400 Diastolic blood pressure 60 mm[Hg] Zeeshan Stephen MD Work Phone: [facility] 10-18-2021 14:48-0400 Heart rate 60 /min Zeeshan Stephen MD Work Phone: [facility] 10-18-2021 14:48-0400 Respiratory rate 16 /min Zeeshan Stephen MD Work Phone: [facility] 10-18-2021 14:48-0400 SaO2% (BldA) [Mass fraction] 97 % Zeeshan Stephen MD Work Phone: [facility] 10-18-2021 14:48-0400 Systolic blood pressure 112 mm[Hg] Zeeshan Stephen MD Work Phone: [facility] 02-28-2017 08:23-0400 BMI (Body Mass Index) 35.55 kg/m2 Lew Tran MD [facility] Work Phone: 02-28-2017 08:23-0400 Body Temperature 98.3 [degF] Lew Tran MD [facility] Work Phone: 02-28-2017 08:23-0400 Body Temperature 98.29 [degF] Lew Tran MD [facility] Work Phone: 02-28-2017 08:23-0400 Height 183.52 cm Lew Tran MD [facility] Work Phone: 02-28-2017 08:23-0400 Respiratory Rate 20 /min Lew Tran MD [facility] Work Phone: 02-28-2017 08:23-0400 Weight 119.75 kg Lew Tran MD [facility] Work Phone: 12-24-2012 15:32-0400 BP Diastolic 80 mm[Hg] Lew Tran MD [facility] Work Phone: 12-24-2012 15:32-0400 BP Systolic 134 mm[Hg] Lew Tran MD [facility] Work Phone: 12-24-2012 15:32-0400 Pulse (Heart Rate) 77 /min Lew Tran MD [facility] Work Phone: 05-16-2011 13:17-0400 Height 183.52 cm Lew Tran MD [facility] Work Phone: Encounters Encounter Date Encounter Type Care Provider Facility Start: 05-02-2023 Chart abstracting Zeeshan Dumont MD Work Phone: [facility] Start: 04-30-2023 Chart abstracting Zeeshan Dumont MD Work Phone: [facility] Start: 04-25-2023 End: 04-26-2023 ambulatory Avtar TIJERINA GURJIT Facility:[facility] Start: 04-25-2023 Encounter for genera l adult medical examination without abnormal findings Avtar SCHMIDT [facility] Start: 04-25-2023 End: 04-25-2023 Patient encounter procedure Avtar Gregory Shcmidt PA-C Work Phone: [facility] Procedures Date Procedure Procedure Detail Performing Clinician Start: 04-30-2023 Hemoglobin A1c/Hemoglobin.total in Blood [facility] Start: 04-30-2023 MICROALBUMIN/CREATIN INE UR W RATIO (EXTERNAL) [facility] Provider Start: 03-23-2022 Hemoglobin A1c/Hemoglobin.total in Blood Zeeshan Stephen MD Work Phone: Start: 03-23-2022 URINE ALBUMIN W/CREA T RATIO Zeeshan Stephen MD Work Phone: Start: 03-14-2022 Colonoscopy Zeeshan Dumont MD Work Phone: Start: 03-27-2021 Mammography Zeeshan Dumont MD Work Phone: Start: 07-31-2015 Colonoscopy Zeeshan Dumont MD Work Phone: Start: 05-16-2011 Removal of suture ENCOUNTER FO R REMOVAL OF SUTURES Laurita Dorado PA-C Plan of Treatment Date Care Activity Detail Author Start: 03-14-2027 Colonoscopy COLONOSCOPY [facility] Start: 03-14-2027 COLORECTAL CANCER SCREENING COLORECTAL CANCER SCREENING [facility] Start: 04-30-2024 Hepatitis B screening Urine Al bumin:Creatinine Ratio [facility] Start: 04-25-2024 3 comp foot exam completed Diabetic Foot Exam [facility] Start: 04-25-2024 Annual PCP Team Auction Clerk tim Disease Visit Annual PCP Team Chronic Disease Visit [facility] Start: 04-25-2024 Covid-19 Vaccine ( season) Covid-19 Vaccine () [facility] Immunizations Immunization Date Immunization Notes Care Provider Fa cility 04-25-2023 pneumococcal Conjuga te, unspecified formulation NA Schmidt PA-C Work Phone: [facility] Work Phone: 04-25-2023 pneumococcal (PCV20) vaccine, 20 valent (PREVNAR 20) NA Schmidt PA-C Work Phone: [facility] 04-18-2023 influenza, injectabl e, quadrivalent, preservative free NA Schmidt PA-C Work Phone: [facility] 04-12-2022 influenza, injectabl e, quadrivalent, preservative free NA Schmidt PA-C Work Phone: [facility] 04-12-2022 influenza, seasonal, injectable Zeeshan Stephen MD Work Phone: [facility] 04-12-2022 influenza virus vaccine, unspecified formulation Zeeshan Stephen MD Work Phone: [facility] 04-10-2021 influenza, injectabl e, quadrivalent, preservative free NA Schmidt PA-C Work Phone: [facility] 04-10-2021 influenza, seasonal, injectable, preservative free Zeeshan Stephen MD Work Phone: [facility] 04-11-2020 influenza, injectabl e, quadrivalent, preservative free NA Schmidt PA-C Work Phone: [facility] 04-11-2020 influenza, seasonal, injectable, preservative free Zeeshan Stephen MD Work Phone: [facility] 05-04-2019 influenza, injectabl e, quadrivalent, preservative free NA Schmidt PA-C Work Phone: [facility] 05-04-2019 influenza, seasonal, injectable Zeeshan Stephen MD Work Phone: [facility] 05-13-2018 influenza, injectabl e, quadrivalent, preservative free NA Schmidt PA-C Work Phone: [facility] 05-13-2018 influenza, seasonal, injectable Zeeshan Stephen MD Work Phone: [facility] 03-24-2018 influenza, injectabl e, quadrivalent, contains preservative Zeeshan Stephen MD Work Phone: [facility] Work Phone: 04-09-2017 influenza, injectabl e, quadrivalent, preservative free NA Schmidt PA-C Work Phone: [facility] 04-09-2017 influenza, seasonal, injectable Zeeshan Stephen MD Work Phone: [facility] Work Phone: 04-09-2017 influenza, seasonal, injectable, preservative free Zeeshan Stephen MD Work Phone: [facility] 04-11-2016 influenza, injectabl e, quadrivalent, preservative free NA Schmidt PA-C Work Phone: [facility] 04-11-2016 influenza, seasonal, injectable Zeeshan Stephen MD Work Phone: [facility] 03-14-2016 influenza, seasonal, injectable Zeeshan Stephen MD Work Phone: [facility] 04-12-2015 influenza, injectabl e, quadrivalent, preservative free NA Schmidt PA-C Work Phone: [facility] 04-12-2015 influenza, seasonal, injectable, preservative free Zeeshan Stephen MD Work Phone: [facility] 04-21-2014 influenza, injectabl e, quadrivalent, preservative free NA Schmidt PA-C Work Phone: [facility] 04-21-2014 influenza, seasonal, injectable Zeeshan Stephen MD Work Phone: [facility] 03-14-2013 influenza virus vaccine, unspecified formulation Zeeshan Stephen MD Work Phone: [facility] Payers Date Payer Category Payer Private Health Insurance JENNIOLGA Lewis [facility] [id number] 2022-Present [phone] [address] [place] [phone] [facility] [id number] 2022 Private Health Insurance [id number] 2019 Unknown MMO MMO TPA [id number] 2019-Present [address] [place] [address] PPO [id number] 2019 Unknown MMO MMO TPA [id number] 2019-Present [address] [place] [address] PPO [id number] 2019 Unknown [id number] Social History Date Type Detail Facility Start: 12-20-2010 Tobacco smoking status NHIS Never smoked tobacco [facility] Work Phone: Start: 10-18-2021 End: 04-25-2023 Alcohol intake Current drinker of alcohol (finding) [facility] Start: 06-07-2011 History SDOH Alcohol Comment rarely 3 YEARLY [facility] Start: 1960 Sex Assigned At Not on file [facility] Start: 10-08-2021 End: 03-22-2022 Exposure to SARS-CoV-2 (event) Not sure [facility] Start: 1960 Sex Assigned At Female [facility] Start: 01-01-2022 History SDOH Alcohol Frequency 2 [facility] Start: 01-01-2022 History SDOH Alcohol Std Drinks 1 [facility] Start: 01-01-2022 History SDOH Social Connections Phone 5 [facility] Start: 01-01-2022 History SDOH Social Connections Get Together 98 [facility] Start: 01-01-2022 History SDOH Social Connections Shinto 3 [facility] Start: 01-01-2022 History SDOH Social Connections Living 7 [facility] Start: 12-20-2010 Tobacco use and exposure Smokeless tobacco non-user [facility] Work Phone: Start: 12-31-2021 End: 11-21-2022 History of Social function [facility] Start: 12-31-2021 End: 11-21-2022 Social connection and isolation [facility] How often do you get together with friends or relatives? Patient refused [facility] Do you belong to any clubs or organizations such as [employer] groups, [employer], [employer] or [employer] groups, or school groups? No [facility] Are you now , , , , never or living with a partner? Never [facility] How often to you hav e a drink containing alcohol? Monthly or less [facility] How many standard dr inks containing alcohol do you have on a typical day? 1 or 2 [facility] How often do you hav e 6 or more drinks on 1 occasion? Never [facility] Do you feel stress - tense, restless, nervous, or anxious, or unable to sleep at night because your mind is troubled all the time - these days [OSQ] To some extent [facility] (I/We) worried wheth er (my/our) food would run out before (I/we) got money to buy more. DK or Refused [facility] Start: 11-03-2021 Gender identity Identifies as female gender (finding) [facility] Start: 11-03-2021 Sexual orientation Heterosexual (finding) [facility] Do you belong to any clubs or organizations such as [employer] groups, [employer], [employer] or [employer] groups, or school groups? Yes [facility] How hard is it for y ou to pay for the very basics like food, housing, medical care, and heating Not very hard [facility] (I/We) worried wheth er (my/our) food would run out before (I/we) got money to buy more. Never true [facility] Clinical Notes 07-17-2015 to 04-25-2023 Avtar Schmidt PA-C - 04/25/2023 3:00 PM EDTPatient Avtar Adams PA-C - 03/11/2023 2:00 PM EDTTelephone Encounter - Raine Toro MA - 11/05/2022 2:34 PM EDT Note Date & Type Note Facility 04-25-2023 Note HNO ID: [id number] Author: Avtar Schmidt PA-C Service: ? 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 Does seem to get brain fog. No mistakes. Concerned personality is different. Not the same Chichi . Cries very easily. Feeling overwhelmed with workload. No major issues Problem review: Tia (transient ischemic attack) 10/01/2022 [facility] hospitalization for TIA with head CTA demonstrating a tiny lacunar right basal ganglier infarct. 10/01/2022 brain MRI demonstrated no acute intracranial mass, hemorrhage, acute territorial infarct, no radiographically significant sinus disease. Lvh (left ventricular hypertrophy) Diastolic dysfunction Mixed hyperlipidemia Cardiovascular interval hx: 02/06/[address] [facility]: LV: LV size and LVSF WNL, EF 55%, no regional wall motion abnormalities RV: RV size and RV SF WNL. LA moderately enlarged, RA WNL MV WNL TV WNL, 1+ TVi, PA SP 30 mmHg AV WNL, mild focal aortic valve calcification, peak/mean gradient 18/10 mmHg PV WNL Great vessels WNL No pericardial effusion. 04/10/2020 pharmacologic myocardial perfusion stress test: MHR obtained at 78 bpm, 40% of maximum predicted, workload 1 mEq., No ST or T wave changes to meet criteria for ischemia. Images demonstrate moderate to large perfusion defect involving the anterior septal wall and lateral wall, resting images moderate improvement, anterior vessel attenuation artifact cannot be completely excluded but appears to be more suggestive of ischemia Gated EF 70% Conclusion abnormal pharmacologic myocardial perfusion stress with evidence of possible anterior with preserved ejection fraction 02/07/2020 echocardiogram: LV: LV size and LVSF WNL, EF 65%, stage II diastolic dysfunction, no regional wall motion abnormalities. RV size and RV SF WNL LA mildly enlarged, normal RA MV WNL with mild mitral annular calcification TV: WNL, 1+ TVi, PA SP 31 mmHg PV WNL Great vessels: Normal aortic root, pulmonary artery, inferior vena cava. No pericardial effusion. 02/14/2020 left heart cath: LVEF 60% Normal LV motion Normal LV SF LM WNL LAD WNL CX WNL RCA WNL Current meds: Atorvastatin 20mg daily HS Furosemide 20mg daily Metoprolol SA 25mg 2 tabs twice a day Use of NTG: No Chest pain, arm, jaw pain, neck, or upper back pain suggestive of angina: No. SOB: Yes with exertion Dyspnea with exertion: No orthopnea: No Cough: occasional racing or irregular heartbeats: No palpitations: No syncopal sx: No Headache: No Unexplainable fatigue Yes Leg swelling: No Nausea: No diaphoresis: No Heartburn: No Claudication: No Smoking: No Following Low cholesterol, high fiber diet? Yes If on statin: muscle aches? No If on statin: GI sx or diarrhea? No Additional history none. Lab review: Ashley (obstructive sleep apnea) Dr. Ponce [facility] Patient manages with oral appliance which she wears nightly. Type 2 diabetes mellitus without complication, without long-term current use of insulin (hcc) Current medications: Metformin ER 500mg 2 tabs daily Taking medication as directed consistently? Yes Medication side effects: none Medical Issues / Complications: hypertension, hyperlipidemia, cardiovascular disease, and cerebrovascular disease Checking blood sugars at home? No Watching diet? Somewhat, trying to avoid carbs Physical Activity: Regular Hypoglycemic spells? No Any visual disturbance? No Chest pain? No New numbness, tingling or loss of sensation? No Any recent foot problems, sores or rashes? No Any recent or sudden weight loss? No Change in urination? No. If yes: Any recent illness? No Last eye exam: up to date. Last foot exam: due. 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 Yes. Thyroid pain: No. Mass effect: No. Change ins energy level/ fatigue? Yes, chronically. Sleep disturbance ?No. Temperature Intolerance: cold No, hot No. In females, menstrual cycle issues? climacteric Change in bowel habits? No. If yes: Constipation? No. If yes: Diarrhe (more content not included)... 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 Does seem to get brain fog. No mistakes. Concerned personality is different. Not the same Chichi . Cries very easily. Feeling overwhelmed with workload. No major issues Problem review: Tia (transient ischemic attack) 10/01/2022 [facility] hospitalization for TIA with head CTA demonstrating a tiny lacunar right basal ganglier infarct. 10/01/2022 brain MRI demonstrated no acute intracranial mass, hemorrhage, acute territorial infarct, no radiographically significant sinus disease. Lvh (left ventricular hypertrophy) Diastolic dysfunction Mixed hyperlipidemia Cardiovascular interval hx: 02/06/[address] [facility]: LV: LV size and LVSF WNL, EF 55%, no regional wall motion abnormalities RV: RV size and RV SF WNL. LA moderately enlarged, RA WNL MV WNL TV WNL, 1+ TVi, PA SP 30 mmHg AV WNL, mild focal aortic valve calcification, peak/mean gradient 18/10 mmHg PV WNL Great vessels WNL No pericardial effusion. 04/10/2020 pharmacologic myocardial perfusion stress test: MHR obtained at 78 bpm, 40% of maximum predicted, workload [address]Eq., No ST or T wave changes to meet criteria for ischemia. Images demonstrate moderate to large perfusion defect involving the anterior septal wall and lateral wall, resting images moderate improvement, anterior vessel attenuation artifact cannot be completely excluded but appears to be more suggestive of ischemia Gated EF 70% Conclusion abnormal pharmacologic myocardial perfusion stress with evidence of possible anterior with preserved ejection fraction 02/07/2020 echocardiogram: LV: LV size and LVSF WNL, EF 65%, stage II diastolic dysfunction, no regional wall motion abnormalities. RV size and RV SF WNL LA mildly enlarged, normal RA MV WNL with mild mitral annular calcification TV: WNL, 1+ TVi, PA SP 31 mmHg PV WNL Great vessels: Normal aortic root, pulmonary artery, inferior vena cava. No pericardial effusion. 02/14/2020 left heart cath: LVEF 60% Normal LV motion Normal LV SF LM WNL LAD WNL CX WNL RCA WNL Current meds: Atorvastatin 20mg daily HS Furosemide 20mg daily Metoprolol SA 25mg 2 tabs twice a day Use of NTG: No Chest pain, arm, jaw pain, neck, or upper back pain suggestive of angina: No. SOB: Yes with exertion Dyspnea with exertion: No orthopnea: No Cough: occasional racing or irregular heartbeats: No palpitations: No syncopal sx: No Headache: No Unexplainable fatigue Yes Leg swelling: No Nausea: No diaphoresis: No Heartburn: No Claudication: No Smoking: No Following Low cholesterol, high fiber diet? Yes If on statin: muscle aches? No If on statin: GI sx or diarrhea? No Additional history none. Lab review: Ashley (obstructive sleep apnea) Dr. Ponce [facility] Patient manages with oral appliance which she wears nightly. Type 2 diabetes mellitus without complication, without long-term current use of insulin (hcc) Current medications: Metformin ER 500mg 2 tabs daily Taking medication as directed consistently? Yes Medication side effects: none Medical Issues / Complications: hypertension, hyperlipidemia, cardiovascular disease, and cerebrovascular disease Checking blood sugars at home? No Watching diet? Somewhat, trying to avoid carbs Physical Activity: Regular Hypoglycemic spells? No Any visual disturbance? No Chest pain? No New numbness, tingling or loss of sensation? No Any recent foot problems, sores or rashes? No Any recent or sudden weight loss? No Change in urination? No. If yes: Any recent illness? No Last eye exam: up to date. Last foot exam: due. 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 Yes. Thyroid pain: No. Mass effect: No. Change ins energy level/ fatigue? Yes, chronically. Sleep disturbance ?No. Temperature Intolerance: cold No, hot No. In females, menstrual cycle issues? climacteric Change in bowel habits? No. If yes: Constipation? No. If yes: Diarrhea? Yes. If yes: sometimes hemorrhoids, sometimes fecal smearing/ incontinence Weight changes?No. Memory issues: Yes. Increased trouble concentrating, feels r/t stress with work. Diaphoresis: No. Numbness, tingling: some tingling in feet after working all day. Radiological imaging with contrast dyes within the last 3 months? No. History of radiation exposure to head or neck area? No. Change in hair or skin? No. If yes: Other symptoms: Last 2 Encounter Wt Readings: Date: Wt: 04/25/2023 122 kg (269 lb) 03/11/2023 124.3 kg (274 lb) Last thyroid labs: TSH Date Value 09/18/2022 4.17 IU/ml 04/15/2022 6.260 mIU/L 11/26/2021 6.530 mIU/L 04/05/2019 9.37 IU/ml 02/03/2018 3.310 uU/mL 10/31/2010 5.570 uU/mL ) Multinodular goiter Obesity, class iii, bmi 40-49.9 (morbid obesity) (hcc) Carter (nonalcoholic steatohepatitis) Secondary esophageal varices without bleeding (hcc) Colitis, acute GI DrOdilia Connor Positive chente (antinuclear antibody) ? Sjoegren's Inflammatory polyarthropathy (hcc) Osteoarthritis of right knee, unspecified osteoarthritis type Current medications: Thrombocytopenia (hcc) Lymphopenia Migraine without aura and with status migrainosus, not intractable Chronic depression Abnormal mammogram Mastodynia MINI-MENTAL STATE EXAMINATION (MMSE) Make the patient comfortable and establish rapport. Ask questions in the order listed. Total possible score is 30. ORIENTATION 1. What is the (year) (season) (date) (day) (month)? Max score=5 Patient's score=5 2. Where are we? (state) (county) (town or city) (hospital) (floor)? Max score=5 Patient's score=5 REGISTRATION Ask the patient if you may test his/her memory. Then say the names of 3 unrelated objects, clearly and slowly, about one second for each (eg, apple, table, george ). After you have said all 3, ask him/her to repeat them. This first repetition determines the score(0-3), but keep saying them until he/she can repeat all 3, up to 6 trials. Max score=3 Patient's score=3 ATTENTION AND CALCULATION Ask the patient to begin with 100 and count backwards by 7. Stop after 5 subtractions (93, 86, 79, 72, 65). Score the total number of correct answers. If the patient cannot or will not perform the serial 7s task, ask him/her to spell the word WORLD backwards. The score is the number of letters in the correct order (eg, DLROW=5; DLRW=4; DLORW, DLW=3; OW=2; DRLWO=1). Max score=5 Patient's score=5 RECALL Ask the patient to recall the 3 items repeated above (eg, apple, table, george ). Max score=3 Patient's score=3 LANGUAGE Naming: Show the patient a wristwatch and ask him/her what it is. Repeat for pencil. Max score=2 Patient's score=2 Repetition: Ask the patient to repeat the phrase No ifs, ands, or buts: after you. Max score=1 Patient's score=1 3-Stage Command: Give the patient a piece of blank paper and ask him/her to take a piece of paper in your right hand, fold it in half, put it on the floor. Score 1 point for each part correctly executed. Max score=3 Patient's score=3 Reading: On a blank piece of paper, print the sentence CLOSE YOUR EYES in letters large enough for the patient to see clearly. Ask him/her to read it and do what it says. Score 1 point only if he/she actually closes his/her eyes. Max score=1 Patient's score=0 Writing: Give the patient a blank piece of paper and ask him/her to write a sentence. Do not dictate a sentence; it is to be written spontaneously. It must contain a subject and verb and be sensible. Correct grammar and punctuation are not necessary. Max score=1 Patient's score=1 Copying: Ask the patient to copy the figure of intersecting pentagons exactly as it is. All 10 angles must be present and 2 must intersect to form a 4-sided figure to score 1 point. Tremor and rotation are ignored. Max score=1 Patient's score=1 MAXIMUM TOTAL SCORE = 30 TOTAL SCORE = 30/30 Suggested guideline for determining the severity of cognitive impairment: Mild: MMSE>21 Moderate: MMSE 10-20 Severe: MMSE<9 Expected decline in MMSE scores in untreated mild to moderate Alzheimer's patient is 2 to 4 points per year. *Adapted from Folstein et al.1 and Randi and Folstein2. (c) 1974, 1997 [employer] Used with permission. References: 1. Folstein MF, Folstein SE, Marie DE. Mini-Mental State : a practical method for grading the cognitive state of patients for the clinician. J Psychiatr Res. 1975; 12:189-198. 2. JR Randi, Cristiano MF, Mini-Mental State Examination (MMSE). Psychopharm Bull. 1988;24:689-692. 3. Emilee JT, Whitt FJ, Kayleen RD, Josh A, Ernesto F. Neuropsychological function in Alzheimer's disease: pattern of impairment and rates of progression. Arch Neurol. 1988;45:263-268. 4. Marielos MCWILLIAMS, Fili B, Ashish S-P, Yosi REYNOLDS. Predictors of cognitive and functional progression in patients with probable Alzheimer's disease. Neurology. 1992;42:6258-0779. HISTORIES FAMILY HISTORY Problem Relation Age of Onset Hypertension Mother Heart Father Prostate Cancer Father Cancer Maternal Grandmother thyroid Diabetes Maternal Grandmother Breast Cancer Maternal Grandmother Breast Cancer Paternal Grandmother Diabetes Paternal Grandmother PAST MEDICAL HISTORY Diagnosis Date Abdominal pain, generalized pain is the same as before her TONYA Colitis History of chronic colitis diagnosed on colonoscopy with Dr. Barragan Depressive disorder, not elsewhere classified 05/16/2010 Esophageal reflux Gastroesophageal reflux Hyperglycemia 08/06/2016 Hyperlipidemia 05/16/2010 Hypothyroidism 05/16/2010 from Hasthimoto's thyroiditis Inflammatory polyarthropathy (HCC) 12/03/2013 Dr Martinez 11/2013 Migraine headache 05/16/2010 propranolol effective for prevention; last migraine was a few months ago and was milder since on propranolol ; no HTN Nonspecific elevation of levels of transaminase or lactic acid dehydrogenase (LDH) Elevated LFT's Renal calculus 1997 Symptomatic menopausal or female climacteric states PAST SURGICAL HISTORY Procedure Laterality Date ANTERIOR INTERBODY FUSION, CERVICAL 06/2012 Dr. Paz @ [facility] ARTHRP KNE CONDYLE&PLATU MEDIAL&LAT COMPARTMENTS 07/2009 Knee replacement, left BX BREAST PERC VACUUM/ROTN 04/23/2007 LEFT COLONOSCOPY FLX DX W/COLLJ SPEC WHEN PFRMD 07/31/2015 Colonoscopy DILATION & CURETTAGE DX&/THER NONOBSTETRIC 1984 Dilation & curettage HYSTERECTOMY HX 2003 HYSTEROSCOPY, DIAGNOSTIC (SEPARATE 2003 Hysteroscopy/curettage LAPAROSCOPY SURG CHOLECYSTECTOMY 2005 Cholecystectomy, lap LAPS ABD PRTM&OMENTUM DX W/WO SPEC BR/WA SPX 2002 Laparoscopy PAST SURGICAL HISTORY OF 1998 lumbardisectomy PAST SURGICAL HISTORY OF [address] foot PAST SURGICAL HISTORY OF 07/2009 left knee arthroscopy PAST SURGICAL HISTORY OF 2005 anterior cervical disk fusion PLCMT LOCALZTN CLIP,PERC,DURING BREAST BX 04/23/[address] Zimmer TONSILLECTOMY PRIMARY/SECONDARY <AGE 12 Tonsillectomy TOTAL ABDOMINAL HYSTERECT W/WO RMVL TUBE OVARY 2003 Hysterectomy, TONYA TOTAL KNEE REPLACEMENT Right 09/26/2022 Dr. Michele العلي @ 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 Hyperlipidemia Colitis, Acute Migraine Headache Chronic Depression Goiter Obesity, Class Iii, Bmi 40-49.9 (Morbid Obesity) (Hcc) Ashley (Obstructive Sleep Apnea) Inflammatory Polyarthropathy (Hcc) Multinodular Goiter Hyperglycemia Positive Chente (Antinuclear Antibody) Thrombocytopenia (Hcc) Lymphopenia Type 2 Diabetes Mellitus Without Complication, Without Long-Term Current Use of Insulin (Hcc) Diastolic Dysfunction Other Cirrhosis of Liver (Hcc) Secondary Esophageal Varices Without Bleeding (Hcc) History of Colonic Polyps Carter (Nonalcoholic Steatohepatitis) Current Outpatient Medications Medication Sig Dispense Refill albuterol HFA (PROVENTIL HFA, VENTOLIN HFA) 90 mcg/actuation inhaler Inhale as instructed. atorvastatin (LIPITOR) 20 mg tablet Take 1 tablet by mouth daily at bedtime. For cholesterol. 90 tablet 3 furosemide (LASIX) 20 mg tablet Take 1 tablet by mouth once daily. (Patient taking differently: Take 20 mg by mouth. As needed) 30 tablet 0 hydrOXYchloroQUINE (PLAQUENIL) 200 mg tablet Take 2 tablets by mouth once daily. 60 tablet 5 levothyroxine (SYNTHROID) 112 mcg tablet Take 1 tablet by mouth once daily. Take on empty stomach. For Thyroid. 90 tablet 3 metFORMIN ER (GLUCOPHAGE XR) 500 mg 24 hr tablet Take 2 tablets by mouth twice daily. 360 tablet 3 metoprolol tartrate, short acting, (LOPRESSOR) 25 mg tablet Take 25 mg by mouth twice daily. omeprazole (PRILOSEC) 20 mg capsule Take 1 capsule by mouth once daily. 90 capsule 3 sertraline (ZOLOFT) 50 mg tablet Take 1 tablet by mouth once daily. 90 tablet 3 No current facility-administered medications for this visit. Pneumococcal Vaccine(1 - PCV) Never done DTaP,Tdap,Td Vaccine(1 - Tdap) Never done Hepatitis A Vaccine(1 of 2 - Risk 2-dose series) Never done Shingrix Vaccine(1 of 2) Never done Diabetic Foot Exam due on 03/12/2022 Mammogram Screening due on 03/27/2022 Influenza Vaccine(1) due on 03/14/2023 Covid-19 Vaccine( - 2022- season) due on 03/14/2023 HbA1C due on 03/21/2023 Urine Albumin:Creatinine Ratio due on 03/23/2023 EXAM: BP 128/58 Pulse 68 Resp 18 Ht 177 cm (5' 9.69 ) Wt 122 kg (269 lb) SpO2 98% BMI 38.95 kg/m Pleasant obese adult woman in no acute distress. Alert and oriented all spheres. Normal affect and cognition. Speech normal. No deficits to learning or comprehension. Euthymic. Skin warm, dry, pink to lips and nailbeds. Normal turgor. Respirations regular and unlabored. HEENT: NCAT. No scleral icterus or conjunctival injection. TM's clear. Nose and oropharynx free from injection or lesion. Oral membranes moist and pink. No cervical lymph nodes. Thyroid non-tender, no masses, or enlargement. Carotids pulses 2+/4+ without bruits. No JVD with HOB at 30 degrees. Chest is normal shape. Lungs are clear to all franz with good air exchange through out. HRRR without murmur or gallop. No lifts, heaves, or rubs. Abdomen: active bowel sounds throughout, soft, nontender, no masses or organomegaly. No CVAT. No abdominal bruits, axillary or inguinal nodes. Femoral pulses 2/4+ without bruit. Extrem: no clubbing, cyanosis, edema. Distal pulses 2+/4, prompt capillary refill. Feet:Shoes and socks removed, Are you having foot pain: no, high arch, calluses on heel, metatarsal pads., normal distal pulses, sensitive to 10 gm monofilament. Neuro: CN 2-12 grossly intact. Motor full upper and lower symmetric. Sensory intact distally to light touch. DTR's 0-1/4+ symmetric biceps, triceps, brachioradialis, knee jerk, Achilles. Plantars down-going bilaterally. Cerebellar intact finger to nose, heel to yap. Rhomberg negative, Gait and balance otherwise normal. ASSESSMENT/PLAN: 1. Wellness examination - ICD9: V70.0, ICD10: Z00.00 (primary diagnosis) - Counseled on healthy diet and regular exercise - Calcium intake with supplements or by diet of 1000 mg/day for under 50, 8801-6372 mg/day for 50+ - Discussed need and benefit for weight loss. BMI 38.95 kg/(m^2) - Mammogram ordered - exam recommended once yearly - Depression screening tool completed and reviewed with patient. Based on score and interview, patient is already diagnosed with depression and recommended no further intervention at this time. - Patient was counseled [id number] by myself (the billing provider) for the following immunizations and vaccine components, including side effects: Pneumococcal . Patient consents for immunization and understands risks and benefits. A VIS sheet on each immunization was given to the patient. - Follow up for annual exam in one year 2. TIA (transient ischemic attack) - ICD9: 435.9, ICD10: G45.9 No recurrent sx 3. LVH (left ventricular hypertrophy) - ICD9: 429.3, ICD10: I51.7 4. Diastolic dysfunction - ICD9: 429.9, ICD10: I51.89 Stable, follows with cardiology 5. Mixed hyperlipidemia - ICD9: 272.2, ICD10: E78.2 - Controlled - Continue current medications - Counseled on healthy diet and regular exercise 6. ASHLEY (obstructive sleep apnea) - ICD9: 327.23, ICD10: G47.33 Mouth appliance, wears nightly 7. Type 2 diabetes mellitus without complication, without long-term current use of insulin (HCC) - ICD9: 250.00, ICD10: E11.9 - Controlled - Continue current medications - HGB A1C - ALBUMIN/CREAT RATIO RND UR 8. 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 - LEVOTHYROXINE 112 MCG TABLET - TSH BLD 9. Multinodular goiter - ICD9: 241.1, ICD10: E04.2 stable 10. Obesity, Class III, BMI 40-49.9 (morbid obesity) (HCC) - ICD9: 278.01, ICD10: E66.01 Stable - Behavioral intervention 11. CARTER (nonalcoholic steatohepatitis) - ICD9: 571.8, ICD10: K75.81 12. Secondary esophageal varices without bleeding (HCC) - ICD9: 456.21, ICD10: I85.10 13. Colitis, acute - ICD9: 558.9, ICD10: K52.[address] Connor 14. Positive CHENTE (antinuclear antibody) - ICD9: 795.79, ICD10: R76.8 15. Inflammatory polyarthropathy (HCC) - ICD9: 714.9, ICD10: M06.[address] Martinez for rheum 16. Osteoarthritis of right knee, unspecified osteoarthritis type - ICD9: 715.96, ICD10: M17.11 Occasional OTC NSAID use 17. Thrombocytopenia (HCC) - ICD9: 287.5, ICD10: D69.6 18. Lymphopenia - ICD9: 288.51, ICD10: D72.810 resolved 19. Migraine without aura and with status migrainosus, not intractable - ICD9: 346.12, ICD10: G43.001 Stable, no recent issues 20. Chronic depression - ICD9: 311, ICD10: F32.A Stable on meds, stressed with work 21. Abnormal mammogram - ICD9: 793.80, ICD10: R92.8 22. Mastodynia - ICD9: 611.71, ICD10: N64.4 Outstanding orders for mammogram 23. Encounter for immunization - ICD9: V03.89, ICD10: Z23 - PNEUMOCOCCAL VACCINE (PREVNAR 20) 24. Forgetfulness - ICD9: 780.99, ICD10: R68.89 Asked by manager garden to be evaluated for dementia. No signs- well known to me Negative findings mini-mental. Discussed stress and aging as factors. Forms completed for AMARA Schmidt PA-C documented in this encounter [facility] 04-09-2023 Note Patient Outreach (IN [facility]) MARYLOU MARIE ([id number]) 1960 F Date Time Provider Department 04/09/23 ZEESHAN STEPHEN During your visit today, we recorded the following information about you: Allergies As of Date: 04/09/2023 Noted Allergy Reaction CORTISONE 12/28/2007 10 - Anaphylaxis Comments: Was from celestone injection in her her knee prior to TKR. Has tolerated oral prednisone before. CELESTONE (BETAMETHASONE SODIUM P*06/05/2010 2 - Rash 7 - Swelling environmental [Other] 03/20/2007 Comments: grass, molds, dust=nasal drainage, sneezing, sore throat PENICILLINS 03/20/2007 7 - Swelling PROZAC (FLUOXETINE HCL) 07/30/2011 2 - Rash Comments: Gets red VICODIN (HYDROCODONE-ACETAMINOPHE* 007 11 - Vomiting VYTORIN 10-10 (EZETIMIBE-SIMVASTA*05/13/2011 14 - Other: See Comments Comments: muscle aches with vytorin. Tolerated lipitor Date Reviewed: 03/11/2023 Reviewed by: Rosa Gibson LPN - Fully Assessed Visit Diagnosis:Encounter for screening mammogram for breast cancer [Z12.31] Order(s):[facility] SCREENING [[id number]] Order #: [id number] FUTURE Prescriptions as of 04/14/2023 - hydrOXYchloroQUINE (PLAQUENIL) 200 mg tablet Take 2 tablets by mouth once daily. - metoprolol tartrate, short acting, (LOPRESSOR) 25 mg tablet Take 25 mg by mouth twice daily. - levothyroxine (SYNTHROID) 112 mcg tablet Take 1 tablet by mouth once daily. Take on empty stomach. For Thyroid. - metFORMIN ER (GLUCOPHAGE XR) 500 mg 24 hr tablet Take 2 tablets by mouth twice daily. - atorvastatin (LIPITOR) 20 mg tablet Take 1 tablet by mouth daily at bedtime. For cholesterol. - sertraline (ZOLOFT) 50 mg tablet Take 1 tablet by mouth once daily. - omeprazole (PRILOSEC) 20 mg capsule Take 1 capsule by mouth once daily. - albuterol HFA (PROVENTIL HFA, VENTOLIN HFA) 90 mcg/actuation inhaler Inhale as instructed. - furosemide (LASIX) 20 mg tablet Take 1 tablet by mouth once daily. Problem List As Of Date 04/09/2023 Noted Resolved UNSP ABNORMAL MAMMOGRAM [R92.8] 04/14/2007 Mastodynia [N64.4] 04/19/2009 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 [*05/16/2010 Hyperlipidemia [E78.5] 05/16/2010 Colitis, acute [K52.9] 05/16/2010 Migraine headache [G43.909] 05/16/2010 Chronic depression [F32.A] 05/16/2010 Goiter [E04.9] 09/04/2010 Obesity, Class III, BMI 40-49.9 (morbid obesity*10/31/2010 ASHLEY (obstructive sleep apnea) [G47.33] 09/10/2013 Inflammatory polyarthropathy (HCC) [M06.4] 12/03/2013 Multinodular goiter [E04.2] 04/28/2014 BRBPR (bright red blood per rectum) [K62.5] 07/17/2015 08/06/2016 Hyperglycemia [R73.9] 08/06/2016 Positive CHENTE (antinuclear antibody) [R76.8] 02/17/2017 Elevated liver enzymes [R74.8] 02/17/2017 09/17/2022 Malaise and fatigue [R53.81, R53.83] 02/03/2018 09/17/2022 Thrombocytopenia (HCC) [D69.6] 12/25/2021 Myalgia [M79.10] 12/25/2021 09/17/2022 Lymphopenia [D72.810] 01/08/2022 Fatty liver [K76.0] 01/08/2022 09/17/2022 Type 2 diabetes mellitus without complication, *02/01/2022 Diastolic dysfunction [I51.89] 02/01/2022 Other cirrhosis of liver (HCC) [K74.69] 04/25/2022 Secondary esophageal varices without bleeding (*04/25/2022 History of colonic polyps [Z86.010] 09/17/2022 CARTER (nonalcoholic steatohepatitis) [K75.81] 09/17/2022 Encounter Status:Closed by EPIC, PRODUSER on 04/14/23 [facility] 03-11-2023 Note HNO ID: [id number] Author: Avtar Schmidt PA-C Service: ? Author Type: Physician Coverage Specialist Rn Type: Progress Notes Filed: 03/12/2023 9:38 AM Note Text: 62 year old female with c/o onset 1 months ago end of January lower back pain on right side. States 10/10 stabbing or shocking pain with loss of bladder control. States urine just running out. No radiation pain to legs. Feels some tingling in left flank. Alleviating: Ibuprofen 200mg 2 tabs at least twice a day which helps some. Feels weak in legs but no pain radiating down legs. 1998 lower back surgery 2 cervical fusions in the Thinks had scans done at that time. Hemoglobin A1C Date Value 09/18/2022 6.6 03/23/2022 7.0 % 10/18/2021 9.1 % 02/10/2020 7.0 04/05/2019 7.2 % ) HISTORIES FAMILY HISTORY Problem Relation Age of Onset Hypertension Mother Heart Father Prostate Cancer Father Cancer Maternal Grandmother thyroid Diabetes Maternal Grandmother Breast Cancer Maternal Grandmother Breast Cancer Paternal Grandmother Diabetes Paternal Grandmother PAST MEDICAL HISTORY Diagnosis Date Abdominal pain, generalized pain is the same as before her TONYA Colitis History of chronic colitis diagnosed on colonoscopy with Dr. Barragan Depressive disorder, not elsewhere classified 05/16/2010 Esophageal reflux Gastroesophageal reflux Hyperglycemia 08/06/2016 Hyperlipidemia 05/16/2010 Hypothyroidism 05/16/2010 from Hasthimoto's thyroiditis Inflammatory polyarthropathy (HCC) 12/03/2013 Dr Martinez 11/2013 Migraine headache 05/16/2010 propranolol effective for prevention; last migraine was a few months ago and was milder since on propranolol ; no HTN Nonspecific elevation of levels of transaminase or lactic acid dehydrogenase (LDH) Elevated LFT's Renal calculus 1997 Symptomatic menopausal or female climacteric states PAST SURGICAL HISTORY Procedure Laterality Date ANTERIOR INTERBODY FUSION, CERVICAL 06/2012 Dr. Paz @ [facility] ARTHRP KNE CONDYLEANDPLATU MEDIALANDLAT COMPARTMENTS 07/2009 Knee replacement, left BX BREAST PERC VACUUM/ROTN 04/23/2007 LEFT COLONOSCOPY FLX DX W/COLLJ SPEC WHEN PFRMD 07/31/2015 Colonoscopy DILATION AND CURETTAGE DXAND/THER NONOBSTETRIC 1984 Dilation AND curettage HYSTERECTOMY HX 2002 HYSTEROSCOPY, DIAGNOSTIC (SEPARATE 2002 Hysteroscopy/curettage LAPAROSCOPY SURG CHOLECYSTECTOMY 2004 Cholecystectomy, lap LAPS ABD PRTMANDOMENTUM DX W/WO SPEC BR/WA SPX 2002 Laparoscopy PAST SURGICAL HISTORY OF 1998 lumbardisectomy PAST SURGICAL HISTORY OF [address] foot PAST SURGICAL HISTORY OF 07/2009 left knee arthroscopy PAST SURGICAL HISTORY OF 2005 anterior cervical disk fusion [facility] LOCALZTN CLIP,PERC,DURING BREAST BX 04/23/[address] Zimmer TONSILLECTOMY PRIMARY/SECONDARY Tonsillectomy TOTAL ABDOMINAL HYSTERECT W/WO RMVL TUBE OVARY 2003 Hysterectomy, TONYA TOTAL KNEE REPLACEMENT Right 09/26/2022 Dr. Michele العلي @ 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 Hyperlipidemia Colitis, Acute Migraine Headache Chronic Depression Goiter Obesity, Class Iii, Bmi 40-49.9 (Morbid Obesity) (Hcc) Ashley (Obstructive Sleep Apnea) Inflammatory Polyarthropathy (Hcc) Multinodular Goiter Hyperglycemia Positive Chente (Antinuclear Antibody) Thrombocytopenia (Hcc) Lymphopenia Type 2 Diabetes Mellitus Without Complication, Without Long-Term Current Use of Insulin (Hcc) Diastolic Dysfunction Other Cirrhosis of Liver (Hcc) Secondary Esophageal Varices Without Bleeding (Hcc) History of Colonic Polyps Carter (Nonalcoholic Steatohepatitis) Current Outpatient Medications Medication Sig Dispense Refill hydrOXYchloroQUINE (PLAQUENIL) 200 mg tablet Take 2 tablets by mouth once daily. 60 tablet 5 metoprolol tartrate, short acting, (LOPRESSOR) 25 mg tablet Take 25 mg by mouth twice daily. levothyroxine (SYNTHROID) 112 mcg tablet Take 1 tablet by mouth once daily. Take on empty stomach. For Thyroid. 90 tablet 3 metFORMIN ER (GLUCOPHAGE XR) 500 mg 24 hr tablet Take 2 tablets by mouth twice daily. 360 tablet 3 atorvastatin (LIPITOR) 20 mg tablet Take 1 tablet by mouth daily at bedtime. For cholesterol. 90 tablet 3 sertraline (ZOLOFT) 50 mg tablet Take 1 tablet by mouth once daily. 90 tablet 3 omeprazole (PRILOSEC) 20 mg capsule Take 1 capsule by mouth once daily. 90 capsule 3 albuterol HFA (PROVENTIL HFA, VENTOLIN HFA) 90 mcg/actuation inhaler Inhale as instructed. furosemide (LASIX) 20 mg tablet Take 1 tablet by mouth once daily. (Patient taking differently: Take 20 mg by mouth. As needed) 30 tablet 0 Current Facility-Administered Medications Medication Dose Ro (more content not included)... [facility] 03-11-2023 Instructions Avtar Schmidt PA-C - 03/11/2023 2:21 PM EDT See hand out on piriformis syndrome ans exercises documented in this encounter [facility] 03-11-2023 History of Present illness Narrative 62 year old female with c/o onset 1 months ago end of January lower back pain on right side. States 10/10 stabbing or shocking pain with loss of bladder control. States urine just running out. No radiation pain to legs. Feels some tingling in left flank. Alleviating: Ibuprofen 200mg 2 tabs at least twice a day which helps some. Feels weak in legs but no pain radiating down legs. 1998 lower back surgery 2 cervical fusions in the Thinks had scans done at that time. Hemoglobin A1C Date Value 09/18/2022 6.6 03/23/2022 7.0 % 10/18/2021 9.1 % 02/10/2020 7.0 04/05/2019 7.2 % ) HISTORIES FAMILY HISTORY Problem Relation Age of Onset Hypertension Mother Heart Father Prostate Cancer Father Cancer Maternal Grandmother thyroid Diabetes Maternal Grandmother Breast Cancer Maternal Grandmother Breast Cancer Paternal Grandmother Diabetes Paternal Grandmother PAST MEDICAL HISTORY Diagnosis Date Abdominal pain, generalized pain is the same as before her TONYA Colitis History of chronic colitis diagnosed on colonoscopy with Dr. Barragan Depressive disorder, not elsewhere classified 05/16/2010 Esophageal reflux Gastroesophageal reflux Hyperglycemia 08/06/2016 Hyperlipidemia 05/16/2010 Hypothyroidism 05/16/2010 from Hasthimoto's thyroiditis Inflammatory polyarthropathy (HCC) 12/03/2013 Dr Martinez 11/2013 Migraine headache 05/16/2010 propranolol effective for prevention; last migraine was a few months ago and was milder since on propranolol ; no HTN Nonspecific elevation of levels of transaminase or lactic acid dehydrogenase (LDH) Elevated LFT's Renal calculus 1997 Symptomatic menopausal or female climacteric states PAST SURGICAL HISTORY Procedure Laterality Date ANTERIOR INTERBODY FUSION, CERVICAL 06/2012 Dr. Paz @ [facility] ARTHRP KNE CONDYLE&PLATU MEDIAL&LAT COMPARTMENTS 07/2009 Knee replacement, left BX BREAST PERC VACUUM/ROTN 04/23/2007 LEFT COLONOSCOPY FLX DX W/COLLJ SPEC WHEN PFRMD 07/31/2015 Colonoscopy DILATION & CURETTAGE DX&/THER NONOBSTETRIC 1984 Dilation & curettage HYSTERECTOMY HX 2003 HYSTEROSCOPY, DIAGNOSTIC (SEPARATE 2003 Hysteroscopy/curettage LAPAROSCOPY SURG CHOLECYSTECTOMY 2004 Cholecystectomy, lap LAPS ABD PRTM&OMENTUM DX W/WO SPEC BR/WA SPX 2002 Laparoscopy PAST SURGICAL HISTORY OF 1998 lumbardisectomy PAST SURGICAL HISTORY OF [address] foot PAST SURGICAL HISTORY OF 07/2009 left knee arthroscopy PAST SURGICAL HISTORY OF 2005 anterior cervical disk fusion [facility] LOCALZTN CLIP,PERC,DURING BREAST BX 04/23/[address] Zimmer TONSILLECTOMY PRIMARY/SECONDARY <AGE 12 Tonsillectomy TOTAL ABDOMINAL HYSTERECT W/WO RMVL TUBE OVARY 2003 Hysterectomy, TONYA TOTAL KNEE REPLACEMENT Right 09/26/2022 Dr. Michele العلي @ 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 Hyperlipidemia Colitis, Acute Migraine Headache Chronic Depression Goiter Obesity, Class Iii, Bmi 40-49.9 (Morbid Obesity) (Hcc) Ashley (Obstructive Sleep Apnea) Inflammatory Polyarthropathy (Hcc) Multinodular Goiter Hyperglycemia Positive Chente (Antinuclear Antibody) Thrombocytopenia (Hcc) Lymphopenia Type 2 Diabetes Mellitus Without Complication, Without Long-Term Current Use of Insulin (Hcc) Diastolic Dysfunction Other Cirrhosis of Liver (Hcc) Secondary Esophageal Varices Without Bleeding (Hcc) History of Colonic Polyps Carter (Nonalcoholic Steatohepatitis) Current Outpatient Medications Medication Sig Dispense Refill hydrOXYchloroQUINE (PLAQUENIL) 200 mg tablet Take 2 tablets by mouth once daily. 60 tablet 5 metoprolol tartrate, short acting, (LOPRESSOR) 25 mg tablet Take 25 mg by mouth twice daily. levothyroxine (SYNTHROID) 112 mcg tablet Take 1 tablet by mouth once daily. Take on empty stomach. For Thyroid. 90 tablet 3 metFORMIN ER (GLUCOPHAGE XR) 500 mg 24 hr tablet Take 2 tablets by mouth twice daily. 360 tablet 3 atorvastatin (LIPITOR) 20 mg tablet Take 1 tablet by mouth daily at bedtime. For cholesterol. 90 tablet 3 sertraline (ZOLOFT) 50 mg tablet Take 1 tablet by mouth once daily. 90 tablet 3 omeprazole (PRILOSEC) 20 mg capsule Take 1 capsule by mouth once daily. 90 capsule 3 albuterol HFA (PROVENTIL HFA, VENTOLIN HFA) 90 mcg/actuation inhaler Inhale as instructed. furosemide (LASIX) 20 mg tablet Take 1 tablet by mouth once daily. (Patient taking differently: Take 20 mg by mouth. As needed) 30 tablet 0 Current Facility-Administered Medications Medication Dose Route Frequency Provider Last Rate Last Admin perflutren lipid microspheres 1.3 mL in NaCl (PF) 0.9% 10 mL injection (DEFINITY) INTRAVENOUS DIRECTED PRN Zeeshan Stephen MD sodium chloride 0.9 % (flush) 10 mL (BD POSIFLUSH) 10 mL INTRAVENOUS DIRECTED PRN Zeeshan Stephen MD PNEUMOCOCCAL(1 - PCV) Never done DTAP,TDAP,TD(1 - Tdap) Never done HEPATITIS A(1 of 2 - Risk 2-dose series) Never done SHINGRIX VACCINE(1 of 2) Never done COVID-19 VACCINE(4 - Moderna series) due on 07/20/2021 DIABETIC FOOT EXAM due on 03/12/2022 MAMMOGRAM due on 03/27/2022 URINE ALBUMIN:CREATININE RATIO due on 03/23/2023 EXAM: BP 142/80 Pulse (!) 58 Resp 16 Wt 124.3 kg (274 lb) SpO2 98% BMI 39.31 kg/m Pleasant woman in no acute distress. Alert and oriented all spheres. Normal affect and cognition. Speech normal. No deficits to learning or comprehension. Skin warm, dry, pink to lips and nailbeds. Normal turgor. Respirations regular and unlabored. Chest is normal shape. Lungs are clear to all franz with good air exchange through out. HRRR without murmur or gallop. No lifts, heaves, or rubs. Back demonstrates no significant scoliosis, left shoulder slightly lower than right shoulder, hips even. Patient has no innominate dysfunction on forward flexion, fingers to mid calf. Patient does complain of pain with movement. Stiff on getting up and down from table and chair. Positive tender trigger points in the spinal erector and piriformis muscles on the left. Extrem: no clubbing or cyanosis. Edema: none. Extremities are warm and pink with prompt capillary refill. Motor strength is 5 out of 5 plus to great toe extension, plantarflexion/dorsiflexion of feet, hip abduction and abduction against resistance, quadriceps flexion and extension. No sensory loss. DTRs are brisk 2 out of 4 plus. No pain with internal or external rotation of the hip. SLR to about 80 degrees with hamstring tightness but no significant shooting pain. OMT: Myofascial release to left spinal erector, piriformis with significant relief, resolution of radiating pain, numbness and tingling. Patient is able to stand and walk and forward flex to ankles without discomfort. ASSESSMENT/PLAN: 1. Piriformis syndrome, left - ICD9: 355.0, ICD10: G57.02 Offered pain medication, muscle relaxer, steroid, patient declined all. Patient prefers to work with stretching and exercise first if possible. Reviewed exercises both for lumbar rehab and for piriformis stretching. Patient was able to perform these in the office after review. Handouts were provided with [facility] hip rehab and [facility] handout on piriformis stretching. Patient will contact me if she feels this is not sufficient. documented in this encounter [facility] 11-21-2022 Note HNO ID: [id number] Author: Camryn Patterson MD Service: ? Author Type: Physician Type: Progress Notes Filed: 11/21/2022 3:44 PM Note Text: Rheumatology FOLLOW UP VISIT Date of Service: 11/21/2022 Patient: Marylou Marie Medical Record: [id number] Primary Care Physician: Zeeshan Stephen MD Last Rheumatology visit: 10/24/2022 (with Camryn Patterson) Chief Complaint: Established Patient INTERVAL HISTORY Since her last visit she has ongoing pain in her knees and left ankle. She had orthopedic manipulate her knee under anesthesia. She had an EGD for her varices. She has had a dry cough for about 1 year where it is worse at work and feels like a tickle in her throat. She has also had ongoing dry eye for years without drops. She notes fatigue and has difficulty getting through her day. She otherwise denies fevers, night sweats, headache, chest pain, shortness of breath, nausea, vomiting, abdominal pain, constipation, diarrhea, blood in her urine or stool. ROS otherwise as below. RHEUMATOLOGIC HISTORY HISTORY OF PRESENT ILLNESS 1. CHENTE spectrum disease most likely Sjogren's rather than SLE with manifestations of sicca symptoms, inflammatory polyarthralgias, intermittently positive CHENTE, positive SSA >8.0, PATIENT EDUCATOR 2.3, positive cardiolipin IgM, IgG, indeterminate IgA, leukopenia lymphopenia 2. CARTER cirrhosis complicated by esophageal varices, thrombocytopenia 3. Leukopenia and lymphopenia of undetermined etiology 4. Thrombocytopenia likely secondary to Carter cirrhosis 5. OA status post knee replacement 6. Diabetes 7. Hyperlipidemia 8. Hypothyroidism 9. Migraines 10. Kidney stones 11. Heart murmur 12. Possible pulmonary hypertension with TTE showing pulmonary pressure 38 mmHg Work-up: 10/24/2022: CHENTE negative, previously positive SSA >8.0 PATIENT EDUCATOR 2.3 Otherwise negative RACHEL Positive cardiolipin IgM, IgG Indeterminant cardiolipin IgA Elevated kappa lambda, normal ratio WBC 3.02 Platelets 84 Absolute lymphocyte 0.72 Alk phos 136 AST 58, ALT 36 Negative beta-2 glycoprotein Negative lupus anticoagulant Negative RF Normal C3, C4 9 ESR 20, CRP 0.4 10/24/2022 X-rays: OA bilateral feet particularly MTPs with large hypertrophic calcaneal enthesophytes bilaterally Bilateral first CMC arthritis 10/29/2022 DVT ultrasound right: Normal 02/06/2022 TTE: EF 55%, no wall motion abnormalities Moderately enlarged LA Mild 1+ tricuspid insufficiency Pulmonary artery pressure 38 mmHg Mild aortic valve calcification Mean aortic valve gradient 10 mmHg Marylou Marie is a 62 year old White female with a history of diabetes, hyperlipidemia, CARTER, esophageal varices presumed secondary to cirrhosis although cannot confirm, hypothyroidism, GERD, chronic colitis , migraines, kidney stones, historic inflammatory arthritis previously followed by Dr. Martinez who presents to rheumatology clinic for evaluation of elevated inflammatory markers and joint pain. Chart review reveals she was evaluated by her PCP Dr. Stephen in September at which point she continued to have some joint pain. Labs were ordered which demonstrated positive CHENTE screen with elevated laboratory markers so referral to rheumatology was placed. Today she presents to clinic alone. She states that she has been having joint pain for a long time and was told at 1 point she might have rheumatoid arthritis. She gets pain in her CMC's left worse than right with hand cramping. Sometimes she gets some PIP pain particularly with her morning stiffness in the hands which lasts 5 to 10 minutes. She also gets pain in her ankle right greater than left with swelling of the entire right lower extremity more than the left. The ankle feels as though it may give out on her when she walks on it. Lastly she has severe knee pain right greater than left. She had total right knee replacement 05/2022 and has had stiffness since that time and had to go manipulation under anesthesia. She still has severe difficulty walking due to her knees. Her left partial replacement was about 12 years ago and will eventually be due for conversion to full knee arthroplasty, not currently under discussion with orthopedics. For her pain she takes 2 ibuprofen 8 hours apart 2-3 times a week. She does not take Tylenol or topicals. She also has a history of chronic low back pain which is improved with injections, managed by outside facility. For her regarding her previous rheumatologic history, she previously followed with Dr. Henley. There was concern for lupus at one point and inflammatory arthritis. Notes not available for review. She was on hydroxychloroquine for 6 months and had nausea with it so it was discontinued. Rheumatologic review of systems notable for difficulty staying asleep, wakes up multiple times at night for unclear reasons. She does wake up refreshed. She has shortness of breath and uses an inhaler. She wonders if this i (more content not included)... [facility] 11-05-2022 Miscellaneous Notes Records received and placed in Dr. Patterson in basket for review. Raine Toro MA Records have been requested from Dr. Connor office. Raine Toro MA Please obtain records from Dr. Connor regarding her GI work-up. Douglo, Patient returned call. Confirmed 11/[address] Patterson. Asked patient if she has seen GI/ Hepatology provider Patient has been seen by a Dr. Connor for GI at [facility] (this is part of the [facility]) Thank you documented in this encounter [facility] 11-05-[address] Patterson: Please call to get patient set up for follow-up anytime 1 to 3 weeks, can be virtual. Please also assess if she has been seen by hepatology/GI and/or hematology. If so please obtain records. Thanks! Follow up appointment with Dr. Patterson has been scheduled for 11/21/2022. Attempted to reach patient. No answer. LMTCB. PSR please ask patient if she has been seen by hepatology/GI and/or hematology. If so, please ask where at so that we can obtain records. Thanks, Sarah Gibson MA documented in this encounter [facility] 11-01-2022 Miscellaneous Notes DVT ultrasound without clot - 10/29/2022 Received medical results from [facility] collected on 10/29/22 Scanned in for review. documented in this encounter [facility] 10-24-2022 Note HNO ID: [id number] Author: Camryn Patterson MD Service: ? Author Type: Physician Type: Progress Notes Filed: 10/24/2022 9:52 AM Note Text: Rheumatology CONSULTATION Date of Service: 10/24/2022 Patient: Marylou Marie Medical Record: [id number] Primary Care Physician: Zeeshan Stephen MD Last Rheumatology visit: 02/03/2018 (with Neville Johnson) Referring Provider: Zeeshan Stephen [address] [facility] [address] Chief Complaint: Patient presents with: New Patient Marylou Marie is here today at request of Dr. Stephen specifically for consultation of my opinion in regards to the chief complaint listed above. Correspondence will be shared today via the [employer] electronic health record or through regular mail, where applicable. HISTORY OF PRESENT ILLNESS Marylou Marie is a 62 year old White female with a history of diabetes, hyperlipidemia, CARTER, esophageal varices presumed secondary to cirrhosis although cannot confirm, hypothyroidism, GERD, chronic colitis , migraines, kidney stones, historic inflammatory arthritis previously followed by Dr. Martinez who presents to rheumatology clinic for evaluation of elevated inflammatory markers and joint pain. Chart review reveals she was evaluated by her PCP Dr. Stephen in September at which point she continued to have some joint pain. Labs were ordered which demonstrated positive CHENTE screen with elevated laboratory markers so referral to rheumatology was placed. Today she presents to clinic alone. She states that she has been having joint pain for a long time and was told at 1 point she might have rheumatoid arthritis. She gets pain in her CMC's left worse than right with hand cramping. Sometimes she gets some PIP pain particularly with her morning stiffness in the hands which lasts 5 to 10 minutes. She also gets pain in her ankle right greater than left with swelling of the entire right lower extremity more than the left. The ankle feels as though it may give out on her when she walks on it. Lastly she has severe knee pain right greater than left. She had total right knee replacement 05/2022 and has had stiffness since that time and had to go manipulation under anesthesia. She still has severe difficulty walking due to her knees. Her left partial replacement was about 12 years ago and will eventually be due for conversion to full knee arthroplasty, not currently under discussion with orthopedics. For her pain she takes 2 ibuprofen 8 hours apart 2-3 times a week. She does not take Tylenol or topicals. She also has a history of chronic low back pain which is improved with injections, managed by outside facility. For her regarding her previous rheumatologic history, she previously followed with Dr. Henley. There was concern for lupus at one point and inflammatory arthritis. Notes not available for review. She was on hydroxychloroquine for 6 months and had nausea with it so it was discontinued. Rheumatologic review of systems notable for difficulty staying asleep, wakes up multiple times at night for unclear reasons. She does wake up refreshed. She has shortness of breath and uses an inhaler. She wonders if this is secondary to palpitations that she gets. She has a history of colitis which was reportedly diagnosed based on diarrhea which improved when her diet changed. She does not have a history of Crohn's or ulcerative colitis. She otherwise denies fevers, night sweats, history of uveitis, dry eye, dry mouth, sores in her nose or mouth, alar rash, photosensitivity, cough, chest pain, nausea, vomiting, abdominal pain, constipation, diarrhea, blood in her urine or stool, Raynaud's. She has never been , has had no miscarriages, and no history of blood clots. Pain Evaluation Pain Evaluation 05/03/2021 12/18/2021 12/25/2021 04/15/2022 10/24/2022 Pain Score 6 7 5 7 4 Location Back-Lower Knee-Right Side-Right Knee-Right - Location Comment - - - - - Description Shooting Throbbing;Other: See comment;Burning Sharp Stabbing/Not Incision Aching;Stiffness Duration (#) 3 (No Data) 2 4 - Duration (Timeframe) Weeks - Months Months Years Frequency Intermittent Continuous Intermittent Intermittent Continuous Intervention Medication Medication - - - PATIENT-ENTERED DATA PROMIS Assessments PROMIS Assessments 02/04/2017 02/03/2018 04/14/2022 Physical Health Percentile 22.06 % 22.06 % 10 % Mental Health Percentile 53.19 % 53.19 % - Pain Score 3 3 3 RAPID 3 Vargas Activities of Daily Living No Data Dress self? - Get in and out of bed? - Walk outdoors? - Wash and dry body? - Get in and out of car? - RAPID 3 Disease Activity Weighed Score Levels: 0 - 1: Near Remission 1.3 - 2.0: Low Severity 2.3 - 4.0: Moderate Severity 4.3 - 10.0: High Severity RAPID-3 Weighed Score 02/03/2018 RAPID 3 Weighed Score 2.2 REVIEW OF SYSTEMS Complete ROS (HEENT, respiratory, cardiology, GI, , skin, psych, hematology, endocrin (more content not included)... [facility] 10-24-2022 Instructions Camryn Patterson MD - 10/24/2022 9:30 AM EDT Labs and x rays today on 1st floor Make sure up to date with age appropriate cancer screening (mammo, pap) OK to continue the ibuprofen for now Keep an eye on low blood counts Talk to Dr. Stephen about your heart murmur, recommend heart ultrasound Look into topicals (voltaren gel, biofreeze, tiger balm) Ultrasound of right leg to rule out blood clot Follow up in 1 month, video documented in this encounter [facility] 10-24-2022 History of Present illness Narrative Images from the original note were not included. Rheumatology CONSULTATION Date of Service: 10/24/2022 Patient: Marylou Marie Medical Record: [id number] Primary Care Physician: Zeeshan Stephen MD Last Rheumatology visit: 02/03/2018 (with Neville Johnson) Referring Provider: Zeeshan Stephen [address] [facility] [address] Chief Complaint: Patient presents with: New Patient Marylou Marie is here today at request of Dr. Stephen specifically for consultation of my opinion in regards to the chief complaint listed above. Correspondence will be shared today via the [employer] electronic health record or through regular mail, where applicable. HISTORY OF PRESENT ILLNESS Marylou Marie is a 62 year old White female with a history of diabetes, hyperlipidemia, CARTER, esophageal varices presumed secondary to cirrhosis although cannot confirm, hypothyroidism, GERD, chronic colitis , migraines, kidney stones, historic inflammatory arthritis previously followed by Dr. Martinez who presents to rheumatology clinic for evaluation of elevated inflammatory markers and joint pain. Chart review reveals she was evaluated by her PCP Dr. Stephen in September at which point she continued to have some joint pain. Labs were ordered which demonstrated positive CHENTE screen with elevated laboratory markers so referral to rheumatology was placed. Today she presents to clinic alone. She states that she has been having joint pain for a long time and was told at 1 point she might have rheumatoid arthritis. She gets pain in her CMC's left worse than right with hand cramping. Sometimes she gets some PIP pain particularly with her morning stiffness in the hands which lasts 5 to 10 minutes. She also gets pain in her ankle right greater than left with swelling of the entire right lower extremity more than the left. The ankle feels as though it may give out on her when she walks on it. Lastly she has severe knee pain right greater than left. She had total right knee replacement 05/2022 and has had stiffness since that time and had to go manipulation under anesthesia. She still has severe difficulty walking due to her knees. Her left partial replacement was about 12 years ago and will eventually be due for conversion to full knee arthroplasty, not currently under discussion with orthopedics. For her pain she takes 2 ibuprofen 8 hours apart 2-3 times a week. She does not take Tylenol or topicals. She also has a history of chronic low back pain which is improved with injections, managed by outside facility. For her regarding her previous rheumatologic history, she previously followed with Dr. Henley. There was concern for lupus at one point and inflammatory arthritis. Notes not available for review. She was on hydroxychloroquine for 6 months and had nausea with it so it was discontinued. Rheumatologic review of systems notable for difficulty staying asleep, wakes up multiple times at night for unclear reasons. She does wake up refreshed. She has shortness of breath and uses an inhaler. She wonders if this is secondary to palpitations that she gets. She has a history of colitis which was reportedly diagnosed based on diarrhea which improved when her diet changed. She does not have a history of Crohn's or ulcerative colitis. She otherwise denies fevers, night sweats, history of uveitis, dry eye, dry mouth, sores in her nose or mouth, alar rash, photosensitivity, cough, chest pain, nausea, vomiting, abdominal pain, constipation, diarrhea, blood in her urine or stool, Raynaud's. She has never been , has had no miscarriages, and no history of blood clots. Pain Evaluation Pain Evaluation 05/03/2021 12/18/2021 12/25/2021 04/15/2022 10/24/2022 Pain Score 6 7 5 7 4 Location Back-Lower Knee-Right Side-Right Knee-Right - Location Comment - - - - - Description Shooting Throbbing;Other: See comment;Burning Sharp Stabbing/Not Incision Aching;Stiffness Duration (#) 3 (No Data) 2 4 - Duration (Timeframe) Weeks - Months Months Years Frequency Intermittent Continuous Intermittent Intermittent Continuous Intervention Medication Medication - - - PATIENT-ENTERED DATA PROMIS Assessments PROMIS Assessments 02/04/2017 02/03/2018 04/14/2022 Physical Health Percentile 22.06 % 22.06 % 10 % Mental Health Percentile 53.19 % 53.19 % - Pain Score 3 3 3 RAPID 3 Vargas Activities of Daily Living No Data Dress self? - Get in and out of bed? - Walk outdoors? - Wash and dry body? - Get in and out of car? - RAPID 3 Disease Activity Weighed Score Levels: 0 - 1: Near Remission 1.3 - 2.0: Low Severity 2.3 - 4.0: Moderate Severity 4.3 - 10.0: High Severity RAPID-3 Weighed Score 02/03/2018 RAPID 3 Weighed Score 2.2 REVIEW OF SYSTEMS Complete ROS (HEENT, respiratory, cardiology, GI, , skin, psych, hematology, endocrine, neuro, musculoskeletal) negativee except as noted in HPI. PAST MEDICAL HISTORY PAST MEDICAL HISTORY Diagnosis Date Abdominal pain, generalized pain is the same as before her TONYA Colitis History of chronic colitis diagnosed on colonoscopy with Dr. Barragan Depressive disorder, not elsewhere classified 05/16/2010 Esophageal reflux Gastroesophageal reflux Hyperglycemia 08/06/2016 Hyperlipidemia 05/16/2010 Hypothyroidism 05/16/2010 from Hasthimoto's thyroiditis Inflammatory polyarthropathy (HCC) 12/03/2013 Dr Martinez 11/2013 Migraine headache 05/16/2010 propranolol effective for prevention; last migraine was a few months ago and was milder since on propranolol ; no HTN Nonspecific elevation of levels of transaminase or lactic acid dehydrogenase (LDH) Elevated LFT's Renal calculus 1997 Symptomatic menopausal or female climacteric states PAST SURGICAL HISTORY PAST SURGICAL HISTORY Procedure Laterality Date ANTERIOR INTERBODY FUSION, CERVICAL 06/2012 Dr. Paz @ [facility] ARTHRP KNE CONDYLE&PLATU MEDIAL&LAT COMPARTMENTS 07/2009 Knee replacement, left BX BREAST PERC VACUUM/ROTN 04/23/2007 LEFT COLONOSCOPY FLX DX W/COLLJ SPEC WHEN PFRMD 07/31/2015 Colonoscopy DILATION & CURETTAGE DX&/THER NONOBSTETRIC 1984 Dilation & curettage HYSTERECTOMY HX 2003 HYSTEROSCOPY, DIAGNOSTIC (SEPARATE 2003 Hysteroscopy/curettage LAPAROSCOPY SURG CHOLECYSTECTOMY 2005 Cholecystectomy, lap LAPS ABD PRTM&OMENTUM DX W/WO SPEC BR/WA SPX 2002 Laparoscopy PAST SURGICAL HISTORY OF 1998 lumbardisectomy PAST SURGICAL HISTORY OF [address]otomy [address]. foot PAST SURGICAL HISTORY OF 07/2009 left knee arthroscopy PAST SURGICAL HISTORY OF 2005 anterior cervical disk fusion PLCMT LOCALZTN CLIP,PERC,DURING BREAST BX 04/23/[address] Zimmer TONSILLECTOMY PRIMARY/SECONDARY <AGE 12 Tonsillectomy TOTAL ABDOMINAL HYSTERECT W/WO RMVL TUBE OVARY 2003 Hysterectomy, TONYA TOTAL KNEE REPLACEMENT Right 09/26/2022 Dr. Michele العلي @ 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 levothyroxine (SYNTHROID) 112 mcg tablet Take 1 tablet by mouth once daily. Take on empty stomach. For Thyroid. metFORMIN ER (GLUCOPHAGE XR) 500 mg 24 hr tablet Take 2 tablets by mouth twice daily. atorvastatin (LIPITOR) 20 mg tablet Take 1 tablet by mouth daily at bedtime. For cholesterol. sertraline (ZOLOFT) 50 mg tablet Take 1 tablet by mouth once daily. omeprazole (PRILOSEC) 20 mg capsule Take 1 capsule by mouth once daily. albuterol HFA (PROVENTIL HFA, VENTOLIN HFA) 90 mcg/actuation inhaler Inhale as instructed. furosemide (LASIX) 20 mg tablet Take 1 tablet by mouth once daily. (Patient taking differently: Take 20 mg by mouth. As needed) ALLERGIES ALLERGIES Allergen Reactions Cortisone Anaphylaxis Was from celestone injection in her her knee prior to TKR. Has tolerated oral prednisone before. Celestone [Betameth* Rash, Swelling Environmental [Othe* grass, molds, dust=nasal drainage, sneezing, sore throat Penicillins Swelling Prozac [Fluoxetine * Rash Gets red Vicodin [Hydrocodon* Vomiting Vytorin 10-10 [Ezet* Other: See Comments muscle aches with vytorin. Tolerated lipitor PHYSICAL EXAM VITAL SIGNS: BP 130/46 Pulse 56 Temp (Src) 98.3 (Oral) Ht 5' 10 (1.78m) Wt 267 lb 6.4 oz (121.3kg) BMI 38.37 kg/(m^2). GENERAL: Alert and oriented, appears stated age. In no acute distress. EYES: PERRL, EOMI, anicteric sclerae, no conjunctival injection HENT: Normal external examination of the ears and nose, lips, oropharynx and tongue. No oropharyngeal lesions or exudate. No oral or nasal sores. Geographic tongue. Slightly dry oral mucosa. NECK: No mass or asymmetry. No lymphadenopathy RESPIRATORY: Normal respiratory effort. Clear to auscultation CARDIOVASCULAR: Regular in rate and rhythm with holosystolic murmur heard throughout precordium. Significant 2+ pitting edema bilaterally right much worse than left ABDOMEN: Soft, nontender, nondistended NEUROLOGIC: No gross focal neurologic deficits. Cranial nerves II-XII grossly intact. SKIN: No rash, thickening, nodules, discoloration. Normal nails. MSK: Normal range of motion, no deformities, no swelling, and no tenderness in the hands, wrists, elbows, shoulders, spine, hips, knees, ankles, feet except as noted below: Squaring of CMC's Tenderness as below Warmth to bilateral knees Effusion of right knee Significantly decreased range of motion and severe antalgic gait due to bilateral knee pain Joint Exam 10/24/2022 Right Left CMC Tender PIP 3 Tender Knee Tender Tender MTP 1 Tender The following joints were examined and normal: Left Sternoclavicular, Right Sternoclavicular, Left Acromioclavicular, Right Acromioclavicular, Left Glenohumeral, Right Glenohumeral, Left Elbow, Right Elbow, Left Wrist, Right Wrist, Left MCP 1, Right MCP 1, Left MCP 2, Right MCP 2, Left MCP 3, Right MCP 3, Left MCP 4, Right MCP 4, Left MCP 5, Right MCP 5, Left IP, Right IP, Left PIP 2, Right PIP 2, Right PIP 3, Left PIP 4, Right PIP 4, Left PIP 5, Right PIP 5, Left Ankle, Right Ankle, Left MTP 1, Left MTP 2, Right MTP 2, Left MTP 3, Right MTP 3, Left MTP 4, Right MTP 4, Left MTP 5, Right MTP 5 Joint Exam Data (across time) Joint Exam 10/24/2022 Total Tender 3 Total Swollen 0 LABS [facility] notable for: 09/18/2022: CHENTE screen positive TSH 4.17 high A1c 6.6% Negative HIV ESR 45 CRP 7.13 normal <3.0 Negative RF 09/24/2022: WBC 3.6 low Hemoglobin 13.1 Platelets 106 low 09/11/2022: WBC 3.8 low Platelets 100 low ESR 39 No absolute cytopenias Historic labs: High titer TPO antibody CBC Latest Ref Rng & Units 02/03/2018 10/18/2021 11/26/2021 04/15/2022 WBC 3.70 - 11.00 k/uL 6.13 5.28 - 3.98 HEMOGLOBIN 11.5 - 15.5 g/dL 14.0 13.3 - 13.6 HEMATOCRIT 36.0 - 46.0 % 44.5 41.9 - 41.2 PLATELETS 150 - 400 k/uL 134(L) 99(L) 91(L) 91(L) ABS NEUT (ANC) 1.45 - 7.50 k/uL 3.96 - - 2.55 ABS LYMPH 1.00 - 4.00 k/uL 1.64 - - 0.98(L) CMP Latest Ref Rng & Units 02/03/2018 04/05/2019 10/18/2021 04/15/2022 NA 136 - 145 mmol/L - 138 - - SODIUM 136 - 144 mmol/L 139 - 137 - K 3.5 - 5.1 mmol/L - 4.2 - - POTASSIUM 3.7 - 5.1 mmol/L 4.0 - 4.3 - CHLORIDE 97 - 105 mmol/L 99 104 104 - CO2 22 - 30 mmol/L 27 27.0 27 - GLUCOSE 74 - 99 mg/dL 133(H) 127(A) 153(H) - BUN 7 - 21 mg/dL 12 11 10 - CREATININE 0.58 - 0.96 mg/dL 0.75 0.75 0.72 - CALCIUM 8.5 - 10.1 mg/dL - 9.0 - - CALCIUM, TOTAL 8.5 - 10.2 mg/dL 9.5 - 9.6 - AST 13 - 35 U/L 92(H) 76(A) 79(H) 76(H) ALT 7 - 38 U/L 67(H) - 43(H) 49(H) ALT (SGPT) 12 - 78 U/L - 67 - - ALKALINE PHOS TOTAL 45 - 117 U/L - 147(A) - - ALKALINE PHOS TOTAL 45 - 117 U/L - 147(A) - - ALKALINE PHOSPHATASE 34 - 123 U/L 120(H) - 143(H) 151(H) ESR, WSR 09/18/2022 SED RATE, WESTERGREN 45 CK Latest Ref Rng & Units 02/03/2018 CK 42 - 196 U/L 56 Antibodies Latest Ref Rng & Units 02/03/2018 04/15/2022 CHENTE Negative Positive(A) - CEHNTE TITER Negative 1:160(A) - CHENTE PATTERN - Homogeneous - DNA ANTIBODY W/CONFIRMATION <30 IU/mL <12 - PATIENT EDUCATOR ANTIBODY <1.0 AI 3.1(H) - SSA ANTIBODY <1.0 AI >8.0(H) - SSB ANTIBODY <1.0 AI <0.2 - RAMILA-1 ANTIBODY, IGG <1.0 AI <0.2 - RIBOSOMAL PATIENT EDUCATOR <1.0 AI <0.2 - SM ANTIBODY <1.0 AI <0.2 - SCLERODERMA AB, IGG <1.0 AI <0.2 - CENTROMERE AB <1.0 AI <0.2 - CHROMATIN ANTIBODY <1.0 AI <0.2 - PT SEC 9.7 - 13.0 sec - 12.0 PT INR 0.9 - 1.3 - 1.2 PTT 23.0 - 32.4 sec - 30.0 IMAGING Reviewed in Epic, notable for: 08/25/2022 x-ray knees: Hemiarthroplasty medial femoral-tibial joint with moderate effusion left Total knee arthroplasty with moderate effusion right ASSESSMENT Marylou Marie is a 62 year old White female with a history of diabetes, hyperlipidemia, CARTER, esophageal varices presumed secondary to cirrhosis although cannot confirm, hypothyroidism, GERD, chronic colitis , migraines, kidney stones, historic inflammatory arthritis previously followed by Dr. Martinez who presents to rheumatology clinic for evaluation of elevated inflammatory markers and joint pain. Today she is presenting with generalized osteoarthritis with CMC pain, minimal morning stiffness in the PIPs, severe knee pain in the setting of postsurgical status, and ankle instability. Low concern for underlying inflammatory arthritis given distribution however given positive CHENTE and previous diagnosis will work-up for rheumatoid arthritis as below. Discussed medications in the meantime including extremely judicious use of NSAIDs given presumed cirrhosis with esophageal varices and increased risk of bleeding. Okay for modified Tylenol dosing up to 2 to 3 g a day. Also discussed topicals including Voltaren up to 4 times a day, Biofreeze, Mica balm, etc. She has a number of other concerning symptoms that require attention. Will evaluate for DVT right lower extremity given asymmetric swelling, ordered and requested to be faxed to [facility]. Strongly recommend TTE given loud murmur on exam, patient prefers to talk to her PCP about this first. She also has cytopenias with slight leukopenia and thrombocytopenia. Thrombocytopenia likely secondary to cirrhosis. Leukopenia of unclear etiology, she has no lymphopenia consistent with systemic autoimmune disease. Regarding her elevated inflammatory markers, this is nonspecific and she has multiple risk factors for higher than normal inflammatory markers including age, gender, obesity, postsurgical status. Other differential includes autoimmune, infectious, malignant. Recommend age-appropriate cancer screening. Given elevated CHENTE and elevated inflammatory markers will screen for lupus and Sjogren's and below chronic infections. CHENTE is a nonspecific screening test for lupus. It can also be elevated in any autoimmune disease, malignancy, infections, and is also positive in 15 to 20% of the normal healthy population. In the absence of above work-up, no additional investigation will be needed for her positive CHENTE. Most likely her positive CHENTE is related to her autoimmune thyroid disease as she had high titer TPO antibodies in the past. IMPRESSIONS Diagnoses: (M79.89) Right leg swelling (primary encounter diagnosis) (M06.4) Inflammatory polyarthropathy (HCC) (R01.1) Heart murmur (M79.641, M79.642) Bilateral hand pain (M15.9) Generalized OA (R76.8) Positive CHENTE (antinuclear antibody) (R70.0) Elevated sed rate PLAN 1. Labs and x-rays as below 2. DVT ultrasound right lower extremity 3. Strongly recommend TTE, she prefers to talk to her PCP about this first 4. Recommend age-appropriate cancer screening 5. Recommend close follow-up with orthopedics, appreciate assistance in ruling out postsurgical infection 6. Due for DEXA screening age 65 7. Follow-up 1 month to discuss results and next steps, virtual okay Orders this visit: Office Visit on 10/24/22 XR FOOT GENERAL 3V AP/LAT/OBL BILATERAL XR HAND GENERAL 3V PA/LAT/OBL BILATERAL XR ANKLE GENERAL 3V AP/LAT/OBL BILATERAL US DVT LOWER RIGHT C-REACTIVE PROTEIN (CRP) SED RATE WESTERGREN COMP METABOLIC PANEL CBC + DIFF URIC ACID BLOOD CCP ANTIBODY IGG LUPUS ANTICOAG PL DNA AB DS + CONF BLD C3 COMPLEMENT BLD RIB P PRO IGG AUTOAB ANTI RACHEL ID PROTEIN ELECT RND UR W/INTERP PROTEIN CREATININE RATIO URINALYSIS WITH MICROSCOPIC, REFLEX CULTURE KAPPA/REDDY,FREE,SER PROTEIN ELECTROPHORESIS SERUM W/INTERP C4 COMPLEMENT BLD SJOGREN ABS SSA/SSB CHENTE BY IFA WITH REFLEX RHEUMATOID FACTOR BL IMMUNOFIXATION SCREEN, SERUM MONOCLONAL PROT UR W/INTERP HIV 1 2 COMBO(AG/AB),WITH REFLEX TO DIFFERENTIATION BLOOD TB SCREEN HEP B SURF AG SCRN HEP B SURF AB HEP B CORE AB TOTAL HEP C AB IA W/CONF SCRN CONSULT TO RHEUM/IMMUN DISEASE Return in about 4 weeks (around 11/21/2022). I spent a total of 62 minutes on the date of the service which included preparing to see the patient, [id number] patient care, completing clinical documentation, obtaining and/or reviewing separately obtained history, performing a medically appropriate examination, counseling and educating the patient/family/caregiver, and ordering medications, tests, or procedures. This note was partially generated with the assistance of [employer] voice recognition software. An attempt was made to correct any dictation errors however there may be some incorrect words, spellings, and punctuation. Camryn Patterson MD Rheumatology Date: October 24, 2022 Time: 9:35 AM documented in this encounter [facility] 10-04-2022 Note HNO ID: [id number] Author: Avtar Schmidt PA-C Service: ? Author Type: Physician Coverage Specialist Rn Type: Progress Notes Filed: 10/04/2022 10:26 AM Note Text: 62 year old female with c/o Hospital discharge follow-up Facility [facility] Admission date: 10/01/2022 Discharge date: Preadmission details: 10/01/2022 presented with [facility] with complaint of vertigo with spinning sensation, slight blurred vision, possible left-sided weakness greater than 24 hours in duration. Denied lightheadedness or off-balance sensation. Physical exam: Vital signs Temp 99.3 F-60-18-167/66-98% RA. NIH stroke scale was 0. Patient did have slight left pronator drift Orthostatic vital signs within normal limits. Negative Romberg.. CBC: WBC 3.7L-13.7-43.0-PLT 88 L. Normal differential. PT 15.5 H, APTT WNL Chemistry profile WNL. Negative troponin. Chest x-ray no acute disease. EKG: Normal sinus rhythm ventricular rate 66, sinus arrhythmia present, nonspecific ST changes without change from 04/02/2022. Stroke team was activated Head/neck CTA: Tiny lacunar right basal ganglia Hospital course: Admitted from ER to PCU under Dr. Donte Campuzano hospitalist Admission assessment and plan: 1. TIA: Admitted to monitored bed with neurochecks, MRI of brain, echo cardiogram ordered, placed on telemetry monitoring. Hospitalist identified sinus arrhythmia versus atrial fibrillation. 2. Hypothyroidism controlled on current dosing 3. Hypertension: Blood pressure controlled, continue home medications 4. Dyslipidemia on statin therapy, continued 5. GERD: PPI continue 6. CARTER: On rifaximin which was continued 7. ASHLEY continue CPAP at night 8. Obesity: Weight loss advised 9. DVT prophylaxis: Subcu Lovenox. 10/01/2022 brain MRI: No acute intracranial mass, hemorrhage, acute territorial infarct. No radiographicly significant sinus disease. 10/02/2022 lab work showed little change, PLT 78, glucose 117. Headaches possibly related to migraine 10/02/2022 patient was discharged, diagnosis TIA. Medication reconciliation: New prescription: Acetaminophen 325 mg p.o. every 6 hours as needed Continue medications: Albuterol 90 mcg per actuation 2 puffs every 4 hours as needed, #18/6 Atorvastatin 20 mg every afternoon Levothyroxine 75 mcg 100 mcg daily Omeprazole 20 mg p.o. daily metformin ER 1000 mg twice a day Sertraline 50 mg daily Toprol tartrate 25 mg twice a day Oral appliance #1/0 No discontinue medications Still having a slight headache, not as bad as a few days ago. No dizziness or felling of balance. Hx knee replacement may, manipulation under anesthesia to breakk up scar tissue. Was put on prednisone which was finished Friday, following morning had sx. No chest pain, SOB, dyspnea, orthopnea, syncopal sx, leg swelling, nausea, diaphoresis or heartburn. Fluttering in chest improved on metoprolol. A lot of stress at work. Taking synthroid as directed. Energy level is better Sleep is weird, sometimes good for awhile and then a week wakes every night. Diabetes controlled, watching diet Compliant with meds. 6.6 (09/18/2022) Mood is good. Having EGD in November due to varices. No elastography done. HISTORIES FAMILY HISTORY Problem Relation Age of Onset Hypertension Mother Heart Father Prostate Cancer Father Cancer Maternal Grandmother thyroid Diabetes Maternal Grandmother Breast Cancer Maternal Grandmother Breast Cancer Paternal Grandmother Diabetes Paternal Grandmother PAST MEDICAL HISTORY Diagnosis Date Abdominal pain, generalized pain is the same as before her TONYA Colitis History of chronic colitis diagnosed on colonoscopy with Dr. Braragan Depressive disorder, not elsewhere classified 05/16/2010 Esophageal reflux Gastroesophageal reflux Hyperglycemia 08/06/2016 Hyperlipidemia 05/16/2010 Hypothyroidism 05/16/2010 from Hasthimoto's thyroiditis Inflammatory polyarthropathy (HCC) 12/03/2013 Dr Martinez 11/2013 Migraine headache 05/16/2010 propranolol effective for prevention; last migraine was a few months ago and was milder since on propranolol ; no HTN Nonspecific elevation of levels of transaminase or lactic acid dehydrogenase (LDH) Elevated LFT's Renal calculus 1997 Symptomatic menopausal or female climacteric states PAST SURGICAL HISTORY Procedure Laterality Date ANTERIOR INTERBODY FUSION, CERVICAL 06/2012 Dr. Paz @ [facility] ARTHRP KNE CONDYLEANDPLATU MEDIALANDLAT COMPARTMENTS 07/2009 Knee replacement, left BX BREAST PERC VACUUM/ROTN 04/23/2007 LEFT COLONOSCOPY FLX DX W/COLLJ SPEC WHEN PFRMD 07/31/2015 Colonoscopy DILATION AND CURETTAGE DXAND/THER NONOBSTETRIC 1984 Dilation AND curettage HYSTERECTOMY HX 2002 HYSTEROSCOPY, DIAGNOSTIC (SEPARATE 2002 Hysteroscopy/curettage LAPAROSCOPY SURG CHOLECYSTECTOMY 2004 Cholecystectomy, lap LAPS ABD PRTMANDOMENTUM DX W/WO SPEC BR/WA SPX 2002 Laparoscopy PAST S (more content not included)... [facility] 10-04-2022 Instructions M Gregory Schmidt PA-C - 10/04/2022 9:50 AM EDT BONE MINERAL DENSITY PATIENT INSTRUCTIONS ======== Bone mineral density testing measures the amount of calcium in certain parts of your bones. This information determines how strong your bones are. The test is used to detect osteoporosis, a disease in which the bone's mineral content and density are low, increasing a person's risk of fractures. The lumbar spine (lower back) and the hip are the skeletal sites usually examined. For the test, remember that: 1. You cannot take this test if you are . 2. Eat a normal diet on the day of the test. 3. Take your medications as you normally would. 4. DO NOT take calcium supplements (such as Tums) for 24 hours before the test. 5. On the day of the test, leave valuables (jewelry or credit cards) at home. 6. The test should be performed prior to oral, rectal or IV contrast studies, or at least 7 days after any of these studies. For the test, you may be asked to wear a hospital gown. You will lie on your back, on a padded table, in a comfortable position. Generally, you can resume your usual activities immediately. documented in this encounter [facility] 10-04-2022 History of Present illness Narrative 62 year old female with c/o Hospital discharge follow-up Facility [facility] Admission date: 10/01/2022 Discharge date: Preadmission details: 10/01/[facility] complaint of vertigo with spinning sensation, slight blurred vision, possible left-sided weakness greater than 24 hours in duration. Denied lightheadedness or off-balance sensation. Physical exam: Vital signs Temp 99.3 F-60-18-167/66-98% RA. NIH stroke scale was 0. Patient did have slight left pronator drift Orthostatic vital signs within normal limits. Negative Romberg.. CBC: WBC 3.7L-13.7-43.0-PLT 88 L. Normal differential. PT 15.5 H, APTT WNL Chemistry profile WNL. Negative troponin. Chest x-ray no acute disease. EKG: Normal sinus rhythm ventricular rate 66, sinus arrhythmia present, nonspecific ST changes without change from 04/02/2022. Stroke team was activated Head/neck CTA: Tiny lacunar right basal ganglia Hospital course: Admitted from ER to PCU under Dr. Donte Campuzano hospitalist Admission assessment and plan: 1. TIA: Admitted to monitored bed with neurochecks, MRI of brain, echo cardiogram ordered, placed on telemetry monitoring. Hospitalist identified sinus arrhythmia versus atrial fibrillation. 2. Hypothyroidism controlled on current dosing 3. Hypertension: Blood pressure controlled, continue home medications 4. Dyslipidemia on statin therapy, continued 5. GERD: PPI continue 6. CARTER: On rifaximin which was continued 7. ASHLEY continue CPAP at night 8. Obesity: Weight loss advised 9. DVT prophylaxis: Subcu Lovenox. 10/01/2022 brain MRI: No acute intracranial mass, hemorrhage, acute territorial infarct. No radiographicly significant sinus disease. 10/02/2022 lab work showed little change, PLT 78, glucose 117. Headaches possibly related to migraine 10/02/2022 patient was discharged, diagnosis TIA. Medication reconciliation: New prescription: Acetaminophen 325 mg p.o. every 6 hours as needed Continue medications: Albuterol 90 mcg per actuation 2 puffs every 4 hours as needed, #18/6 Atorvastatin 20 mg every afternoon Levothyroxine 75 mcg 100 mcg daily Omeprazole 20 mg p.o. daily metformin ER 1000 mg twice a day Sertraline 50 mg daily Toprol tartrate 25 mg twice a day Oral appliance #1/0 No discontinue medications Still having a slight headache, not as bad as a few days ago. No dizziness or felling of balance. Hx knee replacement endo may, manipulation under anesthesia to breakk up scar tissue. Was put on prednisone which was finished Friday, following morning had sx. No chest pain, SOB, dyspnea, orthopnea, syncopal sx, leg swelling, nausea, diaphoresis or heartburn. Fluttering in chest improved on metoprolol. A lot of stress at work. Taking synthroid as directed. Energy level is better Sleep is weird, sometimes good for awhile and then a week wakes every night. Diabetes controlled, watching diet Compliant with meds. 6.6 (09/18/2022) Mood is good. Having EGD in November due to varices. No elastography done. HISTORIES FAMILY HISTORY Problem Relation Age of Onset Hypertension Mother Heart Father Prostate Cancer Father Cancer Maternal Grandmother thyroid Diabetes Maternal Grandmother Breast Cancer Maternal Grandmother Breast Cancer Paternal Grandmother Diabetes Paternal Grandmother PAST MEDICAL HISTORY Diagnosis Date Abdominal pain, generalized pain is the same as before her TONYA Colitis History of chronic colitis diagnosed on colonoscopy with Dr. Barragan Depressive disorder, not elsewhere classified 05/16/2010 Esophageal reflux Gastroesophageal reflux Hyperglycemia 08/06/2016 Hyperlipidemia 05/16/2010 Hypothyroidism 05/16/2010 from Hasthimoto's thyroiditis Inflammatory polyarthropathy (HCC) 12/03/2013 Dr Martinez 11/2013 Migraine headache 05/16/2010 propranolol effective for prevention; last migraine was a few months ago and was milder since on propranolol ; no HTN Nonspecific elevation of levels of transaminase or lactic acid dehydrogenase (LDH) Elevated LFT's Renal calculus 1997 Symptomatic menopausal or female climacteric states PAST SURGICAL HISTORY Procedure Laterality Date ANTERIOR INTERBODY FUSION, CERVICAL 06/2012 Dr. Paz @ [facility] ARTHRP KNE CONDYLE&PLATU MEDIAL&LAT COMPARTMENTS 07/2009 Knee replacement, left BX BREAST PERC VACUUM/ROTN 04/23/2007 LEFT COLONOSCOPY FLX DX W/COLLJ SPEC WHEN PFRMD 07/31/2015 Colonoscopy DILATION & CURETTAGE DX&/THER NONOBSTETRIC 1984 Dilation & curettage HYSTERECTOMY HX 2002 HYSTEROSCOPY, DIAGNOSTIC (SEPARATE 2002 Hysteroscopy/curettage LAPAROSCOPY SURG CHOLECYSTECTOMY 2005 Cholecystectomy, lap LAPS ABD PRTM&OMENTUM DX W/WO SPEC BR/WA SPX 2002 Laparoscopy PAST SURGICAL HISTORY OF 1998 lumbardisectomy PAST SURGICAL HISTORY OF [address] foot PAST SURGICAL HISTORY OF 07/2009 left knee arthroscopy PAST SURGICAL HISTORY OF 2005 anterior cervical disk fusion PLCMT LOCALZTN CLIP,PERC,DURING BREAST BX 04/23/[address] Zimmer TONSILLECTOMY PRIMARY/SECONDARY <AGE 12 Tonsillectomy TOTAL ABDOMINAL HYSTERECT W/WO RMVL TUBE OVARY 2003 Hysterectomy, TONYA TOTAL KNEE REPLACEMENT Right 09/26/2022 Dr. Michele العلي @ 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 Hyperlipidemia Colitis, Acute Migraine Headache Chronic Depression Goiter Obesity, Class Iii, Bmi 40-49.9 (Morbid Obesity) (Hcc) Ashley (Obstructive Sleep Apnea) Inflammatory Polyarthropathy (Hcc) Multinodular Goiter Hyperglycemia Positive Chente (Antinuclear Antibody) Thrombocytopenia (Hcc) Lymphopenia Type 2 Diabetes Mellitus Without Complication, Without Long-Term Current Use of Insulin (Hcc) Diastolic Dysfunction Other Cirrhosis of Liver (Hcc) Secondary Esophageal Varices Without Bleeding (Hcc) History of Colonic Polyps Carter (Nonalcoholic Steatohepatitis) Current Outpatient Medications Medication Sig Dispense Refill levothyroxine (SYNTHROID) 112 mcg tablet Take 1 tablet by mouth once daily. Take on empty stomach. For Thyroid. 30 tablet 11 albuterol HFA (PROVENTIL HFA, VENTOLIN HFA) 90 mcg/actuation inhaler Inhale as instructed. metFORMIN ER (GLUCOPHAGE XR) 500 mg 24 hr tablet Take 2 tablets by mouth twice daily. 120 tablet 11 furosemide (LASIX) 20 mg tablet Take 1 tablet by mouth once daily. 30 tablet 0 atorvastatin (LIPITOR) 20 mg tablet Take 1 tablet by mouth daily at bedtime. For cholesterol. 90 tablet 3 sertraline (ZOLOFT) 50 mg tablet Take 1 tablet by mouth once daily. 90 tablet 3 omeprazole (PRILOSEC) 20 mg capsule Take 1 capsule by mouth once daily. 90 capsule 3 Current Facility-Administered Medications Medication Dose Route Frequency Provider Last Rate Last Admin perflutren lipid microspheres 1.3 mL in NaCl (PF) 0.9% 10 mL injection (DEFINITY) INTRAVENOUS DIRECTED PRN Zeeshan Stephen MD sodium chloride 0.9 % (flush) 10 mL (BD POSIFLUSH) 10 mL INTRAVENOUS DIRECTED PRN Zeeshan Stephen MD HEPATITIS A(1 of 2 - Risk 2-dose series) Never done PNEUMOCOCCAL(1 - PCV) Never done DILATED RETINAL EXAM Never done DTAP,TDAP,TD(1 - Tdap) Never done SHINGRIX VACCINE(1 of 2) Never done HEPATITIS B(1 of 3 - Risk 3-dose series) Never done COVID-19 VACCINE(4 - Booster for Moderna series) due on 07/20/2021 DIABETIC FOOT EXAM due on 03/12/2022 MAMMOGRAM due on 03/27/2022 EXAM: BP 120/72 Pulse (!) 58 Resp 16 Wt 118.4 kg (261 lb) SpO2 99% BMI 38.54 kg/m Pleasant overweight adult woman who appears noticeably thinner in no acute distress. Alert and oriented all spheres. Normal affect and cognition. Speech normal. No deficits to learning or comprehension. Skin warm, dry, pink to lips and nailbeds. Normal turgor. Respirations regular and unlabored. HEENT: NCAT. No scleral icterus or conjunctival injection. TM's clear. Nose and oropharynx free from injection or lesion. Oral membranes moist and pink. No cervical lymph nodes. Thyroid non-tender, no masses, or enlargement. Carotids pulses 2+/4+ without bruits. No JVD with HOB at 30 degrees. Chest is normal shape. Lungs are clear to all franz with good air exchange through out. HRRR without murmur or gallop. No lifts, heaves, or rubs. Extrem: no clubbing or cyanosis. Edema: none. Extremities are warm and pink with prompt capillary refill.No focal neuro deficits. No pronator drift. No passpointing. Romberg negative. ASSESSMENT/PLAN: 1. Hospital discharge follow-up - ICD9: V67.59, ICD10: Z09 (primary diagnosis) Updated problem list Med reconciliation completed. 2. 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 Controlled, continue present dose - LEVOTHYROXINE 112 MCG TABLET 3. Type 2 diabetes mellitus without complication, without long-term current use of insulin (HCC) - ICD9: 250.00, ICD10: E11.9 - Controlled - Continue current medications - METFORMIN ER 500 MG TABLET,EXTENDED RELEASE 24 HR 4. Depressive disorder - ICD9: 311, ICD10: F32.A Stable on medication, refill - SERTRALINE 50 MG TABLET 5. Gastroesophageal reflux disease without esophagitis - ICD9: 530.81, ICD10: K21.9 - Discussed lifestyle modifications including losing weight, limiting caffeine, no meals three hours before sleep, and head of bed elevation - Continue treatment with Prilosec 20 mg QD - OMEPRAZOLE 20 MG CAPSULE,DELAYED RELEASE 6. Encounter for screening for osteoporosis - ICD9: V82.81, ICD10: Z13.820 - DXA-AXIAL SKELETON 7. TIA (transient ischemic attack) - ICD9: 435.9, ICD10: G45.9 Uncertain diagnosis: based on pronator drift. Echo not done. 8. CARTER (nonalcoholic steatohepatitis) - ICD9: 571.8, ICD10: K75.[address] [facility] 9. Secondary esophageal varices without bleeding (HCC) - ICD9: 456.21, ICD10: I85.10 Stable currently Has scheduled f/u [address] Stephen. Avtar Schmidt PA-C documented in this encounter [facility] 10-03-2022 Miscellaneous Notes Forwarded referral and face sheet to Rafi Velásquez and patient updated. Placed. Patient calling needs referral for [facility], Dr Kaiser. She has appt scheduled for 10/04/2022 at 1 pm for diabetic eye exam. Pending consult. Placing insurance referral also in computer. Please advise documented in this encounter [facility] 10-01-2022 Miscellaneous Notes Triage Protocolm Advised: CALL 911 NOW. Patient agreeable. This nurse offered to call 911 for patient and stay on line with her and patient declined and said she was going to contact 911. Reason for Disposition Sounds like a life-threatening emergency to the triager Answer Assessment - Initial Assessment Questions Patient calling with complaint of severe headache with dizziness. States a migraine headache began yesterday and nothing will take it away . Has taken Excedrin and ibuprofen and it has not given her any relief. Pain behind both eyes and around temples, but whole head hurts. Dizzy when sits up. Unsteady when walking. Has stiff neck. Vomited x 6 times in last 24 hours. Blurry vision that started yesterday. Home alone. Alert. Speaking in clear sentences. 1. LOCATION:severe headache-around temples and behind eyes, whole head hurts 2. ONSET: yesterday 3. PATTERN: constant 4. SEVERITY: 8 out 10 currently. States this headache is the worst she has ever had in her life. 5. RECURRENT SYMPTOM: not this bad 6. CAUSE: Pt not sure 7. MIGRAINE: yes has history but never this bad 8. HEAD INJURY: no 9. OTHER SYMPTOMS: as above Denies sweats or chills fever, sore throat, or cold symptoms. Denies numbness or tingling in body or face. No weakness on one side of her body. Able to stand but feels unsteady. 10. : no Protocols used: [id number] documented in this encounter [facility] 09-23-2022 Miscellaneous Notes CHENTE received from [facility]. 09/18/22 - CHENTE, DIRECT: POSITIVE Melvi Jacobsen MA documented in this encounter [facility] 09-20-2022 Miscellaneous Notes Patient was made aware of the results. Patient verbalizes understanding. Clara Nieves Ma Labs are good, except her thyroid is low. Increase synthroid to 112 mcg a day and recheck tsh in six weeks. Her inflammatory markers remain very high, again recommend seeing rheumatology documented in this encounter [facility] 09-17-2022 Note HNO ID: [id number] Author: Zeeshan Stephen MD Service: ? Author Type: Physician Type: Progress Notes Filed: 09/17/2022 4:46 PM Note Text: Patient presents with: Follow Up HPI: Patient presents today for office visit for follow up. Has seen ortho after having fallen on her knee that was replaced doing well. Seeing Dr Geeta's office for her liver. DM: Currently taking Metformin. Has diarrhea from Metformin and causes upset stomach if she takes it at night. Watches diet closely with sugars. Would like to discuss [employer] effects to taking Metformin and see if maybe there is a better alternative. Blurred vision. Due for eye exam Exercises 3 times a week. Doing better since right knee replacement. HLD: No myalgias. Does not watch diet too particularly closely as far as cholesterol in concerned. Follows with Dr. Mclaughlin. Heart fluttering. Recently put on Metoprolol. Not sure of dose. No chest pain or shortness of breath. HYPOTHYROID: Due for TSH. Needs order faxed to [facility]. Feeling fatigued 03/02. Lately having hair loss with dry skin. No bleeding or bruising issues. Was referred to rheum but did not see them yet. Still with frequent joint pain. No hand pain. Had previously seen rheum. MEDICATIONS: Current Outpatient Medications Medication Sig albuterol HFA (PROVENTIL HFA, VENTOLIN HFA) 90 mcg/actuation inhaler Inhale as instructed. levothyroxine (SYNTHROID) 100 mcg tablet Take 1 tablet by mouth once daily. Take on empty stomach. For Thyroid. metFORMIN ER (GLUCOPHAGE XR) 500 mg 24 hr tablet Take 2 tablets by mouth twice daily. furosemide (LASIX) 20 mg tablet Take 1 tablet by mouth once daily. atorvastatin (LIPITOR) 20 mg tablet Take 1 tablet by mouth daily at bedtime. For cholesterol. sertraline (ZOLOFT) 50 mg tablet Take 1 tablet by mouth once daily. omeprazole (PRILOSEC) 20 mg capsule Take 1 capsule by mouth once daily. Current Facility-Administered Medications Medication Dose Route Frequency perflutren lipid microspheres 1.3 mL in NaCl (PF) 0.9% 10 mL injection (DEFINITY) INTRAVENOUS DIRECTED PRN sodium chloride 0.9 % (flush) 10 mL (BD POSIFLUSH) 10 mL INTRAVENOUS DIRECTED PRN ALLERGIES: ALLERGIES Allergen Reactions Cortisone Anaphylaxis Was from celestone injection in her her knee prior to TKR. Has tolerated oral prednisone before. Celestone [Betameth* Rash, Swelling Environmental [Othe* grass, molds, dust=nasal drainage, sneezing, sore throat Penicillins Swelling Prozac [Fluoxetine * Rash Gets red Vicodin [Hydrocodon* Vomiting Vytorin 10-10 [Ezet* Other: See Comments muscle aches with vytorin. Tolerated lipitor PAST MEDICAL HISTORY Diagnosis Date Abdominal pain, generalized pain is the same as before her TONYA Colitis History of chronic colitis diagnosed on colonoscopy with Dr. Barragan Depressive disorder, not elsewhere classified 05/16/2010 Esophageal reflux Gastroesophageal reflux Hyperglycemia 08/06/2016 Hyperlipidemia 05/16/2010 Hypothyroidism 05/16/2010 from Hasthimoto's thyroiditis Inflammatory polyarthropathy (HCC) 12/03/2013 Dr Martinez 11/2013 Migraine headache 05/16/2010 propranolol effective for prevention; last migraine was a few months ago and was milder since on propranolol ; no HTN Nonspecific elevation of levels of transaminase or lactic acid dehydrogenase (LDH) Elevated LFT's Renal calculus 1997 Symptomatic menopausal or female climacteric states PAST SURGICAL HISTORY Procedure Laterality Date ANTERIOR INTERBODY FUSION, CERVICAL 06/2012 Dr. Paz @ [facility] ARTHRP KNE CONDYLEANDPLATU MEDIALANDLAT COMPARTMENTS 07/2009 Knee replacement, left BX BREAST PERC VACUUM/ROTN 04/23/07 LEFT COLONOSCOPY FLX DX W/COLLJ SPEC WHEN PFRMD 07/31/2015 Colonoscopy DILATION AND CURETTAGE DXAND/THER NONOBSTETRIC 1984 Dilation AND curettage HYSTERECTOMY HX 2002 HYSTEROSCOPY, DIAGNOSTIC (SEPARATE 2002 Hysteroscopy/curettage LAPAROSCOPY SURG CHOLECYSTECTOMY 2005 Cholecystectomy, lap LAPS ABD PRTMANDOMENTUM DX W/WO SPEC BR/WA SPX 2002 Laparoscopy PAST SURGICAL HISTORY OF 1998 lumbardisectomy PAST SURGICAL HISTORY OF [address] foot PAST SURGICAL HISTORY OF 07/2009 left knee arthroscopy PAST SURGICAL HISTORY OF 2005 anterior cervical disk fusion PLCMT LOCALZTN CLIP,PERC,DURING BREAST BX 04/23/[address] Zimmer TONSILLECTOMY PRIMARY/SECONDARY Tonsillectomy TOTAL ABDOMINAL HYSTERECT W/WO RMVL TUBE OVARY 2002 Hysterectomy, TONYA FAMILY HISTORY Problem Relation Age of Onset Hypertension Mother Heart Father Prostate Cancer Father Cancer Maternal Grandmother thyroid Diabetes Maternal Grandmother Breast Cancer Maternal Grandmother Breast Cancer Paternal Grandmother Diabetes Paternal Grandmother Social History Tobacco Use Smoking status: Never Smokeless tobacco: Never Vaping Use Vaping Use: Never used Substance Use Topics Alcohol use: Yes Comment: rare (more content not included)... [facility] 09-17-2022 History of Present illness Narrative Patient presents with: Follow Up HPI: Patient presents today for office visit for follow up. Has seen ortho after having fallen on her knee that was replaced doing well. Seeing Dr Connor's office for her liver. DM: Currently taking Metformin. Has diarrhea from Metformin and causes upset stomach if she takes it at night. Watches diet closely with sugars. Would like to discuss alf effects to taking Metformin and see if maybe there is a better alternative. Blurred vision. Due for eye exam Exercises 3 times a week. Doing better since right knee replacement. HLD: No myalgias. Does not watch diet too particularly closely as far as cholesterol in concerned. Follows with Dr. Mclaughlin. Heart fluttering. Recently put on Metoprolol. Not sure of dose. No chest pain or shortness of breath. HYPOTHYROID: Due for TSH. Needs order faxed to [facility]. Feeling fatigued /. Lately having hair loss with dry skin. No bleeding or bruising issues. Was referred to rheum but did not see them yet. Still with frequent joint pain. No hand pain. Had previously seen rheum. MEDICATIONS: Current Outpatient Medications Medication Sig albuterol HFA (PROVENTIL HFA, VENTOLIN HFA) 90 mcg/actuation inhaler Inhale as instructed. levothyroxine (SYNTHROID) 100 mcg tablet Take 1 tablet by mouth once daily. Take on empty stomach. For Thyroid. metFORMIN ER (GLUCOPHAGE XR) 500 mg 24 hr tablet Take 2 tablets by mouth twice daily. furosemide (LASIX) 20 mg tablet Take 1 tablet by mouth once daily. atorvastatin (LIPITOR) 20 mg tablet Take 1 tablet by mouth daily at bedtime. For cholesterol. sertraline (ZOLOFT) 50 mg tablet Take 1 tablet by mouth once daily. omeprazole (PRILOSEC) 20 mg capsule Take 1 capsule by mouth once daily. Current Facility-Administered Medications Medication Dose Route Frequency perflutren lipid microspheres 1.3 mL in NaCl (PF) 0.9% 10 mL injection (DEFINITY) INTRAVENOUS DIRECTED PRN sodium chloride 0.9 % (flush) 10 mL (BD POSIFLUSH) 10 mL INTRAVENOUS DIRECTED PRN ALLERGIES: ALLERGIES Allergen Reactions Cortisone Anaphylaxis Was from celestone injection in her her knee prior to TKR. Has tolerated oral prednisone before. Celestone [Betameth* Rash, Swelling Environmental [Othe* grass, molds, dust=nasal drainage, sneezing, sore throat Penicillins Swelling Prozac [Fluoxetine * Rash Gets red Vicodin [Hydrocodon* Vomiting Vytorin 10-10 [Ezet* Other: See Comments muscle aches with vytorin. Tolerated lipitor PAST MEDICAL HISTORY Diagnosis Date Abdominal pain, generalized pain is the same as before her TONYA Colitis History of chronic colitis diagnosed on colonoscopy with Dr. Barragan Depressive disorder, not elsewhere classified 05/16/2010 Esophageal reflux Gastroesophageal reflux Hyperglycemia 08/06/2016 Hyperlipidemia 05/16/2010 Hypothyroidism 05/16/2010 from Hasthimoto's thyroiditis Inflammatory polyarthropathy (HCC) 12/03/2013 Dr Martinez 11/2013 Migraine headache 05/16/2010 propranolol effective for prevention; last migraine was a few months ago and was milder since on propranolol ; no HTN Nonspecific elevation of levels of transaminase or lactic acid dehydrogenase (LDH) Elevated LFT's Renal calculus 1997 Symptomatic menopausal or female climacteric states PAST SURGICAL HISTORY Procedure Laterality Date ANTERIOR INTERBODY FUSION, CERVICAL 06/2012 Dr. Paz @ [facility] ARTHRP KNE CONDYLE&PLATU MEDIAL&LAT COMPARTMENTS 07/2009 Knee replacement, left BX BREAST PERC VACUUM/ROTN 04/23/07 LEFT COLONOSCOPY FLX DX W/COLLJ SPEC WHEN PFRMD 07/31/2015 Colonoscopy DILATION & CURETTAGE DX&/THER NONOBSTETRIC 1984 Dilation & curettage HYSTERECTOMY HX 2002 HYSTEROSCOPY, DIAGNOSTIC (SEPARATE 2002 Hysteroscopy/curettage LAPAROSCOPY SURG CHOLECYSTECTOMY 2004 Cholecystectomy, lap LAPS ABD PRTM&OMENTUM DX W/WO SPEC BR/WA SPX 2002 Laparoscopy PAST SURGICAL HISTORY OF 1998 lumbardisectomy PAST SURGICAL HISTORY OF [address] foot PAST SURGICAL HISTORY OF 07/2009 left knee arthroscopy PAST SURGICAL HISTORY OF 2005 anterior cervical disk fusion PLCMT LOCALZTN CLIP,PERC,DURING BREAST BX 04/23/[address] Zimmer TONSILLECTOMY PRIMARY/SECONDARY <AGE 12 Tonsillectomy TOTAL ABDOMINAL HYSTERECT W/WO RMVL TUBE OVARY 2003 Hysterectomy, TONYA FAMILY HISTORY Problem Relation Age of Onset Hypertension Mother Heart Father Prostate Cancer Father Cancer Maternal Grandmother thyroid Diabetes Maternal Grandmother Breast Cancer Maternal Grandmother Breast Cancer Paternal Grandmother Diabetes Paternal Grandmother Social History Tobacco Use Smoking status: Never Smokeless tobacco: Never Vaping Use Vaping Use: Never used Substance Use Topics Alcohol use: Yes Comment: rarely 3 YEARLY Drug use: No Reviewed current medications, allergies, past medical history, surgical history, family history and social history today. REVIEW OF SYSTEMS Zoloft is working well. All other reviewed and negative other than HPI. HEALTH MAINTENANCE: Reviewed health maintenance issues today and recommended the following in detail. DILATED RETINAL EXAM -recommended. MAMMOGRAM- order is in there. LDL CHOLESTEROL due on 10/18/2022 VITALS: BP 130/56 Pulse 71 Ht 175.3 cm (5' 9 ) Wt 121.5 kg (267 lb 12.8 oz) SpO2 97% BMI 39.55 kg/m Last 4 Encounter Wt Readings: Date: Wt: 04/15/2022 126.8 kg (279 lb 8 oz) 03/22/2022 127 kg (280 lb) 02/15/2022 130.6 kg (288 lb) 02/01/2022 131.1 kg (289 lb) PHYSICAL EXAMINATION: General appearance: Well appearing, alert, in no acute distress, well-hydrated, well nourished. Skin: Skin color, texture, turgor normal, no suspicious rashes or lesions Head: Normocephalic, no masses, lesions, tenderness or abnormalities Lungs: Lungs clear to auscultation. No wheezing, rhonchi, rales Heart: RRR without murmur, gallop, or rubs. No ectopy Abdomen: Normal abdominal exam, Abdomen soft, non-tender. Bowel sounds normal. No masses, organomegaly Extremities: No deformities, edema, skin discoloration, clubbing or cyanosis. Good capillary refill. Musculoskeletal: No joint swelling, deformity, or tenderness ASSESSMENT/PLAN: 1. Mixed hyperlipidemia - ICD9: 272.2, ICD10: E78.2 (primary diagnosis) - follow labs. 2. History of colonic polyps - ICD9: V12.72, ICD10: Z86.010 - per gi. 3. CARTER (nonalcoholic steatohepatitis) - ICD9: 571.8, ICD10: K75.81 - per gi 4. Diastolic dysfunction - ICD9: 429.9, ICD10: I51.89 - per cardiology. No signs of fluid retention. 5. ASHLEY (obstructive sleep apnea) - ICD9: 327.23, ICD10: G47.33 - stable. 6. Other cirrhosis of liver (HCC) - ICD9: 571.5, ICD10: K74.69 7. Secondary esophageal varices without bleeding (HCC) - ICD9: 456.21, ICD10: I85.10 - per gi. 8. 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 Type 2 diabetes mellitus without complication, without long-term current use of insulin (HCC) - ICD9: 250.00, ICD10: E11.9 - Controlled - Continue current medications - HGB A1C - LIPID PANEL BASIC 10. Thrombocytopenia (HCC) - ICD9: 287.5, ICD10: D69.6 - will follow. Is stable. 11. Inflammatory polyarthropathy (HCC) - ICD9: 714.9, ICD10: M06.4 - recheck. Consider back to rheum. - SED RATE WESTERGREN - C-REACTIVE PROTEIN (CRP) - RHEUMATOID FACTOR BL - CHENTE BLOOD 12. Positive CHENTE (antinuclear antibody) - ICD9: 795.79, ICD10: R76.8 - RHEUMATOID FACTOR BL - CHENTE BLOOD 13. Screening for HIV (human immunodeficiency virus) - ICD9: V73.89, ICD10: Z11.4 - HIV 1 2 COMBO(AG/AB),WITH REFLEX TO DIFFERENTIATION Zeeshan Stephen MD documented in this encounter [facility] 09-16-2022 Miscellaneous Notes Pt called to request lab order for TSH be faxed to [facility]. Order faxed as requested. Corina Sanchez LPN documented in this encounter [facility] 07-23-2022 Miscellaneous Notes Message left informing patient. Irene Hubbard Order for recheck is in. This likely will need faxed to [facility]. Cynthia Mac APRN.SHEILA Patient returned call and given provider's message below with verbalized understanding. Patient reports she is taking 88 mcg daily. States she will check with [facility] pharmacy on Friday to see if they have the Rx sent for 100 mcg, and will start taking the [address] orders for recheck in 6 weeks. Left message for pt to return call to office. Alon Her LPN So the last labs that she had done on 06/25/22 shows that she isn't getting enough thyroid medication. WE have that her thyroid medication was increased to 100 mcg daily in March. Does she have this dose? We should have her increased the dose and she should repeat labs in 6-8 weeks. Cynthia Mac APRN.SHEILA Called Pt and she reports she is taking the 88 mcg of Levothyroxine. Have not heard anything more back from patient re: dosage. Can we please reach out to her again? Cynthia Mac APRN.CNP Patient returned call and given provider's message below with verbalized understanding. Patient reports she had a knee replacement a few weeks ago, and knows she missed a few doses of levothyroxine. She thinks she is taking 88 mcg daily. Advised per med list should be taking 100 mcg. Patient will check and call back to let provider know for sure. Called and left message on patients voicemail to return call to the office and ask to speak with a triage nurse. Mary Manzanares Ma Called and left a voicemail for the Patient to call back and ask for a nurse to receive the providers message. Laurita Pérez RN Can please let patient know that I receive her lab results. Her liver enzymes continue to be elevated. Please follow-up w/ Dr. Connor, as planned. She also continues with the low platelets, but appears stable. Her thyroid level is on the underactive side. Please confirm thyroid dose and if she has had any recent changes in dosage? Or any missed doses? Lab results received via fax from [facility]. Labs were ordered by provider at [facility]. Please review and advise. View External Lab - Miscellaneous Lab [ID [id number]] documented in this encounter [facility] 06-19-2022 Note HNO ID: [id number] Author: Cnythia Mac APRN.LEASE OPERATOR Service: ? Author Type: Nurse Practitioner Type: Progress Notes Filed: 06/19/2022 1:07 PM Note Text: This is a 61 year old female who presents today with: Patient presents with: Hospital Follow Up: [facility] follow up dx: R TKR, dc'd from TCU on 06/09, sx on 05/[address] العلي; going to PT at [facility] 2x's/week HISTORY OF PRESENT ILLNESS: Marylou Marie is a 61 year old female. Patient presents with: Hospital Follow Up: [facility] follow up dx: R TKR, dc'd from TCU on 06/09, sx on 05/[address] العلي; going to PT at [facility] 2x's/week Pt presents today for hospital follow-up. Had right TKA on 05/30. Went to TCU #5. Discharge on 06/09. She is on post-op eliquis for prophylactics. She has about 12 pills left. No s/s of bleeding. She denies any complications. She continues to go to PT. Not so much pain, but stiffness -- 2-3 Using the oxycodone -- mostly at night to help rest and get comfortable. Is sleeping in bed. Using cane as needed for ambulation. No falls. Eating and drinking okay. No SOB. Refers was having some palpitations prior to surg and did see cardiology who started on metoprolol, which has helped. No CP. Appetite has okay. A little nausea. No vomiting. Moving bowels fine. Urinating adequately. She was found to have low platelets and rectal bleeding prior to surgery. She had follow-up with hematology. She reports that she had a platelet infusion prior to surgery. She had scope with Dr. Connor. + varices. Possible cirrhosis. Has follow-up scheduled with GI next month. Hasn't had any repeat labs since surgery. PAST MEDICAL HISTORY: PAST MEDICAL HISTORY Diagnosis Date Abdominal pain, generalized pain is the same as before her TONYA Colitis History of chronic colitis diagnosed on colonoscopy with Dr. Barragan Depressive disorder, not elsewhere classified 05/16/2010 Esophageal reflux Gastroesophageal reflux Hyperglycemia 08/06/2016 Hyperlipidemia 05/16/2010 Hypothyroidism 05/16/2010 from Hasthimoto's thyroiditis Inflammatory polyarthropathy (HCC) 12/03/2013 Dr Martinez 11/2013 Migraine headache 05/16/2010 propranolol effective for prevention; last migraine was a few months ago and was milder since on propranolol ; no HTN Nonspecific elevation of levels of transaminase or lactic acid dehydrogenase (LDH) Elevated LFT's Renal calculus 1997 Symptomatic menopausal or female climacteric states PAST SURGICAL HISTORY Procedure Laterality Date ANTERIOR INTERBODY FUSION, CERVICAL 06/2012 Dr. Paz @ [facility] ARTHRP KNE CONDYLEANDPLATU MEDIALANDLAT COMPARTMENTS 07/2009 Knee replacement, left BX BREAST PERC VACUUM/ROTN 04/23/07 LEFT COLONOSCOPY FLX DX W/COLLJ SPEC WHEN PFRMD 07/31/2015 Colonoscopy DILATION AND CURETTAGE DXAND/THER NONOBSTETRIC 1984 Dilation AND curettage HYSTERECTOMY HX 2002 HYSTEROSCOPY, DIAGNOSTIC (SEPARATE 2002 Hysteroscopy/curettage LAPAROSCOPY SURG CHOLECYSTECTOMY 2004 Cholecystectomy, lap LAPS ABD PRTMANDOMENTUM DX W/WO SPEC BR/WA SPX 2002 Laparoscopy PAST SURGICAL HISTORY OF 1998 lumbardisectomy PAST SURGICAL HISTORY OF 2003 [address]otomy rt. foot PAST SURGICAL HISTORY OF 07/2009 left knee arthroscopy PAST SURGICAL HISTORY OF 2005 anterior cervical disk fusion PLCMT LOCALZTN CLIP,PERC,DURING BREAST BX 04/23/[address] Zimmer TONSILLECTOMY PRIMARY/SECONDARY Tonsillectomy TOTAL ABDOMINAL HYSTERECT W/WO RMVL TUBE OVARY 2003 Hysterectomy, TONYA ALLERGIES Cortisone, Celestone [Betamethasone Sodium Phosphate], Environmental [Other], Penicillins, Prozac [Fluoxetine Hcl], Vicodin [Hydrocodone-Acetaminophen], and Vytorin 10-10 [Ezetimibe-Simvastatin] MEDICATIONS Current Outpatient Medications Medication Sig apixaban (ELIQUIS) 2.5 mg tab(s) Take 1 tablet by mouth twice daily for 9 days. levothyroxine (SYNTHROID) 100 mcg tablet Take 1 tablet by mouth once daily. Take on empty stomach. For Thyroid. metFORMIN ER (GLUCOPHAGE XR) 500 mg 24 hr tablet Take 2 tablets by mouth twice daily. furosemide (LASIX) 20 mg tablet Take 1 tablet by mouth once daily. atorvastatin (LIPITOR) 20 mg tablet Take 1 tablet by mouth daily at bedtime. For cholesterol. sertraline (ZOLOFT) 50 mg tablet Take 1 tablet by mouth once daily. omeprazole (PRILOSEC) 20 mg capsule Take 1 capsule by mouth once daily. Current Facility-Administered Medications Medication Dose Route Frequency perflutren lipid microspheres 1.3 mL in NaCl (PF) 0.9% 10 mL injection (DEFINITY) INTRAVENOUS DIRECTED PRN sodium chloride 0.9 % (flush) 10 mL (BD POSIFLUSH) 10 mL INTRAVENOUS DIRECTED PRN FAMILY HISTORY Problem Relation Age of Onset Hypertension Mother Heart Father Prostate Cancer Father Cancer Maternal Grandmother thyroid Diabetes Maternal Grandmother Breast Cancer Maternal Grandmother Breast Cancer Paternal Grandmother Diabetes Paternal Grandmother Social (more content not included)... [facility] 06-14-2022 Miscellaneous Notes TC to pt, pt has appt with Dr. العلي. Appt with Cynthia Mac changed to 4c Est Hosp/ER follow at 3:20pm. Pt scheduled with [facility] on 06/17 for follow up from knee replacement . See previous phone note on 06/11 regarding the same: Was pt able to schedule follow up with Dr. العلي (Ortho surgeon)? Per discharge summary she was supposed to follow up with 2 weeks post discharge (pt was dc'd from TCU on 06/09). Pt needs to follow up with Dr. العلي. 2. If pt needs follow up with PCP then this appt needs to be r/s as a 40 min 4c Est Hosp/ER follow up since pt was in the hospital and had surgery. Phoned pt to assist with r/s appointment. Left message to return call to office. Please assist pt with r/s appropriate appt when returns call. Alon Her LPN documented in this encounter [facility] 06-11-2022 Miscellaneous Notes Patient calls back. Patient has not set up follow up appointment with Dr. العلي. Patient will call and set up appointment with Dr. العلي. If patient needs to set up follow up with PCP she will call back. Ramona Ferguson RN Pt scheduled with [facility] on 06/12 for knee replacement follow up per Dr. العلي at [facility] . Pt was dc'd from [facility] on 06/09. Does pt have a follow up with Ortho, Dr. العلي- if not, pt should be contacting [facility] for follow up of her knee replacement. If pt saw Dr. العلي for follow up and still needs follow up with PCP office, then pt needs to be r/s for a 40 MIN 4C EST HOSP/ER FOLLOW UP, NOT 4C EST FOLLOW UP. TC to pt, left message for pt to return call to office. See above and notify pt when she returns call to office. Alon Her LPN documented in this encounter [facility] 06-05-2022 Miscellaneous Notes Left a message with information listed below. Lulu Soler LPN TC using patient's listed home phone # ([phone]). Unable to reach patient. Left VM to return call to office. Please read below and advise. Negra Knowles MA Still daniel fast busy. Naina sanchez busy. (Only local rheum is Dr Martinez.) Patient's appointment with rheumatology in [place] on 05/30/22 had to be cancelled due to the patient's knee replacement surgery being scheduled on the same day. The patient's mother would like to inquire if there is another physician close to the patient's home that is accepting new patients that Dr. Stephen could recommend. She is wanting to be seen prior to the end of the year for financial reasons. Please contact the patient or her mother to advise on plan of care. Thank you. documented in this encounter [facility] 05-01-2022 Note Patient Outreach (IN TMM[facility]) MARYLOU MARIE ([id number]) 1960 F Date Time Provider Department 05/01/22 ZEESHAN STEPHEN During your visit today, we recorded the following information about you: Allergies As of Date: 05/01/2022 Noted Allergy Reaction CORTISONE 12/28/2007 10 - Anaphylaxis Comments: Was from celestone injection in her her knee prior to TKR. Has tolerated oral prednisone before. CELESTONE (BETAMETHASONE SODIUM P*06/05/2010 2 - Rash 7 - Swelling environmental [Other] 03/20/2007 Comments: grass, molds, dust=nasal drainage, sneezing, sore throat PENICILLINS 03/20/2007 7 - Swelling PROZAC (FLUOXETINE HCL) 07/30/2011 2 - Rash Comments: Gets red VICODIN (HYDROCODONE-ACETAMINOPHE* 007 11 - Vomiting VYTORIN 10-10 (EZETIMIBE-SIMVASTA*05/13/2011 14 - Other: See Comments Comments: muscle aches with vytorin. Tolerated lipitor Date Reviewed: 04/15/2022 Reviewed by: Erickson Junior Ma - Fully Assessed Visit Diagnosis:Encounter for screening mammogram for breast cancer [Z12.31] Order(s):[facility] SCREENING [[id number]] Order #: [id number] FUTURE Prescriptions as of 05/06/2022 - levothyroxine (SYNTHROID) 100 mcg tablet Take 1 tablet by mouth once daily. Take on empty stomach. For Thyroid. - metFORMIN ER (GLUCOPHAGE XR) 500 mg 24 hr tablet Take 2 tablets by mouth twice daily. - furosemide (LASIX) 20 mg tablet Take 1 tablet by mouth once daily. - atorvastatin (LIPITOR) 20 mg tablet Take 1 tablet by mouth daily at bedtime. For cholesterol. - sertraline (ZOLOFT) 50 mg tablet Take 1 tablet by mouth once daily. - omeprazole (PRILOSEC) 20 mg capsule Take 1 capsule by mouth once daily. 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 [*05/16/2010 Hyperlipidemia [E78.5] 05/16/2010 Colitis, acute [K52.9] 05/16/2010 Migraine headache [G43.909] 05/16/2010 Chronic depression [F32.A] 05/16/2010 Goiter [E04.9] 09/04/2010 Obesity, Class III, BMI 40-49.9 (morbid obesity*10/31/2010 ASHLEY (obstructive sleep apnea) [G47.33] 09/10/2013 Inflammatory polyarthropathy (HCC) [M06.4] 12/03/2013 Multinodular goiter [E04.2] 04/28/2014 BRBPR (bright red blood per rectum) [K62.5] 07/17/2015 08/06/2016 Hyperglycemia [R73.9] 08/06/2016 Positive CHENTE (antinuclear antibody) [R76.8] 02/17/2017 Elevated liver enzymes [R74.8] 02/17/2017 Malaise and fatigue [R53.81, R53.83] 02/03/2018 Thrombocytopenia (HCC) [D69.6] 12/25/2021 Myalgia [M79.10] 12/25/2021 Lymphopenia [D72.810] 01/08/2022 Fatty liver [K76.0] 01/08/2022 Type 2 diabetes mellitus without complication, *02/01/2022 Diastolic dysfunction [I51.89] 02/01/2022 Other cirrhosis of liver (HCC) [K74.69] 04/25/2022 Secondary esophageal varices without bleeding (*04/25/2022 Encounter Status:Closed by [employer], [employer] on 05/06/22 [facility] 04-16-2022 Miscellaneous Notes Pt called stating the anesthesiologist at the [facility] needs notified also that the pt is cleared for surgery. She did not know the name but it could be sent to the surgery department. spoke with pt. Given information concerning platlet counts, and that she should be able to undergo surgery. Dr. العلي gotten on the phone to discuss with dr. Christian. Ama Walters LPN Please notify patient that all her labs are normal except for a platelet count of 90,000. She should be able to proceed with surgery after her GI evaluation. I recommend Amicar 1 gram every 6 hour for 48 hours; then followed by Eliquis or Xarelto for DVT prophylaxis/ We can cancel her follow-up appointment Dawn Christian MD documented in this encounter [facility] 04-15-2022 History of Present illness Narrative PATIENT NAME: Marylou Marie. CLINIC NO: [id number]. ATTENDING PHYSICIAN: Dawn Christian MD. DATE OF SERVICE:04/15/2022. DIAGNOSIS: Chronic thrombocytopenia HPI: 61-year-old lady who has diagnosis of [id number] diabetes mellitus, polyarthritis, thyroiditis and hyperlipidemia presented with rectal bleeding. She also have abnormal LFT due to the fatty liver disease. She had a colonoscopy last year and noted hemorrhoidal bleeding but no other pathology. Rectal bleeding has become more frequent, but no unusual bruising. CBC revealed leukopenia and thrombocytopenia. She also complained of increased fatigue, polyarthritis and myalgia mostly in her lower extremity. She has no fever, chills, night sweats or unexplained weight loss. She has no rash but had alopecia. She was on Plaquenil previously but has not seen her personnel consultant for over 3 years. She denied history of alcohol use, HIV or viral hepatitis. She was never and no history of drug use. Interim history: She still has problem with arthritis mostly in her hands and knees and occasional ribs pain. No history of pleural disease, pleuritis or rash. No clinical bleeding or increased bruising. Her LFT is mildly elevated. Most recent prothrombin time is also mildly elevated and platelet of 80,000. She is scheduled for robotic assisted right total knee arthroplasty and GI evaluation for rectal bleeding. All medications & allergies updated and reviewed by me. REVIEW OF SYSTEMS: CONSTITUTIONAL: No fevers, chills, nightsweats, unintended weight loss + chronic fatigue HEENT: Denies frequent or severe heaches, nasal congestion/sinus symptoms, problematic allergy problems. EYES: No diplopia or blurry vision. CARDIOVASCULAR: No chest pain, dyspnea, palpitations, orthopnea, PND, ankle edema. PULM: No dyspnea, unexplained cough. GI: No dysphagia/odynophagia, problematic reflux, constipation, diarrhea, changes in stool habits, + hematochezia : No new urinary complaints, including dysuria, gross hematuria or pyuria. NEURO: No new balance problems, peripheral weakness/paresthesias or numbness of concern. MUSC-SKEL: + joint pain -knees & hip, swelling, or erythema PSY: No concerns regarding depression, anxiety or panic. INTEGUMENTARY: No new skin changes (rash, new or changing mole, new growth) PHYSICAL EXAMINATION: BP 137/65 Pulse 56 Temp 98.1 Ht 5' 9.98 (1.78m) Wt 279 lb 8 oz (126.8kg) SpO2 97% BMI 40.15 kg/(m^2). HEENT: Head is normocephalic, atraumatic. Sclerae white, conjunctivae pink. PEERL. EOMs are intact. Oropharynx is benign. LYMPHATICS: There is no palpable adenopathy in the neck, supraclavicular region, axillae, or groin. LUNGS: Lungs are clear to percussion and auscultation. HEART: Heart is normal without murmurs, gallops, or rubs. ABDOMEN: Obese, soft and nontender without organomegaly. No masses can be palpated. EXTREMITIES: Are without edema. No petechiae or ecchymosis. NEUROLOGIC: Exam is physiologic LABORATORY DATA: Component Latest Ref Rng & Units 04/15/2022 WBC 3.70 - 11.00 k/uL 3.98 RBC 3.90 - 5.20 m/uL 4.32 Hemoglobin 11.5 - 15.5 g/dL 13.6 Hematocrit 36.0 - 46.0 % 41.2 MCV 80.0 - 100.0 fL 95.4 MCH 26.0 - 34.0 pg 31.5 MCHC 30.5 - 36.0 g/dL 33.0 RDW-CV 11.5 - 15.0 % 13.1 Platelet Count 150 - 400 k/uL 91 (L) MPV 9.0 - 12.7 fL 11.9 Neut% % 64.1 Abs Neut (ANC) 1.45 - 7.50 k/uL 2.55 Lymph% % 24.6 Abs Lymph 1.00 - 4.00 k/uL 0.98 (L) Warren% % 6.5 Abs Warren <0.87 k/uL 0.26 Eosin% % 3.8 Abs Eosin <0.46 k/uL 0.15 Baso% % 0.5 Abs Baso <0.11 k/uL <0.03 Immature Gran % % 0.5 IMMATURE GRANS (ABS) <0.10 k/uL <0.03 NRBC /100 WBC 0.0 Absolute nRBC <0.01 k/uL <0.01 DTYPE Auto Component Latest Ref Rng & Units 04/15/2022 Albumin 3.9 - 4.9 g/dL 3.9 Bilirubin, Total 0.2 - 1.3 mg/dL 0.9 Alkaline Phosphatase 34 - 123 U/L 151 (H) AST 13 - 35 U/L 76 (H) ALT 7 - 38 U/L 49 (H) Protein, Total 6.3 - 8.0 g/dL 6.9 Component Latest Ref Rng & Units 04/15/2022 PT Sec 9.7 - 13.0 sec 12.0 PT INR 0.9 - 1.3 1.2 APTT 23.0 - 32.4 sec 30.0 TSH 0.270 - 4.200 mIU/L 6.260 (H) Free T4 0.9 - 1.7 ng/dL 1.0 HIV 1 & 2 and hepatitis C antibody were nonreactive. US: Liver and spleen Hepatomegaly and diffuse fatty infiltration of the liver. Status postcholecystectomy. Mild splenomegaly spleen measuring 14.9 cm x 6 cm x 8.2 cm ASSESSMENT: 61-year-old lady with history of SLE, fatty liver disease presenting with thrombocytopenia which is unchanged. Chronic thrombocytopenia could be secondary to ITP or more likely fatty liver disease. No evidence of cirrhosis although her prothrombin time was mildly elevated. PLAN: -Repeat TSH/free T4, prothrombin time and a PTT. If all these tests are normal, then proceed with surgery. -Consider starting aminocaproic acid (Amicar 1,000 mg every 6 hours x 24 to 48 hours after surgery) and monitor CBC daily. -Standard DVT prophylaxis if no bleeding 48 hours after surgery. (Rivaroxaban or apixaban) -Follow-up with GI, Friend regarding rectal bleeding and colonoscopy. -Follow-up as needed after her surgery. I spent 40 minutes in the visit, with more than 50% of the total [id number] time of the visit in counseling / coordination of care. Dawn Christian MD Cc: Michele العلي DO [facility]. Zeeshan Stephen MD documented in this encounter [facility] 03-26-2022 Miscellaneous Notes LM for patient to return call. When she calls, please offer to schedule the following appointment on 02/13/22 at 8:30: DEPT: [facility] APPT NOTE: OV/SURGICAL CLEARANCE* APPT TYPE: EST SIMPLE PROVIDER: ANAHI If that date/time does note work for patient, schedule at the patient's convenience after that date and notify patient that she will need to reschedule her surgery. Once scheduled, document and close this note. Ramona Serrano Request from outside messages that patient hematology clearance for knee surgery scheduled for 04/18/22. Dr. Espino aware and would like patient to see Dr. Christian in April prior to surgery if possible, otherwise she may need to post-pone surgery. PSS: call patient and offer the 830am OV on 04/15/[address] Christian. If she is not able to make that work, please schedule at another time and she will need to call her orthopedic and let them know that we can not provide surgery clearance prior to surgery date. Loraine Jewell RN documented in this encounter [facility] 03-25-2022 Miscellaneous Notes A1c is good at 7.0 Tsh is slightly off. Increase synthroid to 100 mcg a day. Recheck tsh in six weeks. White count is slightly decreased at 3.8, platelets stable at 78,000 documented in this encounter [facility] 03-22-2022 History of Present illness Narrative Patient presents with: Follow Up: SOB, Edema follow up. Followed up with Cardiology 03/22/22. Holter being placed. Overall things are better. Medical Clearance: Surgical clearance needed for right knee arthroplasty 04/18/2022 HPI: Patient presents today for office visit for follow up and surgical clearance. She did see Dr Connor's office. They are going to follow up with liver testing. No further rectal bleeding. She has seen Cardiology actually today. Per her, they have cleared her for surgery. She still has not gotten a rheumatology appt. She has been working on her diet and losing weight. Her swelling is better. Patient presents for preop clearance. Upcoming surgery for: right total knee by Dr. العلي at [facility]. Hx of previous anesthesia problems: No. Family hx of anesthesia problems: No. Current signs of infection: No. Chest pain: No. Shortness of breath: No. Known sleep apnea: wears an oral appliance. Does have known ashley. Hx of clotting issues: No. Current bleeding or bruising: does have chronic thrombocytopenia. MEDICATIONS: Current Outpatient Medications Medication Sig metFORMIN ER (GLUCOPHAGE XR) 500 mg 24 hr tablet Take 2 tablets by mouth twice daily. levothyroxine (SYNTHROID) 88 mcg tablet Take 1 tablet by mouth once daily. Take on empty stomach. For Thyroid. furosemide (LASIX) 20 mg tablet Take 1 tablet by mouth once daily. atorvastatin (LIPITOR) 20 mg tablet Take 1 tablet by mouth daily at bedtime. For cholesterol. sertraline (ZOLOFT) 50 mg tablet Take 1 tablet by mouth once daily. omeprazole (PRILOSEC) 20 mg capsule Take 1 capsule by mouth once daily. Current Facility-Administered Medications Medication Dose Route Frequency perflutren lipid microspheres 1.3 mL in NaCl (PF) 0.9% 10 mL injection (DEFINITY) INTRAVENOUS DIRECTED PRN sodium chloride 0.9 % (flush) 10 mL (BD POSIFLUSH) 10 mL INTRAVENOUS DIRECTED PRN ALLERGIES: ALLERGIES Allergen Reactions Cortisone Anaphylaxis Was from celestone injection in her her knee prior to TKR. Has tolerated oral prednisone before. Celestone [Betameth* Rash, Swelling Environmental [Othe* grass, molds, dust=nasal drainage, sneezing, sore throat Penicillins Swelling Prozac [Fluoxetine * Rash Gets red Vicodin [Hydrocodon* Vomiting Vytorin 10-10 [Ezet* Other: See Comments muscle aches with vytorin. Tolerated lipitor PAST MEDICAL HISTORY Diagnosis Date Abdominal pain, generalized pain is the same as before her TONYA Colitis History of chronic colitis diagnosed on colonoscopy with Dr. Barragan Depressive disorder, not elsewhere classified 05/16/2010 Esophageal reflux Gastroesophageal reflux Hyperglycemia 08/06/2016 Hyperlipidemia 05/16/2010 Hypothyroidism 05/16/2010 from Hasthimoto's thyroiditis Inflammatory polyarthropathy (HCC) 12/03/2013 Dr Martinez 11/2013 Migraine headache 05/16/2010 propranolol effective for prevention; last migraine was a few months ago and was milder since on propranolol ; no HTN Nonspecific elevation of levels of transaminase or lactic acid dehydrogenase (LDH) Elevated LFT's Renal calculus 1997 Symptomatic menopausal or female climacteric states PAST SURGICAL HISTORY Procedure Laterality Date ANTERIOR INTERBODY FUSION, CERVICAL 06/2012 Dr. Paz @ [facility] ARTHRP KNE CONDYLE&PLATU MEDIAL&LAT COMPARTMENTS 07/2009 Knee replacement, left BX BREAST PERC VACUUM/ROTN 04/23/07 LEFT COLONOSCOPY FLX DX W/COLLJ SPEC WHEN PFRMD 07/31/2015 Colonoscopy DILATION & CURETTAGE DX&/THER NONOBSTETRIC 1984 Dilation & curettage HYSTERECTOMY HX 2003 HYSTEROSCOPY, DIAGNOSTIC (SEPARATE 2003 Hysteroscopy/curettage LAPAROSCOPY SURG CHOLECYSTECTOMY 2004 Cholecystectomy, lap LAPS ABD PRTM&OMENTUM DX W/WO SPEC BR/WA SPX 2002 Laparoscopy PAST SURGICAL HISTORY OF 1998 lumbardisectomy PAST SURGICAL HISTORY OF 2003 osteotomy rt. foot PAST SURGICAL HISTORY OF 07/2009 left knee arthroscopy PAST SURGICAL HISTORY OF 2005 anterior cervical disk fusion PLCMT LOCALZTN CLIP,PERC,DURING BREAST BX 04/23/[address] Zimmer TONSILLECTOMY PRIMARY/SECONDARY <AGE 12 Tonsillectomy TOTAL ABDOMINAL HYSTERECT W/WO RMVL TUBE OVARY 2002 Hysterectomy, TONYA FAMILY HISTORY Problem Relation Age of Onset Hypertension Mother Heart Father Prostate Cancer Father Cancer Maternal Grandmother thyroid Diabetes Maternal Grandmother Breast Cancer Maternal Grandmother Breast Cancer Paternal Grandmother Diabetes Paternal Grandmother Social History Tobacco Use Smoking status: Never Smokeless tobacco: Never Vaping Use Vaping Use: Never used Substance Use Topics Alcohol use: Yes Comment: rarely 3 YEARLY Drug use: No Reviewed current medications, allergies, past medical history, surgical history, family history and social history today. REVIEW OF SYSTEMS All other reviewed and negative other than HPI. HEALTH MAINTENANCE: Reviewed health maintenance issues today and recommended the following in detail. PNEUMOCOCCAL(1 - PCV) -consider. URINE ALBUMIN:CREATININE RATIO Never done COLORECTAL CANCER SCREENING - already discussed. INFLUENZA(1) -gets at the hospital MAMMOGRAM-get per Dr. Fulton VITALS: BP 116/58 Pulse 70 Ht 175.3 cm (5' 9 ) Wt 127 kg (280 lb) SpO2 96% BMI 41.35 kg/m Last 4 Encounter Wt Readings: Date: Wt: 02/15/2022 130.6 kg (288 lb) 02/01/2022 131.1 kg (289 lb) 01/08/2022 130.6 kg (288 lb) 01/02/2022 130.2 kg (287 lb) PHYSICAL EXAMINATION: General appearance: Well appearing, alert, in no acute distress, well-hydrated, well nourished. Skin: Skin color, texture, turgor normal, no suspicious rashes or lesions Lungs: Lungs clear to auscultation. No wheezing, rhonchi, rales Heart: RRR without murmur, gallop, or rubs. No ectopy Abdomen: Normal abdominal exam, Abdomen soft, non-tender. Bowel sounds normal. No masses, organomegaly Extremities: improved edema. Scar on left knee from knee surgery Musculoskeletal: No joint swelling, deformity, or tenderness Peripheral pulses: Normal Neuro: Negative. ASSESSMENT/PLAN: 1. Osteoarthritis of right knee, unspecified osteoarthritis type - ICD9: 715.96, ICD10: M17.11 (primary diagnosis) - recheck labs as below. If they are ok, is medically clear for surgery as long as [facility] and hematology clear her. Copy of note to ortho. Will complete form once labs are done. 2. Mixed hyperlipidemia - ICD9: 272.2, ICD10: E78.2 - Encouraged following a low carbohydrate, healthy oil intake diet. 3. Diastolic dysfunction - ICD9: 429.9, ICD10: I51.89 - per cardiology 4. ASHLEY (obstructive sleep apnea) - ICD9: 327.23, ICD10: G47.33 - will need to be observed post op. Wear an oral appliance. 5. 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 - TSH BLD 6. Thrombocytopenia (HCC) - ICD9: 287.5, ICD10: D69.6 - per hematology. Recommend hematology be asked for any guidance and clearance per ortho - CBC 7. Type 2 diabetes mellitus without complication, without long-term current use of insulin (HCC) - ICD9: 250.00, ICD10: E11.9 - recheck labs. Ok for surgery if a1c is below 8.0 - BASIC METABOLIC PNL - HGB A1C - ALBUMIN/CREAT RATIO RND UR 8. Inflammatory polyarthropathy (HCC) - ICD9: 714.9, ICD10: M06.4 - again, reminded needs to see rheumatology 9. Elevated liver enzymes - ICD9: 790.5, ICD10: R74.8 - per gi. Zeeshan Stephen RTO in three months and prn. documented in this encounter [facility] 02-15-2022 History of Present illness Narrative Patient presents with: 2 week follow up HPI: Patient presents today for office visit for follow up. Chest xray was negative. Reviewed labs with her. Her tsh was up, a1c was up. Liver and platelets are up but stable. We adjusted her thyroid and sugars. No chest pain Admits to increased shortness of breath since about September. Did not really say much. Considering knee surgery in the fall. Edema is stable. She had initially complained to me her face was swollen. I was discussing considering things like working her up for [facility] facies but then tells me she has looked like this for decades. Echo Complete 02/06/22 1536 MR#: [id number] Acct: [id number] Name: MARYLOU MARIE Rep #: [id number] : [id number] 61 From: Chano Mclaughlin MD Attending Dr: Dr. Zeeshan Stephen MD Status: REG CLI Ordering Dr: Zeeshan Stephen MD Date: 02/06/22 Location: [facility] Sex: F C Admitted: Version 2 Reason For Study: MURMUR Procedure This was a 2D Doppler, Color Flow transthoracic echocardiogram. Exam performed in department. Left Ventricle Normal LV size. Moderate concentric left ventricular hypertrophy. Left ventricular systolic function is normal. The estimated ejection fraction is 55 %. No regional wall motion abnormalities noted. Right Ventricle Normal RV size. Normal systolic function. Atria The left atrium is moderately enlarged. Normal right atrium. Mitral Valve Normal mitral valve. Tricuspid Valve Normal tricuspid valve. Mild (1+) tricuspid valve insufficiency. Pulmonary artery systolic pressure is 38 mmHg. Aortic Valve Trisinus/trileaflet aortic valve. Mild focal aortic valve calcification. Peak aortic valve gradient 18 mmHg. Mean aortic valve gradient 10 mmHg. Pulmonic Valve Normal pulmonic valve. Great Vessels Normal aortic root. The pulmonary artery is normal size. Normal inferior vena cava. Pericardium/Pleural No pericardial effusion. MMode/2D Measurements Calculations LVIDd: 4.9 cm IVSd: 1.5 cm Ao root diam: 2.7 cm LVIDs: 3.1 cm LVPWd: 1.7 cm RVDd: 3.8 cm FS: 37.0 % LAV(MOD-sp4): 69.9 ml LVAd ap4: 29.8 cm2 SV(MOD-sp4): 64.8 ml LVLd ap4: 7.7 cm EDV(MOD-sp4): 96.4 ml EDV(sp4-el): 98.7 ml LVAs ap4: 14.8 cm2 LVLs ap4: 5.9 cm ESV(MOD-sp4): 31.7 ml ESV(sp4-el): 31.3 ml EF(MOD-sp4): 67.2 % EF(sp4-el): 68.3 % SV(sp4-el): 67.4 ml LA A4 area: 25.3 cm2 LA dimension(2D): 4.8 cm RA A4 area: 17.5 cm2 Doppler Measurements Calculations MV E max alicia: 101.1 cm/sec Ao V2 max: 212.7 cm/sec LV V1 max: 140.8 cm/sec Ao max P.1 mmHg LV V1 max P.0 mmHg Ao V2 mean: 150.0 cm/sec LV V1 mean P.8 mmHg Ao mean P.2 mmHg LV V1 mean: 103.9 cm/sec Ao V2 VTI: 55.4 cm LV V1 VTI: 37.6 cm PA V2 max: 125.4 cm/sec TR max alicia: 293.4 cm/sec PA V2 mean: 92.2 cm/sec TR max P.4 mmHg ECHO/Echo Complete Interpretation Summary Normal LV size. Left ventricular systolic function is normal. The estimated ejection fraction is 55 %. The left atrium is moderately enlarged. Mild focal aortic valve calcification. Mean aortic valve gradient 10 mmHg. Pulmonary artery systolic pressure is 38 mmHg. Moderate concentric left ventricular hypertrophy. Note was copied and pasted, without alteration from: last visit. She was to follow up to go over labs and chest xray. She did not do them. She did get her echo set up but it is not until next week. She can get into see Dr Geeta, GASTROENTEROLOGY, in April. I offered to see if we could get her into someone sooner but she declines. She did not set up the rheum profile I requested either. Over due for repeat thyroid as well. She is taking her meds again. Not checking sugars. Continues to have a number of complaints. Has pain in her knee and has seen ortho for same. Has chronic lower extremity edema for a number of months. Has overall puffiness including her face and eyes Denies redness or warmth. Does not improve overnight. Denies chest pain,dypsnea, hx of dvt. No bruising or bleeding. No abd pain. No new rashes but does have diffuse arthralgias. Labs from Dr. Christian had shown elevated lft's and crp highly elevated at 14.6 ASSESSMENT/PLAN: 1. Inflammatory polyarthropathy (HCC) - ICD9: 714.9, ICD10: M06.4 (primary diagnosis) - SED RATE WESTERGREN - C-REACTIVE PROTEIN (CRP) - CHENTE BY IFA SCREEN - RHEUMATOID FACTOR BL 2. Mixed hyperlipidemia - ICD9: 272.2, ICD10: E78.2 - labs still not high enough to stop 3. Fatty liver - ICD9: 571.8, ICD10: K76.0 - see gi. ? Related to platelets - HEPATIC FUNCTION PNL 4. 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 - TSH BLD 5. Thrombocytopenia (HCC) - ICD9: 287.5, ICD10: D69.6 - as above. 6. Type 2 diabetes mellitus without complication, without long-term current use of insulin (HCC) - ICD9: 250.00, ICD10: E11.9 - check labs. - HGB A1C - ALBUMIN/CREAT RATIO RND UR - CBC + DIFF - HGB A1C 7. Diastolic dysfunction - ICD9: 429.9, ICD10: I51.89 - reinforced need to do labs. - NT PRO BNP - BASIC METABOLIC PNL - D-DIMER - XR CHEST 2V FRONTAL/LAT 8. Edema, unspecified type - ICD9: 782.3, ICD10: R60.9 -add low dosed lasix with close follow up in two weeks. - FUROSEMIDE 20 MG TABLET - D-DIMER 9. History of pneumonia - ICD9: V12.61, ICD10: Z87.01 - XR CHEST 2V FRONTAL/LAT Discussion: Reinforced need to do testing as ordered. Today's visit was to go over findings of testing she did not do. Her weight is not climbing but she does have one plus edema. Has a hx of diastolic dysfunction. Reinforced need to get xray, labs and echo. Add low dose lasix and follow closely. Follow platelets and see gi as discussed. Not sure if many of her symptoms may be rheum related as well. Reinforced need to follow with rheum. Reinforced need to follow her sugars and thyroid also. It is after 5 pm so cannot get duplex unless we send her to ER until Friday am. Doubt dvt. She does not wish to go. Promises me she will get stat labs in am including d dimer. I am not [employer] consultant but have given my cell number on her labs to be called with results. If positive, may have to have duplex etc over weekend. Red flags for re-assessment reviewed with patient in detail. MEDICATIONS: Current Outpatient Medications Medication Sig levothyroxine (SYNTHROID) 88 mcg tablet Take 1 tablet by mouth once daily. Take on empty stomach. For Thyroid. furosemide (LASIX) 20 mg tablet Take 1 tablet by mouth once daily. atorvastatin (LIPITOR) 20 mg tablet Take 1 tablet by mouth daily at bedtime. For cholesterol. metFORMIN ER (GLUCOPHAGE XR) 500 mg 24 hr tablet Take 1 tablet by mouth daily with breakfast. sertraline (ZOLOFT) 50 mg tablet Take 1 tablet by mouth once daily. omeprazole (PRILOSEC) 20 mg capsule Take 1 capsule by mouth once daily. Current Facility-Administered Medications Medication Dose Route Frequency perflutren lipid microspheres 1.3 mL in NaCl (PF) 0.9% 10 mL injection (DEFINITY) INTRAVENOUS DIRECTED PRN sodium chloride 0.9 % (flush) 10 mL (BD POSIFLUSH) 10 mL INTRAVENOUS DIRECTED PRN ALLERGIES: ALLERGIES Allergen Reactions Cortisone Anaphylaxis Was from celestone injection in her her knee prior to TKR. Has tolerated oral prednisone before. Celestone [Betameth* Rash, Swelling Environmental [Othe* grass, molds, dust=nasal drainage, sneezing, sore throat Penicillins Swelling Prozac [Fluoxetine * Rash Gets red Vicodin [Hydrocodon* Vomiting Vytorin 10-10 [Ezet* Other: See Comments muscle aches with vytorin. Tolerated lipitor PAST MEDICAL HISTORY Diagnosis Date Abdominal pain, generalized pain is the same as before her TONYA Colitis History of chronic colitis diagnosed on colonoscopy with Dr. Barragan Depressive disorder, not elsewhere classified 05/16/2010 Esophageal reflux Gastroesophageal reflux Hyperglycemia 08/06/2016 Hyperlipidemia 05/16/2010 Hypothyroidism 05/16/2010 from Hasthimoto's thyroiditis Inflammatory polyarthropathy (HCC) 12/03/2013 Dr Martinez 11/2013 Migraine headache 05/16/2010 propranolol effective for prevention; last migraine was a few months ago and was milder since on propranolol ; no HTN Nonspecific elevation of levels of transaminase or lactic acid dehydrogenase (LDH) Elevated LFT's Renal calculus 1997 Symptomatic menopausal or female climacteric states PAST SURGICAL HISTORY Procedure Laterality Date ANTERIOR INTERBODY FUSION, CERVICAL 06/2012 Dr. aPz @ [facility] ARTHRP KNE CONDYLE&PLATU MEDIAL&LAT COMPARTMENTS 07/2009 Knee replacement, left BX BREAST PERC VACUUM/ROTN 04/23/07 LEFT COLONOSCOPY FLX DX W/COLLJ SPEC WHEN PFRMD 07/31/2015 Colonoscopy DILATION & CURETTAGE DX&/THER NONOBSTETRIC 1984 Dilation & curettage HYSTERECTOMY HX 2003 HYSTEROSCOPY, DIAGNOSTIC (SEPARATE 2003 Hysteroscopy/curettage LAPAROSCOPY SURG CHOLECYSTECTOMY 2004 Cholecystectomy, lap LAPS ABD PRTM&OMENTUM DX W/WO SPEC BR/WA SPX 2002 Laparoscopy PAST SURGICAL HISTORY OF 1998 lumbardisectomy PAST SURGICAL HISTORY OF [address] foot PAST SURGICAL HISTORY OF 07/2009 left knee arthroscopy PAST SURGICAL HISTORY OF 2005 anterior cervical disk fusion PLCMT LOCALZTN CLIP,PERC,DURING BREAST BX 04/23/[address] Zimmer TONSILLECTOMY PRIMARY/SECONDARY <AGE 12 Tonsillectomy TOTAL ABDOMINAL HYSTERECT W/WO RMVL TUBE OVARY 2003 Hysterectomy, TONYA FAMILY HISTORY Problem Relation Age of Onset Hypertension Mother Heart Father Prostate Cancer Father Cancer Maternal Grandmother thyroid Diabetes Maternal Grandmother Breast Cancer Maternal Grandmother Breast Cancer Paternal Grandmother Diabetes Paternal Grandmother Social History Tobacco Use Smoking status: Never Smoker Smokeless tobacco: Never Used Vaping Use Vaping Use: Never used Substance Use Topics Alcohol use: Yes Comment: rarely 3 YEARLY Drug use: No Reviewed current medications, allergies, past medical history, surgical history, family history and social history today. REVIEW OF SYSTEMS All other reviewed and negative other than HPI. VITALS: BP 122/60 Pulse 76 Resp 16 Wt 130.6 kg (288 lb) SpO2 99% BMI 41.70 kg/m Last 4 Encounter Wt Readings: Date: Wt: 02/01/2022 131.1 kg (289 lb) 01/08/2022 130.6 kg (288 lb) 01/02/2022 130.2 kg (287 lb) 12/25/2021 132.5 kg (292 lb) PHYSICAL EXAMINATION: General appearance: Well appearing, alert, in no acute distress, well-hydrated, well nourished. Skin: Skin color, texture, turgor normal, no suspicious rashes or lesions Head: Normocephalic, no masses, lesions, tenderness or abnormalities Lungs: Lungs clear to auscultation. No wheezing, rhonchi, rales Heart: RRR without murmur, gallop, or rubs. No ectopy Abdomen: Normal abdominal exam, Abdomen soft, non-tender. Bowel sounds normal. No masses, organomegaly Extremities: No deformities, edema, skin discoloration, clubbing or cyanosis. Good capillary refill. Musculoskeletal: No joint swelling, deformity, or tenderness Peripheral pulses: Normal Neuro: Gait normal. Reflexes normal and symmetric. Sensation grossly intact. ASSESSMENT/PLAN: 1. SOB (shortness of breath) - ICD9: 786.05, ICD10: R06.02 (primary diagnosis) - see cardiology - CONSULT TO CARDIOLOGY 2. Edema, unspecified type - ICD9: 782.3, ICD10: R60.9 - as above. - CONSULT TO CARDIOLOGY 3. LVH (left ventricular hypertrophy) - ICD9: 429.3, ICD10: I51.7 - as above. Hold on adding other meds since bp is currently good and will be seeing cardiology - CONSULT TO CARDIOLOGY 4. Controlled type 2 diabetes mellitus without complication, without long-term current use of insulin (HCC) - ICD9: 250.00, ICD10: E11.9 - increase metformin. Will need a1c below 8.0 5. Type 2 diabetes mellitus without complication, without long-term current use of insulin (HCC) - ICD9: 250.00, ICD10: E11.9 - METFORMIN ER 500 MG TABLET,EXTENDED RELEASE 24 HR Zeeshan Stephen MD RTO in four weeks documented in this encounter [facility] 02-05-2022 Miscellaneous Notes Pt returned call to office, notified of results/ provider response. She verbalized understanding. Alon Her LPN TC to pt, left message to return call to office. Alon Her LPN Left message for patient to return call. Clara Nieves Ma Liver is up but stable. Platelets are still low. Her architis labs are up. Her blood clot labs are negative. Her sugars are still up.increas her metformin to bid. Keep follow up with us and see rheum and gi. Thyroid is low. Increase tsh to 88 mcg a day and recheck labs in six weeks. documented in this encounter [facility] 02-05-2022 Miscellaneous Notes Patient calling asking for referral to Dr Connor Gastroenter[facility] be faxed to his office. Printed consult, last 2 office notes, face sheet, ultrasound URQ faxed to Dr Connor office as requested. documented in this encounter [facility] documented as of this encounter (statuses as of 09/18/2022) [facility] History of Past illness Narrative* Problem Noted Date Resolved Date Fatty liver 01/08/2022 09/17/2022 Myalgia 12/25/2021 09/17/2022 Malaise and fatigue 02/03/2018 09/17/2022 Elevated liver enzymes 02/17/2017 BRBPR (bright red blood per rectum) 07/17/2015 08/06/2016 documented as of this encounter (statuses as of 09/20/2022) [facility] History of Past illness Narrative* Problem Noted Date Resolved Date Fatty liver 01/08/2022 09/17/2022 Myalgia 12/25/2021 09/17/2022 Malaise and fatigue 02/03/2018 09/17/2022 Elevated liver enzymes 02/17/2017 3 BRBPR (bright red blood per rectum) 07/17/2015 08/06/2016 documented as of this encounter (statuses as of 10/03/2022) [facility] History of Past illness Narrative* Problem Noted Date Resolved Date Fatty liver 01/08/2022 09/17/2022 Myalgia 12/25/2021 09/17/2022 Malaise and fatigue 02/03/2018 09/17/2022 Elevated liver enzymes 02/17/2017 3 BRBPR (bright red blood per rectum) 07/17/2015 08/06/2016 documented as of this encounter (statuses as of 10/04/2022) [facility] History of Past illness Narrative* Problem Noted Date Resolved Date Fatty liver 01/08/2022 09/17/2022 Myalgia 12/25/2021 09/17/2022 Malaise and fatigue 02/03/2018 09/17/2022 Elevated liver enzymes 02/17/2017 3 BRBPR (bright red blood per rectum) 07/17/2015 08/06/2016 documented as of this encounter (statuses as of 10/04/2022) [facility] History of Past illness Narrative* Problem Noted Date Resolved Date Fatty liver 01/08/2022 09/17/2022 Myalgia 12/25/2021 09/17/2022 Malaise and fatigue 02/03/2018 09/17/2022 Elevated liver enzymes 02/17/2017 3 BRBPR (bright red blood per rectum) 07/17/2015 08/06/2016 documented as of this encounter (statuses as of 10/14/2022) [facility] History of Past illness Narrative* Problem Noted Date Resolved Date Fatty liver 01/08/2022 09/17/2022 Myalgia 12/25/2021 09/17/2022 Malaise and fatigue 02/03/2018 09/17/2022 Elevated liver enzymes 02/17/2017 3 BRBPR (bright red blood per rectum) 07/17/2015 08/06/2016 documented as of this encounter (statuses as of 10/25/2022) [facility] History of Past illness Narrative* Problem Noted Date Resolved Date Fatty liver 01/08/2022 09/17/2022 Myalgia 12/25/2021 09/17/2022 Malaise and fatigue 02/03/2018 09/17/2022 Elevated liver enzymes 02/17/2017 3 BRBPR (bright red blood per rectum) 07/17/2015 08/06/2016 documented as of this encounter (statuses as of 11/01/2022) [facility] History of Past illness Narrative* Problem Noted Date Resolved Date Fatty liver 01/08/2022 09/17/2022 Myalgia 12/25/2021 09/17/2022 Malaise and fatigue 02/03/2018 09/17/2022 Elevated liver enzymes 02/17/2017 3 BRBPR (bright red blood per rectum) 07/17/2015 08/06/2016 documented as of this encounter (statuses as of 11/05/2022) [facility] History of Past illness Narrative* Problem Noted Date Resolved Date Fatty liver 01/08/2022 09/17/2022 Myalgia 12/25/2021 09/17/2022 Malaise and fatigue 02/03/2018 09/17/2022 Elevated liver enzymes 02/17/2017 3 BRBPR (bright red blood per rectum) 07/17/2015 08/06/2016 documented as of this encounter (statuses as of 11/06/2022) [address]28-2022 History of Past illness Narrative* Problem Noted Date Diagnosed Date Resolved Date Fatty liver 01/08/2022 09/17/2022 Myalgia 12/25/2021 09/17/2022 Malaise and fatigue 02/03/2018 09/18/19 23 Elevated liver enzymes 02/17/201709/17 BRBPR (bright red blood per rectum) 07/17/2015 08/06/2016 documented as of this encounter (statuses as of 03/12/2023) [facility] History of Past illness Narrative* Problem Noted Date Diagnosed Date Resolved Date Fatty liver 01/08/2022 09/17/2022 Myalgia 12/25/2021 09/17/2022 Malaise and fatigue 02/03/2018 09/18/19 23 Elevated liver enzymes 02/17/201709/17 BRBPR (bright red blood per rectum) 07/17/2015 08/06/2016 documented as of this encounter (statuses as of 04/14/2023) [facility] History of Past illness Narrative* Problem Noted Date Diagnosed Date Resolved Date Fatty liver 01/08/2022 09/17/2022 Myalgia 12/25/2021 09/17/2022 Malaise and fatigue 02/03/2018 09/18/19 23 Elevated liver enzymes 02/17/201709/17 BRBPR (bright red blood per rectum) 07/17/2015 08/06/2016 documented as of this encounter (statuses as of 04/26/2023) [facility] History of Past illness Narrative* Problem Noted Date Diagnosed Date Resolved Date Fatty liver 01/08/2022 09/17/2022 Myalgia 12/25/2021 09/17/2022 Malaise and fatigue 02/03/2018 09/18/19 23 Elevated liver enzymes 02/17/201709/17 BRBPR (bright red blood per rectum) 07/17/2015 08/06/2016 documented as of this encounter (statuses as of 05/01/2023) [facility] History of Past illness Narrative* Problem Noted Date Diagnosed Date Resolved Date Fatty liver 01/08/2022 09/17/2022 Myalgia 12/25/2021 09/17/2022 Malaise and fatigue 02/03/2018 09/18/19 23 Elevated liver enzymes 02/17/201709/17 BRBPR (bright red blood per rectum) 07/17/2015 08/06/2016 documented as of this encounter (statuses as of 05/02/2023) [facility] History of Present illness Narrative* Zeeshan Stephen MD - 01/02/2022 4:35 PM EDT Patient presents with: Follow Up: medication HPI: Patient presents today for office visit for follow up. Fairly complicated hx. Saw Dr Christian on 12/31 for worsening thrombocytopenia. He ordered a number of labs, many of which are still pending. She was to have a chest xray previously ordered for pneumonia in the spring but did not. She currently has no fever or cough or congestion. She has seen Dr Martinez in the past who thought she had lupus. She saw Dr Johnson once who did not feel it was lupus but that she had an inflammatory polyarthritis and she had previously been on plaqunenil She did not follow up despite being referred back by Tristin Schmidt in 2018. She has had elevated lft's noted in the past by Cynthia Mac and had an us previously that showedlikely fatty liver. The enzymes remain elevated. No itching or jaundice. She has a history of ash's thyroiditis and has been on synthroid chronically however stopped it on her own in the spring for a number of months. She is just now back on it and labs are improving. She is scheduled next month for a repeat tsh. Her last sugars were poorly controlled in October She was not taking her dm due to being in denial at the time of the labs. She is back on her meds at this time. We discussed that we could consider holding her statin due to her liver issues, however, her levelsare not at a point that it is required. Continues to complain of fatigue, Complains of polyarthralgi Denies jaundice, itching or abd pain Has seen Cardiology in the past and had a normal heart cath just in 2019. Did have an echo that showed diastolic dysfunction. Has some overall puffiness that is chronic. Component Latest Ref Rng & Units 10/18/2021 11/26/2021 Protein, Total 6.3 - 8.0 g/dL 7.3 Albumin 3.9 - 4.9 g/dL 3.5 (L) Calcium 8.5 - 10.2 mg/dL 9.6 Bilirubin, Total 0.2 - 1.3 mg/dL 0.6 Alkaline Phosphatase 34 - 123 U/L 143 (H) AST 13 - 35 U/L 79 (H) ALT 7 - 38 U/L 43 (H) Glucose 74 - 99 mg/dL 153 (H) BUN 7 - 21 mg/dL 10 Creatinine 0.58 - 0.96 mg/dL 0.72 Sodium 136 - 144 mmol/L 137 Potassium 3.7 - 5.1 mmol/L 4.3 Chloride 97 - 105 mmol/L 104 CO2 22 - 30 mmol/L 27 Anion Gap 9 - 18 mmol/L 6 (L) eGFR >=60 mL/min/1.73m 95 WBC 3.70 - 11.00 k/uL 5.28 RBC 3.90 - 5.20 m/uL 4.35 Hemoglobin 11.5 - 15.5 g/dL 13.3 Hematocrit 36.0 - 46.0 % 41.9 MCV 80.0 - 100.0 fL 96.3 MCH 26.0 - 34.0 pg 30.6 MCHC 30.5 - 36.0 g/dL 31.7 RDW-CV 11.5 - 15.0 % 12.4 Platelet Count 150 - 400 k/uL 99 (L) 91 (L) MPV 9.0 - 12.7 fL 12.1 Absolute nRBC <0.01 k/uL <0.01 Total Cholesterol, Nonfasting <200 mg/dL 216 (H) Triglycerides, Nonfasting <150 mg/dL 71 HDL Cholesterol, Nonfasting >39 mg/dL 77 LDL Cholesterol, Nonfasting <100 mg/dL 125 (H) Non HDL Cholesterol, Nonfasting <130 mg/dL 139 (H) VLDL Cholesterol, Nonfasting <30 mg/dL 14 Total Chol/HDL Ratio, Nonfasting <5.10 mg/dL 2.81 LDL/HDL Ratio, Nonfasting <2.54 mg/dL 1.62 T4 5.5 - 10.2 ug/dL 6.9 T4 Uptake 0.91 - 1.19 1.20 (H) FTI 5.3 - 10.8 ug/dL 5.8 Hemoglobin A1C 4.3 - 5.6 % 9.1 (H) Estimated Average Glucose mg/dL 214 TSH 0.270 - 4.200 mIU/L 9.360 (H) 6.530 (H) MEDICATIONS: Current Outpatient Medications Medication Sig atorvastatin (LIPITOR) 20 mg tablet Take 1 tablet by mouth daily at bedtime. For cholesterol. levothyroxine (SYNTHROID) 75 mcg tablet Take 1 tablet by mouth once daily. Take on empty stomach. For Thyroid. metFORMIN ER (GLUCOPHAGE XR) 500 mg 24 hr tablet Take 1 tablet by mouth daily with breakfast. sertraline (ZOLOFT) 50 mg tablet Take 1 tablet by mouth once daily. omeprazole (PRILOSEC) 20 mg capsule Take 1 capsule by mouth once daily. No current facility-administered medications for this visit. ALLERGIES: ALLERGIES Allergen Reactions Cortisone Anaphylaxis Was from celestone injection in her her knee prior to TKR. Has tolerated oral prednisone before. Celestone [Betameth* Rash, Swelling Environmental [Othe* grass, molds, dust=nasal drainage, sneezing, sore throat Penicillins Swelling Prozac [Fluoxetine * Rash Gets red Vicodin [Hydrocodon* Vomiting Vytorin 10-10 [Ezet* Other: See Comments muscle aches with vytorin. Tolerated lipitor PAST MEDICAL HISTORY Diagnosis Date Abdominal pain, generalized pain is the same as before her TONYA Colitis History of chronic colitis diagnosed on colonoscopy with Dr. Barragan Depressive disorder, not elsewhere classified 05/16/2010 Esophageal reflux Gastroesophageal reflux Hyperglycemia 08/06/2016 Hyperlipidemia 05/16/2010 Hypothyroidism 05/16/2010 from Hasthimoto's thyroiditis Inflammatory polyarthropathy (HCC) 12/03/2013 Dr Martinez 11/2013 Migraine headache 05/16/2010 propranolol effective for prevention; last migraine was a few months ago and was milder since on propranolol ; no HTN Nonspecific elevation of levels of transaminase or lactic acid dehydrogenase (LDH) Elevated LFT's Renal calculus 1997 Symptomatic menopausal or female climacteric states PAST SURGICAL HISTORY Procedure Laterality Date ANTERIOR INTERBODY FUSION, CERVICAL 06/2012 Dr. Paz @ [facility] ARTHRP KNE CONDYLE&PLATU MEDIAL&LAT COMPARTMENTS 07/2009 Knee replacement, left BX BREAST PERC VACUUM/ROTN 04/23/07 LEFT COLONOSCOPY FLX DX W/COLLJ SPEC WHEN PFRMD 07/31/2015 Colonoscopy DILATION & CURETTAGE DX&/THER NONOBSTETRIC 1984 Dilation & curettage HYSTERECTOMY HX 2002 HYSTEROSCOPY, DIAGNOSTIC (SEPARATE 2002 Hysteroscopy/curettage LAPAROSCOPY SURG CHOLECYSTECTOMY 2005 Cholecystectomy, lap LAPS ABD PRTM&OMENTUM DX W/WO SPEC BR/WA SPX 2002 Laparoscopy PAST SURGICAL HISTORY OF 1998 lumbardisectomy PAST SURGICAL HISTORY OF [address]otomy rt. foot PAST SURGICAL HISTORY OF 07/2009 left knee arthroscopy PAST SURGICAL HISTORY OF 2005 anterior cervical disk fusion PLCIN LOCALZTN CLIP,PERC,DURING BREAST BX 04/23/[address] Zimmer TONSILLECTOMY PRIMARY/SECONDARY <AGE 12 Tonsillectomy TOTAL ABDOMINAL HYSTERECT W/WO RMVL TUBE OVARY 2003 Hysterectomy, TONYA FAMILY HISTORY Problem Relation Age of Onset Hypertension Mother Heart Father Prostate Cancer Father Cancer Maternal Grandmother thyroid Diabetes Maternal Grandmother Breast Cancer Maternal Grandmother Breast Cancer Paternal Grandmother Diabetes Paternal Grandmother Social History Tobacco Use Smoking status: Never Smoker Smokeless tobacco: Never Used Vaping Use Vaping Use: Never used Substance Use Topics Alcohol use: Yes Comment: rarely 3 YEARLY Drug use: No Reviewed current medications, allergies, past medical history, surgical history, family history andsocial history today. REVIEW OF SYSTEMS Reported rectal bleeding to Dr. Christian. All other reviewed and negative other than HPI. VITALS: BP 138/78 Pulse 71 Resp 16 Wt 130.2 kg (287 lb) SpO2 98% BMI 41.55 kg/m Last 4 Encounter Wt Readings: Date: Wt: 01/02/2022 130.2 kg (287 lb) 12/25/2021 132.5 kg (292 lb) 10/18/2021 132.5 kg (292 lb) 05/03/2021 131.1 kg (289 lb) PHYSICAL EXAMINATION: General appearance: Well appearing, alert, in no acute distress, well-hydrated, well nourished. Skin: Skin color, texture, turgor normal, no suspicious rashes or lesions Head: Normocephalic, no masses, lesions, tenderness or abnormalities Lungs: Lungs clear to auscultation. No wheezing, rhonchi, rales Heart: II/ murmur, normal s1 and s2 Abdomen: Normal abdominal exam, Abdomen soft, non-tender. Bowel sounds normal. No masses, organomegaly Extremities: No deformities, Trace edema, no skin discoloration, clubbing or cyanosis. Good capillary refill. Musculoskeletal: No joint swelling, deformity, or tenderness Peripheral pulses: Normal Neuro: Negative. ASSESSMENT/PLAN: 1. Elevated liver enzymes - ICD9: 790.5, ICD10: R74.8 (primary diagnosis) - ? Could that be contributing to below. She requests to see Dr Geeta who can also address the rectal bleeding. - CONSULT TO GASTROENTEROLOGY 2. Thrombocytopenia (HCC) - ICD9: 287.5, ICD10: D69.6 - as above. Per Dr. Christian 3. Positive CHENTE (antinuclear antibody) - ICD9: 795.79, ICD10: R76.8 - ? Of questionable significance per Dr. Johnson in the past. 4. Goiter - ICD9: 240.9, ICD10: E04.9 - get us. Has not been imaged in some time. Has had biopsies in the remote past. 5. 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 Rechecking next month. 6. Mixed hyperlipidemia - ICD9: 272.2, ICD10: E78.2 - good control - continue as long as liver enzymes remain in range. 7. Rectal bleeding - ICD9: 569.3, ICD10: K62.5 - CONSULT TO GASTROENTEROLOGY 8. Inflammatory polyarthropathy (HCC) - ICD9: 714.9, ICD10: M06.4 - encouraged follow up with rheum. - CONSULT TO RHEUM/IMMUN DISEASE 9. Multinodular goiter - ICD9: 241.1, ICD10: E04.2 - US THYROID/PARATHYROID 10. Type 2 diabetes mellitus without complication, without long-term current use of insulin (HCC) -ICD9: 250.00, ICD10: E11.9 - worsened by noncompliance in the past. Continue meds. Get labs soon to reassess - ALBUMIN/CREAT RATIO RND UR - HGB A1C 11. Bacterial pneumonia - ICD9: 482.9, ICD10: J15.9 - get xray she was already to have had - XR CHEST 2V FRONTAL/LAT 12. SOB (shortness of breath) - ICD9: 786.05, ICD10: R06.02 - is chronic, get labs and check chest xray. - NT PRO BNP 13. Heart murmur - ICD9: 785.2, ICD10: R01.1 - get cho - ECHO - PERFLUTREN LIPID MICROSPHERES 1.1 MG/ML INJECTION IN NS 10 ML - SODIUM CHLORIDE 0.9 % (FLUSH) INJECTION SYRINGE 14. Diastolic dysfunction - ICD9: 429.9, ICD10: I51.89 - get echo. Zeeshan Stephen RTO in one month and prn. [facility] Inst[facility]* Patient Instructions* Dawn Christian MD - 12/25/2021 3:27 PM EDT Repeat colonoscopy because of rectal bleeding. [facility] History and physical note * Dawn Christian MD - 12/25/2021 3:25 PM EDT Hematology and Medical Oncology PATIENT NAME: Marylou Marie. CLINIC NO: [id number]. ATTENDING PHYSICIAN: Dawn Christian MD. DATE OF SERVICE:12/25/2021. DIAGNOSIS: Leukopenia and thrombocytopenia Consultation requested by Dr. Stephen for an opinion regarding thrombocytopenia. My final recommendations will be communicated back to the requesting physician by way of shared Medical record or letter to requesting physician via US mail. PERFORMANCE STATUS:80% HPI: 61-year-old lady who has diagnosis of [id number] diabetes mellitus, polyarthritis, thyroiditis and hyperlipidemia presented with rectal bleeding. She also have abnormal LFT due to thefatty liver disease. She had a colonoscopy last year and noted hemorrhoidal bleeding but no other pathology. Rectal bleeding has become more frequent, but no unusual bruising. CBC revealed leukopeniaand thrombocytopenia. She also complained of increased fatigue, polyarthritis and myalgia mostly inher lower extremity. She has no fever, chills, night sweats or unexplained weight loss. She has no rash but had alopecia. She was on Plaquenil previously but has not seen her personnel consultant for over 3 years. She denied history of alcohol use, HIV or viral hepatitis. She was never and no history of drug use. MEDICATIONS: Current Outpatient Medications Medication Sig atorvastatin (LIPITOR) 20 mg tablet Take 1 tablet by mouth daily at bedtime. For cholesterol. levothyroxine (SYNTHROID) 75 mcg tablet Take 1 tablet by mouth once daily. Take on empty stomach. For Thyroid. metFORMIN ER (GLUCOPHAGE XR) 500 mg 24 hr tablet Take 1 tablet by mouth daily with breakfast. sertraline (ZOLOFT) 50 mg tablet Take 1 tablet by mouth once daily. omeprazole (PRILOSEC) 20 mg capsule Take 1 capsule by mouth once daily. No current facility-administered medications for this visit. . ALLERGIES: ALLERGIES Allergen Reactions Cortisone Anaphylaxis Was from celestone injection in her her knee prior to TKR. Has tolerated oral prednisone before. Celestone [Betameth* Rash, Swelling Environmental [Othe* grass, molds, dust=nasal drainage, sneezing, sore throat Penicillins Swelling Prozac [Fluoxetine * Rash Gets red Vicodin [Hydrocodon* Vomiting Vytorin 10-10 [Ezet* Other: See Comments muscle aches with vytorin. Tolerated lipitor . PAST MEDICAL HISTORY: PAST MEDICAL HISTORY Diagnosis Date Abdominal pain, generalized pain is the same as before her TONYA Colitis History of chronic colitis diagnosed on colonoscopy with Dr. Barragan Depressive disorder, not elsewhere classified 05/16/2010 Esophageal reflux Gastroesophageal reflux Hyperglycemia 08/06/2016 Hyperlipidemia 05/16/2010 Hypothyroidism 05/16/2010 from Hasthimoto's thyroiditis Inflammatory polyarthropathy (HCC) 12/03/2013 Dr Martinez 11/2013 Migraine headache 05/16/2010 propranolol effective for prevention; last migraine was a few months ago and was milder since on propranolol ; no HTN Nonspecific elevation of levels of transaminase or lactic acid dehydrogenase (LDH) Elevated LFT's Renal calculus 1997 Symptomatic menopausal or female climacteric states . PAST SURGICAL HISTORY: PAST SURGICAL HISTORY Procedure Laterality Date ANTERIOR INTERBODY FUSION, CERVICAL 06/2012 Dr. Paz @ [facility] ARTHRP KNE CONDYLE&PLATU MEDIAL&LAT COMPARTMENTS 07/2009 Knee replacement, left BX BREAST PERC VACUUM/ROTN 04/23/07 LEFT COLONOSCOPY FLX DX W/COLLJ SPEC WHEN PFRMD 07/31/2015 Colonoscopy DILATION & CURETTAGE DX&/THER NONOBSTETRIC 1984 Dilation & curettage HYSTERECTOMY HX 2002 HYSTEROSCOPY, DIAGNOSTIC (SEPARATE 2002 Hysteroscopy/curettage LAPAROSCOPY SURG CHOLECYSTECTOMY 2005 Cholecystectomy, lap LAPS ABD PRTM&OMENTUM DX W/WO SPEC BR/WA SPX 2002 Laparoscopy PAST SURGICAL HISTORY OF 1998 lumbardisectomy PAST SURGICAL HISTORY OF [address] foot PAST SURGICAL HISTORY OF 07/2009 left knee arthroscopy PAST SURGICAL HISTORY OF 2005 anterior cervical disk fusion [facility] LOCALTN CLIP,PERC,DURING BREAST BX 04/23/[address] Zimmer TONSILLECTOMY PRIMARY/SECONDARY <AGE 12 Tonsillectomy TOTAL ABDOMINAL HYSTERECT W/WO RMVL TUBE OVARY 2003 Hysterectomy, TONYA . FAMILY HISTORY: FAMILY HISTORY Problem Relation Age of Onset Hypertension Mother Heart Father Prostate Cancer Father Cancer Maternal Grandmother thyroid Diabetes Maternal Grandmother Breast Cancer Maternal Grandmother Breast Cancer Paternal Grandmother Diabetes Paternal Grandmother . SOCIAL HISTORY: Social History Tobacco Use Smoking status: Never Smoker Smokeless tobacco: Never Used Vaping Use Vaping Use: Never used Substance Use Topics Alcohol use: Yes Comment: rarely 3 YEARLY Drug use: No . REVIEW OF SYSTEMS: CONSTITUTIONAL: No fevers, chills, nightsweats, unintended weight loss + chronic fatigue HEENT: Denies frequent or severe heaches, nasal congestion/sinus symptoms, problematic allergy problems. EYES: No diplopia or blurry vision. CARDIOVASCULAR: No chest pain, dyspnea, palpitations, orthopnea, PND, ankle edema. PULM: No dyspnea, unexplained cough. GI: No dysphagia/odynophagia, problematic reflux, constipation, diarrhea, changes in stool habits, + hematochezia : No new urinary complaints, including dysuria, gross hematuria or pyuria. NEURO: No new balance problems, peripheral weakness/paresthesias or numbness of concern. MUSC-SKEL: + joint pain-knees, swelling, or erythema. + Myalgia of lower extremities PSY: No concerns regarding depression, anxiety or panic. INTEGUMENTARY: No new skin changes (rash, new or changing mole, new growth) PHYSICAL EXAMINATION: BP 132/63 Pulse 62 Temp 97.6 Ht 5' 9.685 (1.77m) Wt 292 lb (132.5kg) SpO2 97% BMI 42.28 kg/(m^2). HEENT: Head is normocephalic, atraumatic. Sclerae white, conjunctivae pink. PEERL. EOMs are intact.Oropharynx is benign. LYMPHATICS: There is no palpable adenopathy in the neck, supraclavicular region, axillae, or groin. LUNGS: Lungs are clear to percussion and auscultation. HEART: Heart is normal without murmurs, gallops, or rubs. ABDOMEN: Obese, soft and nontender without organomegaly. No masses can be palpated. EXTREMITIES: Are without edema. No petechiae or ecchymosis. NEUROLOGIC: Exam is physiologic LABORATORY DATA: CBC: WBC 4.1, hemoglobin 13.1, hematocrit 40.9, platelet 87,000. Lymphocyte 26.3%, neutrophil 64.1% Platelet estimate moderately decreased. Normal red blood cell morphology. ASSESSMENT: 61-year-old lady with history of SLE, fatty liver disease presenting with thrombocytopenia and lymphopenia. Chronic thrombocytopenia could be secondary to ITP or SLE. She also has recurrent rectal bleeding for the last year. PLAN: -Additional labs requested today: CMP, LDH, CRP, sed rate, HIV 1 and 2 screen and hepatitis C antibody. -Also check aldolase and CK because of myalgia /myositis. -Check urinalysis for proteinuria -Ultrasound of liver and spleen for further evaluation of abnormal liver function and thrombocytopenia -She should follow-up with GI because of rectal bleeding; possible repeat colonoscopy for further evaluation. I spent 60 minutes in the visit, with more than 50% of the total [id number]-[id number] time of the visit in counseling / coordination of care. The patient was allowed enough time to ask questions. All questions were answered to her satisfaction. Patient verbalized understanding of chronic thrombocytopenia and agreed to proceed with reevaluation and follow-up in 2 weeks. Dawn Christian MD. ELECTRONICALLY SIGNED documented in this encounterMercy Health [facility]06-10-2022 Miscellaneous Notes* Telephone Encounter - Alon Her LPN - 12/21/2021 11:26 AM EDT TC to pt, detailed message on voicemail. Pt to return call to office /c any questions or concerns. Alon Her LPN * Telephone Encounter - Cynthia Mac APRN.SHEILA - 12/21/2021 11:21 AM EDT Can please let patient know that her x-ray of the knee was normal. Please follow-up with Ortho as planned. * Telephone Encounter - Alon Her LPN - 12/21/2021 9:33 AM EDT Received results of knee xray from [facility] via fax. Placed in providers office for further review. Alon Her LPN documented in this encounterMercy Health Willard Hospital06-07-2022 Instructions* Patient Instructions* Cynthia Mac APRN.CNP - 12/18/2021 9:24 AM EDT 1. Start the diclofenac twice daily with food. 2. Get the xray. 3. Schedule w/ ortho. 4. Compression to the knee. 5. Ice the knee. 6. Consider PT. documented in this encounterMercy Health Willard Hospital06-07-2022 History of Present illness Narrative* Cynthia Mac APRN.CNP - 12/18/2021 9:10 AM EDT This is a 61 year old female who presents today with: Patient presents with: Knee Pain: x couple months, no known injury, causing her to fall (without injury) HISTORY OF PRESENT ILLNESS: Marylou Marie is a 61 year old female. Patient presents with: Knee Pain: x couple months, no known injury, causing her to fall (without injury) Pt presents today with complaint of right knee pain. Refers that has been having problems for awhile. No injury. Refers that it is getting worse. Refers that she has trouble putting weight on the right leg, trouble stepping off the curb with that leg. Reports that she has fallen three times in the last 1 1/2 weeks. + popping and cracking. + giving out. Hasn't noticed any redness. Noticed a pocket on the knee. Has been taking OTC ibuprofen, which hasn't helped. PAST MEDICAL HISTORY: PAST MEDICAL HISTORY Diagnosis Date Abdominal pain, generalized pain is the same as before her TONYA Colitis History of chronic colitis diagnosed on colonoscopy with Dr. Barragan Depressive disorder, not elsewhere classified 05/16/2010 Esophageal reflux Gastroesophageal reflux Hyperglycemia 08/06/2016 Hyperlipidemia 05/16/2010 Hypothyroidism 05/16/2010 from Hasthimoto's thyroiditis Inflammatory polyarthropathy (HCC) 12/03/2013 Dr Martinez 11/2013 Migraine headache 05/16/2010 propranolol effective for prevention; last migraine was a few months ago and was milder since on propranolol ; no HTN Nonspecific elevation of levels of transaminase or lactic acid dehydrogenase (LDH) Elevated LFT's Renal calculus 1997 Symptomatic menopausal or female climacteric states PAST SURGICAL HISTORY Procedure Laterality Date ANTERIOR INTERBODY FUSION, CERVICAL 06/2012 Dr. Paz @ [facility] ARTHRP KNE CONDYLE&PLATU MEDIAL&LAT COMPARTMENTS 07/2009 Knee replacement, left BX BREAST PERC VACUUM/ROTN 04/23/07 LEFT COLONOSCOPY FLX DX W/COLLJ SPEC WHEN PFRMD 07/31/2015 Colonoscopy DILATION & CURETTAGE DX&/THER NONOBSTETRIC 1984 Dilation & curettage HYSTERECTOMY HX 2003 HYSTEROSCOPY, DIAGNOSTIC (SEPARATE 2003 Hysteroscopy/curettage LAPAROSCOPY SURG CHOLECYSTECTOMY 2004 Cholecystectomy, lap LAPS ABD PRTM&OMENTUM DX W/WO SPEC BR/WA SPX 2002 Laparoscopy PAST SURGICAL HISTORY OF 1998 lumbardisectomy PAST SURGICAL HISTORY OF [address] foot PAST SURGICAL HISTORY OF 07/2009 left knee arthroscopy PAST SURGICAL HISTORY OF 2005 anterior cervical disk fusion PLCIN LOCALZTN CLIP,PERC,DURING BREAST BX 04/23/[address] Zimmer TONSILLECTOMY PRIMARY/SECONDARY <AGE 12 Tonsillectomy TOTAL ABDOMINAL HYSTERECT W/WO RMVL TUBE OVARY 2002 Hysterectomy, TONYA ALLERGIES Cortisone, Celestone [Betamethasone Sodium Phosphate], Environmental [Other], Penicillins, Prozac [Fluoxetine Hcl], Vicodin [Hydrocodone- Acetaminophen], and Vytorin 10-10 [Ezetimibe-Simvastatin] MEDICATIONS Current Outpatient Medications Medication Sig atorvastatin (LIPITOR) 20 mg tablet Take 1 tablet by mouth daily at bedtime. For cholesterol. levothyroxine (SYNTHROID) 75 mcg tablet Take 1 tablet by mouth once daily. Take on empty stomach. For Thyroid. metFORMIN ER (GLUCOPHAGE XR) 500 mg 24 hr tablet Take 1 tablet by mouth daily with breakfast. sertraline (ZOLOFT) 50 mg tablet Take 1 tablet by mouth once daily. omeprazole (PRILOSEC) 20 mg capsule Take 1 capsule by mouth once daily. No current facility-administered medications for this visit. FAMILY HISTORY Problem Relation Age of Onset Hypertension Mother Heart Father Prostate Cancer Father Cancer Maternal Grandmother thyroid Diabetes Maternal Grandmother Breast Cancer Maternal Grandmother Breast Cancer Paternal Grandmother Diabetes Paternal Grandmother Social History Tobacco Use Smoking status: Never Smoker Smokeless tobacco: Never Used Substance Use Topics Alcohol use: Yes Comment: rarely 3 YEARLY Drug use: No EXAM: BP 110/72 Pulse 64 Resp 18 SpO2 96% PHYSICAL EXAM: General Appearance: Well appearing, alert, in no acute distress, well-hydrated, well nourished.. Skin: Skin color, texture, turgor normal, no suspicious rashes or lesions. Head: Normocephalic, no masses, lesions, tenderness or abnormalities. Eyes: Anicteric sclera. Pupils are equally round and reactive to light. Extraocular movements are intact. Extremities: No deformities, edema, skin discoloration, clubbing or cyanosis. Good capillary refill. Neurologic: Gait normal. Lower extremities equal or nearly equal in bulk and tone. No redness or increased warmth. No axial deformity. + swelling right anterior/inferior knee. Full flexion to 130+ degrees, full extension, + discomfort with varus or valgus stress. No pain with patellar pressure or abnormal tracking. Anterior drawer, Sanjiv, and Ivan test all negative. ASSESSMENT/PLAN: 1. Chronic pain of right knee - ICD9: 719.46, 338.29, ICD10: M25.561, G89.29 + right knee pain. Hesitant to do any steroids due to uncontrolled diabetes. We will go ahead and start routine anti-inflammatories. We will go ahead and refer to Ortho. Would like to hold off on PT at this time. We will get x-ray of the knee. Patient also encouraged to use compression and ice to the knee. - XR KNEE GENERAL 4V AP BOTH/PA BOTH/LAT/MERC RIGHT - CONSULT TO ORTHOPAEDICS Discussed treatment plan and patient voices understanding. Patient's questions answered appropriately. Medications and potential side effects were discussed and patient voices understanding. Return to the office as scheduled or as needed for worsening/no improvement. Cynthia Mac APRN.SHEILA The patient indicates understanding of these issues and agrees with the plan. This note was partially generated using Spaseebo voice recognition system. Note was reviewed for accuracy. There may be minor misspellings or grammar miscues with [employer] voice recognition. documented in this encounterMercy Health [facility]05-23-2022 Miscellaneous Notes* Telephone Encounter - Ama Walters LPN - 12/03/2021 2:05 PM EDT Order faxed to [facility] out pt. Lab.[phone] Ama Walters LPN * Telephone Encounter - Ama Walters LPN - 12/03/2021 1:[address] Christian please sign order Ama Walters LPN Also left message on pts. Identified voicemail to contact office as to where she wants orders sent,can also my chart us the info. Ama Walters LPN * Telephone Encounter - Ama Walters LPN - 11/29/2021 3:[address] Christian can you order this pts. Labs after her initial visit , so she can take the orders to [facility] and have all done at once. They will not draw CBC/Extra? Ama Walters LPN * Telephone Encounter - Anju Serrano - 11/29/2021 3:16 PM EDT Please see below. Anju Serrano * Telephone Encounter - Cheli Dempsey Pss - 11/29/2021 3:05 PM EDT Patient is scheduled 12/13 for both appointments however she is a [employer] employee and if labs could be faxed to [employer] to be completed prior to visit patient would appreciate due toinsurance. Please advise patient if labs are faxed. * Telephone Encounter - Ramona Serrano - 11/28/2021 4:37 PM EDT Left message for patient to return call. When patient calls, please schedule the following 2 appointments back to back with labs 30 minutes prior to new patient appointment: DEPT: LAB [facility] APPT NOTE: CBC/EXTRA* APPT TYPE: LAB DEPT: [facility] APPT NOTE: CBC/EXTRA/BREAD ICER/THROMBOCYTOPENIA/REF ZEESHAN HAILEE* first available per provider schedule APPT TYPE: NEW PATIENT PROVIDER: DAWN CHRISTIAN Once scheduled, document and route this note to [facility] HEM/ONC PSR. Ramona Serrano * Telephone Encounter - Bailee Madden LPN - 11/28/2021 10:09 AM EDT Thrombocytopenia (HCC) [D69.6] * Telephone Encounter - Dawn Christian MD - 11/28/2021 10:07 AM EDT Hematology consult for what? Dawn Christian MD * Telephone Encounter - Bailee Madden LPN - 11/28/2021 10:05 AM EDT CBC/EXTRA. Bailee Madden LPN * Telephone Encounter - Ramona Serrano - 11/28/2021 8:[address] Christian - Do you wish for the patient to have any labs at the time of consult? Ramona Serrano * Telephone Encounter - Alexia Ford LPN - 11/28/2021 8:21 AM EDT Patient returned call and went over results, notes from Dr Stephen with understanding. Aware rx to pharmacy. Scheduled appt for 01/02/[address] Stephen for follow up. Patient wants to discuss things with her parents about Hematology consult. Schedulers: Please assist patient with scheduling Hematology consult appt. * Telephone Encounter - Alon Her LPN - 11/27/2021 12:10 PM EDT TC to pt, left message to return call to office. Alon Her LPN * Telephone Encounter - Zeeshan Stephen MD - 11/27/2021 11:46 AM EDT Platelets are low. Not dangerously so but definitely low. Call if any bleeding issues. Likely related to liver issues, but in addition to seeing the liver specialist, needs to see hematology. Avoid any nsaids. Thyroid still low. Increase synthroid to 75mcg a day. Recheck tsh in six weeks. Make sure has follow up with one of us after labs. documented in this encounterMercy [facility]05-04-2022 Miscellaneous Notes* Telephone Encounter - Cynthia Mac APRN.CNP - 11/14/2021 4:43 PM EDT Script sent. Cynthia Mac APRN.SHEILA * Telephone Encounter - Nicole Gongora - 11/14/2021 2:38 PM EDT Patient wants to know if rx can be written for 90 day supply. * Telephone Encounter - Nicole Gongora - 11/14/2021 2:37 PM EDT Patient has been identified by name and date of : Yes Pending Prescriptions Disp Refills METFORMIN ER 500 MG TABLET,EXTENDED RELEASE 24 HR Sig: Take 1 tablet by mouth daily with breakfast. EMIL: No RX INSTRUCTIONS: Patient aware RX will be sent to pharmacy. No need to notify patient. Nicole Gongora documented in this encounterMercy Health [facility]04-25-2022 Instructions* Patient Instructions* Cynthia Mac APRN.CNP - 11/05/2021 4:27 PM EDT 1. Schedule with hepatology. 2. Continue the same medications. 3. Don't forget the repeat xray and labwork. 4. Let us know if you develop any new/worsening symptoms. documented in this encounterMercy Health Willard Hospital04-25-2022 History of Present illness Narrative* Cynthia Mac APRN.CNP - 11/05/2021 4:12 PM EDT This is a 61 year old female who presents today with: Patient presents with: Recheck: 4 week follow up/ pneumonia HISTORY OF PRESENT ILLNESS: Marylou Marie is a 61 year old female. Patient presents with: Recheck: 4 week follow up/ pneumonia Pt presents today to follow-up on pneumonia. She had URI symptoms earlier this month. She can an xray that confirmed: A few small patchy opacities overlying the bilateral lower lungs. Consider short-term follow-up. She reports initially treated with azithromycin, but changed to doxy. Clinical better. Still with cough that is occasionally productive. Elevated liver enzymes. Aware of need to schedule with web support engineer. DM Taking metformin. Hyperlipidemia Taking atorvastatin -- no problems. PAST MEDICAL HISTORY: PAST MEDICAL HISTORY Diagnosis Date Abdominal pain, generalized pain is the same as before her TONYA Colitis History of chronic colitis diagnosed on colonoscopy with Dr. Barragan Depressive disorder, not elsewhere classified 05/16/2010 Esophageal reflux Gastroesophageal reflux Hyperglycemia 08/06/2016 Hyperlipidemia 05/16/2010 Hypothyroidism 05/16/2010 from Hasthimoto's thyroiditis Inflammatory polyarthropathy (HCC) 12/03/2013 Dr Martinez 11/2013 Migraine headache 05/16/2010 propranolol effective for prevention; last migraine was a few months ago and was milder since on propranolol ; no HTN Nonspecific elevation of levels of transaminase or lactic acid dehydrogenase (LDH) Elevated LFT's Renal calculus 1997 Symptomatic menopausal or female climacteric states PAST SURGICAL HISTORY Procedure Laterality Date ANTERIOR INTERBODY FUSION, CERVICAL 06/2012 Dr. Paz @ [facility] ARTHRP KNE CONDYLE&PLATU MEDIAL&LAT COMPARTMENTS 07/2009 Knee replacement, left BX BREAST PERC VACUUM/ROTN 04/23/07 LEFT COLONOSCOPY FLX DX W/COLLJ SPEC WHEN PFRMD 07/31/2015 Colonoscopy DILATION & CURETTAGE DX&/THER NONOBSTETRIC 1984 Dilation & curettage HYSTERECTOMY HX 2003 HYSTEROSCOPY, DIAGNOSTIC (SEPARATE 2003 Hysteroscopy/curettage LAPAROSCOPY SURG CHOLECYSTECTOMY 2004 Cholecystectomy, lap LAPS ABD PRTM&OMENTUM DX W/WO SPEC BR/WA SPX 2002 Laparoscopy PAST SURGICAL HISTORY OF 1998 lumbardisectomy PAST SURGICAL HISTORY OF 2003 osteotomy rt. foot PAST SURGICAL HISTORY OF 07/2009 left knee arthroscopy PAST SURGICAL HISTORY OF 2005 anterior cervical disk fusion [facility] LOCALTN CLIP,PERC,DURING BREAST BX 04/23/[address] Zimmer TONSILLECTOMY PRIMARY/SECONDARY <AGE 12 Tonsillectomy TOTAL ABDOMINAL HYSTERECT W/WO RMVL TUBE OVARY 2003 Hysterectomy, TONYA ALLERGIES Cortisone, Celestone [Betamethasone Sodium Phosphate], Environmental [Other], Penicillins, Prozac [Fluoxetine Hcl], Vicodin [Hydrocodone- Acetaminophen], and Vytorin 10-10 [Ezetimibe-Simvastatin] MEDICATIONS Current Outpatient Medications Medication Sig metFORMIN ER (GLUCOPHAGE XR) 500 mg 24 hr tablet Take 1 tablet by mouth daily with breakfast. atorvastatin (LIPITOR) 20 mg tablet Take 1 tablet by mouth daily at bedtime. For cholesterol. levothyroxine (SYNTHROID) 50 mcg tablet Take 1 tablet by mouth once daily. Take on empty stomach. For Thyroid. sertraline (ZOLOFT) 50 mg tablet Take 1 tablet by mouth once daily. omeprazole (PRILOSEC) 20 mg capsule Take 1 capsule by mouth once daily. No current facility-administered medications for this visit. FAMILY HISTORY Problem Relation Age of Onset Hypertension Mother Heart Father Prostate Cancer Father Cancer Maternal Grandmother thyroid Diabetes Maternal Grandmother Breast Cancer Maternal Grandmother Breast Cancer Paternal Grandmother Diabetes Paternal Grandmother Social History Tobacco Use Smoking status: Never Smoker Smokeless tobacco: Never Used Substance Use Topics Alcohol use: Yes Comment: rarely 3 YEARLY Drug use: No EXAM: BP 132/64 Pulse 65 Resp 18 SpO2 96% PHYSICAL EXAM: General Appearance: Well appearing, alert, in no acute distress, well-hydrated, well nourished.. Skin: Skin color, texture, turgor normal, no suspicious rashes or lesions. Head: Normocephalic, no masses, lesions, tenderness or abnormalities. Eyes: Anicteric sclera. Pupils are equally round and reactive to light. Extraocular movements are intact. . Lungs: Lungs clear to auscultation. No wheezing, rhonchi, rales.. Heart: RRR without murmur, gallop, or rubs. No ectopy. Extremities: No deformities, edema, skin discoloration, clubbing or cyanosis. Good capillary refill. . Neurologic: Gait normal. ASSESSMENT/PLAN: 1. Bacterial pneumonia - ICD9: 482.9, ICD10: J15.9 (primary diagnosis) Clinically improved. Get repeat xray, as planned. Notify provider soon of any new/worsening symptoms. 2. Type 2 diabetes mellitus without complication, without long-term current use of insulin (HCC) - ICD9: 250.00, ICD10: E11.9 Pt is taking her metformin. Encouraged continued use. - METFORMIN ER 500 MG TABLET,EXTENDED RELEASE 24 HR 3. Hypothyroidism, unspecified type - ICD9: 244.9, ICD10: E03.9 Taking levothyroxine regularly. 4. Elevated liver enzymes - ICD9: 790.5, ICD10: R74.8 Will follow-up with web support engineer. Discussed treatment plan and patient voices understanding. Patient's questions answered appropriately. Medications and potential side effects were discussed and patient voices understanding. Return to the office as scheduled or as needed for worsening/no improvement. Cynthia Mac APRN.SHEILA This note was partially generated using [employer] voice recognition system. Note was reviewed for accuracy. There may be minor misspellings or grammar miscues with [employer] voice recognition. documented in this encounterMercy Health [facility]04-12-2022 Miscellaneous Notes* Telephone Encounter - Alon Her LPN - 10/23/2021 4:03 PM EDT TC to pt, left detailed message on secure [email or web address] voicemail. Alon Her LPN * Telephone Encounter - Zeeshan Stephen MD - 10/23/2021 3:33 PM EDT Agree. If worse, needs seen in ED * Telephone Encounter - Laurita Pérez RN - 10/23/2021 3:20 PM EDT Pt called in and reports she is SOB and having wheezing. She states, I can't walk without sitting down because I get too out of breath. Pts speech did sound choppy on the phone. Pt was told that she needed to go to the ER to make sure that she did not need oxygen supplementation. 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 documented in this encounterMercy Health Willard Hospital04-11-2022 Miscellaneous Notes* Telephone Encounter - Zeeshan Stephen MD - 10/22/2021 8:50 AM EDT Still needs hepatology * Telephone Encounter - Corina Sanchez LPN - 10/22/2021 8:41 AM EDT Pt notified of all results and provider message. 1) pt will start taking thyroid medication 2) pt did not schedule at this time 3) noted 4) pt reports she did not take dm medication because she was in denial. Pt reports she has metformin and lipitor at home and will start taking medication. Pt has an appt with Cynthia Mac CNP on 11/05/21 already scheduled. Ok to keep this appt. Call pt if appt needs rescheduled. Corina Sanchez LPN * Telephone Encounter - Clara Nieves Ma - 10/19/2021 4:59 PM EDT Left message for patient to return call. Clara Nieves Ma * Telephone Encounter - Zeeshan Stephen MD - 10/19/2021 3:10 PM EDT 1. Thyroid is not nearly as bad as I expected. Is only mildly up. If has been off meds for three months. Add 50 mcg a day recheck tsh in four weeks. 2. Liver is still up. Last did an us of the liver done in 2019. Recommend seeing hepatology 3. Platelets are low as well likely due to the liver. We need to follow them closely. Recheck with [facility] draw as well. 4. Sugars are very badly controlled. Cholesterol is up. Can we check why she stopped her lipitor and metformin? She is at a level we sometimes even have toconsider insulin. Really needs to be on diabetic meds. She has enough issues I want to follow her up in a month documented in this encounterMercy Health [facility] Hospital04-07-2022 Miscellaneous Notes* Telephone Encounter - Stefani Olguin LPN - 10/18/2021 5:45 PM EDT Patient notified and verbalizes understanding. Advised to call if doesn't improve. Scheduled followup visit. * Telephone Encounter - Zeeshan Stephen MD - 10/18/2021 5:20 PM EDT Shows what looks like possible early pneumonia. Would follow up with one of us in 2-3 weeks. Recheck chest xray in one month. Call if it worsens. documented in this encounterMercy Health Willard Hospital04-07-2022 History of Present illness Narrative* Zeeshan Stephen MD - 10/18/2021 2:52 PM EDT Patient presents with: Cough HPI: Patient presents today for office visit for acute visit. Patient presents today complaining of increased cough. Duration: a month, [facility]. Given zpak. Did not really help. Had gotten worse that day with congestion. Cough is productive:YES, green, blowing thick white nasal drainage. . Fever: :No. Shortness of breath:YES, some wheeze. Sore throat :mild but better. Ear Pain :No. Chest Pain :No. No nausea, vomiting, diarrhea. Had a negative covid and flu at urgent care. Has an albuterol at home. Has been off of thyroid meds for three months. Has noted weight gain. Fatigue. Constipation Has had puffiness all over since not long after stopping thyroid Some dependent leg edema. No redness or warmth. No calf tenderness. Discussed elevation prn. Was taking synthroid 300 mcg a day and 25 mcg on Friday. Discussed importance of compliance. MEDICATIONS: Current Outpatient Medications Medication Sig sertraline (ZOLOFT) 50 mg tablet Take 1 tablet by mouth once daily. omeprazole (PRILOSEC) 20 mg capsule Take 1 capsule by mouth once daily. betamethasone dipropionate (DIPROSONE) 0.05 % cream Apply 1 application to affected area twice daily. (Patient not taking: Reported on 10/18/2021 ) No current facility-administered medications for this visit. ALLERGIES: ALLERGIES Allergen Reactions Cortisone Anaphylaxis Was from celestone injection in her her knee prior to TKR. Has tolerated oral prednisone before. Celestone [Betameth* Rash, Swelling Environmental [Othe* grass, molds, dust=nasal drainage, sneezing, sore throat Penicillins Swelling Prozac [Fluoxetine * Rash Gets red Vicodin [Hydrocodon* Vomiting Vytorin 10-10 [Ezet* Other: See Comments muscle aches with vytorin. Tolerated lipitor PAST MEDICAL HISTORY Diagnosis Date Abdominal pain, generalized pain is the same as before her TONYA Colitis History of chronic colitis diagnosed on colonoscopy with Dr. Barragan Depressive disorder, not elsewhere classified 05/16/2010 Esophageal reflux Gastroesophageal reflux Hyperglycemia 08/06/2016 Hyperlipidemia 05/16/2010 Hypothyroidism 05/16/2010 from Hasthimoto's thyroiditis Inflammatory polyarthropathy (HCC) 12/03/2013 Dr Martinez 11/2013 Migraine headache 05/16/2010 propranolol effective for prevention; last migraine was a few months ago and was milder since on propranolol ; no HTN Nonspecific elevation of levels of transaminase or lactic acid dehydrogenase (LDH) Elevated LFT's Renal calculus 1997 Symptomatic menopausal or female climacteric states PAST SURGICAL HISTORY Procedure Laterality Date ANTERIOR INTERBODY FUSION, CERVICAL 06/2012 Dr. Paz @ [facility] ARTHRP KNE CONDYLE&PLATU MEDIAL&LAT COMPARTMENTS 07/2009 Knee replacement, left BX BREAST PERC VACUUM/ROTN 04/23/07 LEFT COLONOSCOPY FLX DX W/COLLJ SPEC WHEN PFRMD 07/31/2015 Colonoscopy DILATION & CURETTAGE DX&/THER NONOBSTETRIC 1984 Dilation & curettage HYSTERECTOMY HX 2003 HYSTEROSCOPY, DIAGNOSTIC (SEPARATE 2002 Hysteroscopy/curettage LAPAROSCOPY SURG CHOLECYSTECTOMY 2005 Cholecystectomy, lap LAPS ABD PRTM&OMENTUM DX W/WO SPEC BR/WA SPX 2002 Laparoscopy PAST SURGICAL HISTORY OF 1998 lumbardisectomy PAST SURGICAL HISTORY OF [address] foot PAST SURGICAL HISTORY OF 07/2009 left knee arthroscopy PAST SURGICAL HISTORY OF 2005 anterior cervical disk fusion PLCMT LOCALZTN CLIP,PERC,DURING BREAST BX 04/23/[address] Zimmer TONSILLECTOMY PRIMARY/SECONDARY <AGE 12 Tonsillectomy TOTAL ABDOMINAL HYSTERECT W/WO RMVL TUBE OVARY 2003 Hysterectomy, TONYA FAMILY HISTORY Problem Relation Age of Onset Hypertension Mother Heart Father Prostate Cancer Father Cancer Maternal Grandmother thyroid Diabetes Maternal Grandmother Breast Cancer Maternal Grandmother Breast Cancer Paternal Grandmother Diabetes Paternal Grandmother Social History Tobacco Use Smoking status: Never Smoker Smokeless tobacco: Never Used Substance Use Topics Alcohol use: Yes Comment: rarely 3 YEARLY Drug use: No Reviewed current medications, allergies, past medical history, surgical history, family history andsocial history today. REVIEW OF SYSTEMS All other reviewed and negative other than HPI. VITALS: BP 112/60 (BP Site: Right Arm, BP Position: Sitting, BP Cuff Size: Large Adult) Pulse 60 Temp 36.9 C (98.4 F) (Tympanic) Resp 16 Wt 132.5 kg (292 lb) SpO2 97% BMI 41.90 kg/m Last 4 Encounter Wt Readings: Date: Wt: 10/18/2021 132.5 kg (292 lb) 05/03/2021 131.1 kg (289 lb) 03/12/2021 132.9 kg (293 lb) 04/04/2020 127.5 kg (281 lb) PHYSICAL EXAMINATION: General appearance: Well appearing, alert, in no acute distress, well-hydrated, well nourished. Skin: Skin color, texture, turgor normal, no suspicious rashes or lesions Head: Normocephalic, no masses, lesions, tenderness or abnormalities Eyes: Anicteric sclera. Pupils are equally round and reactive to light. Extraocular movements are intact. Ears: External ears normal, canals clear Nose/Sinuses: Nares normal, septum midline, mucosa normal, no drainage or sinus tenderness Oropharynx: Lips, mucosa, and tongue normal, teeth and gums normal, oropharynx normal Neck: Supple, no adenopath Lungs: coarse breath sounds bilaterally. No rales. Heart: RRR without murmur, gallop, or rubs. No ectopy Abdomen: Normal abdominal exam, Abdomen soft, non-tender. Bowel sounds normal. No masses, organomegaly Extremities: trace to one plus edema. Non pitting. No redness or warmth. Musculoskeletal: No joint swelling, deformity, or tenderness ASSESSMENT/PLAN: 1. Bronchitis - ICD9: 490, ICD10: J40 (primary diagnosis) - doxycycline. Albuterol prn. Discussed risks and benefits of new medication with the patient. Advised them to call if any side effects or questions. Red flags for re-assessment reviewed with patient in detail. Call if symptoms worsen at all or if not better in one to two weeks Reviewed diagnosis and treatment options in detail. Questions were answered. Patient expressed understanding of treatment plan. - XR CHEST 2V FRONTAL/LAT 2. Hypothyroidism, unspecified type - ICD9: 244.9, ICD10: E03.9 - reinforced compliance. Check labs to determine how aggressively I can resume meds - TSH BLD - T4/FTI/T4U - LIPID PANEL, NONFASTING 3. Acute right-sided low back pain with right-sided sciatica - ICD9: 724.2, 724.3, ICD10: M54.41 4. Lumbar foraminal stenosis - ICD9: 724.02, ICD10: M48.061 5. Spinal stenosis of lumbar region without neurogenic claudication - ICD9: 724.02, ICD10: M48.061 6. Depressive disorder - ICD9: 311, ICD10: F32.A - SERTRALINE 50 MG TABLET - CBC - COMP METABOLIC PANEL 7. Gastroesophageal reflux disease without esophagitis - ICD9: 530.81, ICD10: K21.9 - OMEPRAZOLE 20 MG CAPSULE,DELAYED RELEASE 8. Hyperglycemia - ICD9: 790.29, ICD10: R73.9 - HGB A1C Zeeshan Stephen RTO in one month and prn. [facility] of [facility] Narrative* Problem Noted Date Resolved Date BRBPR (bright red blood per rectum) 07/17/2015 08/06/2016 documented as of this encounter (statuses as of 10/18/2021) [facility] illness Narrative* Problem Noted Date Resolved Date BRBPR (bright red blood per rectum) 07/17/2015 08/06/2016 documented as of this encounter (statuses as of 10/18/2021) [facility] illness Narrative* Problem Noted Date Resolved Date BRBPR (bright red blood per rectum) 07/17/2015 08/06/2016 documented as of this encounter (statuses as of 10/22/2021) [facility] Narrative* Problem Noted Date Resolved Date BRBPR (bright red blood per rectum) 07/17/2015 08/06/2016 documented as of this encounter (statuses as of 10/23/2021) [address]04-2016 History of Past illness Narrative* Problem Noted Date Resolved Date BRBPR (bright red blood per rectum) 07/17/2015 08/06/2016 documented as of this encounter (statuses as of 11/05/2021) [address]04-2016 History of Past illness Narrative* Problem Noted Date Resolved Date BRBPR (bright red blood per rectum) 07/17/2015 08/06/2016 documented as of this encounter (statuses as of 11/14/2021) [address]04[address]2016 History of Past illness Narrative* Problem Noted Date Resolved Date BRBPR (bright red blood per rectum) 07/17/2015 08/06/2016 documented as of this encounter (statuses as of 12/03/2021) [address]04[address]2016 History of Past illness Narrative* Problem Noted Date Resolved Date BRBPR (bright red blood per rectum) 07/17/2015 08/06/2016 documented as of this encounter (statuses as of 12/18/2021) [address]04[address]2016 History of Past illness Narrative* Problem Noted Date Resolved Date BRBPR (bright red blood per rectum) 07/17/2015 08/06/2016 documented as of this encounter (statuses as of 12/21/2021) [address]04[address]2016 History of Past illness Narrative* Problem Noted Date Resolved Date BRBPR (bright red blood per rectum) 07/17/2015 08/06/2016 documented as of this encounter (statuses as of 12/26/2021) [address]04[address]2016 History of Past illness Narrative* Problem Noted Date Resolved Date BRBPR (bright red blood per rectum) 07/17/2015 08/06/2016 documented as of this encounter (statuses as of 01/02/2022) [address]04[address]2016 History of Past illness Narrative* Problem Noted Date Resolved Date BRBPR (bright red blood per rectum) 07/17/2015 08/06/2016 documented as of this encounter (statuses as of 01/25/2022) [address]04[address]2016 History of Past illness Narrative* Problem Noted Date Resolved Date BRBPR (bright red blood per rectum) 07/17/2015 08/06/2016 documented as of this encounter (statuses as of 02/05/2022) [address]04[address]2016 History of Past illness Narrative* Problem Noted Date Resolved Date BRBPR (bright red blood per rectum) 07/17/2015 08/06/2016 documented as of this encounter (statuses as of 02/05/2022) [address]04[address]2016 History of Past illness Narrative* Problem Noted Date Resolved Date BRBPR (bright red blood per rectum) 07/17/2015 08/06/2016 documented as of this encounter (statuses as of 02/15/2022) [address]04[address]2016 History of Past illness Narrative* Problem Noted Date Resolved Date BRBPR (bright red blood per rectum) 07/17/2015 08/06/2016 documented as of this encounter (statuses as of 03/22/2022) [address]04[address]2016 History of Past illness Narrative* Problem Noted Date Resolved Date BRBPR (bright red blood per rectum) 07/17/2015 08/06/2016 documented as of this encounter (statuses as of 03/25/2022) [address]04[address]2016 History of Past illness Narrative* Problem Noted Date Resolved Date BRBPR (bright red blood per rectum) 07/17/2015 08/06/2016 documented as of this encounter (statuses as of 03/25/2022) [address]04[address]2016 History of Past illness Narrative* Problem Noted Date Resolved Date BRBPR (bright red blood per rectum) 07/17/2015 08/06/2016 documented as of this encounter (statuses as of 04/01/2022) [address]04[address]2016 History of Past illness Narrative* Problem Noted Date Resolved Date BRBPR (bright red blood per rectum) 07/17/2015 08/06/2016 documented as of this encounter (statuses as of 04/16/2022) [address]04-2016 History of Past illness Narrative* Problem Noted Date Resolved Date BRBPR (bright red blood per rectum) 07/17/2015 08/06/2016 documented as of this encounter (statuses as of 04/16/2022) [address]04[address]2016 History of Past illness Narrative* Problem Noted Date Resolved Date BRBPR (bright red blood per rectum) 07/17/2015 08/06/2016 documented as of this encounter (statuses as of 05/06/2022) [address]04[address]2016 History of Past illness Narrative* Problem Noted Date Resolved Date BRBPR (bright red blood per rectum) 07/17/2015 08/06/2016 documented as of this encounter (statuses as of 06/05/2022) [facility] Narrative* Problem Noted Date Resolved Date BRBPR (bright red blood per rectum) 07/17/2015 08/06/2016 documented as of this encounter (statuses as of 06/11/2022) [facility] Narrative* Problem Noted Date Resolved Date BRBPR (bright red blood per rectum) 07/17/2015 08/06/2016 documented as of this encounter (statuses as of 06/14/2022) [place] [address]-04-2016 History of Past illness Narrative* Problem Noted Date Resolved Date BRBPR (bright red blood per rectum) 07/17/2015 08/06/2016 documented as of this encounter (statuses as of 07/23/2022) [address]04[address]2016 History of Past illness Narrative* Problem Noted Date Resolved Date BRBPR (bright red blood per rectum) 07/17/2015 08/06/2016 documented as of this encounter (statuses as of 09/16/2022) [facility] Diagnosis Bacterial pneumonia- Primary Bacterial pneumonia, unspecified [facility] Diagnosis Bronchitis- Primary Bronchitis, not specified as acute or chronic Hypothyroidism, unspecified type Acute right-sided low back pain with right-sided sciatica Lumbar foraminal stenosis Spinal stenosis, lumbar region, without neurogenic claudication Spinal stenosis of lumbar region without neurogenic claudication Spinal stenosis, lumbar region, without neurogenic claudication Depressive disorder Depressive disorder, not elsewhere classified Gastroesophageal reflux disease without esophagitis Esophageal reflux Hyperglycemia Other abnormal glucose 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 [facility] Diagnosis Hypothyroidism, unspecified type- Primary 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 Thrombocytopenia (HCC) Thrombocytopenia, unspecified Elevated liver enzymes Other nonspecific abnormal serum enzyme levels [facility] Diagnosis Bacterial pneumonia- Primary Bacterial pneumonia, unspecified Type 2 diabetes mellitus without complication, without long-term current use of insulin (HCC) Hypothyroidism, unspecified type Elevated liver enzymes Other nonspecific abnormal serum enzyme levels [facility] Diagnosis Type 2 diabetes mellitus without complication, without long-term current use of insulin (HCC) [facility] Diagnosis Thrombocytopenia (HCC)- Primary Thrombocytopenia, unspecified 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 [facility] Diagnosis Chronic pain of right knee- Primary documented in this encounter [facility] note* Diagnosis Inflammatory polyarthropathy (HCC)- Primary Unspecified inflammatory polyarthropathy Elevated liver enzymes Other nonspecific abnormal serum enzyme levels Thrombocytopenia (HCC) Thrombocytopenia, unspecified Myalgia Mylagia and myositis, unspecified [facility] Diagnosis Elevated liver enzymes- Primary Other nonspecific abnormal serum enzyme levels Thrombocytopenia (HCC) Thrombocytopenia, unspecified Positive CHENTE (antinuclear antibody) Other and unspecified nonspecific immunological findings Goiter Goiter, unspecified 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 Mixed hyperlipidemia Rectal bleeding Hemorrhage of rectum and anus Inflammatory polyarthropathy (HCC) Unspecified inflammatory polyarthropathy Multinodular goiter Nontoxic multinodular goiter Type 2 diabetes mellitus without complication, without long-term current use of insulin (HCC) Bacterial pneumonia Bacterial pneumonia, unspecified SOB (shortness of breath) Shortness of breath Heart murmur Undiagnosed cardiac murmurs Diastolic dysfunction Heart disease, unspecified documented in this encounter [facility] note* Diagnosis Thrombocytopenia (HCC)- Primary Thrombocytopenia, unspecified 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 documented in this encounter [facility] note* Diagnosis SOB (shortness of breath)- Primary Shortness of breath Edema, unspecified type LVH (left ventricular hypertrophy) Cardiomegaly Controlled type 2 diabetes mellitus without complication, without long-term current use of insulin (HCC) Type 2 diabetes mellitus without complication, without long-term current use of insulin (HCC) documented in this encounter [facility] note* Diagnosis Osteoarthritis of right knee, unspecified osteoarthritis type- Primary Mixed hyperlipidemia Diastolic dysfunction Heart disease, unspecified ASHLEY (obstructive sleep apnea) Obstructive sleep apnea (adult) (pediatric) 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 Thrombocytopenia (HCC) Thrombocytopenia, unspecified Type 2 diabetes mellitus without complication, without long-term current use of insulin (HCC) Inflammatory polyarthropathy (HCC) Unspecified inflammatory polyarthropathy Elevated liver enzymes Other nonspecific abnormal serum enzyme levels documented in this encounter [facility] note* Diagnosis 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 documented in this encounter [facility] note* Diagnosis Fatty liver- Primary Other chronic nonalcoholic liver disease Thrombocytopenia (HCC) Thrombocytopenia, unspecified Elevated liver enzymes Other nonspecific abnormal serum enzyme levels 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 documented in this encounter [facility] note* Diagnosis Encounter for screening mammogram for breast cancer documented in this encounter [facility] note* Diagnosis 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- Primary documented in this encounter [facility] note* Diagnosis Mixed hyperlipidemia- Primary History of colonic polyps Personal history of colonic polyps CARTER (nonalcoholic steatohepatitis) Other chronic nonalcoholic liver disease Diastolic dysfunction Heart disease, unspecified ASHLEY (obstructive sleep apnea) Obstructive sleep apnea (adult) (pediatric) Other cirrhosis of liver (HCC) Secondary esophageal varices without bleeding (HCC) Esophageal varices without mention of bleeding in diseases classified elsewhere 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 Type 2 diabetes mellitus without complication, without long-term current use of insulin (HCC) Thrombocytopenia (HCC) Thrombocytopenia, unspecified Inflammatory polyarthropathy (HCC) Unspecified inflammatory polyarthropathy Positive CHENTE (antinuclear antibody) Other and unspecified nonspecific immunological findings Screening for HIV (human immunodeficiency virus) Special screening examination for other specified viral diseases documented in this encounter [facility] note* Diagnosis Inflammatory polyarthropathy (HCC)- Primary Unspecified inflammatory polyarthropathy 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 documented in this encounter [facility] note* Diagnosis Type 2 diabetes mellitus without complication, without long-term current use of insulin (HCC)- Primary documented in this encounter [facility] note* Diagnosis Hospital discharge follow-up- Primary Other follow-up examination 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 Type 2 diabetes mellitus without complication, without long-term current use of insulin (HCC) Depressive disorder Depressive disorder, not elsewhere classified Gastroesophageal reflux disease without esophagitis Esophageal reflux Encounter for screening for osteoporosis Special screening for osteoporosis TIA (transient ischemic attack) Unspecified transient cerebral ischemia CARTER (nonalcoholic steatohepatitis) Other chronic nonalcoholic liver disease Secondary esophageal varices without bleeding (HCC) Esophageal varices without mention of bleeding in diseases classified elsewhere documented in this encounter [facility] note* Diagnosis Generalized OA- Primary Generalized osteoarthrosis, unspecified site Inflammatory polyarthropathy (HCC) Unspecified inflammatory polyarthropathy Right leg swelling Swelling of limb Heart murmur Undiagnosed cardiac murmurs Bilateral hand pain Pain in limb Positive CHENTE (antinuclear antibody) Other and unspecified nonspecific immunological findings Elevated sed rate Elevated sedimentation rate Thrombocytopenia (HCC) Thrombocytopenia, unspecified documented in this encounter [facility] note* Diagnosis Piriformis syndrome, left- Primary documented in this encounter [facility] note* Diagnosis Encounter for screening mammogram for breast cancer documented in this encounter [facility] note* Diagnosis Wellness examination- Primary TIA (transient ischemic attack) Unspecified transient cerebral ischemia LVH (left ventricular hypertrophy) Cardiomegaly Diastolic dysfunction Heart disease, unspecified Mixed hyperlipidemia ASHLEY (obstructive sleep apnea) Obstructive sleep apnea (adult) (pediatric) Type 2 diabetes mellitus without complication, without long-term current use of insulin (HCC) 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 Multinodular goiter Nontoxic multinodular goiter Obesity, Class III, BMI 40-49.9 (morbid obesity) (HCC) Morbid obesity CARTER (nonalcoholic steatohepatitis) Other chronic nonalcoholic liver disease Secondary esophageal varices without bleeding (HCC) Esophageal varices without mention of bleeding in diseases classified elsewhere Colitis, acute Other and unspecified noninfectious gastroenteritis and colitis Positive CHENTE (antinuclear antibody) Other and unspecified nonspecific immunological findings Inflammatory polyarthropathy (HCC) Unspecified inflammatory polyarthropathy Osteoarthritis of right knee, unspecified osteoarthritis type Thrombocytopenia (HCC) Thrombocytopenia, unspecified Lymphopenia Lymphocytopenia Migraine without aura and with status migrainosus, not intractable Migraine without aura, without mention of intractable migraine with status migrainosus Chronic depression Depressive disorder, not elsewhere classified Abnormal mammogram Abnormal mammogram, unspecified Mastodynia Encounter for immunization Need for other specified prophylactic vaccination against single bacterial disease Forgetfulness Other general symptoms documented in this encounter [facility] for referral (narrative)* Diagnostic Procedure Only (Routine) - Pending Review Specialty Diagnoses / Procedures Referred By Lynn ramírez Referred To Contact [facility] IMAGING Diagnoses Elevated liver enzymes Thrombocytopenia (HCC) Procedures US ABD RT UPPER QUADRANT US ABDOMINAL REAL TIME W/IMAGE LIMITED Dawn Christian MD [address] [place] [address] [facility] Referral ID Status Reason Start Date Expiration Date Visits Requested Visits Authorized [id number] Pending Review Auto-Generat ed Referral 12/25/2021 01/24/2023 1 1 [facility] for referral (narrative)* Outpatient Procedure (Routine) - Pending Review Specialty Diagnoses / Procedures Referred By Contac t Referred To Contact [facility] Diagnoses Heart murmur Procedures ECHO ECHO TTHRC R-T 2D W/WOM-MODE COMPL SPEC&[place] [address] [place] [id number] [facility] [address] [place] [address] Referral ID Status Reason Start Date Expiration Date Visits Requested Visits Authorized [id number] Pending Review Auto-Generat ed Referral 01/02/2022 01/02/2023 1 1 * Diagnostic Procedure Only (Routine) - Pending Review Specialty Diagnoses / Procedures Referred By Contac t Referred To Contact [facility] Diagnoses Multinodular goiter Procedures US THYROID/PARATHYROID US SOFT TISSUE HEAD & NECK REAL TIME IMGE Zeeshan Cavazos MD [address] [place] [id number] [facility] Referral ID Status Reason Start Date Expiration Date Visits Requested Visits Authorized [id number] Pending Review Auto-Generat ed Referral 01/02/2022 02/01/2023 1 1 * Consult, Test, Treat (Routine) - Authorized Specialty Diagnoses / Procedures Referred By Contac t Referred To Contact Rheumatology Diagnoses Inflammatory polyarthropathy (HCC) Procedures CONSULT TO RHEUM/IMMUN DISEASE OFFICE/OUTPATIENT NEW HIGH MDM 60-74 MINUTES Zeeshan Stephen MD [address] [place] [address] Referral ID Status Reason Start Date Expiration Date Visits Requested Visits Authorized [id number] Authorized PCP Requested Referral 01/02/2022 01/02/2023 1 1 * Transition of Care (Routine) - Ref Not Required Specialty Diagnoses / Procedures Referred By Contac t Referred To Contact Gastroenterology Diagnoses Elevated liver enzymes Rectal bleeding Procedures CONSULT TO GASTROENTEROLOGY Zeeshan Stephen MD [address] [place] [address] Referral ID Status Reason Start Date Expiration Date Visits Requested Visits Authorized [id number] Ref Not Required PCP Requested Referral 01/02/2022 01/02/2023 1 1 [facility] for referral (narrative)* Diagnostic Procedure Only (Routine) - Pending Review Specialty Diagnoses / Procedures Referred By Contac t Referred To Contact [facility] Diagnoses Encounter for screening mammogram for breast cancer Procedures OSORIO SCREENING SCREENING MAMMOGRAPHY BI 2-VIEW BREAST INC CAD Zeeshan Stephen MD [address] [place] [address] [facility] [address] [place] [address] Referral ID Status Reason Start Date Expiration Date Visits Requested Visits Authorized [id number] Pending Review Auto-Generat ed Referral 05/31/2023 1 1 [facility] for referral (narrative)* Diagnostic Procedure Only (Routine) - Pending Review Specialty Diagnoses / Procedures Referred By Contac t Referred To Contact [facility] IMAG[facility] Diagnoses Inflammatory polyarthropathy (HCC) Right leg swelling Heart murmur Bilateral hand pain Generalized OA Positive CHENTE (antinuclear antibody) Elevated sed rate Procedures US DVT LOWER RIGHT DUP-SCAN XTR VEINS UNILATERAL/[place] [address] [place] [address] [facility] Referral ID Status Reason Start Date Expiration Date Visits Requested Visits Authorized [id number] Pending Review Auto-Generat ed Referral 10/24/2022 11/23/2023 1 1 * Diagnostic Procedure Only (Routine) - Closed Specialty Diagnoses / Procedures Referred By Contac t Referred To Contact XR IMAGING Diagnoses Inflammatory polyarthropathy (HCC) Right leg swelling Heart murmur Bilateral hand pain Generalized OA Positive CHENTE (antinuclear antibody) Elevated sed rate Procedures XR ANKLE GENERAL 3V AP/LAT/OBL BILATERAL RADEX ANKLE COMPLETE MINIMUM 3 [place] [address] [place] [address] Xr Imaging Referral ID Status Reason Start Date Expiration Date V isits Requested Visits Authorized [id number] Closed Auto-Generate d Referral 10/24/2022 11/23/2023 1 1 * Diagnostic Procedure Only (Routine) - Closed Specialty Diagnoses / Procedures Referred By Contac t Referred To Contact XR IMAGING Diagnoses Inflammatory polyarthropathy (HCC) Right leg swelling Heart murmur Bilateral hand pain Generalized OA Positive CHENTE (antinuclear antibody) Elevated sed rate Procedures XR HAND GENERAL 3V PA/LAT/OBL BILATERAL RADEX HAND MINIMUM 3 [place] [address] [place] [address] Xr Imaging Referral ID Status Reason Start Date Expiration Date V isits Requested Visits Authorized [id number] Closed Auto-Generate d Referral 10/24/2022 11/23/2023 1 1 * Diagnostic Procedure Only (Routine) - Closed Specialty Diagnoses / Procedures Referred By Contac t Referred To Contact XR IMAGING Diagnoses Inflammatory polyarthropathy (HCC) Right leg swelling Heart murmur Bilateral hand pain Generalized OA Positive CHENTE (antinuclear antibody) Elevated sed rate Procedures XR FOOT GENERAL 3V AP/LAT/OBL BILATERAL RADEX FOOT COMPLETE MINIMUM 3 [place] [address] [place] [address] Xr Imaging Referral ID Status Reason Start Date Expiration Date V isits Requested Visits Authorized [id number] Closed Auto-Generate d Referral 10/24/2022 11/23/2023 1 1 [facility] Diagnostic Procedure Only (Routine) - Pending Review Specialty Diagnoses / Procedures Referred By Contac t Referred To Contact BR IMAGING Diagnoses Encounter for screening mammogram for breast cancer Procedures OSORIO SCREENING SCREENING MAMMOGRAPHY BI 2-[place] [address] [place] [address] [facility] [address] [place] [address] Referral ID Status Reason Start Date Expiration Date Visits Requested Visits Authorized [id number] Pending Review Auto-Generat ed Referral 04/09/2023 05/08/2024 1 1 [facility] Advance Directives Documents on File Type Date Recorded 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 Advance Directive(s) 08/26/2018 11:25 AM Documents on File Type Date Recorded 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 Advance Directive(s) 08/26/2018 11:25 AM Reason for Referral Specialty Diagnoses / Procedures Referred By Contac t Referred To Contact Diagnoses Elevated liver enzymes Procedures CONSULT TO HEPATOLOGY OFFICE/OUTPATIENT [facility] 60-74 MINUTES Zeeshan Stephen MD [address] [place] [address] Referral ID Status Reason Start Date Expiration Date Visits Requested Visits Authorized [id number] Authorized PCP Requested Referral 10/19/2021 10/19/2022 1 1 Specialty Diagnoses / Procedures Referred By Contac t Referred To Contact Hematology Diagnoses Thrombocytopenia (HCC) Procedures CONSULT TO HEMATOLOGY OFFICE/OUTPATIENT [facility] 60-74 MINUTES Zeeshan Stephen MD [address] [place] [address] Referral ID Status Reason Start Date Expiration Date Visits Requested Visits Authorized [id number] Authorized PCP Requested Referral 11/27/2021 11/27/2022 1 1 Specialty Diagnoses / Procedures Referred By Contac t Referred To Contact Orthopedics Diagnoses Chronic pain of right knee Procedures CONSULT TO ORTHOPAEDICS OFFICE/OUTPATIENT [facility] 60-74 MINUTES Cynthia Mac APRN.LEASE OPERATOR [address] [place] [address] Referral ID Status Reason Start Date Expiration Date Visits Requested Visits Authorized [id number] Authorized PCP Requested Referral 12/18/2021 12/18/2022 1 1 Specialty Diagnoses / Procedures Referred By Contac t Referred To Contact XR IMAGING Diagnoses Chronic pain of right knee Procedures XR KNEE GENERAL 4V AP BOTH/PA BOTH/LAT/MERC RIGHT RADIOLOGIC EXAM KNEE COMPLETE 4/MORE VIEWS Cynthia Mac, EXCHANGE CONSULTANT.LEASE OPERATOR [address] [place] [address] Xr Imaging Referral ID Status Reason Start Date Expiration Date Visits Requested Visits Authorized [id number] Pending Review Auto-Generat ed Referral 12/18/2021 01/17/2023 1 1 Specialty Diagnoses / Procedures Referred By Contac t Referred To Contact Cardiology Diagnoses SOB (shortness of breath) Edema, unspecified type LVH (left ventricular hypertrophy) Procedures CONSULT TO CARDIOLOGY OFFICE/OUTPATIENT [facility] 60-74 MINUTES Zeeshan Stephen MD [address] [place] [address] Referral ID Status Reason Start Date Expiration Date Visits Requested Visits Authorized [id number] Authorized PCP Requested Referral 02/15/2022 02/15/2023 1 1 Specialty Diagnoses / Procedures Referred By Contac t Referred To Contact Rheumatology Diagnoses Inflammatory polyarthropathy (HCC) Procedures CONSULT TO RHEUM/IMMUN DISEASE OFFICE/OUTPATIENT [facility] 60-74 MINUTES Zeeshan Stephen MD [address] [place] [address] Referral ID Status Reason Start Date Expiration Date Visits Requested Visits Authorized [id number] Authorized PCP Requested Referral 09/20/2022 09/20/2023 1 1 Specialty Diagnoses / Procedures Referred By Contac t Referred To Contact Ophthalmology Diagnoses Type 2 diabetes mellitus without complication, without long-term current use of insulin (HCC) Procedures CONSULT TO OPHTHALMOLOGY OFFICE/OUTPATIENT [facility] 60-74 MINUTES Zeeshan Stephen MD [address] [place] [address] Referral ID Status Reason Start Date Expiration Date Visits Requested Visits Authorized [id number] Authorized PCP Requested Referral 10/03/2022 10/03/2023 1 1 Summary Purpose Family History No Family History Records Found Additional Source Comments Source Comments (unrecognize d section and content) In the event this informatio n is protected by the Federal Confidentiality of Alcohol and Drug Abuse Patient Records regulations: The Federal rules restrict any use of the information to criminally investigate or prosecute any alcohol or drug abuse patient.[facility] HospitalIn the event this information is protected by the Federal Confidentiality of Alcohol and Drug Abuse Patient Records regulations: The Federal rules restrict any use of the information to criminally investigate or prosecute any alcohol or drug abuse patient.[facility] HospitalIn the event this information is protected by the Federal Confidentiality of Alcohol and Drug Abuse Patient Records regulations: The Federal rules restrict any use of the information to criminally investigate or prosecute any alcohol or drug abuse patient.[facility] HospitalIn the event this information is protected by the Federal Confidentiality of Alcohol and Drug Abuse Patient Records regulations: The Federal rules restrict any use of the information to criminally investigate or prosecute any alcohol or drug abuse patient.[facility] HospitalIn the event this information is protected by the Federal Confidentiality of Alcohol and Drug Abuse Patient Records regulations: The Federal rules restrict any use of the information to criminally investigate or prosecute any alcohol or drug abuse patient.[facility] HospitalIn the event this information is protected by the Federal Confidentiality of Alcohol and Drug Abuse Patient Records regulations: The Federal rules restrict any use of the information to criminally investigate or prosecute any alcohol or drug abuse patient.[facility] HospitalIn the event this information is protected by the Federal Confidentiality of Alcohol and Drug Abuse Patient Records regulations: The Federal rules restrict any use of the information to criminally investigate or prosecute any alcohol or drug abuse patient.[facility] HospitalIn the event this information is protected by the Federal Confidentiality of Alcohol and Drug Abuse Patient Records regulations: The Federal rules restrict any use of the information to criminally investigate or prosecute any alcohol or drug abuse patient.[facility] HospitalIn the event this information is protected by the Federal Confidentiality of Alcohol and Drug Abuse Patient Records regulations: The Federal rules restrict any use of the information to criminally investigate or prosecute any alcohol or drug abuse patient.[facility] HospitalIn the event this information is protected by the Federal Confidentiality of Alcohol and Drug Abuse Patient Records regulations: The Federal rules restrict any use of the information to criminally investigate or prosecute any alcohol or drug abuse patient.[facility] HospitalIn the event this information is protected by the Federal Confidentiality of Alcohol and Drug Abuse Patient Records regulations: The Federal rules restrict any use of the information to criminally investigate or prosecute any alcohol or drug abuse patient.[facility] HospitalIn the event this information is protected by the Federal Confidentiality of Alcohol and Drug Abuse Patient Records regulations: The Federal rules restrict any use of the information to criminally investigate or prosecute any alcohol or drug abuse patient.[facility] HospitalIn the event this information is protected by the Federal Confidentiality of Alcohol and Drug Abuse Patient Records regulations: The Federal rules restrict any use of the information to criminally investigate or prosecute any alcohol or drug abuse patient.[facility] HospitalIn the event this information is protected by the Federal Confidentiality of Alcohol and Drug Abuse Patient Records regulations: The Federal rules restrict any use of the information to criminally investigate or prosecute any alcohol or drug abuse patient.[facility] HospitalIn the event this information is protected by the Federal Confidentiality of Alcohol and Drug Abuse Patient Records regulations: The Federal rules restrict any use of the information to criminally investigate or prosecute any alcohol or drug abuse patient.[facility] HospitalIn the event this information is protected by the Federal Confidentiality of Alcohol and Drug Abuse Patient Records regulations: The Federal rules restrict any use of the information to criminally investigate or prosecute any alcohol or drug abuse patient.[facility] HospitalIn the event this information is protected by the Federal Confidentiality of Alcohol and Drug Abuse Patient Records regulations: The Federal rules restrict any use of the information to criminally investigate or prosecute any alcohol or drug abuse patient.[facility] HospitalIn the event this information is protected by the Federal Confidentiality of Alcohol and Drug Abuse Patient Records regulations: The Federal rules restrict any use of the information to criminally investigate or prosecute any alcohol or drug abuse patient.[facility] HospitalIn the event this information is protected by the Federal Confidentiality of Alcohol and Drug Abuse Patient Records regulations: The Federal rules restrict any use of the information to criminally investigate or prosecute any alcohol or drug abuse patient.[facility] HospitalIn the event this information is protected by the Federal Confidentiality of Alcohol and Drug Abuse Patient Records regulations: The Federal rules restrict any use of the information to criminally investigate or prosecute any alcohol or drug abuse patient.[facility] HospitalIn the event this information is protected by the Federal Confidentiality of Alcohol and Drug Abuse Patient Records regulations: The Federal rules restrict any use of the information to criminally investigate or prosecute any alcohol or drug abuse patient.[facility] HospitalIn the event this information is protected by the Federal Confidentiality of Alcohol and Drug Abuse Patient Records regulations: The Federal rules restrict any use of the information to criminally investigate or prosecute any alcohol or drug abuse patient.[facility] HospitalIn the event this information is protected by the Federal Confidentiality of Alcohol and Drug Abuse Patient Records regulations: The Federal rules restrict any use of the information to criminally investigate or prosecute any alcohol or drug abuse patient.[facility] HospitalIn the event this information is protected by the Federal Confidentiality of Alcohol and Drug Abuse Patient Records regulations: The Federal rules restrict any use of the information to criminally investigate or prosecute any alcohol or drug abuse patient.[facility] HospitalIn the event this information is protected by the Federal Confidentiality of Alcohol and Drug Abuse Patient Records regulations: The Federal rules restrict any use of the information to criminally investigate or prosecute any alcohol or drug abuse patient.[facility] HospitalIn the event this information is protected by the Federal Confidentiality of Alcohol and Drug Abuse Patient Records regulations: The Federal rules restrict any use of the information to criminally investigate or prosecute any alcohol or drug abuse patient.[facility] HospitalIn the event this information is protected by the Federal Confidentiality of Alcohol and Drug Abuse Patient Records regulations: The Federal rules restrict any use of the information to criminally investigate or prosecute any alcohol or drug abuse patient.[facility] HospitalIn the event this information is protected by the Federal Confidentiality of Alcohol and Drug Abuse Patient Records regulations: The Federal rules restrict any use of the information to criminally investigate or prosecute any alcohol or drug abuse patient.[facility] HospitalIn the event this information is protected by the Federal Confidentiality of Alcohol and Drug Abuse Patient Records regulations: The Federal rules restrict any use of the information to criminally investigate or prosecute any alcohol or drug abuse patient.[facility] HospitalIn the event this information is protected by the Federal Confidentiality of Alcohol and Drug Abuse Patient Records regulations: The Federal rules restrict any use of the information to criminally investigate or prosecute any alcohol or drug abuse patient.[facility] HospitalIn the event this information is protected by the Federal Confidentiality of Alcohol and Drug Abuse Patient Records regulations: The Federal rules restrict any use of the information to criminally investigate or prosecute any alcohol or drug abuse patient.[facility] HospitalIn the event this information is protected by the Federal Confidentiality of Alcohol and Drug Abuse Patient Records regulations: The Federal rules restrict any use of the information to criminally investigate or prosecute any alcohol or drug abuse patient.[facility] HospitalIn the event this information is protected by the Federal Confidentiality of Alcohol and Drug Abuse Patient Records regulations: The Federal rules restrict any use of the information to criminally investigate or prosecute any alcohol or drug abuse patient.[facility] HospitalIn the event this information is protected by the Federal Confidentiality of Alcohol and Drug Abuse Patient Records regulations: The Federal rules restrict any use of the information to criminally investigate or prosecute any alcohol or drug abuse patient.[facility] HospitalIn the event this information is protected by the Federal Confidentiality of Alcohol and Drug Abuse Patient Records regulations: The Federal rules restrict any use of the information to criminally investigate or prosecute any alcohol or drug abuse patient.[facility] HospitalIn the event this information is protected by the Federal Confidentiality of Alcohol and Drug Abuse Patient Records regulations: The Federal rules restrict any use of the information to criminally investigate or prosecute any alcohol or drug abuse patient.[facility] HospitalIn the event this information is protected by the Federal Confidentiality of Alcohol and Drug Abuse Patient Records regulations: The Federal rules restrict any use of the information to criminally investigate or prosecute any alcohol or drug abuse patient.[facility] HospitalIn the event this information is protected by the Federal Confidentiality of Alcohol and Drug Abuse Patient Records regulations: The Federal rules restrict any use of the information to criminally investigate or prosecute any alcohol or drug abuse patient.[facility] HospitalIn the event this information is protected by the Federal Confidentiality of Alcohol and Drug Abuse Patient Records regulations: The Federal rules restrict any use of the information to criminally investigate or prosecute any alcohol or drug abuse patient.[facility] HospitalIn the event this information is protected by the Federal Confidentiality of Alcohol and Drug Abuse Patient Records regulations: The Federal rules restrict any use of the information to criminally investigate or prosecute any alcohol or drug abuse patient.[facility] HospitalIn the event this information is protected by the Federal Confidentiality of Alcohol and Drug Abuse Patient Records regulations: The Federal rules restrict any use of the information to criminally investigate or prosecute any alcohol or drug abuse patient.[facility] HospitalIn the event this information is protected by the Federal Confidentiality of Alcohol and Drug Abuse Patient Records regulations: The Federal rules restrict any use of the information to criminally investigate or prosecute any alcohol or drug abuse patient.[facility] Reason for Visit (unrecogniz ed section and content) Specialty Diagnoses / Procedures Referred By Contac t Referred To Contact Family Practice / FAMILY MEDICINE Diagnoses Right knee pain R knee painful and giving out Procedures OFFICE/OUTPATIENT ESTABLISHED HIGH MDM 40-54 MIN 4C EST Self Cynthia Mac, ALIS.LEASE OPERATOR [address] [place] [address] Referral ID Status Reason Start Date Expiration Date Visits Re quested Visits Authorized [id number] Closed 12/18/2021 07/13/2022 2 2 Reason Comments Results Reason Comments Cough Specialty Diagnoses / Procedures Referred By Contac t Referred To Contact Family Practice / FAMILY MEDICINE Diagnoses Cough productive cough, last in [facility] 10/08/21, just finished antibiotic, neg for COVID and flu Procedures OFFICE/OUTPATIENT ESTABLISHED MOD MDM 30-39 MIN 4C EST Self Zeeshan Stephen MD [address] [place] [id number] Referral ID Status Reason Start Date Expiration Date V isits Requested Visits Authorized [id number] Authorized 10/18/2021 07/13/2022 10 10 Reason Comments Results Reason Comments Patient Update Reason Comments Recheck 4 week follow up/ pn eumonia Specialty Diagnoses / Procedures Referred By Contac t Referred To Contact Family Practice / FAMILY MEDICINE Diagnoses Follow-up exam, less than 3 months since previous exam 4 WEEK FOLLOW UP Procedures OFFICE/OUTPATIENT ESTABLISHED MOD [facility] 30-39 MIN 4C Zeeshan Benson MD [address] [place] [address] Cynthia Mac, EXCHANGE CONSULTANT.LEASE OPERATOR [address] [place] [address] Referral ID Status Reason Start Date Expiration Date V isits Requested Visits Authorized [id number] Authorized 10/22/2021 07/13/2022 10 10 Reason Onset Date Comments Refill Request 11/14/2021 Reason Comments Knee Pain x couple months, no known injury, causing her to fall (without injury) Referral ID Status Reason Start Date Expiration Date V isits Requested Visits Authorized [id number] Authorized 12/18/2021 07/13/2022 2 2 Reason Comments New Patient Specialty Diagnoses / Procedures Referred By Lynn t Referred To Contact Hematology Diagnoses Thrombocytopenia (HCC) Procedures CONSULT TO HEMATOLOGY OFFICE/OUTPATIENT NEW HIGH MDM 60-[place] [address] [place] [address] Referral ID Status Reason Start Date Expiration Date V isits Requested Visits Authorized [id number] Closed PCP Requested Referral 11/27/2021 11/27/2022 1 1 Reason Comments fax records to Dr Geeta Major office Reason Comments 2 week follow up Specialty Diagnoses / Procedures Referred By Lynn ramírez Referred To Contact Family Practice / FAMILY MEDICINE Diagnoses Follow-up exam 2 week follow up Procedures OFFICE/OUTPATIENT ESTABLISHED HIGH MDM 40-54 [place] 4[place] [address] [place] [address] [place] [address] [place] [address] Referral ID Status Reason Start Date Expiration Date Visits Re quested Visits Authorized [id number] Closed 02/05/2022 07/13/2022 1 1 Reason Comments Follow Up SOB, Edema follow up . Followed up with Cardiology 03/22/22. Holter being placed. Overall things are better. Medical Clearance Surgical clearance n eeded for right knee arthroplasty 04/18/2022 Specialty Diagnoses / Procedures Referred By Lynn ramírez Referred To Contact Family Practice / FAMILY MEDICINE Diagnoses Cough productive cough, last in [facility] 10/08/21, just finished antibiotic, neg for COVID and flu Procedures OFFICE/OUTPATIENT ESTABLISHED MOD MDM 30-39 MIN 4C [place] [address] [place] [address] Reason Comments Future Appointment Surgery Clearance ne eded Reason Comments Established Patient Specialty Diagnoses / Procedures Referred By Lynn t Referred To Contact Hematology/Oncology / HEMATOLOGY/ONCOLOGY Diagnoses OV/SURGICAL CLEARANCE Procedures OFFICE/OUTPATIENT ESTABLISHED HIGH MDM 40-54 MIN EST SIMPLE Self Dawn Christian MD [address] [place] [address] Referral ID Status Reason Start Date Expiration Date Visits Re quested Visits Authorized [id number] Closed 04/03/2022 07/13/2022 1 1 Reason Comments Patient Update Patient Question Reason Comments Appointment Reason Comments lab order Reason Comments Follow Up Specialty Diagnoses / Procedures Referred By Contac t Referred To Contact Family Medicine / FAMILY MEDICINE Diagnoses Follow-up exam Follow up Procedures OFFICE/OUTPATIENT ESTABLISHED HIGH MDM 40-54 MIN 4C EST Zeeshan Stephen MD [facility] [place] [address] [place] [address] [place] [address] Referral ID Status Reason Start Date Expiration Date Visits Re quested Visits Authorized [id number] Closed 08/29/2022 07/13/2023 1 1 Reason Comments Consult Reason Comments Hospital Follow Up [facility] Reason Comments Headache Dizziness Reason Comments Results, Lab Reason Comments New Patient Specialty Diagnoses / Procedures Referred By Contac t Referred To Contact Rheumatology Diagnoses Inflammatory polyarthropathy (HCC) Procedures CONSULT TO RHEUM/IMMUN DISEASE OFFICE/OUTPATIENT [facility] MDM 60-74 MINUTES Zeeshan Stephen MD [address] [place] [address] Referral ID Status Reason Start Date Expiration Date V isits Requested Visits Authorized [id number] Closed PCP Requested Referral 09/20/2022 09/20/2023 1 1 Reason Comments Received Outside Medical Records Reason Comments Patient Question hepatology/GI inform ation Reason Comments Back Pain X 1 month worseningL oss of control of bladder Reason Comments Physical Care Teams (unrecognized sec tion and content) Farmer General Relationship Specialty Start Date End Date Zeeshan Stephen MD [address] [place], [place] [phone] PCP - General Family Practice 08/06/16 Farmer General Relationship Specialty Start Date End Date Zeeshan Stephen MD [address] [place], [place] [id number] PCP - General Family Practice 08/06/16 Farmer General Relationship Specialty Start Date End Date Zeeshan Stephen MD [address] [facility] [place] [address] PCP - General Family Practice 08/06/16 Farmer General Relationship Specialty Start Date End Date Zeeshan Stephen MD [address] [facility] [place] [address] PCP - General Family Practice 08/06/16 Farmer General Relationship Specialty Start Date End Date Zeeshan Stephen MD [address] [facility] [place] [address] PCP - General Family Practice 08/06/16 Farmer General Relationship Specialty Start Date End Date Zeeshan Stephen MD [address] [facility] [place] [address] PCP - General Family Practice 08/06/16 Farmer General Relationship Specialty Start Date End Date Zeeshan Stephen MD [address] [facility] [place] [address] PCP - General Family Practice 08/06/16 Farmer General Relationship Specialty Start Date End Date Zeeshan Stephen MD [address] [facility] [place] [address] PCP - General Family Practice 08/06/16 Farmer General Relationship Specialty Start Date End Date Zeeshan Stephen MD [address] [facility] [place] [address] PCP - General Family Practice 08/06/16 Farmer General Relationship Specialty Start Date End Date Zeeshan Stephen MD [address] [facility] [place] [address] PCP - General Family Practice 08/06/16 Farmer General Relationship Specialty Start Date End Date Zeeshan Stephen MD [address] [facility] [place] [address] PCP - General Family Practice 08/06/16 Farmer General Relationship Specialty Start Date End Date Zeeshan Stephen MD [address] [facility] [place] [address] PCP - General Family Practice 08/06/16 Farmer General Relationship Specialty Start Date End Date Zeeshan Stephen MD [address] [facility] [place] [address] PCP - General Family Practice 08/06/16 Farmer General Relationship Specialty Start Date End Date Zeeshan Stephen MD [address] [facility] [place] [address] PCP - General Family Practice 08/06/16 Farmer General Relationship Specialty Start Date End Date Zeeshan Stephen MD [address] [facility] [place] [address] PCP - General Family Medicine 08/06/16 Farmer General Relationship Specialty Start Date End Date Zeeshan Stephen MD [address] [facility] [place] [address] PCP - General Family Medicine 08/06/16 Farmer General Relationship Specialty Start Date End Date Zeeshan Stephen MD [address] [facility] [place] [address] PCP - General Family Medicine 08/06/16 Farmer General Relationship Specialty Start Date End Date Zeeshan Stephen MD [address] [facility] [place] [address] PCP - General Family Medicine 08/06/16 Farmer General Relationship Specialty Start Date End Date Zeeshan Stephen MD [address] [facility] [place] [address] PCP - General Family Medicine 08/06/16 Farmer General Relationship Specialty Start Date End Date Zeeshan Stephen MD [address] [facility] [place] [address] PCP - General Family Medicine 08/06/16 Farmer General Relationship Specialty Start Date End Date Zeeshan Stephen MD [address] [facility] [place] [address] PCP - General Family Medicine 08/06/16 Farmer General Relationship Specialty Start Date End Date Zeeshan Stephen MD [address] [facility] [place] [address] PCP - General Family Medicine 08/06/16 Farmer General Relationship Specialty [place] [address] [place] [address], [place] [address] PCP - General Family Medicine 08/06/16 Farmer General Relationship Specialty Start Date End Date Zeeshan Stephen MD [address] [facility] [place] [address] PCP - General Family Medicine 08/06/16 Farmer General Relationship Specialty Start Date End Date Zeeshan Stephen MD [address] [facility] [place] [address] PCP - General Family Medicine 08/06/16 Farmer General Relationship Specialty Start Date End Date Zeeshan Stephen MD [address] [facility] [place] [address] PCP - General Family Medicine 08/06/16 Farmer General Relationship Specialty Start Date End Date Zeeshan Stephen MD [address] [facility] [place] [address] PCP - General Family Medicine 08/06/16 Farmer General Relationship Specialty Start Date End Date Zeeshan Stephen MD [address] [facility] [place] [address] PCP - General Family Medicine 08/06/16 Farmer General Relationship Specialty Start Date End Date Zeeshan Stephen MD [address] [place], [place] [address] PCP - General Family Medicine 08/06/16 Farmer General Relationship Specialty Start Date End Date Zeeshan Stephen MD [address] [place], [place] [address] PCP - General Family Medicine 08/06/16 Farmer General Relationship Specialty Start Date End Date Zeeshan Stephen MD [address] [place], [place] [id number] PCP - General Family Medicine 08/06/16 Farmer General Relationship Specialty Start Date End Date Zeeshan Stephen MD [address] [place], [place] [address] PCP - General [facility] 08/06/16 Farmer General Relationship Specialty Start Date End Date Zeeshan Stephen MD [address] [place], [place] [id number] PCP - General Family Medicine 08/06/16 INFORMATION SOURCE (unrecogn ized section and content) FOR RECORDS PERTAINING TO PATIENTS WHO ARE OR HAVE BEEN ENROLLED IN A CHEMICAL DEPENDENCY/SUBSTANCEABUSE PROGRAM, SOME INFORMATION MAY BE OMITTED. This clinical summary was aggregated from multiple sources. Caution should be exercised in using it in the provision of clinical care. This summary normalizes information from multiple sources, and as a consequence, information in this document may materially change the coding, format and clinical context of patient data. In addition, data may be omitted in some cases. CLINICAL DECISIONS SHOULD BE BASED ON THE PRIMARY CLINICAL RECORDS. [employer] provides no warranty or guarantee of the accuracy or completeness of information in this document.
--- NOTE | 2023-07-24 20:37 | ED.VIS.LOWEX ---
HPI History of Present Illness HPI Narrative: Right lower extremity discomfort. Developed on Friday and has gotten worse. Recently had nausea vomiting and diarrhea which resolved. Currently she denies any fever or chills. She has never had a DVT nor any risk factors. Prior ultrasound of the leg which was negative in the past. She has had bilateral knee replacements. She is on no blood thinners. Chief Complaint: Lower Extremity Injury Informant: patient Occured/Mechanism Mechanism/Context: No injury and No blunt trauma Onset/Context/Timing Onset: Days Context: Gradual Onset Timing: Continuous Current Severity: Mild Maximum Severity: Mild Associated Symptoms Associated Symptoms: Negative for Parasthesia, Weakness or Loss of Funtion Narrative Narrative: 63-year-old female with atraumatic right lower leg redness and mild discomfort that is been ongoing now for the last 4 days. No prior history of DVT or PE. No risk factors. No prior history of cellulitis. Prior similar symptoms: No Recent Illness/Hospitalization: No PFSH PFSH Medical History Abnormal EKG Acute bronchitis Alcohol use Ambulates with cane Arthritis Blood disorder Cardiology follow-up encounter Cough COVID-19 DDD (degenerative disc disease), lumbar Debility Depression Difficulty balancing when standing Difficulty swallowing Dyspnea on minimal exertion Enlarged thyroid gland Fatigue Fatigue Hemorrhoids High triglycerides History of echocardiogram History of edema History of stress test Hyperlipidemia Hypersomnia Injury of back Intermittent palpitations Kidney stones Leg cramps Lupus Migraine headache Morbid obesity due to excess calories Non-smoker Open wound of left forearm due to cat bite Rheumatoid arthritis Seasonal allergies Shoulder pain Stomach ulcer Symptomatic sinus bradycardia Thyroid disease TIA (transient ischemic attack) Wears glasses Home Medications omeprazole 20 mg capsule,delayed release 20 mg PO DAILY GERD 09/19/14 [History Last Taken 09/30/22] sertraline 50 mg tablet 50 mg PO DAILY Mood 09/19/14 [History Last Taken 09/30/22] Oral Appliance #1 ea 09/26/20 [Rx Last Taken 05/29/22] albuterol sulfate 90 mcg/actuation aerosol inhaler (Ventolin HFA) 2 puff inhalation Q4H PRN shortness of breath or wheezing #18 grams 12/06/20 [Rx Last Taken 05/29/22] atorvastatin 20 mg tablet 20 mg PO QPM HLD 02/14/22 [History Last Taken 09/30/22] levothyroxine 75 mcg tablet 100 mcg PO DAILY thyroid 02/14/22 [History Last Taken 09/30/22] metformin 500 mg tablet,extended release 24 hr 1,000 mg PO BID DM 03/22/22 [History Last Taken 09/30/22] metoprolol tartrate 25 mg tablet 25 mg PO BID BP 06/04/22 [History Last Taken 09/30/22] acetaminophen 325 mg tablet 650 mg (2 x 325 mg) PO Q6H PRN PRN Pain 1-10 Or Fever>100.7 #0 tabs 10/02/22 [Rx Last Taken Unknown] spironolactone 25 mg tablet 25 mg PO DAILY #90 tabs 11/12/22 [Rx Last Taken Unknown] clindamycin HCl 300 mg capsule (Cleocin HCl) 300 mg PO Q6H #40 CAPSULES 07/24/23 [Rx Last Taken Unknown] Allergy/AdvReac Type Severity Reaction Status Date / Time betamethasone Allergy Other Verified 07/24/23 19:34 [From Celestone] betamethasone sodium Allergy Other Verified 07/24/23 19:34 phosphate [From Celestone] Penicillins Allergy Rash Verified 07/24/23 19:34 triamcinolone acetonide Allergy Other Verified 07/24/23 19:34 [From Kenalog] fluoxetine HCl [From Prozac] AdvReac Vomiting Verified 07/24/23 19:34 hydrocodone bitartrate AdvReac Vomiting Verified 07/24/23 19:34 [From Vicodin] Family History Grandmother Breast cancer Cancer thyroid Diabetes Aunt Breast cancer Father Prostate cancer CAD (coronary artery disease), Onset Age: 45 CABG PCI ND Myocardial infarction, Onset Age: 45 Heart disease Mother Osteoporosis Hypertension Surgical History History of arthroscopic knee surgery History of cholecystectomy History of colonoscopy History of discectomy History of esophagogastroduodenoscopy (EGD) History of hysterectomy History of left heart catheterization (02/14/20) Hx of total knee replacement Status post cervical spinal fusion Status post surgical manipulation of knee joint Status post unilateral knee replacement Social History household members: friend(s) housing: house Smoking Status: Never smoker alcohol intake: former substance use type: does not use additional social history: DOES NOT USE ASPIRIN DOES NOT USE IBUPROFEN ROS ROS ED ROS Narrative Right lower extremity redness. Review of Systems ROS Unobtainable: Denies due to encephalopathy Constitutional Constitutional ED: Denies chills or fever(s) Eyes Eyes: Denies blurry vision ENT ENT ED: Denies ear pain Cardiovascular Cardiovascular: Denies chest pain Respiratory/Chest Respiratory/Chest: Denies cough or dyspnea Gastrointestinal Gastrointestinal: Denies abdominal pain Genitourinary Genitourinary ED: Denies dysuria or hematuria Musculoskeletal Musculoskeletal: Denies arthralgias or back pain Integumentary Denies abscess Neurologic Neurologic: Denies headache(s) Psychiatric Psychiatric: Denies anxiety Endocrine Endocrinology: Denies polydipsia Hematologic/Lymphatic Hematologic/Lymphatic: Denies easy bleeding Allergic/Immunologic Allergic/Immunologic ED: Denies mouth swelling or tongue swelling EXAM Physical Exam Narrative Exam Narrative: Well-appearing 63-year-old female. Vital signs stable afebrile. Currently being evaluated in a hallway chair due to volume and acuity. Clinically does not look septic or toxic. HEENT exam unremarkable. Lungs clear to auscultation bilaterally. Heart regular rate and rhythm rate about 60. Abdomen soft nontender. Moving all 4 extremities. Right lower extremity from the knee to the ankle is red mildly tender consistent with a cellulitis. No necrotic tissue. No cords. No calf pain. No streaking up her leg. No inguinal lymphadenopathy. Normal flexion extension of her right hip, knee and ankle no septic joints. Left lower extremity unremarkable. Normal dorsi plantarflexion bilaterally. Otherwise exam unremarkable. Const Vital Signs: 07/24/23 18:33 Temperature 97.6 F L Temperature Source Temporal Pulse Rate 60 Respiratory Rate 15 Blood Pressure 165/54 H Blood Pressure Mean 91 Pulse Ox 98 Oxygen Delivery Method Room Air Positive well nourished and well developed; Negative for cachectic, contractures or unkempt General Appearance ED: well developed and NAD; Negative for unkempt, cachectic or contractures Nutritional Appearance: Negative for cachectic HEENT Reports moist mucous membranes normocephalic and atraumatic; Negative for trauma or tenderness Eyes PERRL General Eye ED: Negative for other Neck full ROM and supple Thyroid: Negative for tender Lymph Lymphatic: Negative for other Chest Wall inspection of chest normal and palpation of chest normal Chest: Negative for other Resp normal respiratory effort, no retractions and clear to auscultation bilaterally Effort and Inspection: Negative for pain with movement Auscultation: Negative for rales, rhonchi or wheezes Cardio regular rate, regular rhythm, S1 normal heart sound, S2 normal heart sound and no murmurs Rate: Negative for bradycardia or tachycardic Rhythm: Negative for abnormal rhythm Bruits: Negative for other GI non-tender, non-distended and no masses Inspection: Negative for abdominal distention Auscultation: normoactive bowel sounds Palpation: soft; Negative for tender or guarding Back/Spine no CVA tenderness General Back: Negative for CVA tenderness Cervical Spine: Negative for cervical spine tenderness Thoracic Spine / Upper Back: Negative for thoracic spinal tenderness Extremity full ROM; Negative for normal to inspection Extremity Narrative: Right lower extremity cellulitis below the knee. No septic joint. No lymphangitic streaking. No inguinal lymphadenopathy. Right leg is neurovascularly intact with normal strength and range of motion. General Extremety ED: Yes edema; Negative for cyanosis General Extremity: edema; Negative for cyanosis Neuro oriented x3, CN's II-XII intact bilaterally and moves all extremities Sensorium / Orientation: alert, oriented to person, oriented to place and oriented to time; Negative for orientation impaired, confused, lethargic or stuporous Psych mental status grossly normal Appearance: Negative for unkempt Speech: No other Mood & Affect: Negative for anxious Skin no wounds Skin Narrative: Right lower extremity cellulitis. Lesions: no lesions Rashes: No no rashes MDM MDM MDM Narrative Medical decision making narrative: 63-year-old clinically looks well was not diabetic. Has a right lower extremity cellulitis. I do not think she needs labs. Started on clindamycin here another dose tonight before bedtime and 4 times a day starting tomorrow for 10 days. Follow-up with her doctor on Friday or Friday to ensure she is improving. Return if this is looking worse or she is feeling worse. History & Record Review Discussion w/independent historian: Patient Additional record(s) reviewed:: Prior inpatient record, Prior outpatient record, Prior ED visit and Prior labs Discharge Plan Triage Chief Complaint: Lower Extremity Injury ED Provider: Marcell Guevara Dx/Rx/DC Orders Clinical Impression: Cellulitis Instructions: ED Cellulitis Prescriptions: New clindamycin HCl [Cleocin HCl] 300 mg capsule 300 mg PO Q6H Qty: 40 0RF No Action albuterol sulfate [Ventolin HFA] 90 mcg/actuation HFA aerosol inhaler 2 puff inhalation Q4H PRN (Reason: shortness of breath or wheezing) Qty: 18 6RF atorvastatin 20 mg tablet 20 mg PO QPM levothyroxine 75 mcg tablet 100 mcg PO DAILY metformin 500 mg tablet extended release 24 hr 1,000 mg PO BID spironolactone 25 mg tablet 25 mg PO DAILY Qty: 90 0RF omeprazole 20 MG capsule 20 mg PO DAILY sertraline 50 MG tablet 50 mg PO DAILY metoprolol tartrate 25 mg tablet 25 mg PO BID acetaminophen 325 mg Tablet 650 mg PO Q6H PRN PRN (Reason: Pain 1-10 Or Fever>100.7) Qty: 0 0RF (DME) Oral Appliance See Rx Instructions .Route .MEDSUPPLY Qty: 1 0RF Rx Instructions: As directed Primary Care Provider: Zeeshan Chao Referrals: Zeeshan Chao MD [Primary Care Provider] - 3-5 Days Activity Restrictions/Additional Instructions: Follow-up with your doctor to ensure this is improving. If you are getting worse over the weekend fever, feeling worse or the rash is looking worse and coming up your leg you need to return to be further evaluated you may need IV antibiotics. Clindamycin 4 times a day with food on your stomach. Take another dose tonight before you go to bed and restart tomorrow morning. Follow-up with your doctor on Friday or Friday of next week to make sure this is improving. Again return if you are feeling worse. Disposition Disposition: Home, Self Care
[2023-07-24] MEDS: Clindamycin HCl 150 MG Capsule 300 MG PO (20:44)
--- NOTE | 2023-07-24 20:49 | ED.RN ---
called for meds to bed. in waiting room.
== END 2023-07-24 20:49 | disposition home or self-care (01) ==
PROVIDERS: Emergency Provider Emergency Medicine; PCP Family Medicine; Visit Provider Emergency Medicine
DX: L03.115 Cellulitis of right lower limb (principal); Z96.653 Presence of artificial knee joint, bilateral; Z86.16 Personal history of COVID-19
CPT/HCPCS: 99282

== ENCOUNTER → 2023-09-08 | Outpatient (CLI) | payer OTHER, SELFPAY ==
[2023-09-08 10:10] LABS: Absolute Lymphocyte Count 0.82 X10^3/uL (0.83-4.51); Basophil# 0.02 X10^3/uL; Basophil% 0.6 % (0-1); Eosinophil# 0.11 X10^3/uL; Eosinophils% 3.5 % (0-5); Hematocrit 41.3 % (37-47); Hemoglobin 13.6 g/dL (12.0-15.0); Lymphocyte # 0.82 X10^3/ul (0.83-4.51); Lymphocyte % 26.5 % (19-41); Mean Corp Hgb Conc 32.9 g/dL (32-36); Mean Corpuscular Hgb 31.6 pg (27.0-32.0); Mean Corpuscular Volume 95.8 fL (81-99); Mean Platelet Vol. 12.3 fl (6.2-12.0); Monocyte% 6.5 % (0-10); NRBC Flagged by Analyzer 0 % (0-5); Neutrophil # 1.95 X10^3/uL (2.7-7.7); Neutrophil % 62.9 % (47-70); POSITIVE COUNT YES; Platelet Count 71 K/mm3 (150-450); RBC Distribution Width CV 12.8 % (11.6-14.6); RBC Distribution Width SD 45.9 fl (35.1-43.9); Red Blood Count 4.31 M/mm3 (4.2-5.4); White Blood Count 3.1 K/mm3 (4.4-11.0)
[2023-09-08 10:28] LABS: International Normalized Ratio 1.3; Prothrombin Time (Protime)PT. 15.8 SECONDS (11.7-14.9)
[2023-09-08 10:34] LABS: ALB/GLOB Ratio 0.7 RATIO (0.9-2.4); AST(SGOT) 91 U/L (15-37); Alanine Aminotransfer ALT/SGPT 59 U/L (13-56); Alkaline Phosphatase 137 U/L (45-117); Anion Gap 4 (5-15); BUN 8 mg/dL (7-18); BUN/Creat Ratio 12.1 RATIO (10-20); Calcium,Total 9.4 mg/dL (8.5-10.1); Chloride 108 mmol/L (98-107); Creatinine, Serum 0.66 mg/dL (0.55-1.02); EST Glomerular Filtration Rate 96 mL/min (>60); Est Glom Filt Rate - Afr Amer 116 mL/min (>60); Globulin 4.2 g/dL (2.2-4.2); Glucose 116 mg/dL (74-106); Potassium 4.1 mmol/L (3.5-5.1); Protein, Total 7.2 g/dL (6.4-8.2); Sodium Level 137 mmol/L (136-145)
[2023-09-08 10:39] LABS: Vitamin D,25 Hydroxy 12.6 ng/mL
[2023-09-09 14:09] LABS: AFP, Tumor Marker 3.9 ng/mL (0.0-9.2)
== END | disposition home or self-care (01) ==
PROVIDERS: PCP Family Medicine; Referring Provider Internal Medicine; Visit Provider Internal Medicine
DX: K75.81 Nonalcoholic steatohepatitis (NASH) (principal); K74.60 Unspecified cirrhosis of liver
CPT/HCPCS: 36415; 80053; 82105; 82140; 82306; 85025; 85610

== ENCOUNTER → 2025-04-25 | Outpatient (CLI) | payer OTHER, SELFPAY ==
[2025-04-25 12:39] LABS: Differential Indicated SCAN CRITERIA MET; Hematocrit 39.7 % (37-47); Hemoglobin 13.4 g/dL (12.0-15.0); Immature Granulocytes Count 0.010 X10^3/uL (0.0-0.0); Mean Corp Hgb Conc 33.8 g/dL (32-36); Mean Corpuscular Volume 97.8 fL (81-99); Mean Platelet Vol. 12.1 fl (6.2-12.0); NRBC Flagged by Analyzer 0 % (0-5); POSITIVE COUNT YES; POSITIVE DIFFERENTIAL YES; Platelet Count 72 K/mm3 (150-450); RBC Distribution Width CV 12.7 % (11.6-14.6); RBC Distribution Width SD 45.7 fl (35.1-43.9); Red Blood Count 4.06 M/mm3 (4.2-5.4); White Blood Count 2.8 K/mm3 (4.4-11.0)
[2025-04-25 12:59] LABS: Differential Comment SCANNED
[2025-04-25 13:16] LABS: AST(SGOT) 94 U/L (<=31); Alanine Aminotransfer ALT/SGPT 51 U/L (<=34); Albumin, Serum 3.4 g/dL (3.4-4.8); Alkaline Phosphatase 121 U/L (35-104); Anion Gap 8 (5-15); BUN 8 mg/dL (4-19); BUN/Creat Ratio 11.3 RATIO (10-20); Calcium,Total 9.4 mg/dL (7.6-11.0); Carbon Dioxide 25.0 mmol/L (21.0-32.0); Chloride 103 mmol/L (98-108); Cholesterol 192 mg/dL (<=200); Globulin 3.4 g/dL (2.2-4.2); Glucose 110 mg/dL (70-99); Low Density Lipoprotein Calc. 108 mg/dL; Potassium 4.4 mmol/L (3.3-5.1); Pro- Brain NATRIURETIC PEPTIDE 60 pg/mL (<=900); Triglycerides 56 mg/dL; Very Low Density Lipoprotein 11 mg/dL (5-40); cholesterol:hdl ratio screen 2.64
== END | disposition home or self-care (01) ==
LOC: MTLAB 10:11
PROVIDERS: PCP Family Medicine; Referring Provider Nurse Practitioner Gerontology; Visit Provider Nurse Practitioner Gerontology
DX: E78.5 Hyperlipidemia, unspecified (principal); R53.83 Other fatigue; R06.02 Shortness of breath
CPT/HCPCS: 36415; 80053; 80061; 83880; 84443; 85025

== ENCOUNTER → 2025-05-17 | Outpatient (CLI) | payer OTHER, SELFPAY | END | disposition home or self-care (01) | PROVIDERS: PCP Family Medicine; Referring Provider Nurse Practitioner Gerontology; Visit Provider Nurse Practitioner Gerontology | DX: R06.02 Shortness of breath (principal) | CPT/HCPCS: 93306 ==